=== PATIENT | male | born 1950 | race Caucasian/White ===

== ENCOUNTER 2020-08-03 06:30 | Outpatient (REF) | payer MEDICARE, SELFPAY ==
[2020-08-03 11:12] LABS: MANUAL DIFF FLAG NO
[2020-08-03 11:23] LABS: Basophils Absolute Auto 0.1 X10*3/uL (0.0-0.2); Basophils Percent Auto 0.9 % (0-2); Eosinophils Absolute Auto 0.4 X10*3/uL (0.0-0.4); Hematocrit 44.4 % (42-52); Hemoglobin 15.4 g/dl (14.0-18.0); Imm Gran Abs Auto 0.02 X10*3/uL (0.00-0.03); Imm Gran Pct Auto 0.4 % (0.0-0.4); Lymphocytes Absolute Auto 1.3 X10*3/uL (1.2-4.9); Lymphocytes Percent Auto 24.2 % (20-40); Mean Corpuscular HGB Conc 34.7 g/dl (31.0-36.0); Mean Corpuscular Hemoglobin 33.7 pg (27.0-33.0); Mean Corpuscular Volume 97.2 fL (80-98); Mean Platelet Volume 9.7 fL (9.4-12.4); Monocytes Absolute Auto 0.5 X10*3/uL (0.1-1.2); Monocytes Percent Auto 8.7 % (2-11); Neutrophils Absolute Auto 3.1 X10*3/uL (2.0-8.3); Neutrophils Percent Auto 57.8 % (45-73); Platelet Count 196 X10*3/uL (160-400); Red Blood Count 4.57 X10*6/uL (4.60-5.80); Red Cell Distribution Width 11.8 % (11.0-16.0); White Blood Count 5.3 X10*3/uL (4.8-10.8)
[2020-08-03 11:48] LABS: Alanine Aminotransferase 27 U/L (0-40); Albumin Level 4.2 g/dL (3.5-5.0); Alkaline Phosphatase 55 U/L (39-117); Anion Gap 15 (12-20); Aspartate Amino Transferase 19 U/L (5-37); Bilirubin Total 0.8 mg/dL (0.0-1.0); Blood Urea Nitrogen 23 mg/dL (9-16); Calcium 8.9 mg/dL (8.4-10.2); Carbon Dioxide 25 mmol/L (22-29); Chloride 101 mmol/L (96-108); Cholesterol 171 mg/dL; Estimated Glomerular Filt Rate 47; Glucose Fasting 89 mg/dL (60-99); HDL Cholesterol 58 mg/dL; LDL Cholesterol Calculated 101 mg/dl; Sodium 137 mmol/L (135-145); Total Protein 7.2 g/dL (6.5-8.0); Triglycerides 64 mg/dL
[2020-08-03 11:49] LABS: Creatinine Urine 84.74 mg/dL; Total Protein Urine Random < 7 mg/dL (<12)
[2020-08-03 11:57] LABS: T4 Thyroxine 8.7 ug/dL (4.5-12.0); Thyroid Stimulating Hormone 1.26 uIU/mL (0.32-4.0); Vitamin D 25-OH Total 42.7 ng/mL (>30)
[2020-08-03 12:42] LABS: Vitamin B12 671 pg/mL (200-900)
== END 2020-08-03 06:31 | disposition home or self-care (01) ==
LOC: HO.HMGCLDS 06:30
PROVIDERS: PCP Internal Medicine; Visit Provider Internal Medicine Hypertension Specialist
DX: I12.9 Hypertensive chronic kidney disease with stage 1 through stage 4 chronic kidney disease, or unspecified chronic kidney disease (principal); N18.30 Chronic kidney disease, stage 3 unspecified; E78.00 Pure hypercholesterolemia, unspecified; N40.0 Benign prostatic hyperplasia without lower urinary tract symptoms; J45.909 Unspecified asthma, uncomplicated
CPT/HCPCS: 36415; 80053; 80061; 82306; 82607; 82746; 84156; 84436; 84443; 85025

== ENCOUNTER 2020-11-17 06:20 | Outpatient (REF) | payer MEDICARE, SELFPAY ==
[2020-11-17 12:05] LABS: Alanine Aminotransferase 23 U/L (0-40); Albumin Level 4.2 g/dL (3.5-5.0); Alkaline Phosphatase 63 U/L (39-117); Anion Gap 12 (12-20); Aspartate Amino Transferase 17 U/L (5-37); Bilirubin Total 0.6 mg/dL (0.0-1.0); Blood Urea Nitrogen 24 mg/dL (9-16); Carbon Dioxide 27 mmol/L (22-29); Chloride 107 mmol/L (96-108); Cholesterol 166 mg/dL; Estimated Glomerular Filt Rate 51; Glucose Random 88 mg/dL (60-115); HDL Cholesterol 57 mg/dL; LDL Cholesterol Calculated 94 mg/dl; Potassium 4.1 mmol/L (3.3-5.1); Sodium 142 mmol/L (135-145); Triglycerides 75 mg/dL
== END 2020-11-17 06:21 | disposition home or self-care (01) ==
LOC: HO.HMGCLDS 06:20
PROVIDERS: PCP Internal Medicine; Visit Provider Internal Medicine
DX: E78.00 Pure hypercholesterolemia, unspecified (principal)
CPT/HCPCS: 36415; 80053; 80061

== ENCOUNTER 2021-04-05 06:03 | Outpatient (REF) | payer MEDICARE, SELFPAY ==
[2021-04-05 11:04] LABS: MANUAL DIFF FLAG NO
[2021-04-05 11:21] LABS: Basophils Absolute Auto 0.1 X10*3/uL (0.0-0.2); Basophils Percent Auto 0.8 % (0-2); Eosinophils Absolute Auto 0.3 X10*3/uL (0.0-0.4); Eosinophils Percent Auto 4.4 % (0-4); Hematocrit 42.9 % (42-52); Hemoglobin 14.9 g/dl (14.0-18.0); Imm Gran Abs Auto 0.02 X10*3/uL (0.00-0.03); Imm Gran Pct Auto 0.3 % (0.0-0.4); Lymphocytes Absolute Auto 1.7 X10*3/uL (1.2-4.9); Mean Corpuscular HGB Conc 34.7 g/dl (31.0-36.0); Mean Corpuscular Hemoglobin 34.5 pg (27.0-33.0); Mean Corpuscular Volume 99.3 fL (80-98); Mean Platelet Volume 9.7 fL (9.4-12.4); Monocytes Absolute Auto 0.7 X10*3/uL (0.1-1.2); Monocytes Percent Auto 10.2 % (2-11); Neutrophils Absolute Auto 3.9 X10*3/uL (2.0-8.3); Neutrophils Percent Auto 59.3 % (45-73); Platelet Count 194 X10*3/uL (160-400); Red Blood Count 4.32 X10*6/uL (4.60-5.80); Red Cell Distribution Width 12.4 % (11.0-16.0); White Blood Count 6.6 X10*3/uL (4.8-10.8)
[2021-04-05 11:38] LABS: Creatinine Urine 69.28 mg/dL; Total Protein Urine Random < 7 mg/dL (<12)
[2021-04-05 11:43] LABS: Albumin Level 4.1 g/dL (3.5-5.0); Anion Gap 12 (12-20); Blood Urea Nitrogen 15 mg/dL (9-16); Calcium 9.4 mg/dL (8.4-10.2); Carbon Dioxide 29 mmol/L (22-29); Chloride 108 mmol/L (96-108); Estimated Glomerular Filt Rate 49; Magnesium 1.9 mg/dL (1.6-2.6); Phosphorus 3.4 mg/dL (2.7-4.5); Potassium 4.9 mmol/L (3.3-5.1); Sodium 144 mmol/L (135-145)
[2021-04-06 13:31] LABS: Calcium (PTHI) 9.4 mg/dL (8.6-10.3); PTHI 44 pg/mL (14-64)
== END 2021-04-05 06:04 | disposition home or self-care (01) ==
LOC: HO.HMGCLDS 06:03
PROVIDERS: PCP Internal Medicine; Visit Provider Internal Medicine Hypertension Specialist
DX: N18.30 Chronic kidney disease, stage 3 unspecified (principal)
CPT/HCPCS: 36415; 80051; 82040; 82310; 82565; 83735; 83970; 84100; 84156; 84520; 85025

== ENCOUNTER 2021-08-02 06:28 | Outpatient (REF) | payer MEDICARE, SELFPAY ==
[2021-08-02 11:27] LABS: MANUAL DIFF FLAG NO
[2021-08-02 11:37] LABS: Basophils Absolute Auto 0.1 X10*3/uL (0.0-0.2); Basophils Percent Auto 0.8 % (0-2); Eosinophils Absolute Auto 0.5 X10*3/uL (0.0-0.4); Eosinophils Percent Auto 8.1 % (0-4); Hematocrit 43.2 % (42.0-52.0); Imm Gran Abs Auto 0.01 X10*3/uL (0.00-0.03); Imm Gran Pct Auto 0.2 % (0.0-0.4); Lymphocytes Absolute Auto 1.9 X10*3/uL (1.2-4.9); Lymphocytes Percent Auto 29.9 % (20-40); Mean Corpuscular HGB Conc 34.7 g/dl (31.0-36.0); Mean Corpuscular Hemoglobin 33.9 pg (27.0-33.0); Mean Corpuscular Volume 97.7 fL (80.0-98.0); Mean Platelet Volume 9.8 fL (9.4-12.4); Monocytes Absolute Auto 0.6 X10*3/uL (0.1-1.2); Monocytes Percent Auto 9.5 % (2-11); Neutrophils Absolute Auto 3.3 x10*3/uL (2.0-8.3); Neutrophils Percent Auto 51.5 % (45-73); Platelet Count 182 X10*3/uL (160-400); Red Blood Count 4.42 X10*6/uL (4.60-5.80); White Blood Count 6.5 X10*3/uL (4.8-10.8)
[2021-08-02 12:04] LABS: Alanine Aminotransferase 23 U/L (0-40); Albumin Level 4.1 g/dL (3.5-5.0); Alkaline Phosphatase 61 U/L (39-117); Anion Gap 15 (12-20); Aspartate Amino Transferase 19 U/L (5-37); Bilirubin Total 0.9 mg/dL (0.0-1.0); Blood Urea Nitrogen 17 mg/dL (9-16); Calcium 9.5 mg/dL (8.4-10.2); Carbon Dioxide 26 mmol/L (22-29); Chloride 103 mmol/L (96-108); Cholesterol 174 mg/dL; Estimated Glomerular Filt Rate 54; Glucose Random 89 mg/dL (60-115); HDL Cholesterol 60 mg/dL; LDL Cholesterol Calculated 99 mg/dl; Potassium 4.3 mmol/L (3.3-5.1); Sodium 140 mmol/L (135-145); Total Protein 6.9 g/dL (6.5-8.0); Triglycerides 75 mg/dL
[2021-08-02 12:06] LABS: Free T4 (Free Thyroxine) 1.22 ng/dL (0.71-1.85); Thyroid Stimulating Hormone 1.56 uIU/mL (0.32-4.0)
[2021-08-02 12:19] LABS: Folate 16.6 ng/mL (> or = 4.0); Vitamin B12 630 pg/mL (200-900)
== END 2021-08-02 06:29 | disposition home or self-care (01) ==
LOC: HO.HMGCLDS 06:28
PROVIDERS: PCP Internal Medicine; Visit Provider Internal Medicine
DX: E78.00 Pure hypercholesterolemia, unspecified (principal)
CPT/HCPCS: 36415; 80053; 80061; 82607; 82746; 84439; 84443; 85025

== ENCOUNTER 2021-10-12 09:01 | Outpatient (REF) | payer MEDICARE, SELFPAY ==
[2021-10-12 12:06] LABS: Anion Gap 11 (12-20); Blood Urea Nitrogen 16 mg/dL (9-16); Calcium 9.5 mg/dL (8.4-10.2); Carbon Dioxide 28 mmol/L (22-29); Chloride 103 mmol/L (96-108); Estimated Glomerular Filt Rate 51; Potassium 4.2 mmol/L (3.3-5.1); Sodium 138 mmol/L (135-145)
== END 2021-10-12 09:02 | disposition home or self-care (01) ==
LOC: HO.HMGCLDS 09:01
PROVIDERS: PCP Internal Medicine; Visit Provider Internal Medicine Hypertension Specialist
DX: I12.9 Hypertensive chronic kidney disease with stage 1 through stage 4 chronic kidney disease, or unspecified chronic kidney disease (principal); N18.9 Chronic kidney disease, unspecified
CPT/HCPCS: 36415; 80051; 82310; 82565; 84520

== ENCOUNTER 2021-11-29 07:21 | Day surgery (SDC) | payer MEDICARE, SELFPAY ==
[2021-11-24 15:10] VITALS: BMI 32.1
--- NOTE | 2021-11-25 13:19 | HO.ANESPROP2 ---
Documented by User: Asha Dias NP 11/25/21 13:22 HPI - Anesthesia Eval Consult details Narrative: 71yo M for Colonoscopy PMFSH Active Problems Active Problems: All Active Problems (Updated 11/24/21 @ 15:10 by Riya Moser RN) Facial skin lesion (Acute) Impacted cerumen of right ear (Acute) Initial Medicare annual wellness visit (Acute) Atherosclerosis (Acute) Chronic kidney disease (Acute) BPH (benign prostatic hyperplasia) (Acute) Obesity (BMI 30-39.9) (Acute) Asthma (Acute) Hypercholesterolemia (Acute) Hypertension (Acute) Past Medical History Medical History (Updated 11/24/21 @ 15:10 by Riya Moser RN) Asthma Atherosclerosis Avascular necrosis of bone of left hip BPH (benign prostatic hyperplasia) Chronic kidney disease COVID-19 vaccine series completed History of asbestos exposure History of renal calculi Hypercholesterolemia Hypertension Insomnia Obesity (BMI 30-39.9) Peripheral vascular disease Family History Family History Father Hypertension Chronic mental illness Mother Hypertension Gastric cancer Asthma Surgical History Surgical History (Updated 11/24/21 @ 15:10 by Riya Moser RN) H/O colonoscopy History of left hip replacement Social History Social History Housing: House Alcohol intake: current Alcohol intake frequency: holidays/special occasions only Patient Tobacco Use Status: Former Tobacco user Tobacco use type: Cigarette Second Hand Smoke Exposure: No Advance Directives: Yes (HCP) Advance Directives Information Provided: Yes Advance Directives on File: Yes Advance Directives Date on File: 08/03/20 service: No Current occupational status: retired Meds Allergies Allergy/AdvReac Type Severity Reaction Status Date / Time lisinopril Allergy Unknown Unknown Verified 11/24/21 15:13 atorvastatin [Lipitor] AdvReac Unknown Unknown Verified 11/24/21 15:13 DUST Allergy Intermediate ASTHMA- Uncoded 11/24/21 15:12 COUGH Home Medications Medication Instructions Recorded Confirmed Last Taken Type albuterol sulfate 90 mcg/actuation 2 puff INHALATION Q4-6H PRN 08/14/20 11/24/21 Unknown History aerosol inhaler (ProAir HFA) cholecalciferol (vitamin D3) 25 25 mcg PO DAILY 08/14/20 11/24/21 Unknown History mcg (1,000 unit) capsule docusate sodium 100 mg capsule 100 mg PO BID 08/14/20 11/24/21 Unknown History (Colace) mometasone 50 mcg/actuation nasal 2 spray INTRANASAL DAILY 08/14/20 11/24/21 Unknown History spray (Nasonex) vnydubhn-kom-fkakn acid 300 1 tab PO DAILY 08/14/20 11/24/21 Unknown History mcg-lycopene 600 mcg-lutein 300 mcg tablet (Centrum Silver Ultra Men's) Exam Exam Date and Time: November 25, 2021 1319 Height,Weight and Vital Signs: Height 5 ft 8 in Weight 95.708 kg Pertinent Lab Results Pertinent Lab Results: Laboratory Tests 08/02/21 10/12/21 06:35 09:32 WBC 6.5 Hgb 15.0 Hct 43.2 Plt Count 182 Sodium 138 Potassium 4.2 Chloride 103 Carbon Dioxide 28 BUN 16 Creatinine 1.38 Assessment and Plan Assessment Anesthesia Assessment: Chart Reviewed Documented by User: Dunia Aldrich MD 11/29/21 07:54 [facility] Past Medical History Medical History (Updated 11/24/21 @ 15:10 by Riya Moser RN) Asthma Atherosclerosis Avascular necrosis of bone of left hip BPH (benign prostatic hyperplasia) Chronic kidney disease COVID-19 vaccine series completed History of asbestos exposure History of renal calculi Hypercholesterolemia Hypertension Insomnia Obesity (BMI 30-39.9) Peripheral vascular disease Family History Family History Father Hypertension Chronic mental illness Mother Hypertension Gastric cancer Asthma Family history of problems with anesthesia: No Surgical History Surgical History (Updated 11/24/21 @ 15:10 by Riya Moser RN) H/O colonoscopy History of left hip replacement History of Problems with Anesthesia: No Social History Social History Housing: House Alcohol intake: current Alcohol intake frequency: holidays/special occasions only Patient Tobacco Use Status: Former Tobacco user Tobacco use type: Cigarette Second Hand Smoke Exposure: No Advance Directives: Yes (HCP) Advance Directives Information Provided: Yes Advance Directives on File: Yes Advance Directives Date on File: 08/03/20 service: No Current occupational status: retired Meds Allergies Allergy/AdvReac Type Severity Reaction Status Date / Time lisinopril Allergy Unknown Unknown Verified 11/24/21 15:13 atorvastatin [Lipitor] AdvReac Unknown Unknown Verified 11/24/21 15:13 DUST Allergy Intermediate ASTHMA- Uncoded 11/24/21 15:12 COUGH Home Medications Medication Instructions Recorded Confirmed Last Taken Type albuterol sulfate 90 mcg/actuation 2 puff INHALATION Q4-6H PRN 08/14/20 11/24/21 Unknown History aerosol inhaler (ProAir HFA) cholecalciferol (vitamin D3) 25 25 mcg PO DAILY 08/14/20 11/24/21 Unknown History mcg (1,000 unit) capsule docusate sodium 100 mg capsule 100 mg PO BID 08/14/20 11/24/21 Unknown History (Colace) mometasone 50 mcg/actuation nasal 2 spray INTRANASAL DAILY 08/14/20 11/24/21 Unknown History spray (Nasonex) bwerrzvj-sqn-ugxbi acid 300 1 tab PO DAILY 08/14/20 11/24/21 Unknown History mcg-lycopene 600 mcg-lutein 300 mcg tablet (Centrum Silver Ultra Men's) Exam Airway Mallampati Class: II TM Dist: >3cm Neck ROM: Full Heart: rrr Lungs: cta Assessment and Plan Assessment Anesthesia Assessment: Anesthesia Plan Discussed and Chart Reviewed Final Anesthetic Review Family History of Problems with Anesthesia: No History of Problems with Anesthesia: No NPO: Yes ASA Class: III Final Preanesthetic Review: No Changes in Pt Med Stat, Meds/Allgs Chart Reviewed and Consent Obtained/Reviewed Patient Risk: Intermediate Procedure Risk: Intermediate Anesthetic Plan Anesthetic Plan: MAC: Disposition: Standard PACU
--- NOTE | 2021-11-29 07:26 | MHC.SHP ---
Pre-Procedural Eval Section A Date of Service: 11/29/21 The patient is an INPATIENT: No The History & Physical has been completed within 30 days and I have reviewed it.: No Section B Chief Complaint: Screening Relevant Family History (Specify if Yes): Yes Relevant Social History: Tobacco Use (Former smoker) Present Medications: see Short Stay Collaborative assessment Medical History: Significant History (Asthma Atherosclerosis Avascular necrosis of bone of left hip BPH (benign prostatic hyperplasia) Chronic kidney disease History of asbestos exposure History of renal calculi Hypercholesterolemia Hypertension Insomnia Obesity (BMI 30-39.9) Peripheral vascular disease) History of Previous Operations: Relevant previous surgery/procedure and date(s) (History of left hip replacement) Allergies: Allergies Allergy/AdvReac Type Severity Reaction Status Date / Time lisinopril Allergy Unknown Unknown Verified 11/24/21 15:13 atorvastatin [Lipitor] AdvReac Unknown Unknown Verified 11/24/21 15:13 DUST Allergy Intermediate ASTHMA- Uncoded 11/24/21 15:12 COUGH Review of Systems Sugical H&P ROS: Negative: Constitution, Cardiovascular, Respiratory and Gastrointestinal Exam Surgical H&P Exam: Normal: Heart, Normal: Lungs, Normal: Extremities and Normal: Abdomen Plan Diagnosis/Plan: Unchanged I have reviewed the history and physical and performed a pertinent physical examination on my patient. No changes have occurred unless specified.
[2021-11-29 07:42] VITALS: BP 167/82; PULSE 98; RESP 20; TEMP 37.1; O2SAT 95
[2021-11-29] MEDS: Lactated Ringers 1,000 ML 100 ML IVCONT (08:12)
--- NOTE | 2021-11-29 08:15 | P.BOP_ITS ---
Brief Operative Note Date of Service: 11/29/21 Pre-op diagnosis: Colon cancer screening Post-op diagnosis: other (Colon polyps, diverticulosis, hemorrhoids) Procedure: COLONOSCOPY TILL CECUM WITH SNARE POLYPECTOMY AND CONTROL OF BLEEDING Consent: Indications for the procedure and potential complications of bleeding, perforation, reaction to medications and missed diagnosis were discussed with the patient and informed consent was obtained. Instrument: Olympus PCF H 190 L variable stiffness pediatric colonoscope Monitoring: Vital signs and clinical assessment, intermittent blood pressure monitoring, continuous EKG monitoring, Pulse oximetry and Carbon Dioxide monitoring were done throughout the procedure. Colon withdrawl time was 21 minutes. Procedure: The patient was placed in the left lateral decubitis position and pre-procedure medications were administered. After a digital rectal examination of the ano-rectum, the video colonoscope was inserted into the rectum and advanced through the colon to the cecum. The colonoscope was slowly withdrawn in a retrograde panoramic fashion and the colon mucosa was carefully examined including a retroflexed view of the rectum. Findings and interventions are described below. Procedure Difficulty: Colon was long and tortuous and there was some loop formation. Patient was placed in the supine position and LLQ pressure was applied to intubate the ascending colon/cecum Findings: Terminal Ileum: Not evaluated Cecum: A 12-15 mm sessile polyp, removed with a hot snare. A 7-8 mm sessile polyp removed with the cold snare Ascending Colon: Normal Transverse Colon: Normal Descending Colon: Moderate diverticulosis Sigmoid Colon: Moderate diverticulosis Rectum: A 10-12 mm sessile polyp removed with the cold snare. Some bleeding noted from polypectomy site controlled with cautery using the snare tip. 7-8 mm sessile polyp removed with the cold snare Ano-rectum: Moderate internal hemorrhoids and hypertrophied anal papilla Colon preparation: Excellent Impression and Post Procedure Diagnosis: Colonoscopy Findings: Four small to medium sized polyps removed Moderate diverticulosis seen in the left colon Moderate hemorrhoids on retroflexed exam. Plan: Await pathology results Patient has an appointment on 12/08/21 in the GI Clinic with Dr Polanco. Repeat Colonoscopy interval based on path results - in 3-5 years if polyps are adenomatous and 10 years if polyps are hyperplastic. Above findings were reviewed with the patient and colon polyps and diverticulosis handouts were given in the discharge area Surgeon: Latanya Rahman MD Anesthesia: MAC (China Londono CRNA) Was an Promotions Firm Accounts Manager used for this Procedure?: Yes Promotions Firm Accounts Manager: Esteban Lawrence Estimated blood loss (mL): 0 Pathology: other (A- POLYPS CECUM B- RECTAL POLYPS) Condition: stable Disposition: PACU
--- NOTE | 2021-11-29 09:19 | W.PM.OPN ---
Operative Note Operative Note Date of Service: 11/29/21 Narrative: Pre-op diagnosis: Colon cancer screening Post-op diagnosis:?other (Colon polyps, diverticulosis, hemorrhoids) Procedure: COLONOSCOPY TILL CECUM WITH SNARE POLYPECTOMY AND CONTROL OF BLEEDING Consent: Indications for the procedure and potential complications of bleeding, perforation, reaction to medications and missed diagnosis were discussed with the patient and informed consent was obtained. Instrument: Olympus PCF H 190 L variable stiffness pediatric colonoscope Monitoring: Vital signs and clinical assessment, intermittent blood pressure monitoring, continuous EKG monitoring, Pulse oximetry and Carbon Dioxide monitoring were done throughout the procedure. Colon withdrawl time was 21 minutes. Procedure: The patient was placed in the left lateral decubitis position and pre-procedure medications were administered. After a digital rectal examination of the ano-rectum, the video colonoscope was inserted into the rectum and advanced through the colon to the cecum. The colonoscope was slowly withdrawn in a retrograde panoramic fashion and the colon mucosa was carefully examined including a retroflexed view of the rectum. Findings and interventions are described below. Procedure Difficulty:? Colon was long and tortuous and there was some loop formation. Patient was placed in the supine position and LLQ pressure was applied to intubate the ascending colon/cecum Findings: Terminal Ileum: Not evaluated Cecum:? A 12-15 mm sessile polyp, removed with a hot snare. A 7-8 mm sessile polyp removed with the cold snare Ascending Colon:? Normal Transverse Colon:? Normal Descending Colon:? Moderate diverticulosis Sigmoid Colon:? Moderate diverticulosis Rectum:? A 10-12 mm sessile polyp removed with the cold snare.? Some bleeding noted from polypectomy site controlled with cautery using the snare tip.? 7-8 mm sessile polyp removed with the cold snare Ano-rectum:? Moderate internal hemorrhoids and hypertrophied anal papilla Colon preparation: Excellent ? Impression and Post Procedure Diagnosis: Colonoscopy Findings: Four small to medium sized polyps removed Moderate diverticulosis seen in the left colon Moderate hemorrhoids on retroflexed exam. Plan: Letter will be sent to the patient with pathology results Patient has an appointment on 12/08/21 in the GI Clinic with Dr Polanco. Repeat Colonoscopy interval based on path results - in 3-5 years if polyps are adenomatous and 10 years if polyps are hyperplastic. Above findings were reviewed with the patient and colon polyps and diverticulosis handouts were given in the discharge area Surgeon: Latanya Rahman MD Anesthesia:?MAC (China Londono CRNA) Was an Bench Worker Hollow Handle used for this Procedure?:?Yes Bench Worker Hollow Handle:?Esteban Lawrence Estimated blood loss (mL):?0 Pathology:?other (A- POLYPS CECUM? B- RECTAL POLYPS) Condition:?stable Disposition:?PACU
[2021-11-29 09:25] VITALS: BP 98/64; PULSE 78; RESP 20; TEMP 36.6; O2SAT 97
[2021-11-29 09:40] VITALS: BP 99/45; PULSE 80; RESP 18; O2SAT 98
[2021-11-29 09:55] VITALS: BP 113/61; PULSE 76; RESP 18; TEMP 36.6; O2SAT 96
== END 2021-11-29 10:39 | disposition home or self-care (01) ==
PROVIDERS: PCP Internal Medicine; Visit Provider Internal Medicine Gastroenterology
PROC: 0DJD8ZZ Inspection of Lower Intestinal Tract, Via Natural or Artificial Opening Endoscopic (ICD-10-PCS; CPT 45378; principal; 2021-11-29 08:30)
DX: Z12.11 Encounter for screening for malignant neoplasm of colon (principal); D12.0 Benign neoplasm of cecum; K62.1 Rectal polyp; K57.30 Diverticulosis of large intestine without perforation or abscess without bleeding; K64.8 Other hemorrhoids; E78.5 Hyperlipidemia, unspecified; J45.909 Unspecified asthma, uncomplicated; I12.9 Hypertensive chronic kidney disease with stage 1 through stage 4 chronic kidney disease, or unspecified chronic kidney disease; N18.30 Chronic kidney disease, stage 3 unspecified; Z87.891 Personal history of nicotine dependence; E66.9 Obesity, unspecified; Z68.32 Body mass index [BMI] 32.0-32.9, adult; Z79.899 Other long term (current) drug therapy; Z88.8 Allergy status to other drugs, medicaments and biological substances
CPT/HCPCS: 45385; 88305; J2370

== ENCOUNTER 2021-12-01 06:12 | Outpatient (REF) | payer MEDICARE, SELFPAY ==
[2021-12-01 11:42] LABS: Baso%MD 0.7 %; Eos%MD 7.6 %; Hematocrit 40.1 % (42.0-52.0); Hemoglobin 14.1 g/dl (14.0-18.0); IG%MD 0.3 %; Lymph%MD 30.6 %; Mean Corpuscular HGB Conc 35.2 g/dl (31.0-36.0); Mean Corpuscular Hemoglobin 33.8 pg (27.0-33.0); Mean Corpuscular Volume 96.2 fL (80.0-98.0); Mean Platelet Volume 10.6 fL (9.4-12.4); Mono%MD 11.9 %; Neut%MD 48.9 %; Platelet Count 180 X10*3/uL (160-400); Red Blood Count 4.17 X10*6/uL (4.60-5.80); Red Cell Distribution Width 12.2 % (11.0-16.0); White Blood Count 5.8 X10*3/uL (4.8-10.8)
[2021-12-01 12:05] LABS: Alanine Aminotransferase 24 U/L (0-40); Alkaline Phosphatase 59 U/L (39-117); Anion Gap 14 (12-20); Aspartate Amino Transferase 21 U/L (5-37); Blood Urea Nitrogen 13 mg/dL (9-16); Calcium 9.3 mg/dL (8.4-10.2); Carbon Dioxide 25 mmol/L (22-29); Chloride 102 mmol/L (96-108); Estimated Glomerular Filt Rate 55; Glucose Fasting 97 mg/dL (60-99); Potassium 3.9 mmol/L (3.3-5.1); Sodium 137 mmol/L (135-145); Total Protein 6.6 g/dL (6.5-8.0)
[2021-12-01 12:18] LABS: Band Neutrophils Percent 2 % (3-5); Eosinophils Absolute Manual 0.5 X10*3/uL (0.0-0.4); Eosinophils Percent Manual 9 % (0-4); Lymphocytes Absolute Manual 1.7 X10*3/uL (1.2-4.9); Lymphocytes Percent Manual 29 % (20-40); Monocytes Absolute Manual 0.2 X10*3/uL (0.1-1.2); Monocytes Percent Manual 4 % (2-11); Neutrophils Absolute Manual 3.4 X10*3/uL (2.0-8.3); Neutrophils Percent Manual 56 % (45-73); Platelet Estimate NORMAL (NORMAL); Platelet Morphology Comment NORMAL; RBC Morphology NORMAL
== END 2021-12-01 06:13 | disposition home or self-care (01) ==
LOC: HO.HMGCLDS 06:12
PROVIDERS: Visit Provider Nurse Practitioner Acute Care
DX: I10 Essential (primary) hypertension (principal); E78.00 Pure hypercholesterolemia, unspecified
CPT/HCPCS: 36415; 80053; 85007; 85027

== ENCOUNTER 2022-02-14 14:42 | Outpatient (REF) | payer MEDICARE, SELFPAY ==
[2022-02-14 16:21] LABS: MANUAL DIFF FLAG NO
[2022-02-14 16:27] LABS: Basophils Absolute Auto 0.1 X10*3/uL (0.0-0.2); Basophils Percent Auto 0.9 % (0-2); Eosinophils Absolute Auto 0.1 X10*3/uL (0.0-0.4); Eosinophils Percent Auto 1.9 % (0-4); Hematocrit 41.8 % (42.0-52.0); Hemoglobin 14.8 g/dl (14.0-18.0); Imm Gran Abs Auto 0.02 X10*3/uL (0.00-0.03); Imm Gran Pct Auto 0.3 % (0.0-0.4); Lymphocytes Absolute Auto 1.3 X10*3/uL (1.2-4.9); Lymphocytes Percent Auto 22.7 % (20-40); Mean Corpuscular HGB Conc 35.4 g/dl (31.0-36.0); Mean Corpuscular Hemoglobin 34.4 pg (27.0-33.0); Mean Corpuscular Volume 97.2 fL (80.0-98.0); Mean Platelet Volume 9.7 fL (9.4-12.4); Monocytes Absolute Auto 0.5 X10*3/uL (0.1-1.2); Monocytes Percent Auto 8.5 % (2-11); Neutrophils Absolute Auto 3.9 x10*3/uL (2.0-8.3); Neutrophils Percent Auto 65.7 % (45-73); Platelet Count 196 X10*3/uL (160-400); Red Cell Distribution Width 12.4 % (11.0-16.0); White Blood Count 5.9 X10*3/uL (4.8-10.8)
[2022-02-14 16:44] LABS: Alanine Aminotransferase 22 U/L (0-40); Albumin Level 4.3 g/dL (3.5-5.0); Alkaline Phosphatase 56 U/L (39-117); Anion Gap 15 (12-20); Aspartate Amino Transferase 19 U/L (5-37); Bilirubin Total 0.7 mg/dL (0.0-1.0); Blood Urea Nitrogen 18 mg/dL (9-16); Calcium 9.4 mg/dL (8.4-10.2); Carbon Dioxide 23 mmol/L (22-29); Chloride 104 mmol/L (96-108); Cholesterol 152 mg/dL; Estimated Glomerular Filt Rate 51; Glucose Random 96 mg/dL (60-115); HDL Cholesterol 57 mg/dL; LDL Cholesterol Calculated 84 mg/dl; Potassium 4.5 mmol/L (3.3-5.1); Sodium 137 mmol/L (135-145); Total Protein 7.3 g/dL (6.5-8.0); Triglycerides 59 mg/dL
[2022-02-14 17:04] LABS: Thyroid Stimulating Hormone 1.07 uIU/mL (0.32-4.0)
== END 2022-02-14 14:43 | disposition home or self-care (01) ==
LOC: HO.HMGCLDS 14:42
PROVIDERS: PCP Internal Medicine; Visit Provider Internal Medicine
DX: E78.00 Pure hypercholesterolemia, unspecified (principal)
CPT/HCPCS: 36415; 80053; 80061; 84443; 85025

== ENCOUNTER 2022-04-08 13:00 | Outpatient (RCR) | payer MEDICARE, SELFPAY ==
--- NOTE | 2022-04-04 16:40 | MHC.PT.EP ---
[facility] [place] Office [place] Office [place] Office [address] Blayne Chavez [address] [phone] F: [phone] F: [phone] F: [phone] F: [phone] Physical Therapy Plan of Care Date of Evaluation: Date of Surgery: NA Diagnosis: DIZZINESS, GIDDINESS Assessment: Pt IS 71 YO M REFERRED TO PT FROM DR LANDAVERDE WITH DIZZINESS. PRESENTS WITH +BPPV FOR POST CANAL AND HORIZONTAL CANAL. UNDERWENT TREATMENT (JOHNATHAN PT) WITH CELI MANEUVER AND CERV ROTATION R WITH +RESULTS. UNABLE TO ASSESS/ADDRESS L SIDE DUE TO TIME CONSTRAINTS (Pt TO RETURN DAY AFTER TOMORROW FOR FURTHER EVALUATION/RX NEEDED. Frequency and Duration: The patient will be seen 3-5 SESSIONS Short Term Goals: 1. DECREASED DIZZINESS REPORTED 2. INCREASED POSTURE AWARNESS AND AWARENESS OF PREVENTATIVE TCHNIQUES 3. 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 Manual therapy to restore motion and function. Therapeutic exercise to improve strength and flexibility. Neuromuscular re-education for posture and balance. Therapeutic activities to return to functional activities of daily living. Electronically signed by: VISHNU LUNA PT Please sign and return to therapist. Thank you for your referral.
--- NOTE | 2022-05-17 16:04 | MHC.PT.DC ---
[facility] [place] Office [place] Office [place] Office [address] Ale[address] Chavez [address] [phone] F: [phone] F: [phone] F: [phone] F: [phone] Physical Therapy Discharge Report Diagnosis: DIZZINESS, GIDDINESS Date of Surgery: NA Date of Evaluation: 04/04/22 Date of Discharge: 05/17/22 Treatments to Date: 3 Cancellations to Date: No Shows to Date: Discharge Status: Improved Function Patient Elected to Stop Discharge Summary: PER ASSESSMENT LAST SESSION BY JOHNATHAN JORGENSEN PT, DPT Britton arrived stating he feels good. He has had no dizziness since the last visit. He was re-assessed in B benz pikes and B roll test. He was negative for nystagmus and vertigo. Balance was assessed. He presented with impaired static balance. 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 Impaired static balance could be secondary to ankle and foot pain. Pt recommended to trial PT for B LE strength and balance however pt requested to trial some strengthening exercises by self at home. He stated that he a full gym set up and treadmill set up in his house. He also requested some additional HEP for LE strengthening at home. He was given the same as HEP. Britton will only return to PT in case of return of symptoms. ' HAS BEEN >30 DAYS SINCE LAST SESSION. WILL DC AT THIS TIME Electronically signed by: VISHNU LUNA PT Please sign and return to therapist. Thank you for your referral.
== END 2022-05-17 16:05 | disposition home or self-care (01) ==
LOC: HO.PT 13:00
PROVIDERS: PCP Internal Medicine; Visit Provider Internal Medicine
DX: R42 Dizziness and giddiness (principal)
CPT/HCPCS: 95992; 97112; 97162; 97535

== ENCOUNTER 2022-05-18 06:52 | Outpatient (REF) | payer MEDICARE, SELFPAY ==
[2022-05-18 12:04] LABS: Anion Gap 14 (12-20); Blood Urea Nitrogen 16 mg/dL (9-16); Calcium 9.2 mg/dL (8.4-10.2); Carbon Dioxide 27 mmol/L (22-29); Chloride 106 mmol/L (96-108); Estimated Glomerular Filt Rate 55; Glucose Random 94 mg/dL (60-115); Potassium 3.9 mmol/L (3.3-5.1); Sodium 143 mmol/L (135-145)
[2022-05-18 12:12] LABS: Creatinine Urine 60.48 mg/dL; Total Protein Urine Random < 7 mg/dL (<12)
== END 2022-05-18 06:53 | disposition home or self-care (01) ==
LOC: HO.HMGCLDS 06:52
PROVIDERS: PCP Internal Medicine; Visit Provider Internal Medicine Hypertension Specialist
DX: I12.9 Hypertensive chronic kidney disease with stage 1 through stage 4 chronic kidney disease, or unspecified chronic kidney disease (principal)
CPT/HCPCS: 36415; 80048; 84156

== ENCOUNTER 2022-08-01 13:07 | Outpatient (REF) | payer MEDICARE, SELFPAY ==
--- NOTE | ~2022-08-01 | XR_ITS ---
EXAMINATION: XR CHEST CLINICAL INFORMATION: Mild intermittent asthma with acute exacerbation COMPARISON: Chest 10/14/2015 TECHNIQUE: 2 views of the chest were obtained. FINDINGS: The lungs are hypoexpanded with elevated bilateral hemidiaphragms. There is bibasilar atelectasis or scarring. Heart size and progress clarities normal. No gross bony abnormality seen. XR/XR chest 2V IMPRESSION: Hypoexpanded lungs with bibasilar atelectasis or scarring and elevated bilateral hemidiaphragms.
== END 2022-08-01 13:08 | disposition home or self-care (01) ==
LOC: HO.XRAY 13:07
PROVIDERS: PCP Internal Medicine; Visit Provider Internal Medicine
DX: J45.21 Mild intermittent asthma with (acute) exacerbation (principal)
CPT/HCPCS: 71046

== ENCOUNTER 2022-08-05 05:16 | Inpatient (IN) | payer MEDICARE, SELFPAY ==
[2022-08-05] VITALS (9 sets, daily range): BP systolic 97–143; BP diastolic 45–87; PULSE 81–150; RESP 18–24; TEMP 36.1–37.4; O2SAT 93–98; BMI 31.9
--- NOTE | 2022-08-05 | ECG_ITS ---
Test Reason : SOB Blood Pressure : / mmHG Vent. Rate : 149 BPM Atrial Rate : 298 BPM P-R Int : 000 ms QRS Dur : 100 ms QT Int : 262 ms P-R-T Axes : -84 -51 112 degrees QTc Int : 412 ms Atrial flutter with 2:1 A-V conduction Left anterior fascicular block Intra-ventricular conduction delay Abnormal ECG When compared with ECG of 08-MAY-2015 10:11, Atrial flutter has replaced Sinus rhythm Vent. rate has increased BY 66 BPM QRS axis Shifted left Referred By: Generic ED Physician Electronically Signed By:LUCIA JUNIOR MD
--- NOTE | ~2022-08-05 | CT_ITS ---
EXAMINATION: CT ANGIOGRAM OF THE CHEST WITH AND WITHOUT CONTRAST (CT PULMONARY ANGIOGRAM FOR PE) CLINICAL INFORMATION: Reason for Exam SOB, new atrial flutter, elevated D-dimer COMPARISON: Previous chest x-ray most recent from earlier the same day TECHNIQUE: Prior to contrast administration, noncontrast localization images were obtained. Subsequently, multidetector volumetric imaging was performed from the thoracic inlet to below the diaphragms following the administration of 85 mL Omnipaque 350 intravenous contrast. No contrast reaction reported Sagittal, coronal, and MIP oblique sagittal reformatted images were obtained on the CT workstation, uploaded to PACS, and reviewed. This CT examination was performed using dose optimization techniques as appropriate, variously including the following: *Automated exposure control *Adjustment of mA and/or kV according to patient size (this includes techniques or standardized protocols for targeted exams where dose is matched to indication/reason for exam; i.e. extremities or head) *Use of iterative reconstruction technique Total exam dose-length product 444 mGy-cm FINDINGS: QUALITY OF STUDY/CONTRAST BOLUS: Satisfactory. PULMONARY ARTERIES: No central or segmental pulmonary emboli. THORACIC AORTA: No aneurysm or dissection. LUNG: Evaluation of the lungs is limited due to artifact from respiratory motion. The lung volumes are low. There is elevation of the right hemidiaphragm. There is right lower lobe atelectasis/consolidation. There is subsegmental atelectasis at the left lung base. There are increased central lung markings questionable for mild CHF versus changes due to low lung volumes. There are calcified pulmonary nodules suggestive of old granulomatous disease, largest in the left upper lobe.. PLEURA: No pleural effusion or pneumothorax. MEDIASTINUM: Enlarged heart. Coronary artery lesion. No pericardial effusion. Small cm calcifications just to old granulomatous disease. No enlarged hilar or mediastinal lymph nodes.. No evidence of septal bowing or right heart strain. CHEST WALL/AXILLA: No axillary or internal mammary lymphadenopathy. OSSEOUS STRUCTURES: Degenerative changes of the spine and shoulders. UPPER ABDOMEN: Small amount of ascites. No reflux of contrast into the hepatic veins to suggest elevated right heart pressures. CT/CT angio chest PE protocol IMPRESSION: No evidence of pulmonary embolism. Low lung volumes. Elevated right hemidiaphragm. Atelectasis/consolidation of the right lung base subsegmental atelectasis at the left lung base. Evidence of old granulomatous disease. Small bilateral pleural effusions and question mild CHF versus changes related to low lung volumes. Small amount of ascites. VTE: negative
--- NOTE | ~2022-08-05 | XR_ITS ---
EXAMINATION: XR CHEST CLINICAL INFORMATION: Short of breath. Atrial fibrillation. Rule out CHF. COMPARISON: 08/01/2022 TECHNIQUE: Frontal view of the chest was obtained. FINDINGS: The lungs are well expanded. There is no focal consolidation, edema, or effusion. Minimal left basilar atelectasis. No pneumothorax. The cardiomediastinal silhouette is within normal limits. No acute osseous abnormality. Advanced degenerative changes of both glenohumeral joints. XR/XR chest 1V IMPRESSION: Minimal left basilar atelectasis. Otherwise clear lungs.
--- NOTE | ~2022-08-05 | US_ITS ---
EXAMINATION: US VENOUS ULTRASOUND WITH DOPPLER LOWER EXTREMITY, BILATERAL CLINICAL INFORMATION: Bilateral swelling COMPARISON: None TECHNIQUE: Ultrasound of the deep veins is performed from the hip to the calf with compression sonography and color and pulse Doppler assessment. Spectral analysis with color-flow imaging is performed. FINDINGS: RIGHT: There is normal venous compression and respiratory variation and augmented flow. The visualized common femoral vein, superficial femoral vein, profunda femoral vein, popliteal vein, and the trifurcation region shows no evidence of deep venous thrombosis. There is no popliteal fossa cyst. Calf edema. LEFT: There is normal venous compression and respiratory variation and augmented flow. The visualized common femoral vein, superficial femoral vein, profunda femoral vein, popliteal vein, and the posterior tibial veins no evidence of deep venous thrombosis. Left peroneal veins are not well visualized. There is no popliteal fossa cyst. Calf edema. US/US venous duplex LE BI IMPRESSION: No DVT demonstrated in the bilateral lower extremity.
--- NOTE | 2022-08-05 06:38 | ED_ITS ---
HPI - SOB/Dyspnea General Chief Complaint: Dyspnea Stated Complaint: asthmatic, SoB, phlegm, swollen feet Time Seen by Provider: 08/05/22 06:20 Source: patient and family (, Gail) Mode of arrival: ambulatory Limitations: no limitations History of Present Illness HPI Narrative: 72-year-old male who presents emergency department for evaluation of cold-like symptoms x3 weeks with 3 days shortness of breath, dyspnea on exertion, lower extremity swelling, orthopnea. The patient states that he has been sick for approximately 3 weeks asthma exacerbation cold. He states that he has feeling short of breath and having dyspnea on exertion. He states that he has had a cough which is occasionally productive. He states that occasionally he has noted white sputum and spots of blood. Patient was seen at an urgent care clinic and started on a 5 day course of prednisone for an asthma exacerbation which he completed 2 weeks prior with no relief his symptoms. He also states that he was on antibiotics for 5 days and he completed this 1 week prior with no improvement his symptoms. He states that over the last 2-3 days shortness of breath is gotten worse she can hear that he is wheezing. He states he has also had swelling in his lower extremities which she has never had before. Patient has not been able to sleep since he is very short of breath at night, he states he is unable to lie down flat secondary to shortness of breath. Denied fever, chills, rhinorrhea, nausea or vomiting. He continues to have a nonproductive cough, he feels short of breath and has dyspnea on exertion. He states he has had 1 or 2 loose diarrheal stools per day for 3 weeks. Denied abdominal pain. States that his body does her but he denies myalgias and arthralgias. MD elicited complaint: shortness of breath Pertinent past history: asthma Onset (ago): week(s) (3 weeks, worse over the past 3) Timing: constant Severity: moderate Exacerbating factors: lying flat, exertion, movement, coughing and other (Lying down flat, worse at night) Relieving factors: nothing Known history of: asthma Associated symptoms: cough, wheezing, orthopnea and other (Lower extremity edema x3 days) Treatment prior to arrival: bronchodilator and other (Prednisone, antibiotic) Related Data Home oxygen amount: none Home Medications Medication Instructions Recorded Confirmed cholecalciferol (vitamin D3) 25 25 mcg PO DAILY 08/14/20 07/28/22 mcg (1,000 unit) capsule docusate sodium 100 mg capsule 100 mg PO BID 08/14/20 07/28/22 (Colace) kafeexkc-end-bsiab acid 300 1 tab PO DAILY 08/14/20 07/28/22 mcg-lycopene 600 mcg-lutein 300 mcg tablet (Centrum Silver Ultra Men's) Previous Rx's Medication Instructions Recorded amlodipine 5 mg tablet 5 mg PO DAILY #90 tabs 09/13/21 dutasteride 0.5 mg capsule 0.5 mg PO DAILY #90 caps 09/13/21 montelukast 10 mg tablet 10 mg PO BEDTIME #90 tabs 09/13/21 hydrochlorothiazide 12.5 mg tablet 12.5 mg PO QAM #90 tabs 11/02/21 pravastatin 40 mg tablet 40 mg PO BEDTIME 90 days #90 tabs 11/29/21 olmesartan 20 mg tablet 20 mg PO DAILY #90 tabs 01/31/22 meclizine 25 mg tablet 25 mg PO TID #20 tabs 02/14/22 metoprolol succinate 25 mg 25 mg PO DAILY #90 tabs 02/14/22 tablet,extended release 24 hr COVID 19 tests #8 ea 06/27/22 diclofenac sodium 1 % topical gel 4 g topical QID 30 days #100 grams 07/23/22 (Arthritis Pain (diclofenac)) prednisone 10 mg tablet 10 mg PO DAILY 6 days #12 tabs 07/23/22 tamsulosin 0.4 mg capsule 0.4 mg PO DAILY #90 caps 07/23/22 azithromycin 250 mg tablet See Rx Instructions PO .COMPLEX #6 07/28/22 (Zithromax) tabs mometasone 50 mcg/actuation nasal 2 spray intranasal DAILY #17 grams 07/29/22 spray albuterol sulfate 90 mcg/actuation 2 puff inhalation Q4-6H PRN 08/02/22 aerosol inhaler (ProAir HFA) Wheezing #8.5 grams benzonatate 200 mg capsule 200 mg PO BID-TID PRN cough #20 08/02/22 caps Allergies Allergy/AdvReac Type Severity Reaction Status Date / Time lisinopril Allergy Unknown Unknown Verified 08/05/22 05:33 atorvastatin [Lipitor] AdvReac Unknown Unknown Verified 08/05/22 05:33 DUST Allergy Intermediate ASTHMA- Uncoded 07/28/22 15:35 COUGH Review of Systems Review of Systems: Yes all other systems are reviewed and are negative [facility] Past Medical History [facility] Narrative: Social history: Patient is his is here in the emergency department with him. States he does not smoke cigarettes but stopped smoking cigarettes 20 years prior. Has a greater than 30 pack-year history of smoking. He denies drug use. Medical History Asthma Atherosclerosis Avascular necrosis of bone of left hip BPH (benign prostatic hyperplasia) Chronic kidney disease COVID-19 vaccine series completed History of asbestos exposure History of renal calculi Hypercholesterolemia Hypertension Insomnia Obesity (BMI 30-39.9) Peripheral vascular disease Surgical History H/O colonoscopy History of left hip replacement Family History Family History Father Hypertension Chronic mental illness Mother Hypertension Gastric cancer Asthma Social History Social History Housing: House Alcohol intake: former Patient Tobacco Use Status: Former Tobacco user Tobacco use type: Cigarette Smoked in Last 30 Days: No e-Cigarette/Vaping Use: Never Used Second Hand Smoke Exposure: No Use of substances other than those prescribed or required for medical reasons: No Advance Directives: Yes Advance Directives on File: Yes Advance Directives Date on File: 08/03/20 service: No Current occupational status: retired Cognitive needs: No Hearing needs: No Vision needs: Yes Physical Exam Vital Signs: Vital Signs: Last Vital Signs Temp 99.3 F 08/05/22 07:19 Pulse 145 H 08/05/22 08:09 Resp 22 H 08/05/22 08:09 BP 122/77 08/05/22 08:09 Pulse Ox 98 08/05/22 08:09 O2 Del Method 08/05/22 08:09 O2 Flow Rate 2 08/05/22 08:09 BMI result Body Mass Index 31.9 Const: General: cooperative, no acute distress, alert and awake Orientation/consciousness: oriented to person and oriented to place Limitations: no limitations HEENT: Head: Yes normal to inspection, Yes normocephalic and Yes atraumatic Ears: external ears normal Eyes: General: appearance normal, both eyes and all related structures Periorbital: periorbital findings normal Eyelids: Yes eyelids normal Conjunctivae: conjunctivae normal Sclerae: sclerae normal Corneas: corneas normal Pupils: Equal, round and reactive pupils present Direct Oph thalmoscopy: normal light reflex Neck: Neck: Yes normal visual inspection and Yes supple Lymphatic: no lymp hadenopathy noted Chest: Chest palpation & inspection: normal inspection of the chest and normal palpation of entire chest wall Resp: Effort & Inspection: normal respiratory effort, abnormal respiratory pattern, no audible wheezes and no respiratory distress Auscultation: clear to auscultation bilaterally, no crackles, no rales, no rhonchi and no wheezes Cardio: Rhythm: regular rhythm Heart sounds: S1 normal heart sound present, S2 normal heart sound present and Murmur heart sound present GI: Inspection: No distended Palpation (GI): Soft to palpation, nontender, no guarding and No hepatosplenomegaly present Auscultation: normal bowel sounds : General: Yes no CVA tenderness Back/Spine/Pelvis: Back: no CVA tenderness Skin: General skin exam: no rashes or lesions noted Lesions: no lesions Rashes: no rashes Wounds: no wounds Neuro: General: oriented to person and oriented to place Cranial nerves: Yes CN's II-XII intact bilaterally and Yes Equal, round and reactive pupils present Cognition (Neuro): normal cognition Motor exam (neuro): 5/5 motor strength present throughout Extrem: Other: 2+ pitting edema, symmetric General: Yes normal to inspection and Yes no calf tenderness Psych: Appearance: grossly normal Mental Status: mental status grossly normal Speech and movement: Clear speech present Affect: normal affect Thought process: Normal thought process present Course Course Course Narrative: 72-year-old male who presents emergency department with 3 weeks of upper respiratory illness with 2-3 days of worsening shortness of breath at rest and with exertion, orthopnea, and peripheral edema. Patient's vital signs did re veal elevated heart rate of 150, elevated respiratory rate of 22 with normal O2 saturation 97% on room air. Lung exam was clear. The patient does have significant pedal edema. Twelve EKG is consistent with atrial flutter which is a new diagnosis for the patient. I did order CBC, CMP, PT/INR, PTT, D-dimer, lipase, troponin, urinalysis. I will obtain a chest x-ray and a venous duplex of both lower extremities to rule out DVT. Patient was treated with diltiazem 20 mg IV. 1000: Laboratory evaluation: Sodium, chloride and bicarb were low 127, 93 and 21-this is most likely secondary to fluid overload. BUN creatinine were normal 141.08. Bilirubin elevated 1.4. First high sensitivity troponin I was 10.8 which is detectable but not elevated. PT/INR and PTT were normal. D-dimer elevated 651. BNP elevated 322. Radiology evaluation: Chest x-ray consistent with mild congestive heart failure my review of the images. Bilateral duplex ultrasound lower extremity negative for DVT. Given the patient's elevated D-dimer, I did order a CT pulmonary angiogram to rule out pulmonary embolism as the cause of his atrial flutter/fibrillation. I will repeat a troponin at 10 15 hours. The patient's rate he initially was controlled but the patient did require 2nd dose of diltiazem 10 mg IV and he was started on a diltiazem drip as per protocol. 1058: I did discuss over tiger text, the patient's presentation with the covering hospitalist, Dr. Alvarado and the patient will be admitted for further diagnostic workup and treatment. Medications Administered Generic Name Dose Route Start Last Admin Trade Name Freq PRN Reason Stop Dose Admin Diltiazem HCl 125 mg/ Sodium 125 mls @ 0 mls/hr 08/05/22 08:15 08/05/22 09:16 Chloride IVCONT 10 mg/hr .Q0M SUE 10 mls/hr Titration Protocol Per Protocol Discontinued Medications Generic Name Dose Route Start Last Admin Trade Name Freq PRN Reason Stop Dose Admin Diltiazem HCl 20 mg 08/05/22 06:36 08/05/22 07:13 Diltiazem Hcl 50 Mg/10 Ml Vial IVPUSH 08/05/22 06:37 20 mg STAT STA Administration Diltiazem HCl 15 mg 08/05/22 08:06 08/05/22 08:22 Diltiazem Hcl 50 Mg/10 Ml Vial IVPUSH 08/05/22 08:07 10 mg STAT STA Administration Furosemide 40 mg 08/05/22 08:06 11/25/22 08:23 Furosemide 40 Mg/4 Ml Vial IVPUSH 08/05/22 08:07 40 mg ONCE ONE Administration Protocol Iohexol 100 ml 08/05/22 09:36 08/05/22 09:38 Iohexol 350 Mg/Ml 100 Ml Infus..Btl IV 08/05/22 09:37 85 ml ONCE ONE Administration MDM - SOB/Dyspnea Differential Diagnosis Differential diagnosis: Likely acute exacerbation of chronic obstructive airways disease, congestive heart failure, pneumonia and pulmonary embolism Medical Records Attestation: I reviewed the patient's medical records. Lab Data Attestation: I reviewed the patient's lab results. Result diagrams: 08/05/22 07:16 08/05/22 07:16 Labs: Lab Results 08/05/22 08/05/22 08/05/22 Range/Units 07:16 07:16 07:16 WBC 7.7 (4.8-10.8) X10*3/uL RBC 4.01 L (4.60-5.80) X10*6/uL Hgb 13.8 L (14.0-18.0) g/dl Hct 38.5 L (42.0-52.0) % MCV 96.0 (80.0-98.0) fL MCH 34.4 H (27.0-33.0) pg MCHC 35.8 (31.0-36.0) g/dl RDW 12.2 (11.0-16.0) % Plt Count 176 (160-400) X10*3/uL MPV 8.3 L (9.4-12.4) fL Immature Gran % (Auto) 0.5 H (0.0-0.4) % Neut % (Auto) 86.1 H (45-73) % Lymph % (Auto) 6.6 L (20-40) % [place] % (Auto) 6.0 (2-11) % Eos % (Auto) 0.4 (0-4) % Baso % (Auto) 0.4 (0-2) % Lymph # (Auto) 0.5 L (1.2-4.9) X10*3/uL [place] # (Auto) 0.5 (0.1-1.2) X10*3/uL Eos # (Auto) 0.0 (0.0-0.4) X10*3/uL Baso # (Auto) 0.0 (0.0-0.2) X10*3/uL Abs Immat Gran (auto) 0.04 H (0.00-0.03) X10*3/uL Absolute Neuts (auto) 6.7 (2.0-8.3) x10*3/uL Absolute Nucleated RBC 0.000 (0.0-0.012) X10*3/uL Nucleated RBC % (auto) 0.0 (0.0-0.2) /100WBC PT 14.4 H (10.0-13.1) SEC INR 1.2 H (0.9-1.1) APTT 27.7 (26.0-36.4) SEC D-Dimer High Sensitivty 651 NG/ML Sodium 127 L (135-145) mmol/L Potassium 4.2 (3.3-5.1) mmol/L Chloride 93 L (96-108) mmol/L Carbon Dioxide 21 L (22-29) mmol/L Anion Gap 17 (12-20) BUN 14 (9-16) mg/dL Creatinine 1.08 (0.5-1.4) mg/dL Estim Creat Clear Calc 67.1 Estimated GFR > 60 Random Glucose 100 (60-115) mg/dL Calcium 9.0 (8.4-10.2) mg/dL Total Bilirubin 1.4 H (0.0-1.0) mg/dL AST 29 D (5-37) U/L ALT 51 H (0-40) U/L Alkaline Phosphatase 66 (39-117) U/L Troponin I High Sens (<3.5-35.0) ng/L B-Natriuretic Peptide (<100) pg/mL Total Protein 6.5 (6.5-8.0) g/dL Albumin 4.0 (3.5-5.0) g/dL Lipase 24 (8-78) U/L COVID-19 (ROSEMARY) (Negative) COVID-19 Clin Com Influenza Type A (BLAINE) (Negative) Influenza Type B (BLAINE) (Negative) Influenza A & B Note 08/05/22 08/05/22 08/05/22 Range/Units 07:16 07:16 07:16 WBC (4.8-10.8) X10*3/uL RBC (4.60-5.80) X10*6/uL Hgb (14.0-18.0) g/dl Hct (42.0-52.0) % MCV (80.0-98.0) fL MCH (27.0-33.0) pg MCHC (31.0-36.0) g/dl RDW (11.0-16.0) % Plt Count (160-400) X10*3/uL MPV (9.4-12.4) fL Immature Gran % (Auto) (0.0-0.4) % Neut % (Auto) (45-73) % Lymph % (Auto) (20-40) % [place] % (Auto) (2-11) % Eos % (Auto) (0-4) % Baso % (Auto) (0-2) % Lymph # (Auto) (1.2-4.9) X10*3/uL [place] # (Auto) (0.1-1.2) X10*3/uL Eos # (Auto) (0.0-0.4) X10*3/uL Baso # (Auto) (0.0-0.2) X10*3/uL Abs Immat Gran (auto) (0.00-0.03) X10*3/uL Absolute Neuts (auto) (2.0-8.3) x10*3/uL Absolute Nucleated RBC (0.0-0.012) X10*3/uL Nucleated RBC % (auto) (0.0-0.2) /100WBC PT (10.0-13.1) SEC INR (0.9-1.1) APTT (26.0-36.4) SEC D-Dimer High Sensitivty NG/ML Sodium (135-145) mmol/L Potassium (3.3-5.1) mmol/L Chloride (96-108) mmol/L Carbon Dioxide (22-29) mmol/L Anion Gap (12-20) BUN (9-16) mg/dL Creatinine (0.5-1.4) mg/dL Estim Creat Clear Calc Estimated GFR Random Glucose (60-115) mg/dL Calcium (8.4-10.2) mg/dL Total Bilirubin (0.0-1.0) mg/dL AST (5-37) U/L ALT (0-40) U/L Alkaline Phosphatase (39-117) U/L Troponin I High Sens 10.8 (<3.5-35.0) ng/L B-Natriuretic Peptide (<100) pg/mL Total Protein (6.5-8.0) g/dL Albumin (3.5-5.0) g/dL Lipase (8-78) U/L COVID-19 (ROSEMARY) Negative (Negative) COVID-19 Clin Com See Note Influenza Type A (BLAINE) Negative (Negative) Influenza Type B (BLAINE) Negative (Negative) Influenza A & B Note See Note 08/05/22 Range/Units 07:16 WBC (4.8-10.8) X10*3/uL RBC (4.60-5.80) X10*6/uL Hgb (14.0-18.0) g/dl Hct (42.0-52.0) % MCV (80.0-98.0) fL MCH (27.0-33.0) pg MCHC (31.0-36.0) g/dl RDW (11.0-16.0) % Plt Count (160-400) X10*3/uL MPV (9.4-12.4) fL Immature Gran % (Auto) (0.0-0.4) % Neut % (Auto) (45-73) % Lymph % (Auto) (20-40) % [place] % (Auto) (2-11) % Eos % (Auto) (0-4) % Baso % (Auto) (0-2) % Lymph # (Auto) (1.2-4.9) X10*3/uL [place] # (Auto) (0.1-1.2) X10*3/uL Eos # (Auto) (0.0-0.4) X10*3/uL Baso # (Auto) (0.0-0.2) X10*3/uL Abs Immat Gran (auto) (0.00-0.03) X10*3/uL Absolute Neuts (auto) (2.0-8.3) x10*3/uL Absolute Nucleated RBC (0.0-0.012) X10*3/uL Nucleated RBC % (auto) (0.0-0.2) /100WBC PT (10.0-13.1) SEC INR (0.9-1.1) APTT (26.0-36.4) SEC D-Dimer High Sensitivty NG/ML Sodium (135-145) mmol/L Potassium (3.3-5.1) mmol/L Chloride (96-108) mmol/L Carbon Dioxide (22-29) mmol/L Anion Gap (12-20) BUN (9-16) mg/dL Creatinine (0.5-1.4) mg/dL Estim Creat Clear Calc Estimated GFR Random Glucose (60-115) mg/dL Calcium (8.4-10.2) mg/dL Total Bilirubin (0.0-1.0) mg/dL AST (5-37) U/L ALT (0-40) U/L Alkaline Phosphatase (39-117) U/L Troponin I High Sens (<3.5-35.0) ng/L B-Natriuretic Peptide 322 H (<100) pg/mL Total Protein (6.5-8.0) g/dL Albumin (3.5-5.0) g/dL Lipase (8-78) U/L COVID-19 (ROSEMARY) (Negative) COVID-19 Clin Com Influenza Type A (BLAINE) (Negative) Influenza Type B (BLAINE) (Negative) Influenza A & B Note ECG Data Attestation: I personally reviewed and interpreted this ECG as follows: Interpretation: 0605: Atrial flutter with a 2-1 AV block, rapid ventricular response of 149, prolonged QRS 100 milliseconds, normal QTC 412 milliseconds, no ST segment elevation, no ST segment depression, Q-wave V1 no T-wave abnormalities. No old EKG for comparison. Critical Care Time Critical Care Time Critical Care Time: Yes Total Critical Care Time: 30 Attestation: Critical Care: The patient was critically ill with a high probability of imminent or life threatening deterioration. I spent greater than 30 minutes of discontinuous time evaluating the patient,delivering critical care at the [facility], discussing and evaluating pertinent data with consultants. Critical care time does not include time spent performing separately billable procedures or teaching. Total time spent performing critical care was 30 minutes. Discharge Plan Discharge Clinical Impression: Atrial fibrillation, new onset, Peripheral edema CHF (congestive heart failure) Qualifiers: Heart failure chronicity: acute Prescriptions: No Action montelukast 10 mg tablet 10 mg PO BEDTIME Qty: 90 3RF amlodipine 5 mg tablet 5 mg PO DAILY Qty: 90 3RF dutasteride 0.5 mg capsule 0.5 mg PO DAILY Qty: 90 2RF hydrochlorothiazide 12.5 mg tablet 12.5 mg PO QAM Qty: 90 3RF pravastatin 40 mg tablet 40 mg PO BEDTIME 90 Days Qty: 90 2RF olmesartan 20 mg tablet 20 mg PO DAILY Qty: 90 2RF metoprolol succinate 25 mg tablet extended release 24 hr 25 mg PO DAILY Qty: 90 1RF diclofenac sodium [Arthritis Pain (diclofenac)] 1 % gel 4 g topical QID 30 Days Qty: 100 11RF Rx Instructions: apply to single knee, ankle, foot; for foot includes sole/toes/top of foot tamsulosin 0.4 mg capsule 0.4 mg PO DAILY Qty: 90 2RF mometasone 50 mcg/actuation spray,non-aerosol 2 spray intranasal DAILY Qty: 17 3RF Rx Instructions: administer into each nostril benzonatate 200 mg capsule 200 mg PO BID-TID PRN (Reason: cough) Qty: 20 0RF albuterol sulfate [ProAir HFA] 90 mcg/actuation HFA aerosol inhaler 2 puff inhalation Q4-6H PRN (Reason: Wheezing) Qty: 8.5 0RF Centrum Silver Ultra Men's 300-600-300 mcg tablet 1 tab PO DAILY cholecalciferol (vitamin D3) 25 mcg (1,000 unit) capsule 25 mcg PO DAILY docusate sodium [Colace] 100 mg capsule 100 mg PO BID azithromycin [Zithromax] 250 mg tablet See Rx Instructions PO .COMPLEX Qty: 6 0RF Rx Instructions: For 250 mg dose pack: take 500 mg today (day 1), then 250 mg for 4 days (days 2-5) PO meclizine 25 mg tablet 25 mg PO TID Qty: 20 0RF (DME) COVID 19 tests See Rx Instructions .Route .MEDSUPPLY Qty: 8 0RF Rx Instructions: As directed prednisone 10 mg tablet 10 mg PO DAILY 6 Days Qty: 12 0RF
[2022-08-05] MEDS: dilTIAZem HCL 50 MG/10 ML VIAL 20 MG IVPUSH (07:13)
[2022-08-05 07:23] LABS: MANUAL DIFF FLAG NO
--- NOTE | 2022-08-05 07:23 | PC.NURSE ---
Pt alert/oriented. Reports three weeks of cough/SOB with worsening sx of 2-3 days with associated BLE, +2 noted. HR 150s rapid afib, Cardizem given with HR down to 107-115. Pt speaking full sentences, skin midly flushed. Occasional dry cough. Mild SOB with rest
[2022-08-05 07:30] LABS: Basophils Percent Auto 0.4 % (0-2); Eosinophils Percent Auto 0.4 % (0-4); Hematocrit 38.5 % (42.0-52.0); Hemoglobin 13.8 g/dl (14.0-18.0); Imm Gran Abs Auto 0.04 X10*3/uL (0.00-0.03); Imm Gran Pct Auto 0.5 % (0.0-0.4); Lymphocytes Absolute Auto 0.5 X10*3/uL (1.2-4.9); Lymphocytes Percent Auto 6.6 % (20-40); Mean Corpuscular HGB Conc 35.8 g/dl (31.0-36.0); Mean Corpuscular Hemoglobin 34.4 pg (27.0-33.0); Mean Platelet Volume 8.3 fL (9.4-12.4); Monocytes Absolute Auto 0.5 X10*3/uL (0.1-1.2); Neutrophils Absolute Auto 6.7 x10*3/uL (2.0-8.3); Neutrophils Percent Auto 86.1 % (45-73); Platelet Count 176 X10*3/uL (160-400); Red Blood Count 4.01 X10*6/uL (4.60-5.80); Red Cell Distribution Width 12.2 % (11.0-16.0); White Blood Count 7.7 X10*3/uL (4.8-10.8)
[2022-08-05 07:33] LABS: INTERNATIONAL NORM RATIO 1.2 (0.9-1.1); Prothrombin Time 14.4 SEC (10.0-13.1)
[2022-08-05 07:35] LABS: D Dimer High Sensitivity 651 NG/ML
[2022-08-05 07:36] LABS: Partial Thromboplastin Time 27.7 SEC (26.0-36.4)
[2022-08-05 07:47] LABS: Troponin-I High Sensitivity 10.8 ng/L (<3.5-35.0)
[2022-08-05 07:49] LABS: COVID-19 Test Negative (Negative); IDNOW Serial# 16C4AD1C; IDNOW Serial# BCCEAD1C; Influenza A Negative (Negative); Influenza B2 Negative (Negative)
[2022-08-05 07:51] LABS: Alanine Aminotransferase 51 U/L (0-40); Alkaline Phosphatase 66 U/L (39-117); Anion Gap 17 (12-20); Aspartate Amino Transferase 29 U/L (5-37); Bilirubin Total 1.4 mg/dL (0.0-1.0); Blood Urea Nitrogen 14 mg/dL (9-16); Carbon Dioxide 21 mmol/L (22-29); Chloride 93 mmol/L (96-108); Creatinine Clr Calc Pharmacy 67.1; Estimated Glomerular Filt Rate > 60; Glucose Random 100 mg/dL (60-115); Lipase 24 U/L (8-78); Potassium 4.2 mmol/L (3.3-5.1); Sodium 127 mmol/L (135-145); Total Protein 6.5 g/dL (6.5-8.0)
[2022-08-05 08:01] LABS: B Type Natriuretic Peptide 322 pg/mL (<100)
--- NOTE | 2022-08-05 08:08 | PC.NURSE ---
HR up to 150s intermittently, Pt reporting increased SOB, placed on 2lpm via nc with sat up 98%. Additional Cardizem to be ordered. Bedside U/S being done at this time.
[2022-08-05] MEDS: dilTIAZem HCL 50 MG/10 ML VIAL 15 MG IVPUSH (08:22)
[2022-08-05] MEDS: dilTIAZem HCL 125 MG in 0.9 % Sodium Chloride 100 ML IVCONT ×2 (08:23→21:40)
[2022-08-05] MEDS: Furosemide 40 MG/4 ML VIAL IVPUSH ×2 (08:23→17:58)
--- NOTE | 2022-08-05 08:32 | PC.NURSE ---
Cardizem 10mg IVP given per Dr Stein and gtt started at 5mg/hr, okay per Dr Stein. Plan for CTA given elevated dimer.
[2022-08-05] MEDS: iohexoL 350 MG/ML 100 ML INFUS..BTL IV (09:38)
--- NOTE | 2022-08-05 10:47 | PC.NURSE ---
Repeat troponin obtained, pt aware of possible admission. Remains on monitor afib 90-100's.
[2022-08-05 11:08] LABS: Troponin-I High Sensitivity 12.1 ng/L (<3.5-35.0)
--- NOTE | 2022-08-05 11:21 | PM.IMHP ---
History of Present Illness Date of Service: 08/05/22 Chief Complaint: sob 72M with PMH COPD/ moderate persistent asthma, HTN, CKD II, obesity, presented with sob. Patient has been having shortness of breath and cough for about 3 weeks prior to presentation. He reports worsening lower extremity edema, orthopnea, abdominal bloating and weight gain unspecified. Denies chest pain or palpitations. Denies fever chills. Shortness of breath has being getting progressively worse so he has come to the ED today. In ED patient found to be in atrial fibrillation with rapid ventricular response. Patient has no known history of atrial fibrillation, CT chest showed evidence of CHF. Review of Systems Review of Systems: Constitutional: Denies fever, denies Chills Eyes: denies blurry vision ENT: denies sore throat CVS: denies chest pain Respiratory: dyspnea GI: no abdominal pain : denies dysuria MSK: denies neck pain Skin: denies rash Neuro: denies specific motor weakness Psych: denies suicidal ideation Endocrine: denies heat/cold intolerance Hematologic: denies easy bleeding Allergy: denies hives [facility] Medical History Asthma Atherosclerosis Avascular necrosis of bone of left hip BPH (benign prostatic hyperplasia) Chronic kidney disease COVID-19 vaccine series completed History of asbestos exposure History of renal calculi Hypercholesterolemia Hypertension Insomnia Obesity (BMI 30-39.9) Peripheral vascular disease Family History Father Hypertension Chronic mental illness Mother Hypertension Gastric cancer Asthma Surgical History H/O colonoscopy History of left hip replacement Social History Housing: House Alcohol intake: former Patient Tobacco Use Status: Former Tobacco user Tobacco use type: Cigarette Smoked in Last 30 Days: No e-Cigarette/Vaping Use: Never Used Second Hand Smoke Exposure: No Use of substances other than those prescribed or required for medical reasons: No Advance Directives: Yes Advance Directives on File: Yes Advance Directives Date on File: 08/03/20 service: No Current occupational status: retired Cognitive needs: No Hearing needs: No Vision needs: Yes Meds Allergies Allergy/AdvReac Type Severity Reaction Status Date / Time lisinopril Allergy Unknown Unknown Verified 08/05/22 05:33 atorvastatin [Lipitor] AdvReac Unknown Unknown Verified 08/05/22 05:33 Active Medications: Current Medications Apixaban (Apixaban 5 Mg Tablet) 5 mg PO BID SUE Furosemide (Furosemide 40 Mg/4 Ml Vial) 40 mg IVPUSH BID@0900,1800 SUE; Protocol Diltiazem HCl 125 mg/ Sodium (Chloride) 125 mls @ 0 mls/hr IVCONT .Q0M SUE; Protocol Last Titration: 08/05/22 09:16 Dose: 10 mg/hr, 10 mls/hr Pharmacy Consult (Consult Rx Perform Med Rec) 1 each MISCELLANE ONCE PRN PRN Reason: Consult order Home Medications Medication Instructions Recorded Confirmed Last Taken Type cholecalciferol (vitamin D3) 25 25 mcg PO DAILY 08/14/20 07/28/22 Unknown History mcg (1,000 unit) capsule docusate sodium 100 mg capsule 100 mg PO BID 08/14/20 07/28/22 Unknown History (Colace) Physical Exam Vital Signs and Narrative: Vital Signs: Last Vital Signs Temp 99.3 F 08/05/22 07:19 Pulse 145 H 08/05/22 08:09 Resp 22 H 08/05/22 08:09 BP 122/77 08/05/22 08:09 Pulse Ox 98 08/05/22 08:09 O2 Del Method 08/05/22 08:09 O2 Flow Rate 2 08/05/22 08:09 BMI result Body Mass Index 31.9 General: tachypneic HEENT: atraumatic Neck: normal to visual inspection CVS: S1, S2, irregular Resp: Crackles bilateral Chest: non tender GI: soft, non tender, non distended : no CVA tenderness Skin: no rashes Extremities:2-3 + bilateral lower extremity edema Neuro: Oriented X3, grossly intact Psych: cooperative Results Labs CBC and Chem 7: 08/05/22 07:16 08/05/22 07:16 Labs: Laboratory Results - last 24 hr 08/05/22 08/05/22 08/05/22 07:16 07:16 07:16 MCV 96.0 MCH 34.4 H MCHC 35.8 RDW 12.2 Plt Count 176 MPV 8.3 L Immature Gran % (Auto) 0.5 H Neut % (Auto) 86.1 H Lymph % (Auto) 6.6 L [place] % (Auto) 6.0 Eos % (Auto) 0.4 Baso % (Auto) 0.4 Lymph # (Auto) 0.5 L [place] # (Auto) 0.5 Eos # (Auto) 0.0 Baso # (Auto) 0.0 Abs Immat Gran (auto) 0.04 H Absolute Neuts (auto) 6.7 Absolute Nucleated RBC 0.000 Nucleated RBC % (auto) 0.0 PT 14.4 H INR 1.2 H APTT 27.7 D-Dimer High Sensitivty 651 Anion Gap 17 Estim Creat Clear Calc 67.1 Estimated GFR > 60 Random Glucose 100 Calcium 9.0 Total Bilirubin 1.4 H AST 29 D ALT 51 H Alkaline Phosphatase 66 Troponin I High Sens B-Natriuretic Peptide Total Protein 6.5 Albumin 4.0 Lipase 24 COVID-19 (ROSEMARY) COVID-19 Clin Com Influenza Type A (BLAINE) Influenza Type B (BLAINE) Influenza A & B Note 08/05/22 08/05/22 08/05/22 07:16 07:16 07:16 MCV MCH MCHC RDW Plt Count MPV Immature Gran % (Auto) Neut % (Auto) Lymph % (Auto) [place] % (Auto) Eos % (Auto) Baso % (Auto) Lymph # (Auto) [place] # (Auto) Eos # (Auto) Baso # (Auto) Abs Immat Gran (auto) Absolute Neuts (auto) Absolute Nucleated RBC Nucleated RBC % (auto) PT INR APTT D-Dimer High Sensitivty Anion Gap Estim Creat Clear Calc Estimated GFR Random Glucose Calcium Total Bilirubin AST ALT Alkaline Phosphatase Troponin I High Sens 10.8 B-Natriuretic Peptide Total Protein Albumin Lipase COVID-19 ([facility]SEMARY) Negative COVID-19 Clin Com See Note Influenza Type A (BLAINE) Negative Influenza Type B (BLAINE) Negative Influenza A & B Note See Note 08/05/22 08/05/22 07:16 10:44 MCV MCH MCHC RDW Plt Count MPV Immature Gran % (Auto) Neut % (Auto) Lymph % (Auto) [place] % (Auto) Eos % (Auto) Baso % (Auto) Lymph # (Auto) [place] # (Auto) Eos # (Auto) Baso # (Auto) Abs Immat Gran (auto) Absolute Neuts (auto) Absolute Nucleated RBC Nucleated RBC % (auto) PT INR APTT D-Dimer High Sensitivty Anion Gap Estim Creat Clear Calc Estimated GFR Random Glucose Calcium Total Bilirubin AST ALT Alkaline Phosphatase Troponin I High Sens 12.1 B-Natriuretic Peptide 322 H Total Protein Albumin Lipase COVID-19 ([facility]SEMARY) COVID-19 Clin Com Influenza Type A (BLAINE) Influenza Type B (BLAINE) Influenza A & B Note Imaging Radiologist's Impressions: Impressions Chest X-Ray 08/05/22 06:48 IMPRESSION: Minimal left basilar atelectasis. Otherwise clear lungs. Venous Duplex 08/05/22 08:05 IMPRESSION: No DVT demonstrated in the bilateral lower extremity. Chest CTA 08/05/22 09:35 IMPRESSION: No evidence of pulmonary embolism. Low lung volumes. Elevated right hemidiaphragm. Atelectasis/consolidation of the right lung base subsegmental atelectasis at the left lung base. Evidence of old granulomatous disease. Small bilateral pleural effusions and question mild CHF versus changes related to low lung volumes. Small amount of ascites. VTE: negative Assessment and Plan (1) Atrial fibrillation, new onset: Status: Acute Plan 72M with PMH COPD/ moderate persistent asthma, HTN, CKD II, obesity, presented with sob acute unspecified CHF IV Lasix echo cardio eval monitor electrolytes, I's and O's new onset atrial fibrillation with rapid ventricular response Cardizem infusion, follow-up echo in cardio starting Eliquis COPD/monitor persistent asthma stable, bronchodilators as needed hypertension continue amlodipine, Toprol CKD 2 stable obesity weight loss recommended DVT prophylaxis -starting Eliquis full code patient with significant CHF causing edema and shortness of breath, expect to require IV diuresis for her at least 2 midnights in patient, patient has risk factors for adverse outcome including COPD/moderate persistent asthma, hypertension, CKD 2, obesity Quality Stroke Does the patient have a stroke diagnosis?: No VTE Prior VTE?: No VTE Risk Level:: Medical - moderate - high VTE Device Contraindication: Treatment Not Indicated VTE Drug Contraindication: N/A - Med Ordered
--- NOTE | 2022-08-05 11:30 | PHA.MEDREC ---
Pharmacy Consult ? Medication Reconciliation Pharmacy has completed the medication reconciliation.
--- NOTE | 2022-08-05 11:57 | PC.NURSE ---
Cardizem gtt paused d/t pt's hr in 70's at this time
--- NOTE | 2022-08-05 16:20 | PC.NURSE ---
per report pt on diltizem drip for a.fib RVR - paused by nurse because pt was sustaining in 90s. came up to floor at 12:38. pt HR sustaining in 150s, went down to 120s and 130s and then back up to 50s. this nurse change dose rate to 10mg/hr per protocol pt is sustaing in mid - one teens to 120s.
[2022-08-05] MEDS: Montelukast Sodium 10 MG TABLET PO (19:37)
[2022-08-05] MEDS: Apixaban 5 MG TABLET PO (19:37)
[2022-08-06 03:17] VITALS: BP 135/92; PULSE 60; RESP 20; TEMP 36.6; O2SAT 94
[2022-08-06 06:47] LABS: Hematocrit 36.4 % (42.0-52.0); Hemoglobin 13.1 g/dl (14.0-18.0); Mean Corpuscular Hemoglobin 35.2 pg (27.0-33.0); Mean Corpuscular Volume 97.8 fL (80.0-98.0); Mean Platelet Volume 8.5 fL (9.4-12.4); Platelet Count 173 X10*3/uL (160-400); Red Blood Count 3.72 X10*6/uL (4.60-5.80); Red Cell Distribution Width 12.5 % (11.0-16.0); White Blood Count 6.9 X10*3/uL (4.8-10.8)
[2022-08-06 07:13] LABS: Anion Gap 16 (12-20); Blood Urea Nitrogen 16 mg/dL (9-16); Calcium 8.9 mg/dL (8.4-10.2); Carbon Dioxide 22 mmol/L (22-29); Chloride 96 mmol/L (96-108); Creatinine Clr Calc Pharmacy 69.7; Estimated Glomerular Filt Rate > 60; Glucose Fasting 86 mg/dL (60-99); Magnesium 1.7 mg/dL (1.6-2.6); Sodium 130 mmol/L (135-145)
[2022-08-06 07:20] VITALS: BP 125/75; PULSE 50; RESP 18; TEMP 36.7; O2SAT 95
[2022-08-06] MEDS: Furosemide 40 MG/4 ML VIAL IVPUSH ×2 (09:33→17:44)
--- NOTE | 2022-08-06 11:11 | P.CONCA_ITS ---
History of Present Illness History of Present Illness Date of Service: 08/06/22 Chief complaint: CHF, afib Narrative: This is a cardiology consultation regarding atrial fibrillation with rapid rate. Patient with history of COPD/asthma, hypertension, obesity, chronic kidney disease admitted with shortness of breath and cough for the last few days. Also increasing leg swelling. Then found to be in atrial fibrillation rapid rate. CT chest apparently had shown evidence of congestive heart failure. Subsequently admitted for further care. Currently on Cardizem drip. Patient states he has never had cardiac issues in the past including coronary disease myocardial infarction or cardiomyopathy or in fact any cardiac issues at all. Review of Systems Review of Systems: Yes all other systems are reviewed and are negative Constitutional: Constitutional: Reports as per HPI Eyes: Eyes: Reports as per HPI ENT: Reports as per HPI Cardiovascular: Cardiovascular: Reports as per HPI, Denies acrocyanosis, Denies cool extremities, Denies chest pain, Denies leg edema, Denies lightheadedness, Denies palpitations, Reports dyspnea and Reports dyspnea on exertion Respiratory: Respiratory: Reports as per HPI, Reports no additional respiratory complaints, Reports dyspnea and Reports dyspnea on exertion Gastrointestinal: Gastrointestinal: Reports as per HPI and Reports no additional gastrointestinal complaints Genitourinary: Genitourinary: Reports no additional male genitourinary complaints and Reports as per HPI Musculoskeletal: Musculoskeletal: Reports no additional musculoskeletal complaints and Reports as per HPI Integumentary/Breasts: Skin/Breast: Reports system reviewed and no additional complaints, except as docu Neurologic: Reports system reviewed and no additional complaints, except as documented and Reports as per HPI Psychiatric: Psychiatric: Reports no additional psychiatric complaints and Reports as per HPI Endocrine: Endocrine: Reports no additional endocrine complaints, Reports as per HPI and Denies palpitations Hematologic/Lymphatic: Hematologic/Lymphatic: Reports no additional hematologic/lymphatic complaints and Reports as per HPI Allergic/Immunologic: Allergic/Immunologic: Reports no additional allergic/immunologic complaints and Reports as per HPI PMF Past Medical History Medical History Asthma Atherosclerosis Avascular necrosis of bone of left hip BPH (benign prostatic hyperplasia) Chronic kidney disease COVID-19 vaccine series completed History of asbestos exposure History of renal calculi Hypercholesterolemia Hypertension Insomnia Obesity (BMI 30-39.9) Peripheral vascular disease Family History Family History Father Hypertension Chronic mental illness Mother Hypertension Gastric cancer Asthma Surgical History Surgical History H/O colonoscopy History of left hip replacement Social History Social History Household Members: Spouse Housing: House Do you presently have visiting nurse or other home services: No Alcohol intake: former Patient Tobacco Use Status: Former Tobacco user Tobacco use type: Cigarette Smoked in Last 30 Days: No e-Cigarette/Vaping Use: Never Used Second Hand Smoke Exposure: No Use of substances other than those prescribed or required for medical reasons: No Currently Displaying Signs/Symptoms of Drug Intoxication Withdrawal: No Have you been hit, kicked, punched, or otherwise hurt by someone within the past year? If so, by whom?: No Do you feel safe in your current relationship?: Yes Is there a partner from a previous relationship who is making you feel unsafe now?: No Advance Directives: Yes Advance Directives on File: Yes Advance Directives Date on File: 08/03/20 Do you have thoughts of harming others: None Do you have a plan to hurt others: No Plan Recently lost weight without trying: No Nutrition Risks: No Nutritional Risk Poor oral hygiene: No service: No Current occupational status: retired Cognitive needs: No Hearing needs: No Vision needs: Yes Meds Allergies Allergy/AdvReac Type Severity Reaction Status Date / Time lisinopril Allergy Unknown Unknown Verified 08/05/22 05:33 atorvastatin [Lipitor] AdvReac Unknown Unknown Verified 08/05/22 05:33 Active Medications: Current Medications Albuterol Sulfate (Albuterol Sulfate 90 Mcg 8 Gm Inhaler) 2 puff INHALE Q4H PRN PRN Reason: Wheezing Amlodipine Besylate (Amlodipine Besylate 5 Mg Tablet) 5 mg PO DAILY SUE; Protocol Last Admin: 08/06/22 10:04 Dose: Not Given Apixaban (Apixaban 5 Mg Tablet) 5 mg PO BID SUE Last Admin: 08/06/22 10:04 Dose: Not Given Digoxin (Digoxin 0.5 Mg/2 Ml Ampul) 0.25 mg IVPUSH Q6H SUE Stop: 08/07/22 05:01 Furosemide (Furosemide 40 Mg/4 Ml Vial) 40 mg IVPUSH BID@0900,1800 [facility]; Protocol Last Admin: 08/06/22 09:33 Dose: 40 mg Diltiazem HCl 125 mg/ Sodium (Chloride) 125 mls @ 0 mls/hr IVCONT .Q0M [facility]; Protocol Last Titration: 08/05/22 22:00 Dose: 10 mg/hr, 10 mls/hr Metoprolol Succinate (Metoprolol Succinate Er 25 Mg Tab.Er.24h) 25 mg PO DAILY [facility]; Protocol Last Admin: 08/06/22 10:04 Dose: Not Given Montelukast Sodium (Montelukast Sodium 10 Mg Tablet) 10 mg PO BEDTIME [facility] Last Admin: 08/05/22 19:37 Dose: 10 mg Non-Formulary Medication (Dutasteride) 0.5 mg PO DAILY [facility] Pharmacy Consult (Consult Rx Perform Med Rec) 1 each MISCELLANE ONCE PRN PRN Reason: Consult order Sodium Chloride (0.9 % Sodium Chloride Flush 3 Ml Syringe) 3 ml IVFLUSH QSHIFT [facility] Last Admin: 08/06/22 09:20 Dose: Not Given Tamsulosin HCl (Tamsulosin Hcl 0.4 Mg Capsule) 0.4 mg PO DAILY [facility] Last Admin: 08/06/22 10:04 Dose: Not Given Valsartan (Valsartan 80 Mg Tablet) 80 mg PO DAILY [facility] Last Admin: 08/06/22 10:05 Dose: Not Given Vitamin D (Cholecalciferol (Vitamin D3) 25 Mcg Tablet) 25 mcg PO DAILY [facility] Last Admin: 08/06/22 10:04 Dose: Not Given Home Medications Medication Instructions Recorded Confirmed Last Taken Type cholecalciferol (vitamin D3) 25 25 mcg PO DAILY 08/14/20 08/05/22 08/04/22 History mcg (1,000 unit) capsule docusate sodium 100 mg capsule 100 mg PO BID 08/14/20 08/05/22 08/04/22 History (Colace) Physical Exam Vital Signs: Vital Signs: Last Vital Signs Temp 98.1 F 08/06/22 07:20 Pulse 50 08/06/22 07:20 Resp 18 08/06/22 07:20 BP 125/75 08/06/22 07:20 Pulse Ox 95 08/06/22 07:20 O2 Del Method 08/06/22 07:20 O2 Flow Rate 2 08/05/22 08:09 BMI result Body Mass Index 31.9 Const: General: comfortable and no acute distress Orientation/consciousness: patient oriented x3 HEENT: Other: Unremarkable Head: Yes normal to inspection Neck: Neck: Yes normal visual inspection Chest: Chest palpation & inspection: normal inspection of the chest Resp: Auscultation: crackles Cardio: Palpation: normal PMI Heart sounds: S1 normal heart sound present, S2 normal heart sound present, no gallops, no murmurs and no rubs GI: Palpation (GI): Soft to palpation Back/Spine/Pelvis: Other: unremarkable Skin: General skin exam: no rashes or lesions noted Neuro: General: patient oriented x3 Extrem: Other: 1 to 2+ edema. General: Yes normal to inspection Psych: Mental Status: mental status grossly normal Objective Labs and Meds Result diagrams: 08/06/22 06:28 08/06/22 06:28 Lab results: Laboratory Results - last 24 hr 08/06/22 08/06/22 06:28 06:28 WBC 6.9 RBC 3.72 L Hgb 13.1 L Hct 36.4 L MCV 97.8 MCH 35.2 H MCHC 36.0 RDW 12.5 Plt Count 173 MPV 8.5 L Absolute Nucleated RBC 0.000 Nucleated RBC % (auto) 0.0 Sodium 130 L Potassium 4.0 Chloride 96 Carbon Dioxide 22 Anion Gap 16 BUN 16 Creatinine 1.04 Estim Creat Clear Calc 69.7 Estimated GFR > 60 Fasting Glucose 86 Calcium 8.9 Magnesium 1.7 ECG Interpretation: EKG with atrial flutter at 149/Min. Assessment and Plan (1) Atrial flutter with rapid ventricular response: Status: Acute Currently on IV diltiazem drip. Also on small dose of beta-farzaneh. Add digoxin for additional rate control. Anticoagulation. If rate cannot be adequately controlled, then may need LUDWIN/cardioversion. (2) Acute congestive heart failure: Status: Acute IV diuretics. Eventually, he will need echocardiogram once the rate is better controlled. Clinically, mild volume overload. Cardiac BNP is 322. High sensitivity troponins 12.1. Plan Discussed with . Procedures Date of Service Date of Service: 08/06/22
--- NOTE | 2022-08-06 11:12 | P.PNIM_ITS ---
Subjective Subjective Date of Service: 08/06/22 Interval History: cc: sob interval history:improving Cardiovascular Cardiovascular: Reports no additional cardiovascular complaints Respiratory Respiratory: Reports no additional respiratory complaints Physical Exam Vital Signs: Vital Signs: Last Vital Signs Temp 98.1 F 08/06/22 07:20 Pulse 50 08/06/22 07:20 Resp 18 08/06/22 07:20 BP 125/75 08/06/22 07:20 Pulse Ox 95 08/06/22 07:20 O2 Del Method 08/06/22 07:20 O2 Flow Rate 2 08/05/22 08:09 BMI result Body Mass Index 31.9 General: AO X 3, no acute distress Resp: CTA bilateral, no accessory muscles used CVS: S1,S2,Rapid irregular, 2+ edema GI: soft, non tender, non distended Neuro: motor grossly intact, alert Psych: appropriate affect, appropriate insight Objective Data Active Medications Albuterol Sulfate (Albuterol Sulfate 90 Mcg 8 Gm Inhaler) 2 puff INHALE Q4H PRN PRN Reason: Wheezing Amlodipine Besylate (Amlodipine Besylate 5 Mg Tablet) 5 mg PO DAILY [facility]; Protocol Last Admin: 08/06/22 10:04 Dose: Not Given Documented By: JUDY Non-Admin Reason: Physician Held Med Apixaban (Apixaban 5 Mg Tablet) 5 mg PO BID [facility] Last Admin: 08/06/22 10:04 Dose: Not Given Documented By: JUDY Non-Admin Reason: Physician Held Med Digoxin (Digoxin 0.5 Mg/2 Ml Ampul) 0.25 mg IVPUSH Q6H [facility] Stop: 08/07/22 05:01 Furosemide (Furosemide 40 Mg/4 Ml Vial) 40 mg IVPUSH BID@0900,1800 [facility]; Pr otocol Last Admin: 08/06/22 09:33 Dose: 40 mg Documented By: JUDY Diltiazem HCl 125 mg/ Sodium (Chloride) 125 mls @ 0 mls/hr IVCONT .Q0M [facility]; Protocol Last Titration: 08/05/22 22:00 Dose: 10 mg/hr, 10 mls/hr Documented By: ALESSANDRA Metoprolol Succinate (Metoprolol Succinate Er 25 Mg Tab.Er.24h) 25 mg PO DAILY [facility]; Protocol Last Admin: 08/06/22 10:04 Dose: Not Given Documented By: JUDY Non-Admin Reason: Physician Held Med Montelukast Sodium (Montelukast Sodium 10 Mg Tablet) 10 mg PO BEDTIME [facility] Last Admin: 08/05/22 19:37 Dose: 10 mg Documented By: ALESSANDRA Non-Formulary Medication (Dutasteride) 0.5 mg PO DAILY [facility] Pharmacy Consult (Consult Rx Perform Med Rec) 1 each MISCELLANE ONCE PRN PRN Reason: Consult order Sodium Chloride (0.9 % Sodium Chloride Flush 3 Ml Syringe) 3 ml IVFLUSH QSHIFT [facility] Last Admin: 08/06/22 09:20 Dose: Not Given Documented By: JUDY Non-Admin Reason: IV Running Tamsulosin HCl (Tamsulosin Hcl 0.4 Mg Capsule) 0.4 mg PO DAILY [facility] Last Admin: 08/06/22 10:04 Dose: Not Given Documented By: JUDY Non-Admin Reason: Physician Held Med Valsartan (Valsartan 80 Mg Tablet) 80 mg PO DAILY [facility] Last Admin: 08/06/22 10:05 Dose: Not Given Documented By: JUDY Non-Admin Reason: Physician Held Med Vitamin D (Cholecalciferol (Vitamin D3) 25 Mcg Tablet) 25 mcg PO DAILY [facility] Last Admin: 08/06/22 10:04 Dose: Not Given Documented By: JUDY Non-Jayy Reason: Physician Held Med Labs CBC & Chem 7: 08/06/22 06:28 08/06/22 06:28 Labs: Laboratory Results - last 24 hr 08/06/22 08/06/22 06:28 06:28 MCV 97.8 MCH 35.2 H MCHC 36.0 RDW 12.5 Plt Count 173 MPV 8.5 L Absolute Nucleated RBC 0.000 Nucleated RBC % (auto) 0.0 Anion Gap 16 Estim Creat Clear Calc 69.7 Estimated GFR > 60 Fasting Glucose 86 Calcium 8.9 Magnesium 1.7 Assessment and Plan (1) Atrial fibrillation, new onset: Status: Acute Plan 72M with PMH COPD/ moderate persistent asthma, HTN, CKD II, obesity, presented w ith sob ?acute unspecified CHF continue?IV Lasix ?follow up echo ?cardio follwoing ?monitor electrolytes, I's and O's ?new onset atrial fibrillation with rapid ventricular response ?Cardizem infusion, follow-up echo in cardio ?starting Eliquis dig load, continue toprol ?COPD/monitor persistent asthma ?stable, bronchodilators as needed ?hypertension ?continue amlodipine, Toprol ?CKD 2 ?stable ?obesity ?weight loss recommended ?DVT prophylaxis -starting Eliquis ?full code reason for continued hospitalization:iv diuresis, stil in rvr Quality Stroke Does the patient have a stroke diagnosis?: No VTE Prior VTE?: No VTE Risk Level:: Medical - moderate - high VTE Device Contraindication: Treatment Not Indicated VTE Drug Contraindication: N/A - Med Ordered
--- NOTE | 2022-08-06 11:21 | MHC.CM.PN ---
pt lives with no servceis will be needed when dcd
[2022-08-06] MEDS: Digoxin 0.5 MG/2 ML AMPUL 0.25 MG IVPUSH ×3 (11:30→23:05)
[2022-08-06] MEDS: dilTIAZem HCL 125 MG in 0.9 % Sodium Chloride 100 ML 10 MG IVCONT (11:32)
[2022-08-06 12:00] VITALS: BP 131/65; PULSE 75; RESP 18; TEMP 36.8; O2SAT 94
--- NOTE | 2022-08-06 13:52 | PC.NURSE ---
pt on 10mg/hr cardizem drip, sustaining in 70s. pt titrated down to 5mg/hr and sustaining in 70s. cardizem drip paused per protocol. notified.
--- NOTE | 2022-08-06 13:54 | PC.NURSE ---
pt AM medications were held - okayed by MD due to pt taking own home meds brought in to prevent double dosing. this nurse educated pt and that pt shouldn't be taking home medications while staying with us - medications should be reviewed by MD and pharmacist before taking. pt and receptive of education.
[2022-08-06 16:00] VITALS: BP 132/67; PULSE 75; RESP 17; TEMP 36.7; O2SAT 95
[2022-08-06] MEDS: guaiFENesin 100 MG/5 ML LIQUID PO (17:44)
[2022-08-06 19:03] VITALS: BP 135/65; PULSE 76; RESP 17; TEMP 36.7; O2SAT 96
[2022-08-06] MEDS: Apixaban 5 MG TABLET PO (20:17)
[2022-08-06] MEDS: 0.9 % Sodium Chloride Flush 3 ML SYRINGE IVFLUSH (20:17)
[2022-08-06] MEDS: Montelukast Sodium 10 MG TABLET PO (20:17)
[2022-08-06] MEDS: Tamsulosin HCL 0.4 MG CAPSULE PO (20:17)
[2022-08-06 23:02] VITALS: BP 127/72; PULSE 83; RESP 18; TEMP 36.6; O2SAT 96
[2022-08-07] VITALS (10 sets, daily range): BP systolic 94–141; BP diastolic 61–76; PULSE 75–150; RESP 17–19; TEMP 36.4–37.1; O2SAT 93–95
[2022-08-07] MEDS: Digoxin 0.5 MG/2 ML AMPUL 0.25 MG IVPUSH (04:55)
[2022-08-07] MEDS: dilTIAZem HCL 125 MG in 0.9 % Sodium Chloride 100 ML 10 MG IVCONT (06:33)
[2022-08-07 06:48] LABS: Hematocrit 41.2 % (42.0-52.0); Hemoglobin 14.8 g/dl (14.0-18.0); Mean Corpuscular HGB Conc 35.9 g/dl (31.0-36.0); Mean Corpuscular Hemoglobin 34.9 pg (27.0-33.0); Mean Corpuscular Volume 97.2 fL (80.0-98.0); Mean Platelet Volume 8.4 fL (9.4-12.4); Platelet Count 229 X10*3/uL (160-400); Red Blood Count 4.24 X10*6/uL (4.60-5.80); Red Cell Distribution Width 12.3 % (11.0-16.0); White Blood Count 7.1 X10*3/uL (4.8-10.8)
[2022-08-07 07:26] LABS: Blood Urea Nitrogen 18 mg/dL (9-16); Calcium 9.6 mg/dL (8.4-10.2); Creatinine Clr Calc Pharmacy 64.7; Estimated Glomerular Filt Rate > 60; Glucose Fasting 92 mg/dL (60-99)
[2022-08-07 07:35] LABS: Anion Gap 18 (12-20); Carbon Dioxide 27 mmol/L (22-29); Chloride 95 mmol/L (96-108); Potassium 4.1 mmol/L (3.3-5.1); Sodium 136 mmol/L (135-145)
[2022-08-07] MEDS: Furosemide 40 MG/4 ML VIAL IVPUSH (09:37)
[2022-08-07] MEDS: Cholecalciferol (Vitamin D3) 25 MCG TABLET PO (09:38)
[2022-08-07] MEDS: Apixaban 5 MG TABLET PO ×2 (09:38→23:10)
[2022-08-07] MEDS: amLODIPine Besylate 5 MG TABLET PO (09:38)
[2022-08-07] MEDS: Metoprolol Succinate ER 25 MG TAB.ER.24H PO (09:38)
[2022-08-07] MEDS: Valsartan 80 MG TABLET PO (09:38)
--- NOTE | 2022-08-07 10:31 | P.PNCA_ITS ---
Subjective Subjective Date of Service: 08/07/22 Interval history: He states he is feeling okay. He was off the Cardizem drip but apparently the heart rate went fast again and he is back on the drip. Review of Systems Review of Systems Yes all other systems are reviewed and are negative Constitutional: Reports as per HPI Eyes: Reports as per HPI Reports as per HPI Cardiovascular: Reports as per HPI, Denies acrocyanosis, Denies cool extremities, Denies chest pain, Denies leg edema, Denies lightheadedness, Denies palpitations, Reports dyspnea and Reports dyspnea on exertion Respiratory: Reports as per HPI, Reports no additional respiratory complaints, Reports dyspnea and Reports dyspnea on exertion Gastrointestinal: Reports as per HPI and Reports no additional gastrointestinal complaints Genitourinary: Reports no additional male genitourinary complaints and Reports as per HPI Musculoskeletal: Reports no additional musculoskeletal complaints and Reports as per HPI Skin/Breast: Reports system reviewed and no additional complaints, except as docu Reports system reviewed and no additional complaints, except as documented and Reports as per HPI Psychiatric: Reports no additional psychiatric complaints and Reports as per HPI Endocrine: Reports no additional endocrine complaints, Reports as per HPI and Denies palpitations Hematologic/Lymphatic: Reports no additional hematologic/lymphatic complaints and Reports as per HPI Allergic/Immunologic: Reports no additional allergic/immunologic complaints and Reports as per HPI Physical Exam Vital Signs: Last Vital Signs Temp 97.6 F 08/07/22 07:59 Pulse 75 08/07/22 07:59 Resp 18 08/07/22 07:59 BP 141/67 H 08/07/22 07:59 Pulse Ox 95 08/07/22 07:59 O2 Del Method 08/07/22 07:59 O2 Flow Rate 2 08/05/22 08:09 BMI result Body Mass Index 31.9 Const General: comfortable and no acute distress Orientation/consciousness: patient oriented x3 HEENT Other: Unremarkable Head: Yes normal to inspection Neck Neck: Yes normal visual inspection Chest Chest palpation & inspection: normal inspection of the chest Resp Auscultation: crackles Cardio Palpation: normal PMI Heart sounds: S1 normal heart sound present, S2 normal heart sound present, no gallops, no murmurs and no rubs GI Palpation (GI): Soft to palpation Back/Spine/Pelvis Other: unremarkable Skin General skin exam: no rashes or lesions noted Neuro General: patient oriented x3 Extrem Other: 1 to 2+ edema. General: Yes normal to inspection Psych Mental Status: mental status grossly normal Objective Labs and Meds Result diagrams: 08/07/22 06:20 08/07/22 06:20 Lab results: Laboratory Results - last 24 hr 08/07/22 08/07/22 06:20 06:20 WBC 7.1 RBC 4.24 L Hgb 14.8 Hct 41.2 L MCV 97.2 MCH 34.9 H MCHC 35.9 RDW 12.3 Plt Count 229 D MPV 8.4 L Absolute Nucleated RBC 0.000 Nucleated RBC % (auto) 0.0 Sodium 136 Potassium 4.1 Chloride 95 L Carbon Dioxide 27 Anion Gap 18 BUN 18 H Creatinine 1.12 Estim Creat Clear Calc 64.7 Estimated GFR > 60 Fasting Glucose 92 Calcium 9.6 D Progress Note: A&P Assessment and plan (1) Atrial flutter with rapid ventricular response: Status: Acute Assessment and Plan: He is on IV Cardizem drip at 5 milligram/hour. We can stop this and start him on oral diltiazem 90 mg q.6. Digoxin. He is already on small dose of beta- blockers. Anticoagulation. If rate cannot be adequately controlled by oral medications, then possibly LUDWIN/cardioversion. Discussed about this with the patient. (2) Acute congestive heart failure: Status: Acute Assessment and Plan: On IV diuretics but not much volume overload on exam. We can switch him to oral. Echocardiogram for cardiac function. Plan Discussed with . Time Spent With Patient Time: Total time spent is greater than 50% in coordination of care (as documented) at patient's floor/unit and/or counseling patient: 35min. Progress Note: Quality Stroke Does the patient have a stroke diagnosis?: No Procedures Date of Service Date of Service: 08/07/22
--- NOTE | 2022-08-07 10:39 | HO.PM.IMPN ---
Subjective Subjective Date of Service: 08/07/22 Interval History: cc: sob interval history:improving Cardiovascular Cardiovascular: Reports no additional cardiovascular complaints Respiratory Respiratory: Reports no additional respiratory complaints Physical Exam Vital Signs: Vital Signs: Last Vital Signs Temp 97.6 F 08/07/22 07:59 Pulse 75 08/07/22 07:59 Resp 18 08/07/22 07:59 BP 141/67 H 08/07/22 07:59 Pulse Ox 95 08/07/22 07:59 O2 Del Method 08/07/22 07:59 O2 Flow Rate 2 08/05/22 08:09 BMI result Body Mass Index 31.9 Const: General: comfortable and no acute distress Orientation/consciousness: patient oriented x3 HEENT: Other: Unremarkable Head: Yes normal to inspection Neck: Neck: Yes normal visual inspection Chest: Chest palpation & inspection: normal inspection of the chest Resp: Auscultation: crackles Cardio: Palpation: normal PMI Heart sounds: S1 normal heart sound present, S2 normal heart sound present, no gallops, no murmurs and no rubs GI: Palpation (GI): Soft to palpation Back/Spine/Pelvis: Other: unremarkable Skin: General skin exam: no rashes or lesions noted Neuro: General: patient oriented x3 Extrem: Other: 1 to 2+ edema. General: Yes normal to inspection Psych: Mental Status: mental status grossly normal Objective Data Active Medications Albuterol Sulfate (Albuterol Sulfate 90 Mcg 8 Gm Inhaler) 2 puff INHALE Q4H PRN PRN Reason: Wheezing Amlodipine Besylate (Amlodipine Besylate 5 Mg Tablet) 5 mg PO DAILY [facility]; Protocol Last Admin: 08/07/22 09:38 Dose: 5 mg Documented By: JUDY Apixaban (Apixaban 5 Mg Tablet) 5 mg PO BID [facility] Last Admin: 08/07/22 09:38 Dose: 5 mg Documented By: JUDY Diltiazem HCl (Diltiazem Hcl 60 Mg Tablet) 60 mg PO Q8H [facility]; Protocol Furosemide (Furosemide 40 Mg Tablet) 40 mg PO DAILY [facility]; Protocol Guaifenesin (Guaifenesin 100 Mg/5 Ml Liquid) 5 ml PO Q4H PRN PRN Reason: Cough Last Admin: 08/06/22 17:44 Dose: 5 ml Documented By: JUDY Metoprolol Succinate (Metoprolol Succinate Er 25 Mg Tab.Er.24h) 25 mg PO DAILY [facility]; Protocol Last Admin: 08/07/22 09:38 Dose: 25 mg Documented By: JUDY Montelukast Sodium (Montelukast Sodium 10 Mg Tablet) 10 mg PO BEDTIME [facility] Last Admin: 08/06/22 20:17 Dose: 10 mg Documented By: BRANDI Non-Formulary Medication (Dutasteride) 0.5 mg PO DAILY [facility] Pharmacy Consult (Consult Rx Perform Med Rec) 1 each MISCELLANE ONCE PRN PRN Reason: Consult order Sodium Chloride (0.9 % Sodium Chloride Flush 3 Ml Syringe) 3 ml IVFLUSH QSHIFT [facility] Last Admin: 08/07/22 09:39 Dose: Not Given Documented By: JUDY Non-Admin Reason: IV Running Tamsulosin HCl (Tamsulosin Hcl 0.4 Mg Capsule) 0.4 mg PO BEDTIME [facility] Last Admin: 08/06/22 20:17 Dose: 0.4 mg Documented By: BRANDI Valsartan (Valsartan 80 Mg Tablet) 80 mg PO DAILY [facility] Last Admin: 08/07/22 09:38 Dose: 80 mg Documented By: JUDY Vitamin D (Cholecalciferol (Vitamin D3) 25 Mcg Tablet) 25 mcg PO DAILY [facility] Last Admin: 08/07/22 09:38 Dose: 25 mcg Documented By: JUDY Labs CBC & Chem 7: 08/07/22 06:20 08/07/22 06:20 Labs: Laboratory Results - last 24 hr 08/07/22 08/07/22 06:20 06:20 MCV 97.2 MCH 34.9 H MCHC 35.9 RDW 12.3 Plt Count 229 D MPV 8.4 L Absolute Nucleated RBC 0.000 Nucleated RBC % (auto) 0.0 Anion Gap 18 Estim Creat Clear Calc 64.7 Estimated GFR > 60 Fasting Glucose 92 Calcium 9.6 D Assessment and Plan (1) Atrial fibrillation, new onset: Status: Acute Plan 72M with PMH COPD/ moderate persistent asthma, HTN, CKD II, obesity, presented with sob ?acute unspecified CHF diuresed well will change to po lasix ?follow up echo ?cardio follwoing ?monitor electrolytes, I's and O's ?new onset atrial fibrillation/flutter with rapid ventricular response follow-up echo ?starting Eliquis dig loaded, continue toprol, change cardizem to po 90 tid ?COPD/monitor persistent asthma ?stable, bronchodilators as needed ?hypertension ?continue amlodipine, Toprol ?CKD 2 ?stable ?obesity ?weight loss recommended ?DVT prophylaxis -starting Eliquis ?full code reason for continued hospitalization:rate still not controlled Quality Stroke Does the patient have a stroke diagnosis?: No VTE Prior VTE?: No VTE Risk Level:: Medical - moderate - high VTE Device Contraindication: Treatment Not Indicated VTE Drug Contraindication: N/A - Med Ordered
[2022-08-07] MEDS: dilTIAZem HCL 60 MG TABLET PO ×2 (10:50→23:09)
[2022-08-07] MEDS: polyethylene glycoL 3350 17 GM POWD.PACK PO (10:50)
[2022-08-07] MEDS: Montelukast Sodium 10 MG TABLET PO (23:10)
[2022-08-07] MEDS: Docusate Sodium 100 MG CAPSULE PO (23:10)
[2022-08-07] MEDS: Tamsulosin HCL 0.4 MG CAPSULE PO (23:10)
[2022-08-07] MEDS: Pravastatin Sodium 40 MG TABLET PO (23:10)
[2022-08-08 03:30] VITALS: BP 96/59; PULSE 84; RESP 18; O2SAT 96
[2022-08-08] MEDS: 0.9 % Sodium Chloride Flush 3 ML SYRINGE IVFLUSH ×3 (06:12→14:08)
[2022-08-08 06:26] LABS: Hematocrit 38.8 % (42.0-52.0); Hemoglobin 13.8 g/dl (14.0-18.0); Mean Corpuscular HGB Conc 35.6 g/dl (31.0-36.0); Mean Corpuscular Hemoglobin 34.8 pg (27.0-33.0); Mean Corpuscular Volume 97.7 fL (80.0-98.0); Mean Platelet Volume 8.2 fL (9.4-12.4); Platelet Count 187 X10*3/uL (160-400); Red Blood Count 3.97 X10*6/uL (4.60-5.80); Red Cell Distribution Width 12.5 % (11.0-16.0)
--- NOTE | 2022-08-08 07:00 | CA_ITS ---
Transthoracic Echocardiogram Patient (Last, First, Middle): Britton Long J Gender: Male Date of : 1950 Age: 72 Procedure Date: 08/08/2022 Procedure Type: Transthoracic Echocardiogram Location: [facility] Height: 170.18 cm Weight: 95.26 kg BSA: 2.06 m2 Heart Rate: bpm BP: 96 / 59 mmHg Scalp Treatment Operator: SB Referring MD: Lloyd Ahuja MD Symptoms: chf Study Quality: Adequate w contrast Conclusions: - Normal left ventricular size and systolic function. There is mildly increased left ventricular wall thickness. The visually estimated ejection fraction is between 65-70%. - Normal right ventricular cavity size and systolic function. - The left atrium is severely dilated. There is no evidence of interatrial shunt by color Doppler. The right atrium is normal in size. - There is severe mitral annular calcification. There is no mitral valve regurgitation. Mean gradient across the MV 5 mm Hg at HR 77 in atrial flutter. Gradient can be secondary to severe mitral annular calcification. - There is mild dilatation of the ascending aorta measuring 3.60 cm. Findings Procedure Information Contrast agent, definity, is being given per protocol without apparent complications. Left Ventricle Normal left ventricular size and systolic function. There is mildly increased left ventricular wall thickness. The visually estimated ejection fraction is between 65-70%. There is no evidence of regional wall motion abnormalities. Diastolic function is indeterminate on the basis of available data. Right Ventricle Normal right ventricular cavity size and systolic function. Atria The left atrium is severely dilated. There is no evidence of interatrial shunt by color Doppler. The right atrium is normal in size. Aortic Valve There is a normal trileaflet aortic valve. There is mild calcification of the aortic valve. There is mild thickening of the aortic valve. There is no aortic valve stenosis. There is no aortic valve regurgitation. Mitral Valve There is severe mitral annular calcification. There is no mitral valve regurgitation. Mean gradient across the MV 5 mm Hg at HR 77 in atrial flutter. Gradient can be secondary to severe mitral annular calcification. Pulmonic Valve The pulmonic valve is likely normal. There is trace pulmonic valve regurgitation. Tricuspid Valve Normal tricuspid valve structure. There is trace tricuspid valve regurgitation. Tricuspid regurgitation envelope is inadequate for calculation of right ventricular systolic pressure. Normal right atrial pressure. Great Vessels There is mild dilatation of the ascending aorta measuring 3.60 cm. The visualized portions of the pulmonary artery and branches are normal. Venous The inferior vena cava is normal in size and collapses greater than 50% with inspiration. Pericardium/Pleural There is no evidence of pericardial effusion. Measurements 2D Linear Measurements IVSd: 1.06 0.6-0.9/0.6-1.0 cm LVIDd: 4.72 3.9-5.3/4.2-5.9 cm LVIDd Index: 2.29 2.4-3.2/2.2-3.1 cm/m2 LVIDs: 2.92 2.0-3.6 cm LVPWd: 1.10 0.7-1.1 cm LA Diam: 4.80 2.7-3.8/3.0-4.0 cm LAIDs Index: 2.33 1.5-2.3 cm/m2 LV Mass: 229.33 67-162/88-224 g LV Mass Index: 111.32 43-95/49-115 g/m2 LVOT Diam: 2.00 3.0+(-)1.3 cm 2D Systolic Function EF 4C: 54.30 >55% EF 2C: 62.90 >55% EF BiP: 57.20 >55% Mitral Valve MV VTI: 0.39 MV Pk Buzz: 1.73 MV Mn Buzz: 1.02 MV Pk Grad: 12.00 MV Mn Grad: 5.00 MV Pk E: 1.60 E'Medial: 6.64 E/E' Med: 24.10 MVA Continuity: 1.38 Aortic Valve AoV Pk Buzz: 1.57 AoV Mn Buzz: 1.02 AoV VTI: 0.28 AoV Pk Grad: 10.00 Aov Mn Grad: 5.00 ALLAN Cont.VTI: 1.92 LVOT LVOT Pk Buzz: 1.01 LVOT Mn Buzz: 0.63 LVOT VTI: 0.17 LVOT Pk Grad: 4.00 LVOT Mn Grad: 2.00 LVOT Diam: 2.00 LVOT Area: 3.14 Diastolic Function MV Pk E: 1.60 E'Medial: 6.64 E/E' Med: 24.10 Right Ventricle TAPSE (mm): 19.70 TVS' Buzz: 15.50 Tricuspid Valve RA Press: 8.00 Great Vessels Aorta Sinus of Valsalva: 3.30 2.0-3.5 cm Ao Asc: 3.60 2.1-3.4 cm Pulmonary Valve PV Pk Buzz: 1.25 Peak PV Grad: 6.00 Updated in Other Vendor System with Status of Final Placido Ojeda MD electronically signed on 08/08/2022 2:06:30 PM with status of Final
[2022-08-08 07:06] LABS: Anion Gap 12 (12-20); Blood Urea Nitrogen 17 mg/dL (9-16); Calcium 9.2 mg/dL (8.4-10.2); Carbon Dioxide 30 mmol/L (22-29); Chloride 97 mmol/L (96-108); Creatinine Clr Calc Pharmacy 78.8; Estimated Glomerular Filt Rate > 60; Glucose Fasting 95 mg/dL (60-99); Potassium 3.8 mmol/L (3.3-5.1); Sodium 135 mmol/L (135-145)
[2022-08-08 08:00] VITALS: BP 104/70; PULSE 78; RESP 16; TEMP 37.1
--- NOTE | 2022-08-08 10:00 | HO.PM.IMPN ---
Subjective Subjective Date of Service: 08/08/22 Interval History: cc: sob interval history:improving Cardiovascular Cardiovascular: Reports no additional cardiovascular complaints Respiratory Respiratory: Reports no additional respiratory complaints Physical Exam Vital Signs: Vital Signs: Last Vital Signs Temp 98.7 F 08/08/22 08:00 Pulse 78 08/08/22 08:00 Resp 16 08/08/22 08:00 BP 104/70 08/08/22 08:00 Pulse Ox 96 08/08/22 03:30 O2 Del Method 08/08/22 08:00 O2 Flow Rate 2 08/05/22 08:09 BMI result Body Mass Index 31.9 Const: General: comfortable and no acute distress Orientation/consciousness: patient oriented x3 HEENT: Other: Unremarkable Head: Yes normal to inspection Neck: Neck: Yes normal visual inspection Chest: Chest palpation & inspection: normal inspection of the chest Resp: Auscultation: crackles Cardio: Palpation: normal PMI Heart sounds: S1 normal heart sound present, S2 normal heart sound present, no gallops, no murmurs and no rubs GI: Palpation (GI): Soft to palpation Back/Spine/Pelvis: Other: unremarkable Skin: General skin exam: no rashes or lesions noted Neuro: General: patient oriented x3 Extrem: Other: 1 to 2+ edema. General: Yes normal to inspection Psych: Mental Status: mental status grossly normal Objective Data Active Medications Albuterol Sulfate (Albuterol Sulfate 90 Mcg 8 Gm Inhaler) 2 puff INHALE Q4H PRN PRN Reason: Wheezing Amlodipine Besylate (Amlodipine Besylate 5 Mg Tablet) 5 mg PO DAILY [facility]; Protocol Last Admin: 08/07/22 09:38 Dose: 5 mg Documented By: JUDY Apixaban (Apixaban 5 Mg Tablet) 5 mg PO BID [facility] Last Admin: 08/07/22 23:10 Dose: 5 mg Documented By: DAMIÁN Diltiazem HCl (Diltiazem Hcl 60 Mg Tablet) 60 mg PO Q8H [facility]; Protocol Last Admin: 08/08/22 03:59 Dose: Not Given Documented By: DAMIÁN Non-Admin Reason: Physician Approved Docusate Sodium (Docusate Sodium 100 Mg Capsule) 100 mg PO BID [facility] Last Admin: 08/07/22 23:10 Dose: 100 mg Documented By: DAMIÁN Furosemide (Furosemide 40 Mg Tablet) 40 mg PO DAILY [facility]; Protocol Guaifenesin (Guaifenesin 100 Mg/5 Ml Liquid) 5 ml PO Q4H PRN PRN Reason: Cough Last Admin: 08/06/22 17:44 Dose: 5 ml Documented By: JUDY Metoprolol Succinate (Metoprolol Succinate Er 25 Mg Tab.Er.24h) 25 mg PO DAILY [facility]; Protocol Last Admin: 08/07/22 09:38 Dose: 25 mg Documented By: JUDY Montelukast Sodium (Montelukast Sodium 10 Mg Tablet) 10 mg PO BEDTIME [facility] Last Admin: 08/07/22 23:10 Dose: 10 mg Documented By: DAMIÁN Pharmacy Consult (Consult Rx Perform Med Rec) 1 each MISCELLANE ONCE PRN PRN Reason: Consult order Pravastatin Sodium (Pravastatin Sodium 40 Mg Tablet) 40 mg PO BEDTIME [facility] Last Admin: 08/07/22 23:10 Dose: 40 mg Documented By: DAMIÁN Sodium Chloride (0.9 % Sodium Chloride Flush 3 Ml Syringe) 3 ml IVFLUSH QSHIFT [facility] Last Admin: 08/08/22 06:12 Dose: 3 ml Documented By: DAMIÁN Tamsulosin HCl (Tamsulosin Hcl 0.4 Mg Capsule) 0.4 mg PO BEDTIME [facility] Last Admin: 08/07/22 23:10 Dose: 0.4 mg Documented By: DAMIÁN Valsartan (Valsartan 80 Mg Tablet) 80 mg PO DAILY [facility] Last Admin: 08/07/22 09:38 Dose: 80 mg Documented By: JUDY Vitamin D (Cholecalciferol (Vitamin D3) 25 Mcg Tablet) 25 mcg PO DAILY [facility] Last Admin: 08/07/22 09:38 Dose: 25 mcg Documented By: JUDY Labs CBC & Chem 7: 08/08/22 06:08 08/08/22 06:08 Labs: Laboratory Results - last 24 hr 08/08/22 08/08/22 06:08 06:08 MCV 97.7 MCH 34.8 H MCHC 35.6 RDW 12.5 Plt Count 187 MPV 8.2 L Absolute Nucleated RBC 0.000 Nucleated RBC % (auto) 0.0 Anion Gap 12 Estim Creat Clear Calc 78.8 Estimated GFR > 60 Fasting Glucose 95 Calcium 9.2 Assessment and Plan (1) Atrial fibrillation, new onset: Status: Acute Plan 72M with PMH COPD/ moderate persistent asthma, HTN, CKD II, obesity, presented with sob ?acute unspecified CHF diuresed well now on po lasix ?follow up echo ?cardio follwoing ?monitor electrolytes, I's and O's ?new onset atrial fibrillation/flutter with rapid ventricular response follow-up echo ?starting Eliquis dig loaded, continue toprol, change cardizem to po 90 tid rate controlled ?COPD/monitor persistent asthma ?stable, bronchodilators as needed ?hypertension ?continue amlodipine, Toprol ?CKD 2 ?stable ?obesity ?weight loss recommended ?DVT prophylaxis -starting Eliquis ?full code reason for continued hospitalization: awaiting echo Quality Stroke Does the patient have a stroke diagnosis?: No VTE Prior VTE?: No VTE Risk Level:: Medical - moderate - high VTE Device Contraindication: Treatment Not Indicated VTE Drug Contraindication: N/A - Med Ordered
[2022-08-08] MEDS: Metoprolol Succinate ER 25 MG TAB.ER.24H PO ×2 (10:02→15:06)
[2022-08-08] MEDS: Valsartan 80 MG TABLET PO (10:02)
[2022-08-08] MEDS: Furosemide 40 MG TABLET PO (10:03)
[2022-08-08] MEDS: Docusate Sodium 100 MG CAPSULE PO ×2 (10:03→22:33)
[2022-08-08] MEDS: amLODIPine Besylate 5 MG TABLET PO (10:03)
[2022-08-08] MEDS: Apixaban 5 MG TABLET PO ×2 (10:03→22:33)
[2022-08-08] MEDS: Cholecalciferol (Vitamin D3) 25 MCG TABLET PO (10:03)
[2022-08-08] MEDS: dilTIAZem HCL 60 MG TABLET PO (10:05)
[2022-08-08 11:41] VITALS: BP 90/58; PULSE 79; RESP 16; TEMP 36.3; O2SAT 93
--- NOTE | 2022-08-08 12:52 | PM.PNCARD ---
Subjective Subjective Date of Service: 08/08/22 Interval history: Seen examined at bedside. He is saying his breathing is improving. In atrial flutter on telemetry with controlled heart rates but in between heart rate has been quite fast. Physical Exam Vital Signs: Last Vital Signs Temp 97.4 F 08/08/22 11:41 Pulse 79 08/08/22 11:41 Resp 16 08/08/22 11:41 BP 90/58 L 08/08/22 11:41 Pulse Ox 93 08/08/22 11:41 O2 Del Method 08/08/22 11:41 O2 Flow Rate 2 08/05/22 08:09 BMI result Body Mass Index 31.9 GENERAL APPEARANCE: in no acute distress, pleasant. NECK: no carotid bruit, positive jugular venous distention. SKIN: no suspicious lesions, warm and dry. HEART: no murmurs, regular rate and rhythm. LUNGS: clear to auscultation bilaterally. ABDOMEN: soft, nontender. EXTREMITIES: Mild edema. PERIPHERAL PULSES: equal. NEUROLOGIC: No gross deficits, AAO X 3 Objective Labs and Meds Result diagrams: 08/08/22 06:08 08/08/22 06:08 Lab results: Laboratory Results - last 24 hr 08/08/22 08/08/22 06:08 06:08 WBC 7.0 RBC 3.97 L Hgb 13.8 L Hct 38.8 L MCV 97.7 MCH 34.8 H MCHC 35.6 RDW 12.5 Plt Count 187 MPV 8.2 L Absolute Nucleated RBC 0.000 Nucleated RBC % (auto) 0.0 Sodium 135 Potassium 3.8 Chloride 97 Carbon Dioxide 30 H Anion Gap 12 BUN 17 H Creatinine 0.92 Estim Creat Clear Calc 78.8 Estimated GFR > 60 Fasting Glucose 95 Calcium 9.2 Progress Note: A&P Assessment and plan (1) Acute congestive heart failure: Status: Acute (2) Atrial flutter with rapid ventricular response: Status: Acute Plan [age] gentleman presenting for atrial flutter and congestive heart failure. Clinically still has mild volume overload. Peripheral edema can be due to amlodipine use also. In any case I think he can get 1 dose of IV diuretics today and can be on or diuretics from tomorrow. Stop the hydrochlorothiazide at discharge because thiazide and loop diuretic together may cause more electrolyte issues in him. Would change Cardizem to Cardizem CD 1 20 mg from tomorrow. Increase her Toprol XL to 50 mg once a day. Will try rate control strategy. Echocardiography has shown normal biventricular function. He has severe mitral annular calcification and mild gradient across the mitral valve. I think this is just due to severe mitral annular calcification and he does not have significant mitral valve stenosis. Thank you for allowing me to participate in the care of your patient. Please feel free to contact me if you have any questions. Time Spent With Patient Time: Total time spent is greater than 50% in coordination of care (as documented) at patient's floor/unit and/or counseling patient: Progress Note: Quality Stroke Does the patient have a stroke diagnosis?: No Procedures Date of Service Date of Service: 08/08/22
--- NOTE | 2022-08-08 13:11 | MHC.CM.PN ---
Per ROUNDS discussion, Patient needs an ECHO; home is the goal and CM will continue to follow.
[2022-08-08] MEDS: Furosemide 40 MG/4 ML VIAL IVPUSH (14:07)
[2022-08-08 15:07] VITALS: BP 125/59; PULSE 81; RESP 18; TEMP 36.2; O2SAT 96
[2022-08-08 19:06] VITALS: BP 104/66; PULSE 72; RESP 18; TEMP 36.6; O2SAT 96
[2022-08-08] MEDS: Pravastatin Sodium 40 MG TABLET PO (22:33)
[2022-08-08] MEDS: Montelukast Sodium 10 MG TABLET PO (22:33)
[2022-08-08] MEDS: Tamsulosin HCL 0.4 MG CAPSULE PO (22:33)
[2022-08-09] VITALS (12 sets, daily range): BP systolic 98–125; BP diastolic 56–72; PULSE 65–160; RESP 16–20; TEMP 36.3–37.1; O2SAT 94–98
[2022-08-09 06:31] LABS: Hematocrit 39.5 % (42.0-52.0); Hemoglobin 14.1 g/dl (14.0-18.0); Mean Corpuscular HGB Conc 35.7 g/dl (31.0-36.0); Mean Corpuscular Hemoglobin 34.5 pg (27.0-33.0); Mean Corpuscular Volume 96.6 fL (80.0-98.0); Mean Platelet Volume 8.4 fL (9.4-12.4); Platelet Count 202 X10*3/uL (160-400); Red Blood Count 4.09 X10*6/uL (4.60-5.80); Red Cell Distribution Width 12.5 % (11.0-16.0); White Blood Count 10.6 X10*3/uL (4.8-10.8)
[2022-08-09 06:46] LABS: Anion Gap 11 (12-20); Blood Urea Nitrogen 18 mg/dL (9-16); Calcium 9.2 mg/dL (8.4-10.2); Carbon Dioxide 31 mmol/L (22-29); Chloride 98 mmol/L (96-108); Creatinine Clr Calc Pharmacy 70.4; Estimated Glomerular Filt Rate > 60; Glucose Fasting 98 mg/dL (60-99); Magnesium 1.8 mg/dL (1.6-2.6); Potassium 3.9 mmol/L (3.3-5.1); Sodium 136 mmol/L (135-145)
[2022-08-09] MEDS: Valsartan 80 MG TABLET PO (09:07)
[2022-08-09] MEDS: Furosemide 40 MG TABLET PO (09:07)
[2022-08-09] MEDS: Cholecalciferol (Vitamin D3) 25 MCG TABLET PO (09:07)
[2022-08-09] MEDS: Metoprolol Succinate ER 50 MG TAB.ER.24H PO (09:07)
[2022-08-09] MEDS: Apixaban 5 MG TABLET PO ×2 (09:07→20:10)
[2022-08-09] MEDS: dilTIAZem HCL CD 120 MG CAP.ER.DEG PO (09:07)
[2022-08-09] MEDS: amLODIPine Besylate 5 MG TABLET PO (09:08)
[2022-08-09] MEDS: 0.9 % Sodium Chloride Flush 3 ML SYRINGE IVFLUSH (09:09)
[2022-08-09] MEDS: Docusate Sodium 100 MG CAPSULE PO ×2 (09:10→20:10)
--- NOTE | 2022-08-09 09:22 | PC.NURSE ---
pt went from A-futter to A-fib in the 160's pt given scheduled dose of P.O cardizem, metoprolol and valsartan. made aware
[2022-08-09] MEDS: dilTIAZem HCL 125 MG in 0.9 % Sodium Chloride 100 ML IVCONT (12:32)
--- NOTE | 2022-08-09 12:34 | PC.NURSE ---
pt HR went back in the 150's, cardizem gtt started at 2.5mg/hr per
--- NOTE | 2022-08-09 13:55 | P.PNIM_ITS ---
Subjective Subjective Date of Service: 08/09/22 Interval History: the patient was seen and evaluated this morning Laying in bed, feels comfortable overall but heart rate went to 160s Report dyspnea on minimal exertion on occasions No reported other overnight events. Systemic review: No fever, chills or weakness No chest pain, palpitation Dyspnea on exertion on occasions No abdominal pain, nausea or vomiting No urinary symptoms No reported rash Physical Exam Vital Signs: Vital Signs: Last Vital Signs Temp 97.6 F 08/09/22 11:34 Pulse 80 08/09/22 12:14 Resp 20 08/09/22 11:34 BP 122/57 L 08/09/22 11:34 Pulse Ox 98 08/09/22 11:34 O2 Del Method 08/09/22 11:34 O2 Flow Rate 2 08/05/22 08:09 BMI result Body Mass Index 31.9 Const: Other: Constitutional : Awake, interactive, not in distress Neck : Normal inspection, Supple Cardiovascular : Irregular irregular, tachycardia, no JVP, no lower extremity edema Respiratory : good bilateral air entry, no crackles, wheezes or rhonchi Gastrointestinal: soft, lax, Normal bowel sounds, Non tender Skin : Warm, Dry Neurological : Alert & oriented x3, No focal deficit Objective Data Active Medications Albuterol Sulfate (Albuterol Sulfate 90 Mcg 8 Gm Inhaler) 2 puff INHALE Q4H PRN PRN Reason: Wheezing Amlodipine Besylate (Amlodipine Besylate 5 Mg Tablet) 5 mg PO DAILY [facility]; Protocol Last Admin: 08/09/22 09:08 Dose: 5 mg Documented By: KOLE Apixaban (Apixaban 5 Mg Tablet) 5 mg PO BID [facility] Last Admin: 08/09/22 09:07 Dose: 5 mg Documented By: KOLE Diltiazem HCl (Diltiazem Hcl Cd 120 Mg Cap.Er.Deg) 120 mg PO DAILY [facility]; Protocol Last Admin: 08/09/22 09:07 Dose: 120 mg Documented By: KOLE Docusate Sodium (Docusate Sodium 100 Mg Capsule) 100 mg PO BID [facility] Last Admin: 08/09/22 09:10 Dose: 100 mg Documented By: KOLE Furosemide (Furosemide 40 Mg Tablet) 40 mg PO DAILY [facility]; Protocol Last Admin: 08/09/22 09:07 Dose: 40 mg Documented By: KOLE Guaifenesin (Guaifenesin 100 Mg/5 Ml Liquid) 5 ml PO Q4H PRN PRN Reason: Cough Last Admin: 08/06/22 17:44 Dose: 5 ml Documented By: JUDY Diltiazem HCl 125 mg/ Sodium (Chloride) 125 mls @ 0 mls/hr IVCONT .Q0M [facility]; Protocol Last Admin: 08/09/22 12:32 Dose: 2.5 mg/hr, 2.5 mls/hr Documented By: KOLE Metoprolol Succinate (Metoprolol Succinate Er 50 Mg Tab.Er.24h) 50 mg PO DAILY [facility]; Protocol Last Admin: 08/09/22 09:07 Dose: 50 mg Documented By: KOLE Montelukast Sodium (Montelukast Sodium 10 Mg Tablet) 10 mg PO BEDTIME [facility] Last Admin: 08/08/22 22:33 Dose: 10 mg Documented By: CRISTINO Pharmacy Consult (Consult Rx Perform Med Rec) 1 each MISCELLANE ONCE PRN PRN Reason: Consult order Pravastatin Sodium (Pravastatin Sodium 40 Mg Tablet) 40 mg PO BEDTIME [facility] Last Admin: 08/08/22 22:33 Dose: 40 mg Documented By: CRISTINO Sodium Chloride (0.9 % Sodium Chloride Flush 3 Ml Syringe) 3 ml IVFLUSH QSHIFT [facility] Last Admin: 08/09/22 09:09 Dose: 3 ml Documented By: KOLE Tamsulosin HCl (Tamsulosin Hcl 0.4 Mg Capsule) 0.4 mg PO BEDTIME [facility] Last Admin: 08/08/22 22:33 Dose: 0.4 mg Documented By: CRISTINO Valsartan (Valsartan 80 Mg Tablet) 80 mg PO DAILY [facility] Last Admin: 08/09/22 09:07 Dose: 80 mg Documented By: KOLE Vitamin D (Cholecalciferol (Vitamin D3) 25 Mcg Tablet) 25 mcg PO DAILY [facility] Last Admin: 08/09/22 09:07 Dose: 25 mcg Documented By: KOLE Labs CBC & Chem 7: 08/09/22 05:59 08/09/22 05:59 Labs: Laboratory Results - last 24 hr 08/09/22 08/09/22 05:59 05:59 MCV 96.6 MCH 34.5 H MCHC 35.7 RDW 12.5 Plt Count 202 MPV 8.4 L Absolute Nucleated RBC 0.000 Nucleated RBC % (auto) 0.0 Anion Gap 11 L Estim Creat Clear Calc 70.4 Estimated GFR > 60 Fasting Glucose 98 Calcium 9.2 Magnesium 1.8 Assessment and Plan (1) Acute congestive heart failure: Status: Acute (2) Atrial flutter with rapid ventricular response: Status: Acute Plan 72M with PMH COPD/ moderate persistent asthma, HTN, CKD II, obesity, presented with sob ?acute unspecified CHF diuresed well now on po lasix Echo, EF 60 70% with mild LVH and dilated left atrium ?cardio following ?monitor electrolytes, I's and O's ?new onset atrial fibrillation/flutter with rapid ventricular response Continue Eliquis Digoxin discontinued increase metoprolol to 50 Restarted on IV Cardizem for rapid response again Cardiology to follow ?COPD/monitor persistent asthma ?stable, bronchodilators as needed ?hypertension ?continue amlodipine, Toprol ?CKD 2 ?stable ?obesity ?weight loss recommended ?DVT prophylaxis -starting Eliquis ?full code reason for continued hospitalization: Pending heart rate controlled and safe discharge plan Quality Stroke Does the patient have a stroke diagnosis?: No VTE Prior VTE?: No VTE Risk Level:: Medical - moderate - high VTE Device Contraindication: Treatment Not Indicated VTE Drug Contraindication: N/A - Med Ordered
--- NOTE | 2022-08-09 16:42 | P.PNCA_ITS ---
Subjective Subjective Date of Service: 08/09/22 Interval history: Seen examined at bedside. Continues to get rapid atrial flutter episodes. Breathing is improved. Physical Exam Vital Signs: Last Vital Signs Temp 97.4 F 08/09/22 15:17 Pulse 77 08/09/22 15:17 Resp 18 08/09/22 15:17 BP 122/57 L 08/09/22 11:34 Pulse Ox 95 08/09/22 15:17 O2 Del Method 08/09/22 15:17 O2 Flow Rate 2 08/05/22 08:09 BMI result Body Mass Index 31.9 GENERAL APPEARANCE: in no acute distress, pleasant. NECK: no carotid bruit, no significant jugular venous distention. SKIN: no suspicious lesions, warm and dry. HEART: no murmurs, regular rate and rhythm. LUNGS: clear to auscultation bilaterally. ABDOMEN: soft, nontender. EXTREMITIES: Mild edema. PERIPHERAL PULSES: equal. NEUROLOGIC: No gross deficits, AAO X 3 Objective Labs and Meds Result diagrams: 08/09/22 05:59 08/09/22 05:59 Lab results: Laboratory Results - last 24 hr 08/09/22 08/09/22 05:59 05:59 WBC 10.6 RBC 4.09 L Hgb 14.1 Hct 39.5 L MCV 96.6 MCH 34.5 H MCHC 35.7 RDW 12.5 Plt Count 202 MPV 8.4 L Absolute Nucleated RBC 0.000 Nucleated RBC % (auto) 0.0 Sodium 136 Potassium 3.9 Chloride 98 Carbon Dioxide 31 H Anion Gap 11 L BUN 18 H Creatinine 1.03 Estim Creat Clear Calc 70.4 Estimated GFR > 60 Fasting Glucose 98 Calcium 9.2 Magnesium 1.8 Progress Note: A&P Assessment and plan (1) Atrial flutter with rapid ventricular response: Status: Acute (2) Acute congestive heart failure: Status: Acute Plan 72-year-old gentleman who is presenting with atrial flutter and shortness of breath. Appears euvolemic. Atrial flutter is difficult to control in him which is not unusual. He is on 50 of Toprol-XL. Give him 120 of Cardizem as stop the Cardizem drip. He was already on 120 mg of Cardizem and we are going to increase the dose to 240 mg tomorrow. If he can tolerate this does any as blood pressure room then Toprol- XL can be doubled to 50 mg twice a day tomorrow but I will make that change depending on how his heart rate response to all these changes. I have discussed with him about LUDWIN cardioversion as a next step in case we do not make progress with rate control strategy. Thank you for allowing me to participate in the care of your patient. Please feel free to contact me if you have any questions. Time Spent With Patient Time: Total time spent is greater than 50% in coordination of care (as documented) at patient's floor/unit and/or counseling patient: Progress Note: Quality Stroke Does the patient have a stroke diagnosis?: No Procedures Date of Service Date of Service: 08/09/22
--- NOTE | 2022-08-09 17:34 | PC.NURSE ---
Per animal pathology teacher, give 120mg of P.O Cardizem and stop continuous IV Cardizem.
[2022-08-09] MEDS: Montelukast Sodium 10 MG TABLET PO (20:10)
[2022-08-09] MEDS: Pravastatin Sodium 40 MG TABLET PO (20:10)
[2022-08-09] MEDS: dilTIAZem HCL 60 MG TABLET 120 MG PO (20:10)
[2022-08-09] MEDS: Tamsulosin HCL 0.4 MG CAPSULE PO (20:10)
--- NOTE | 2022-08-09 22:24 | ECG_ITS ---
Test Reason : pause on tele Blood Pressure : / mmHG Vent. Rate : 064 BPM Atrial Rate : 312 BPM P-R Int : 000 ms QRS Dur : 088 ms QT Int : 420 ms P-R-T Axes : 000 -26 -63 degrees QTc Int : 433 ms Atrial flutter with variable A-V block Low voltage QRS RSR' or QR pattern in V1 suggests right ventricular conduction delay Nonspecific ST and T wave abnormality Abnormal ECG When compared with ECG of 05-AUG-2022 06:05, Vent. rate has decreased BY 85 BPM Nonspecific T wave abnormality now evident in Inferior leads Nonspecific T wave abnormality now evident in Anterolateral leads Referred By: Sujatha Chaudhary Electronically Signed By:LUCIA JUNIOR MD
[2022-08-10] MEDS: guaiFENesin 100 MG/5 ML LIQUID PO
--- NOTE | 2022-08-10 00:03 | PM.EVENT ---
Event Note Date of Service: 08/10/22 Event Note: pt had two recorded pauses of 4.31 and 4.6 on tele. Pt on cardizem. will hold am dose. EKG ordered
[2022-08-10 04:00] VITALS: BP 112/58; PULSE 78; RESP 20; TEMP 36.9; O2SAT 97
[2022-08-10 08:00] VITALS: BP 133/55; PULSE 80; RESP 16; TEMP 36.8; O2SAT 97
[2022-08-10] MEDS: Cholecalciferol (Vitamin D3) 25 MCG TABLET PO (11:17)
[2022-08-10] MEDS: amLODIPine Besylate 5 MG TABLET PO (11:17)
[2022-08-10] MEDS: Valsartan 80 MG TABLET PO (11:18)
[2022-08-10] MEDS: 0.9 % Sodium Chloride Flush 3 ML SYRINGE IVFLUSH ×2 (11:18→20:49)
[2022-08-10] MEDS: Docusate Sodium 100 MG CAPSULE PO ×2 (11:18→20:48)
[2022-08-10] MEDS: Apixaban 5 MG TABLET PO ×2 (11:18→20:47)
[2022-08-10] MEDS: Metoprolol Succinate ER 50 MG TAB.ER.24H PO ×2 (11:18→20:48)
[2022-08-10] MEDS: Furosemide 40 MG TABLET PO (11:18)
[2022-08-10 12:00] VITALS: BP 121/63; PULSE 80; RESP 14; TEMP 36.8; O2SAT 97
[2022-08-10] MEDS: dilTIAZem HCL CD 240 MG CAP.ER.DEG PO (13:06)
--- NOTE | 2022-08-10 13:55 | PM.PNCARD ---
Subjective Subjective Date of Service: 08/10/22 Interval history: Seen examined at bedside. Telemetry reviewed. Heart rate is well controlled. Had of 4.5 and 4.2nd pause last night was sleeping. Physical Exam Vital Signs: Last Vital Signs Temp 98.2 F 08/10/22 12:00 Pulse 80 08/10/22 12:00 Resp 14 08/10/22 12:00 BP 121/63 08/10/22 12:00 Pulse Ox 97 08/10/22 12:00 O2 Del Method 08/10/22 12:00 O2 Flow Rate 2 08/05/22 08:09 BMI result Body Mass Index 31.9 GENERAL APPEARANCE: in no acute distress, pleasant. NECK: no carotid bruit, no significant jugular venous distention. SKIN: no suspicious lesions, warm and dry. HEART: no murmurs, regular rate and rhythm. LUNGS: clear to auscultation bilaterally. ABDOMEN: soft, nontender. EXTREMITIES: Mild edema. PERIPHERAL PULSES: equal. NEUROLOGIC: No gross deficits, AAO X 3 Objective Labs and Meds Result diagrams: 08/09/22 05:59 08/09/22 05:59 Progress Note: A&P Assessment and plan (1) Acute congestive heart failure: Status: Acute (2) Atrial flutter with rapid ventricular response: Status: Acute Plan [age] gentleman presenting with atrial flutter and mild congestive heart failure. Volume status is improved. Continue the oral diuretics. Hydrochlorothiazide should not be resumed. Sounds peripheral edema is related to amlodipine use. On Cardizem and metoprolol. Heart rate is well controlled. Please ambulate the patient in the hallway to see heart rate response to activity. If he stays below 120s with ambulation then I think potentially can go home on the current regimen. Thank you for allowing me to participate in the care of your patient. Please feel free to contact me if you have any questions. Time Spent With Patient Time: Total time spent is greater than 50% in coordination of care (as documented) at patient's floor/unit and/or counseling patient: Progress Note: Quality Stroke Does the patient have a stroke diagnosis?: No Procedures Date of Service Date of Service: 08/10/22
--- NOTE | 2022-08-10 15:41 | HO.PM.IMPN ---
Subjective Subjective Date of Service: 08/10/22 Interval History: Pauses to 4.7s overnight while sleeping flutter with rate to 150s while ambulating today No palpitations No lightheadedness Review of Systems Review of Systems: Yes all other systems are reviewed and are negative Physical Exam Vital Signs: Vital Signs: Last Vital Signs Temp 98.2 F 08/10/22 12:00 Pulse 80 08/10/22 12:00 Resp 14 08/10/22 12:00 BP 121/63 08/10/22 12:00 Pulse Ox 97 08/10/22 12:00 O2 Del Method 08/10/22 12:00 O2 Flow Rate 2 08/05/22 08:09 BMI result Body Mass Index 31.9 Gen: in no acute distress HEENT: sclera anicteric, moist mucus membranes Neck: supple Lungs: clear to auscultation bilaterally Heart: irregular, no murmurs Abd: soft, non-tender, non-distended Ext: no edema Skin: warm/well-perfused Neuro: alert and oriented x3, no focal findings Psych: appropriate affect Objective Data Active Medications Albuterol Sulfate (Albuterol Sulfate 90 Mcg 8 Gm Inhaler) 2 puff INHALE Q4H PRN PRN Reason: Wheezing Amlodipine Besylate (Amlodipine Besylate 5 Mg Tablet) 5 mg PO DAILY [facility]; Protocol Last Admin: 08/10/22 11:17 Dose: 5 mg Documented By: NANCY Apixaban (Apixaban 5 Mg Tablet) 5 mg PO BID [facility] Last Admin: 08/10/22 11:18 Dose: 5 mg Documented By: NANCY Diltiazem HCl (Diltiazem Hcl Cd 240 Mg Cap.Er.Deg) 240 mg PO DAILY [facility]; Protocol Last Admin: 08/10/22 13:06 Dose: 240 mg Documented By: NANCY Comments: 9 am dose held. to be given now instead per Dr. Diego Docusate Sodium (Docusate Sodium 100 Mg Capsule) 100 mg PO BID [facility] Last Admin: 08/10/22 11:18 Dose: 100 mg Documented By: NANCY Furosemide (Furosemide 40 Mg Tablet) 40 mg PO DAILY [facility]; Protocol Last Admin: 08/10/22 11:18 Dose: 40 mg Documented By: NANCY Guaifenesin (Guaifenesin 100 Mg/5 Ml Liquid) 5 ml PO Q4H PRN PRN Reason: Cough Last Admin: 08/10/22 00:00 Dose: 5 ml Documented By: BRANDI Metoprolol Succinate (Metoprolol Succinate Er 50 Mg Tab.Er.24h) 50 mg PO DAILY [facility]; Protocol Last Admin: 08/10/22 11:18 Dose: 50 mg Documented By: NANCY Montelukast Sodium (Montelukast Sodium 10 Mg Tablet) 10 mg PO BEDTIME [facility] Last Admin: 08/09/22 20:10 Dose: 10 mg Documented By: BRANDI Pharmacy Consult (Consult Rx Perform Med Rec) 1 each MISCELLANE ONCE PRN PRN Reason: Consult order Pravastatin Sodium (Pravastatin Sodium 40 Mg Tablet) 40 mg PO BEDTIME [facility] Last Admin: 08/09/22 20:10 Dose: 40 mg Documented By: BRANDI Sodium Chloride (0.9 % Sodium Chloride Flush 3 Ml Syringe) [address] [facility] Last Admin: 08/10/22 11:18 Dose: 3 ml Documented By: NANCY Tamsulosin HCl (Tamsulosin Hcl 0.4 Mg Capsule) 0.4 mg PO BEDTIME [facility] Last Admin: 08/09/22 20:10 Dose: 0.4 mg Documented By: BRANDI Valsartan (Valsartan 80 Mg Tablet) 80 mg PO DAILY [facility] Last Admin: 08/10/22 11:18 Dose: 80 mg Documented By: NANCY Vitamin D (Cholecalciferol (Vitamin D3) 25 Mcg Tablet) 25 mcg PO DAILY [facility] Last Admin: 08/10/22 11:17 Dose: 25 mcg Documented By: NANCY Labs CBC & Chem 7: 08/09/22 05:59 08/09/22 05:59 Assessment and Plan (1) Acute congestive heart failure: Status: Acute (2) Atrial flutter with rapid ventricular response: Status: Acute Plan hospital d#6 72yo M with COPD/moderate persistent asthma, HTN, CKD2, obesity presented with dyspnea, admitted for HFpEF exacerbation and new-onset AF/flutter with RVR # acute HFpEF (LVEF 60-70%) - diuresed well and now on PO furosemide # new-onset AF/flutter with RVR - digoxin discontinued - metoprolol succinate increased to 50 mg bid; diltiazem increased to 240 mg daily. per Cardiology, pause not a problem as it it occurred while pt was sleeping - continue apixaban # COPD/moderate persistent asthma - no acute exacerbation, continue bronchodilators prn # HTN - continue diltiazem [replaces amlodipine] and metoprolol succinate # CKD2 - SCr stable # VTE ppx: apixaban # dispo: anticipate home with VNA In my clinical judgment, the patient requires continued inpatient hospitalization for the following reasons: rate control, monitoring for pauses Quality Stroke Does the patient have a stroke diagnosis?: No VTE Prior VTE?: No VTE Risk Level:: Medical - moderate - high VTE Device Contraindication: Treatment Not Indicated VTE Drug Contraindication: N/A - Med Ordered
[2022-08-10 15:54] VITALS: BP 120/63; PULSE 80; RESP 18; TEMP 36.8; O2SAT 96
[2022-08-10 20:00] VITALS: BP 119/67; PULSE 80; RESP 17; TEMP 36.2; O2SAT 95
[2022-08-10] MEDS: Montelukast Sodium 10 MG TABLET PO (20:48)
[2022-08-10] MEDS: Tamsulosin HCL 0.4 MG CAPSULE PO (20:48)
[2022-08-10] MEDS: Pravastatin Sodium 40 MG TABLET PO (20:48)
[2022-08-10 23:12] VITALS: BP 117/65; PULSE 77; RESP 18; TEMP 36.6; O2SAT 95
[2022-08-11 03:29] VITALS: BP 126/69; PULSE 79; RESP 16; TEMP 36.3; O2SAT 92
[2022-08-11 07:31] VITALS: BP 130/72; PULSE 80; RESP 17; TEMP 36.4; O2SAT 95
[2022-08-11] MEDS: Valsartan 80 MG TABLET PO (09:06)
[2022-08-11] MEDS: dilTIAZem HCL CD 240 MG CAP.ER.DEG PO (09:07)
[2022-08-11] MEDS: Metoprolol Succinate ER 50 MG TAB.ER.24H PO (09:07)
[2022-08-11] MEDS: Cholecalciferol (Vitamin D3) 25 MCG TABLET PO (09:08)
[2022-08-11] MEDS: Docusate Sodium 100 MG CAPSULE PO (09:08)
[2022-08-11] MEDS: Apixaban 5 MG TABLET PO (09:08)
[2022-08-11] MEDS: Furosemide 40 MG TABLET PO (09:08)
[2022-08-11] MEDS: 0.9 % Sodium Chloride Flush 3 ML SYRINGE IVFLUSH (09:11)
--- NOTE | 2022-08-11 10:29 | PM.DS ---
DS: Providers Provider Date of Service: 08/11/22 Date of admission: 08/05/22 11:30 Primary care physician: Espinoza Polanco MD Consults: 08/05/22 11:20 Consult to Cardiology Routine Consulting Provider: Pranav Bradford Reason for consultation: chf, afib DS: Diagnosis Discharge Diagnosis (1) Acute congestive heart failure: Status: Acute (2) Atrial flutter with rapid ventricular response: Status: Acute (3) Chronic kidney disease: Status: Acute (4) Hypertension: Status: Acute (5) Obesity (BMI 30-39.9): Status: Acute DS: Summary Hospital Course Hospital Course: HPI: 72M with PMH COPD/ moderate persistent asthma, HTN, CKD II, obesity, presented with sob. Patient has been having shortness of breath and cough for about 3 weeks prior to presentation.? He reports worsening lower extremity edema, orthopnea, abdominal bloating and weight gain unspecified.? Denies chest pain or palpitations.? Denies fever chills.? Shortness of breath has being getting? progressively worse so he has come to the ED today.? In ED patient found to be in atrial fibrillation with rapid ventricular response.? Patient has no known history of atrial fibrillation,? CT chest showed evidence of CHF. Hospital course: Patient was admitted and initiated on IV diuretics. Strict Is and Os monitored. It was switched to p.o. furosemide once euvolemia was achieved. Patient's heart rate was monitored on tele monitoring and SA cm blocking agents were titrated up. Cardiology was on board. Patient ambulating in hallway without increase in heart rate in response to activity prior to discharge. Patient stable to be discharged with prescription for furosemide, Cardizem and metoprolol. Patient to follow PCP and infant room teacher as an outpatient. Status at Discharge Functional status at discharge: independent ambulation Time Spent with Patient Time attestation: Total time spent providing and/or coordinating discharge services: Discharge coordination time: Greater than 30 minutes Quality: Safe Use of Opioids Does Pt have an Active Cancer Diagnosis on the Problem List?: No Quality: Stroke Does the patient have a stroke diagnosis?: No Physical Exam Vital Signs: Vital Signs: Last Vital Signs Temp 97.5 F 08/11/22 07:31 Pulse 80 08/11/22 07:31 Resp 17 08/11/22 07:31 BP 130/72 08/11/22 07:31 Pulse Ox 95 08/11/22 07:31 O2 Del Method 08/11/22 07:31 O2 Flow Rate 2 08/05/22 08:09 BMI result Body Mass Index 31.9 Gen: in no acute distress HEENT: sclera anicteric, moist mucus membranes Neck: supple Lungs: clear to auscultation bilaterally Heart: irregular, no murmurs Abd: soft, non-tender, non-distended Ext: no edema Skin: warm/well-perfused Neuro: alert and oriented x3, no focal findings Psych: appropriate affect DS: Data Imaging Chest x-ray: Radiologist's impression: ITS Impressions Chest X-Ray 08/05/22 06:48 IMPRESSION: Minimal left basilar atelectasis. Otherwise clear lungs. Venous Duplex 08/05/22 08:05 IMPRESSION: No DVT demonstrated in the bilateral lower extremity. Chest CTA 08/05/22 09:35 IMPRESSION: No evidence of pulmonary embolism. Low lung volumes. Elevated right hemidiaphragm. Atelectasis/consolidation of the right lung base subsegmental atelectasis at the left lung base. Evidence of old granulomatous disease. Small bilateral pleural effusions and question mild CHF versus changes related to low lung volumes. Small amount of ascites. VTE: negative Discharge Plan Discharge Anticipated Discharge Date/Time: 08/11/22 12:33 Patient Disposition: Home, Self-Care Discharge Diagnosis: Acute CHF Afib with RVR Referrals: Espinoza Polanco MD [Primary Care Provider] - 1 Week Discharge Medications: New Eliquis 5 mg Tablet 5 mg PO BID Qty: 30 0RF furosemide 40 mg Tablet 40 mg PO DAILY Qty: 28 0RF Protocol: Hold for SBP< HOLD for SBP < : 90 metoprolol succinate 50 mg Tablet Extended Release 24 Hr 50 mg PO BID Qty: 28 0RF Protocol: Hold for SBP/HR < HOLD for SBP < : 90 HOLD for HR < : 60 diltiazem HCl 240 mg Capsule,Extended Release 24hr 240 mg PO DAILY Qty: 28 0RF Protocol: Hold for SBP/HR < HOLD for SBP < : 90 HOLD for HR < : 60 valsartan 80 mg Tablet 80 mg PO DAILY Qty: 28 0RF Continued montelukast 10 mg tablet 10 mg PO BEDTIME Qty: 90 3RF dutasteride 0.5 mg capsule 0.5 mg PO DAILY Qty: 90 2RF pravastatin 40 mg tablet 40 mg PO BEDTIME 90 Days Qty: 90 2RF diclofenac sodium [Arthritis Pain (diclofenac)] 1 % gel 4 g topical QID 30 Days Qty: 100 11RF Rx Instructions: apply to single knee, ankle, foot; for foot includes sole/toes/top of foot tamsulosin 0.4 mg capsule 0.4 mg PO DAILY Qty: 90 2RF albuterol sulfate [ProAir HFA] 90 mcg/actuation HFA aerosol inhaler 2 puff inhalation Q4-6H PRN (Reason: Wheezing) Qty: 8.5 0RF cholecalciferol (vitamin D3) 25 mcg (1,000 unit) capsule 25 mcg PO DAILY docusate sodium [Colace] 100 mg capsule 100 mg PO BID Discontinued amlodipine 5 mg tablet 5 mg PO DAILY Qty: 90 3RF hydrochlorothiazide 12.5 mg tablet 12.5 mg PO QAM Qty: 90 3RF olmesartan 20 mg tablet 20 mg PO DAILY Qty: 90 2RF metoprolol succinate 25 mg tablet extended release 24 hr 25 mg PO DAILY Qty: 90 1RF Discharge Orders: Discharge Order (Routine); Ordered 08/11/22 Ordered By: Edie Dee Diet: Low salt diet Activity on Discharge: As tolerated Stand Alone Forms: Patient Portal Discharge page Care Plan Goals: Follow up with PCP in one week Follow up with cardiology Health Concerns: CHF Afib with RVR Plan of Treatment: Eliquis 5mg BID Diltiazem 240mg daily Metoprolol Succinate 50mg BID Valsartan 80mg daily Assessment: As per summary
[2022-08-11 11:30] VITALS: BP 135/85; PULSE 78; RESP 17; TEMP 36.8; O2SAT 98
--- NOTE | 2022-08-11 11:38 | MHC.CM.PN ---
Patient has been medically cleared for dc to home today, self care. CM met with Patient at bedside and addressed IMM with him, providing him with the original and placing a copy on the chart. Patient's will provide transportation. Patient is aware of and in agreement with the dc plan.
--- NOTE | 2022-08-11 12:07 | PM.PNCARD ---
Subjective Subjective Date of Service: 08/11/22 Interval history: Patient was seen and examined at bedside. Denying any symptoms currently. Heart rates are well controlled on telemetry. Physical Exam Vital Signs: Last Vital Signs Temp 98.2 F 08/11/22 11:30 Pulse 78 08/11/22 11:30 Resp 17 08/11/22 11:30 BP 135/85 08/11/22 11:30 Pulse Ox 98 08/11/22 11:30 O2 Del Method 08/11/22 11:30 O2 Flow Rate 2 08/05/22 08:09 BMI result Body Mass Index 31.9 GENERAL APPEARANCE: in no acute distress, pleasant. NECK: no carotid bruit, no significant jugular venous distention. SKIN: no suspicious lesions, warm and dry. HEART: no murmurs, regular rate and rhythm. LUNGS: clear to auscultation bilaterally. ABDOMEN: soft, nontender. EXTREMITIES: Mild edema. PERIPHERAL PULSES: equal. NEUROLOGIC: No gross deficits, AAO X 3 Objective Labs and Meds Result diagrams: 08/09/22 05:59 08/09/22 05:59 Progress Note: A&P Assessment and plan (1) Acute congestive heart failure: Status: Acute (2) Atrial flutter with rapid ventricular response: Status: Acute Plan [age] gentleman presenting with atrial flutter and mild congestive heart failure. Volume status is improved. Continue the oral diuretics. Hydrochlorothiazide should not be resumed. Some of his peripheral edema is related to amlodipine use. On Cardizem and metoprolol. Heart rate is well controlled. Can be discharged home and follow up with Dr. Bradford. We will arrange follow-up. Thank you for allowing me to participate in the care of your patient. Please feel free to contact me if you have any questions. Time Spent With Patient Time: Total time spent is greater than 50% in coordination of care (as documented) at patient's floor/unit and/or counseling patient: Progress Note: Quality Stroke Does the patient have a stroke diagnosis?: No Procedures Date of Service Date of Service: 08/11/22
== END 2022-08-11 12:50 | disposition home or self-care (01) | DRG 291 ==
LOC: HO.ED 11:02 → HO.EDOVER 11:36 → HO.IMC 11:42
PROVIDERS: Admitting Provider Internal Medicine; Emergency Provider Emergency Medicine Emergency Medical Services; PCP Internal Medicine; Visit Provider Student in an Organized Health Care Education/Training Program
DX: I13.0 Hypertensive heart and chronic kidney disease with heart failure and stage 1 through stage 4 chronic kidney disease, or unspecified chronic kidney disease (principal); I50.31 Acute diastolic (congestive) heart failure; I48.92 Unspecified atrial flutter; I48.91 Unspecified atrial fibrillation; N18.2 Chronic kidney disease, stage 2 (mild); E66.9 Obesity, unspecified; Z68.31 Body mass index [BMI] 31.0-31.9, adult; J45.40 Moderate persistent asthma, uncomplicated; J44.9 Chronic obstructive pulmonary disease, unspecified; Z87.891 Personal history of nicotine dependence; Z96.642 Presence of left artificial hip joint; Z79.899 Other long term (current) drug therapy
CPT/HCPCS: 36415; 71045; 71275; 80048; 80053; 83690; 83735; 83880; 84484; 85025; 85027; 85379; 85610; 85730; 87502; 87635; 93005; 93306; 93970; 96365; 96366; 96375; 96376; 99285; J1160; J1940; Q9957; Q9967

== ENCOUNTER → 2022-08-12 06:47 | Outpatient (REF) | payer MEDICARE, SELFPAY ==
--- NOTE | 2022-08-12 07:09 | HM_ITS ---
Conclusion: 1. Patient was monitored for total period of 3 days 2. Baseline was atrial fibrillation with average heart of 74 beats per minute with overall good rate control 3. Frequent pauses noted of greater than 2.5 seconds with longest pause of 4.53 seconds noted on 2nd day at 22:00 4. Rare PVCs noted 5. No patient reported events MTDD
== END ==
LOC: HO.CARD 06:47
PROVIDERS: PCP Internal Medicine; Visit Provider Internal Medicine
DX: I48.92 Unspecified atrial flutter (principal)
CPT/HCPCS: 93242

== ENCOUNTER 2022-08-17 07:13 | Outpatient (REF) | payer MEDICARE, SELFPAY ==
[2022-08-17 11:23] LABS: MANUAL DIFF FLAG NO
[2022-08-17 11:34] LABS: Basophils Absolute Auto 0.1 X10*3/uL (0.0-0.2); Basophils Percent Auto 1.1 % (0-2); Eosinophils Absolute Auto 0.3 X10*3/uL (0.0-0.4); Eosinophils Percent Auto 5.3 % (0-4); Hematocrit 42.4 % (42.0-52.0); Hemoglobin 14.2 g/dl (14.0-18.0); Imm Gran Abs Auto 0.02 X10*3/uL (0.00-0.03); Imm Gran Pct Auto 0.4 % (0.0-0.4); Lymphocytes Absolute Auto 1.4 X10*3/uL (1.2-4.9); Lymphocytes Percent Auto 25.2 % (20-40); Mean Corpuscular HGB Conc 33.5 g/dl (31.0-36.0); Mean Corpuscular Hemoglobin 33.8 pg (27.0-33.0); Mean Platelet Volume 8.8 fL (9.4-12.4); Monocytes Absolute Auto 0.5 X10*3/uL (0.1-1.2); Monocytes Percent Auto 8.6 % (2-11); Neutrophils Absolute Auto 3.4 x10*3/uL (2.0-8.3); Neutrophils Percent Auto 59.4 % (45-73); Platelet Count 244 X10*3/uL (160-400); Red Cell Distribution Width 12.9 % (11.0-16.0); White Blood Count 5.7 X10*3/uL (4.8-10.8)
[2022-08-17 12:10] LABS: Alanine Aminotransferase 54 U/L (0-40); Alkaline Phosphatase 76 U/L (39-117); Anion Gap 13 (12-20); Aspartate Amino Transferase 33 U/L (5-37); Bilirubin Total 0.8 mg/dL (0.0-1.0); Blood Urea Nitrogen 30 mg/dL (9-16); Calcium 9.3 mg/dL (8.4-10.2); Carbon Dioxide 30 mmol/L (22-29); Chloride 106 mmol/L (96-108); Cholesterol 154 mg/dL; Estimated Glomerular Filt Rate 49; Glucose Random 93 mg/dL (60-115); HDL Cholesterol 45 mg/dL; LDL Cholesterol Calculated 95 mg/dl; Potassium 4.2 mmol/L (3.3-5.1); Sodium 145 mmol/L (135-145); Thyroid Stimulating Hormone 1.59 uIU/mL (0.32-4.0); Total Protein 6.8 g/dL (6.5-8.0); Triglycerides 70 mg/dL
[2022-08-17 13:08] LABS: Folate 14.6 ng/mL (> or = 4.0); Vitamin B12 888 pg/mL (200-900)
== END 2022-08-17 07:14 | disposition home or self-care (01) ==
LOC: HO.HMGCLDS 07:13
PROVIDERS: PCP Internal Medicine; Visit Provider Internal Medicine
DX: E78.00 Pure hypercholesterolemia, unspecified (principal)
CPT/HCPCS: 36415; 80053; 80061; 82607; 82746; 84439; 84443; 85025

== ENCOUNTER → 2022-10-05 13:28 | Outpatient (BNVA) | payer MEDICARE, SELFPAY | PROVIDERS: PCP Internal Medicine; Referring Provider Internal Medicine; Visit Provider Internal Medicine | DX: I48.19 Other persistent atrial fibrillation (principal); I50.32 Chronic diastolic (congestive) heart failure | CPT/HCPCS: 99212 ==

== ENCOUNTER 2022-10-07 11:28 | Day surgery (SDC) | payer MEDICARE, SELFPAY ==
--- NOTE | 2022-10-06 08:46 | P.CONAN_ITS ---
Documented by User: Asha Dias NP 10/06/22 08:54 HPI - Anesthesia Eval Consult details Narrative: 72yo M for Cardioversion PMFSH Active Problems Active Problems: All Active Problems (Updated 10/05/22 @ 14:53 by Pranav Bradford MD) Chronic heart failure with preserved ejection fraction (Acute) Persistent atrial fibrillation (Acute) Atrial fibrillation, new onset (Acute) CHF (congestive heart failure) (Acute) Peripheral edema (Acute) Asthma exacerbation (Acute) Dizziness (Acute) Tubular adenoma of colon (Acute) Facial skin lesion (Acute) Impacted cerumen of right ear (Acute) Initial Medicare annual wellness visit (Acute) Atherosclerosis (Acute) Chronic kidney disease (Acute) BPH (benign prostatic hyperplasia) (Acute) Obesity (BMI 30-39.9) (Acute) Asthma (Acute) Hypercholesterolemia (Acute) Hypertension (Acute) Past Medical History Medical History Acute congestive heart failure Asthma Atherosclerosis Atrial flutter with rapid ventricular response Avascular necrosis of bone of left hip BPH (benign prostatic hyperplasia) Chronic heart failure with preserved ejection fraction Chronic kidney disease COVID-19 vaccine series completed History of asbestos exposure History of renal calculi Hypercholesterolemia Hypertension Insomnia Obesity (BMI 30-39.9) Peripheral vascular disease Family History Family History Father Hypertension Chronic mental illness Mother Hypertension Gastric cancer Asthma Family history of problems with anesthesia: No Surgical History Surgical History H/O colonoscopy History of left hip replacement History of Problems with Anesthesia: No Social History Social History Household Members: Spouse Housing: House Do you presently have visiting nurse or other home services: No Alcohol intake: former Patient Tobacco Use Status: Former Tobacco user Tobacco use type: Cigarette e-Cigarette/Vaping Use: Never Used Second Hand Smoke Exposure: No Use of substances other than those prescribed or required for medical reasons: No Are you DNR?: No Advance Directives: No Advance Directives Information Provided: Yes Advance Directives Date on File: 08/03/20 service: No Current occupational status: retired Cognitive needs: No Hearing needs: No Vision needs: Yes Meds Allergies Allergy/AdvReac Type Severity Reaction Status Date / Time lisinopril Allergy Unknown Unknown Verified 08/23/22 16:26 atorvastatin [Lipitor] AdvReac Unknown Unknown Verified 08/23/22 16:26 Home Medications Medication Instructions Recorded Confirmed Last Taken Type cholecalciferol (vitamin D3) 25 25 mcg PO DAILY 08/14/20 10/05/22 08/04/22 History mcg (1,000 unit) capsule docusate sodium 100 mg capsule 100 mg PO BID 08/14/20 10/05/22 08/04/22 History (Colace) dutasteride 0.5 mg capsule 0.5 mg PO DAILY 10/05/22 10/05/22 Unknown History Exam Exam Date and Time: October 06, 2022 0846 Pertinent Lab Results Pertinent Lab Results: Laboratory Tests 08/17/22 08/17/22 07:18 07:18 WBC 5.7 Hgb 14.2 Hct 42.4 Plt Count 244 Sodium 145 Potassium 4.2 Chloride 106 Carbon Dioxide 30 H BUN 30 H Creatinine 1.42 H Narrative Narrative: Holter 08/2022 Conclusion: 1. Patient was monitored for total period of 3 days 2. Baseline was atrial fibrillation with average heart of 74 beats per minute with overall good rate control 3. Frequent pauses noted of greater than 2.5 seconds with longest pause of 4.53 seconds noted on day at 22:00 4. Rare PVCs noted 5.? No patient reported events EKG 07/2022 Vent. Rate : 064 BPM ? ? Atrial Rate : 312 BPM ?? P-R Int : 000 ms? QRS Dur : 088 ms ? ? QT Int : 420 ms ? ? ? P-R-T Axes : 000 -26 -63 degrees ?? QTc Int : 433 ms ? Atrial flutter with variable A-V block Low voltage QRS RSR' or QR pattern in V1 suggests right ventricular conduction delay Nonspecific ST and T wave abnormality Abnormal ECG When compared with ECG of 05-AUG-2022 06:05, Vent. rate has decreased BY? 85 BPM Nonspecific T wave abnormality now evident in Inferior leads Nonspecific T wave abnormality now evident in Anterolateral leads ECHO 07/2022 Conclusions: - Normal left ventricular size and systolic function. There is ? mildly increased left ventricular wall thickness.? The visually? estimated ejection fraction is between 65-70%. ? - Normal right ventricular cavity size and systolic function.? ? - The left atrium is severely dilated.? There is no evidence of? interatrial shunt by color Doppler.? The right atrium is normal? in size. ? - There is severe mitral annular calcification.? There is no ? ? mitral valve regurgitation.? Mean gradient across the MV 5 mm Hg at HR 77 in atrial flutter. Gradient can be secondary to severe? mitral annular calcification.? - There is mild dilatation of the ascending aorta measuring 3.60 cm.? Assessment and Plan Assessment Anesthesia Assessment: Chart Reviewed Final Anesthetic Review Family History of Problems with Anesthesia: No History of Problems with Anesthesia: No Documented by User: Topher Rivera MD 10/07/22 12:44 [facility] Past Medical History Medical History Acute congestive heart failure Asthma Atherosclerosis Atrial flutter with rapid ventricular response Avascular necrosis of bone of left hip BPH (benign prostatic hyperplasia) Chronic heart failure with preserved ejection fraction Chronic kidney disease COVID-19 vaccine series completed History of asbestos exposure History of renal calculi Hypercholesterolemia Hypertension Insomnia Obesity (BMI 30-39.9) Peripheral vascular disease Family History Family History Father Hypertension Chronic mental illness Mother Hypertension Gastric cancer Asthma Surgical History Surgical History H/O colonoscopy History of left hip replacement Social History Social History Household Members: Spouse Housing: House Do you presently have visiting nurse or other home services: No Alcohol intake: former Patient Tobacco Use Status: Former Tobacco user Tobacco use type: Cigarette e-Cigarette/Vaping Use: Never Used Second Hand Smoke Exposure: No Use of substances other than those prescribed or required for medical reasons: No Are you DNR?: No Advance Directives: No Advance Directives Information Provided: Yes Advance Directives Date on File: 08/03/20 service: No Current occupational status: retired Cognitive needs: No Hearing needs: No Vision needs: Yes Meds Allergies Allergy/AdvReac Type Severity Reaction Status Date / Time lisinopril Allergy Unknown Unknown Verified 08/23/22 16:26 atorvastatin [Lipitor] AdvReac Unknown Unknown Verified 08/23/22 16:26 Home Medications Medication Instructions Recorded Confirmed Last Taken Type cholecalciferol (vitamin D3) 25 25 mcg PO DAILY 08/14/20 10/05/22 08/04/22 History mcg (1,000 unit) capsule docusate sodium 100 mg capsule 100 mg PO BID 08/14/20 10/05/22 08/04/22 History (Colace) dutasteride 0.5 mg capsule 0.5 mg PO DAILY 10/05/22 10/05/22 Unknown History Exam Airway Mallampati Class: II TM Dist: >3cm Neck ROM: Full Loose/Missing/Broken Teeth: No (as per the patient) Heart: irreg irreg s1s2 Lungs: cta b/l Assessment and Plan Assessment Anesthesia Assessment: Anesthesia Plan Discussed Final Anesthetic Review NPO: Yes ASA Class: III Final Preanesthetic Review: No Changes in Pt Med Stat, Meds/Allgs Chart Reviewed, Consent Obtained/Reviewed and Anes Risks/Benef Reviewed Patient Risk: Intermediate Procedure Risk: Intermediate Assessment/Block/Sedation in SS: Assess/Block/Sedation-SS Anesthetic Plan Anesthetic Plan: MAC: and Agree w/ Assess. and Plan Disposition: Standard PACU
[2022-10-07] VITALS (8 sets, daily range): BP systolic 80–118; BP diastolic 38–75; PULSE 74–132; RESP 16–20; TEMP 36.3–36.6; O2SAT 94–98; BMI 30.4
--- NOTE | 2022-10-07 12:24 | ECG_ITS ---
Test Reason : postop Blood Pressure : / mmHG Vent. Rate : 132 BPM Atrial Rate : 264 BPM P-R Int : 000 ms QRS Dur : 108 ms QT Int : 328 ms P-R-T Axes : 000 -68 125 degrees QTc Int : 485 ms Atrial flutter with 2:1 A-V conduction Left axis deviation Nonspecific ST and T wave abnormality Abnormal ECG When compared with ECG of 09-AUG-2022 22:20, Vent. rate has increased BY 68 BPM Referred By: Kylee Smith Electronically Signed By:KYLEE SMITH
[2022-10-07] MEDS: Lactated Ringers 1,000 ML 50 ML IVCONT (12:39)
--- NOTE | 2022-10-07 12:49 | ECG_ITS ---
Test Reason : post cardioversion Blood Pressure : / mmHG Vent. Rate : 075 BPM Atrial Rate : 075 BPM P-R Int : 196 ms QRS Dur : 090 ms QT Int : 392 ms P-R-T Axes : 079 -45 001 degrees QTc Int : 437 ms Normal sinus rhythm Left axis deviation Otherwise normal ECG When compared with ECG of 07-OCT-2022 12:30, Sinus rhythm has replaced Atrial flutter Vent. rate has decreased BY 57 BPM Referred By: Kylee Smith Electronically Signed By:KYLEE SMITH
--- NOTE | 2022-10-07 12:50 | MHC.SHP ---
Pre-Procedural Eval Section A Date of Service: 10/07/22 The patient is an INPATIENT: No Section B Chief Complaint: afib Allergies: Allergies Allergy/AdvReac Type Severity Reaction Status Date / Time lisinopril Allergy Unknown Unknown Verified 08/23/22 16:26 atorvastatin [Lipitor] AdvReac Unknown Unknown Verified 08/23/22 16:26 Plan I have reviewed the history and physical and performed a pertinent physical examination on my patient. No changes have occurred unless specified. Time Spent With Patient Time: Total time managing care of this patient today ____ minutes.
--- NOTE | 2022-10-07 13:29 | HO.CARDIVERS ---
Cardioversion Procedure Note Cardioversion Date of Procedure: 10/07/2022 Ordering Provider: Dr. Bradford Performing Provider: Dr. Bradford Indication for Procedure: Atrial flutter with rapid rate Pre-Op Diagnosis: Atrial flutter with rapid rate Post-Op Diagnosis: Sinus rhythm History: See full office note Consent: Informed consent obtained Procedure: After informed consent was obtained, patient was taken to the PACU. The patient was then positioned appropriately. The cardioversion pads were placed in anteroposterior position. Once under anesthesia, 120 joules of synchronized shock was administered. The rhythm converted from atrial fibrillation to sinus rhythm. Patient remained in sinus rhythm after the end of procedure. Complications: None Impression: Successful cardioversion from atrial flutter with rapid rate to sinus rhythm. Recommendations: Start amiodarone. Stop diltiazem. Continue metoprolol. Continue anticoagulation. Follow-up in clinic.
[2022-10-07] MEDS: Amiodarone HCL 200 MG TABLET 400 MG PO (13:50)
--- NOTE | 2022-10-07 14:35 | PC.NURSE ---
patient was present for all discharge instructions and new medication regimen.
== END 2022-10-07 14:36 | disposition home or self-care (01) ==
PROVIDERS: PCP Internal Medicine; Visit Provider Internal Medicine
PROC: 5A2204Z Restoration of Cardiac Rhythm, Single (ICD-10-PCS; principal; 2022-10-07 13:00)
DX: I48.92 Unspecified atrial flutter (principal); Z79.01 Long term (current) use of anticoagulants; Z79.899 Other long term (current) drug therapy; I13.0 Hypertensive heart and chronic kidney disease with heart failure and stage 1 through stage 4 chronic kidney disease, or unspecified chronic kidney disease; I50.32 Chronic diastolic (congestive) heart failure; N18.9 Chronic kidney disease, unspecified; Z87.891 Personal history of nicotine dependence
CPT/HCPCS: 92960; 93005; J0330

== ENCOUNTER → 2022-10-11 08:50 | Outpatient (BNVA) | payer MEDICARE, SELFPAY | PROVIDERS: PCP Internal Medicine; Visit Provider Internal Medicine | DX: R94.31 Abnormal electrocardiogram [ECG] [EKG] (principal); R00.1 Bradycardia, unspecified | CPT/HCPCS: 93005 ==

== ENCOUNTER → 2022-10-14 09:13 | Outpatient (REF) | payer MEDICARE, SELFPAY ==
--- NOTE | 2022-10-14 09:18 | HM_ITS ---
* Total monitoring time about 3 days. * Underlying rhythm is sinus. Average ventricular rate 49/Min. Range 37 to 72/Min. * About 93% of the time, rate less than 60/Min. * Rare PACs and PVCs. * No significant pauses or AV blocks. * No patient markers or diary events. MTDD
== END ==
LOC: HO.SL 09:13
PROVIDERS: Visit Provider Internal Medicine
DX: I48.19 Other persistent atrial fibrillation (principal); G47.10 Hypersomnia, unspecified
CPT/HCPCS: 93242

== ENCOUNTER → 2022-10-27 08:54 | Outpatient (REF) | payer MEDICARE, SELFPAY | LOC: HO.SL 08:54 | PROVIDERS: PCP Internal Medicine; Visit Provider Internal Medicine | DX: G47.10 Hypersomnia, unspecified (principal) | CPT/HCPCS: 95806 ==

== ENCOUNTER 2022-11-09 09:41 | Outpatient (RCR) | payer MEDICARE, SELFPAY ==
[2022-11-09 09:42] VITALS: BP 158/72; PULSE 52; O2SAT 98
--- NOTE | 2022-11-09 10:59 | MHC.PT.EP ---
[facility] [place] Office [place] Office [place] Office [address] Blayne Chavez [address] [phone] F: [phone] F: [phone] F: [phone] F: [phone] Physical Therapy Plan of Care Date of Evaluation: Date of Surgery: Diagnosis: This is a 72 yo male presenting to skilled PT with a script for vertigo. Assessment: This is a 72 yo male presenting to skilled PT with a script for vertigo. He states that he felt dizziness 3 weeks ago when he bent over, looked up and rolling in bed. States that he had BPPV in the past and was treated about 9 months ago which was helpful ([facility]). He has not had symptoms since waiting for this appointment. Of note, no history of any cardiomyopathy or coronary artery disease, myocardial infarction but underwent a cardioversion at the end of September this year and has AFIB and flutter. Additionally, a few months back, he was seen in the hospital for atrial flutter with rapid rate and congestive heart failure. Examination shows normal oculomotor tests, (-) VBI B but mildly decreased cervical AROM. He was (-) for BPPV with samira-hallpike B and roll test B. Balance was off but this is so at baseline and not related to dizziness. S/S not consistent with BPPV at this time, we discussed how this can spontaneously resolve on its own with time but to call our office if symptoms return. He would benefit from PT 2x/wk for 4wks to address impairments, implement HEP and optimize functional mobility as needed if symptoms return. Frequency and Duration: The patient will be seen 2x/wk for 4wks Short Term Goals: Hold PT at this time Chcf Goals: I in HEP demo normal eye movements in all 6 positions demo normal gait without reports of dizziness return to normal ADLs Treatment Plan: Modalities to reduce pain, spasms and effusion. Manual therapy to restore motion and function. Therapeutic exercise to improve strength and flexibility. Neuromuscular re-education for posture and balance. Therapeutic activities to return to functional activities of daily living. Electronically signed by: Mary Palmer PT Please sign and return to therapist. Thank you for your referral.
--- NOTE | 2022-12-12 15:21 | MHC.PT.DC ---
[facility] [place] Office [place] Office [place] Office [address] Blayne Chavez [address] [phone] F: [phone] F: [phone] F: [phone] F: [phone] Physical Therapy Discharge Report Diagnosis: This is a 72 yo male presenting to skilled PT with a script for vertigo. Date of Surgery: Date of Evaluation: 11/09/22 Date of Discharge: 12/12/22 Treatments to Date: 1 Cancellations to Date: 0 No Shows to Date: 0 Discharge Status: Discharge Summary: This is a 72 yo male presenting to skilled PT with a script for vertigo. He states that he felt dizziness 3 weeks ago when he bent over, looked up and rolling in bed. States that he had BPPV in the past and was treated about 9 months ago which was helpful ([facility]). He has not had symptoms since waiting for this appointment. Of note, no history of any cardiomyopathy or coronary artery disease, myocardial infarction but underwent a cardioversion at the end of September this year and has AFIB and flutter. Additionally, a few months back, he was seen in the hospital for atrial flutter with rapid rate and congestive heart failure. Examination shows normal oculomotor tests, (-) VBI B but mildly decreased cervical AROM. He was (-) for BPPV with samira-hallpike B and roll test B. Balance was off but this is so at baseline and not related to dizziness. S/S not consistent with BPPV at this time, we discussed how this can spontaneously resolve on its own with time but to call our office if symptoms return. He would benefit from PT 2x/wk for 4wks to address impairments, implement HEP and optimize functional mobility as needed if symptoms return. Chart was DC'd after 30 days Electronically signed by: Mary Palmer PT Please sign and return to therapist. Thank you for your referral.
== END 2022-12-12 15:21 | disposition home or self-care (01) ==
LOC: HO.PTCHIC 09:41
PROVIDERS: PCP Internal Medicine; Visit Provider Internal Medicine
DX: R42 Dizziness and giddiness (principal)
CPT/HCPCS: 97110; 97162

== ENCOUNTER → 2022-11-09 13:39 | Outpatient (BNVA) | payer MEDICARE, SELFPAY | PROVIDERS: PCP Internal Medicine; Referring Provider Internal Medicine; Visit Provider Internal Medicine | DX: I48.19 Other persistent atrial fibrillation (principal); I11.0 Hypertensive heart disease with heart failure; I50.32 Chronic diastolic (congestive) heart failure | CPT/HCPCS: 93005; 99212 ==

== ENCOUNTER → 2022-11-15 09:13 | Outpatient (REF) | payer MEDICARE, SELFPAY ==
--- NOTE | ~2022-11-15 | NM_ITS ---
Myocardial perfusion study Indication: Heart failure to evaluate for myocardial ischemia Technique: The patient was brought in for a Lexiscan perfusion study on 11/15/2022. Patient performed low-level exercise and was injected 0.4 mg of Lexiscan intravenously. Within a minute of injection, 30 mCi of sestamibi was given intravenously. Images were obtained using the SPECT gamma camera interlaced with the gating device. Images were obtained in supine position. Resting perfusion study was performed on 11/16/2022. Patient was administered 30 mCi of sestamibi intravenously at rest. Images were then obtained in supine position. Images obtained with and without CT attenuation. Total DLP 171 mGy-cm. Images were processed with the software and compared side to side in short axis, horizontal long axis and vertical long axis views. Findings: The stress perfusion study showed non attenuated images show overall normal uptake of radiotracer in all segments of LV myocardium with minimal thinning of the basal septum. Attenuation corrected images show mildly reduced uptake in the distal septum and apex of the LV myocardium.. The gated study shows normal LV systolic function with calculated LVEF of 63%. LV cavity is normal in size. The gated study shows normal systolic wall thickening and contraction of segments. Resting study shows no change in perfusion pattern compared to stress study. Gating at rest reveals normal systolic wall motion with ejection fraction at 59%. The findings are consistent with no clear reversible defect suggestive of ischemia. Suggestive normal myocardial perfusion. NM/NM luz perf SPECT rest & str Impression: 1. Myocardial perfusion imaging study shows likely normal myocardial perfusion 2. Gated LVEF is 63% 3. Transient ischemic dilatation not present EKG is Nondiagnostic for ischemia
--- NOTE | 2022-11-15 09:17 | CA_ITS ---
Acquisition Time: 2022-11-15 09:21:18 Total Exercise Time: 00:02:00 Test Indications: CHF Medications: SEE H Protocol: LEXISCAN Max HR: 083 BPM 56% of Pred: 146 BPM Max BP: 124/066 mmHG Max Work Load: 1.6 METS Pharmacological stress test with Lexiscan injection, while walking slow on treadmill, without anginal symptoms, without arrythmia, with normotensive response to injection, with nondiagnostic EKG for ischemia. Nuclear images pending. Test reviewed with Dr Bradford. Referred By: Pranav Bradford Overread By: DANIEL CLEANING
== END ==
LOC: HO.CARD 09:13
PROVIDERS: Visit Provider Internal Medicine
DX: I50.32 Chronic diastolic (congestive) heart failure (principal)
CPT/HCPCS: 78452; 93017; A9500; J0280; J2785

== ENCOUNTER 2022-11-21 06:04 | Outpatient (REF) | payer MEDICARE, SELFPAY ==
[2022-11-21 11:44] LABS: MANUAL DIFF FLAG NO
[2022-11-21 11:49] LABS: Basophils Absolute Auto 0.1 X10*3/uL (0.0-0.2); Basophils Percent Auto 0.9 % (0-2); Eosinophils Absolute Auto 0.3 X10*3/uL (0.0-0.4); Eosinophils Percent Auto 5.3 % (0-4); Hematocrit 43.6 % (42.0-52.0); Hemoglobin 14.7 g/dl (14.0-18.0); Imm Gran Abs Auto 0.01 X10*3/uL (0.00-0.03); Imm Gran Pct Auto 0.2 % (0.0-0.4); Lymphocytes Absolute Auto 1.6 X10*3/uL (1.2-4.9); Mean Corpuscular HGB Conc 33.7 g/dl (31.0-36.0); Mean Corpuscular Hemoglobin 33.8 pg (27.0-33.0); Mean Corpuscular Volume 100.2 fL (80.0-98.0); Mean Platelet Volume 10.2 fL (9.4-12.4); Monocytes Absolute Auto 0.5 X10*3/uL (0.1-1.2); Monocytes Percent Auto 9.3 % (2-11); Neutrophils Percent Auto 55.3 % (45-73); Platelet Count 164 X10*3/uL (160-400); Red Blood Count 4.35 X10*6/uL (4.60-5.80); Red Cell Distribution Width 12.8 % (11.0-16.0); White Blood Count 5.5 X10*3/uL (4.8-10.8)
[2022-11-21 12:39] LABS: Anion Gap 16 (12-20); Blood Urea Nitrogen 28 mg/dL (9-16); Calcium 9.2 mg/dL (8.4-10.2); Carbon Dioxide 27 mmol/L (22-29); Chloride 107 mmol/L (96-108); Estimated Glomerular Filt Rate 44; Glucose Random 89 mg/dL (60-115); Potassium 4.6 mmol/L (3.3-5.1); Sodium 145 mmol/L (135-145)
[2022-11-21 13:43] LABS: Creatinine Urine 115.48 mg/dL; Total Protein Urine Random < 7 mg/dL (<12)
== END 2022-11-21 06:05 | disposition home or self-care (01) ==
LOC: HO.HMGCLDS 06:04
PROVIDERS: PCP Internal Medicine; Visit Provider Internal Medicine Hypertension Specialist
DX: I12.9 Hypertensive chronic kidney disease with stage 1 through stage 4 chronic kidney disease, or unspecified chronic kidney disease (principal); N18.9 Chronic kidney disease, unspecified
CPT/HCPCS: 36415; 80048; 84156; 85025

== ENCOUNTER 2023-01-02 06:01 | Outpatient (REF) | payer MEDICARE, SELFPAY ==
[2023-01-02 08:32] LABS: B Type Natriuretic Peptide 255 pg/mL (<100)
[2023-01-02 11:21] LABS: MANUAL DIFF FLAG NO
[2023-01-02 11:43] LABS: Basophils Absolute Auto 0.1 X10*3/uL (0.0-0.2); Basophils Percent Auto 0.9 % (0-2); Eosinophils Absolute Auto 0.5 X10*3/uL (0.0-0.4); Eosinophils Percent Auto 8.1 % (0-4); Hematocrit 41.2 % (42.0-52.0); Imm Gran Abs Auto 0.01 X10*3/uL (0.00-0.03); Imm Gran Pct Auto 0.2 % (0.0-0.4); Lymphocytes Absolute Auto 1.7 X10*3/uL (1.2-4.9); Lymphocytes Percent Auto 29.8 % (20-40); Mean Corpuscular Hemoglobin 35.1 pg (27.0-33.0); Mean Corpuscular Volume 103.3 fL (80.0-98.0); Mean Platelet Volume 10.5 fL (9.4-12.4); Monocytes Absolute Auto 0.5 X10*3/uL (0.1-1.2); Monocytes Percent Auto 9.2 % (2-11); Neutrophils Absolute Auto 2.9 x10*3/uL (2.0-8.3); Neutrophils Percent Auto 51.8 % (45-73); Platelet Count 159 X10*3/uL (160-400); Red Blood Count 3.99 X10*6/uL (4.60-5.80); Red Cell Distribution Width 12.7 % (11.0-16.0); White Blood Count 5.7 X10*3/uL (4.8-10.8)
[2023-01-02 12:16] LABS: Alanine Aminotransferase 37 U/L (0-40); Albumin Level 3.9 g/dL (3.5-5.0); Alkaline Phosphatase 68 U/L (39-117); Anion Gap 12 (12-20); Aspartate Amino Transferase 21 U/L (5-37); Blood Urea Nitrogen 24 mg/dL (9-16); Carbon Dioxide 27 mmol/L (22-29); Chloride 111 mmol/L (96-108); Estimated Glomerular Filt Rate 53; Glucose Random 96 mg/dL (60-115); Potassium 4.7 mmol/L (3.3-5.1); Sodium 145 mmol/L (135-145); Total Protein 6.4 g/dL (6.5-8.0)
[2023-01-02 12:25] LABS: Thyroid Stimulating Hormone 3.43 uIU/mL (0.32-4.0)
== END 2023-01-02 06:02 | disposition home or self-care (01) ==
LOC: HO.HMGCLDS 06:01
PROVIDERS: PCP Internal Medicine; Visit Provider Internal Medicine
DX: I48.91 Unspecified atrial fibrillation (principal)
CPT/HCPCS: 36415; 80053; 83880; 84443; 85025

== ENCOUNTER 2023-04-19 09:46 | Outpatient (AMB) | payer MEDICARE, SELFPAY ==
[2023-04-19 09:57] VITALS: BP 132/82; PULSE 52; O2SAT 97; BMI 31.8
--- NOTE | 2023-04-19 09:57 | A.OFFPC_ITS ---
Vital Signs 04/19/23 09:57 Height 5 ft 8 in Weight 209 lb BMI 31.8 BP 132/82 Blood Pressure Location Lt brachial Position Sitting Pulse 52 Pulse Source Pulse Oximeter Pulse Oximetry (%) 97 Oxygen Delivery Method Room Air Intake Visit Reasons: CHF, A fib Allergies lisinopril Allergy (Unknown, Verified 04/19/23 09:58) Unknown atorvastatin [Lipitor] Adverse Reaction (Unknown, Verified 04/19/23 09:58) Unknown Medication List - Last Reconciled 04/19/23 by Espinoza Polanco MD albuterol sulfate 90 mcg/actuation (ProAir HFA) 2 puffs inhalation Q4-6H PRN amiodarone 200 mg PO DAILY amlodipine 2.5 mg PO DAILY apixaban (Eliquis) 5 mg PO BID 90 days [AUTOPAP 6-16 cm H2O humidified air As directed] cholecalciferol (vitamin D3) 25 mcg PO DAILY diclofenac sodium 1% (Arthritis Pain (diclofenac)) 4 grams topical QID 30 days docusate sodium (Colace) 100 mg PO BID dutasteride 0.5 mg PO DAILY fluticasone propionate 50 mcg/actuation (Flonase Allergy Relief) 2 sprays intranasal DAILY furosemide 40 mg See Protocol PO DAILY 90 days metoprolol succinate ER 50 mg See Protocol PO BID 90 days montelukast 10 mg PO BEDTIME pravastatin 40 mg PO BEDTIME 90 days tamsulosin 0.4 mg PO DAILY valsartan 80 mg PO DAILY 90 days zolpidem ER (Ambien CR) 6.25 mg PO BEDTIME PRN Tobacco use date assessed: 10/10/22 Fall risk assessment: No Falls in past year Last assessed Fall Risk: 04/19/23 Dental Screening Dental Screen Date: 04/19/23 Did you have a dental visit in the last 12 months?: Yes Did you have a dental problem in the last 6 months where you did not have access to dental care?: No Was dental information given to patient?: Patient has dentist HPI CHF, A fib HPI Details 3-year-old obese male with a history of obstructive sleep apnea (mild) no CPAP, atrial fibrillationmild congestive heart failure asthma hypercholesterolemia hypertension and insomnia last seen in January 2023. insomnia - given trazodone did not help. for the sob, on exertion advised to use the inhaler FORMERLY [facility], [facility] Medical History (Updated 01/10/23 @ 11:00 by Espinoza Polanco MD) Acute congestive heart failure Asthma Asthma exacerbation Atherosclerosis Atrial flutter with rapid ventricular response Avascular necrosis of bone of left hip BPH (benign prostatic hyperplasia) CHF (congestive heart failure) Chronic heart failure with preserved ejection fraction Chronic kidney disease COVID-19 vaccine series completed Dizziness History of asbestos exposure History of renal calculi Hypercholesterolemia Hypertension Insomnia Obesity (BMI 30-39.9) Peripheral vascular disease Surgical History H/O colonoscopy History of left hip replacement Family History Father Hypertension Chronic mental illness Mother Hypertension Gastric cancer Asthma Social History (Updated 11/09/22 @ 13:49 by Guerita Caraballo) Household Members: Spouse Housing: House Do you presently have visiting nurse or other home services: No Alcohol intake: former Patient Tobacco Use Status: Former Tobacco user Tobacco use type: Cigarette e-Cigarette/Vaping Use: Never Used Second Hand Smoke Exposure: No Advance Directives Date on File: 08/03/20 service: No Current occupational status: retired Cognitive needs: No Hearing needs: No Vision needs: Yes Questionnaire PHQ-9 Over the last 2 weeks, how often have you been bothered by any of the following problems? 1. Little interest or pleasure in doing things: nearly every day 2. Feeling down, depressed, or hopeless: nearly every day 3. Trouble falling or staying asleep, or sleeping too much: nearly every day 4. Feeling tired or having little energy: nearly every day 5. Poor appetite or overeating: not at all 6. Feeling bad about yourself - or that you are a failure or have let yourself or your family down: not at all 7. Trouble concentrating on things, such as reading the newspaper or watching television: not at all 8. Moving or speaking so slowly that other people could have noticed. Or the opposite - being so fidgety or restless that you have been moving around a lot more than usual: not at all 9. Thoughts that you would be better off or of hurting yourself in some way: not at all Total score: 12 Depression Screening Interpretation: Negative Source: Developed by Drs. Mahesh Angeles, Ever Langley and colleagues, with an educational danielle from [employer]. Thrive Questionnaire Date Thrive assessed: 10/10/22 AUDIT C Alcohol Use Questionnaire (AUDIT-C) 1. How often do you have a drink containing alcohol?: Never 2. How many drinks containing alcohol do you have on a typical day when you are drinking?: 1 or 2 3. How often do you have six or more drinks on one occasion?: Never Total Score: 0 BETSY-7 AMB Questionnaire BETSY-7 Date BETSY - 7 assessed: 10/10/22 Source: Developed by Drs. Mahesh Angeles, Ever Langley and colleagues, with an educational danielle from [employer]. Physical exam (Primary Care) Vital Signs: Last Vital Signs Pulse 52 04/19/23 09:57 BP 132/82 04/19/23 09:57 Pulse Ox 97 04/19/23 09:57 Oxygen Delivery Method Room Air 04/19/23 09:57 BMI result Body Mass Index 31.8 Tobacco/Smoking Status: Tobacco use Status Tobacco use date assessed 10/10/22 04/19/23 09:59 Patient Tobacco Use Status Former Tobacco user 04/19/23 09:59 Tobacco use type Cigarette 04/19/23 09:59 e-Cigarette/Vaping Use Never Used 04/19/23 09:59 PHQ-9: PHQ-9 Score PHQ-9: Total score 12 04/19/23 09:59 Depression Screening Interpretation: Negative Thrive Assessment: Date of Thrive Assessment Date Thrive assessed 10/10/22 04/19/23 09:59 Const General: alert; No acute distress Eyes Conjunctivae: conjunctivae normal Resp Auscultation: clear to auscultation bilaterally Cardio Rate: regular rate Rhythm: regular rhythm GI Inspection: Yes normal to inspection Extrem General: Yes normal to inspection and No edema Assessment and Plan Assessment & Plan (1) Persistent atrial fibrillation: Code(s): I48.19 - Other persistent atrial fibrillation Plan: Continue with anticoagulation and Amiodarone (2) Chronic heart failure with preserved ejection fraction: Code(s): I50.32 - Chronic diastolic (congestive) heart failure Plan: Weigh daily and continue with diuretic (3) Chronic kidney disease: Code(s): N18.9 - Chronic kidney disease, unspecified Qualifiers: Chronic kidney disease stage: stage 3 (moderate) Chronic kidney disease stage 3 subtype: stage 3a (GFR 45-59) Qualified Code(s): N18.31 - Chronic kidney disease, stage 3a Plan: Keep well hydrated blood work requested (4) BPH (benign prostatic hyperplasia): Code(s): N40.0 - Benign prostatic hyperplasia without lower urinary tract symptoms Qualifiers: Lower urinary tract symptom presence: symptoms present Lower urinary tract symptom detail: urinary frequency Qualified Code(s): N40.1 - Benign prostatic hyperplasia with lower urinary tract symptoms; R35.0 - Frequency of micturition Plan: Continue with tamsulosin and dutasteride (5) Obesity (BMI 30-39.9): Code(s): E66.9 - Obesity, unspecified Plan: Diet and exercise (6) Asthma: Code(s): J45.909 - Unspecified asthma, uncomplicated Qualifiers: Asthma severity: mild Asthma persistence: intermittent Asthma complication type: uncomplicated Qualified Code(s): J45.20 - Mild intermittent asthma, uncomplicated Plan: Continue with inhaler as needed (7) Hypercholesterolemia: Code(s): E78.00 - Pure hypercholesterolemia, unspecified Plan: Avoid fried foods, chicken skin, eggs, butter margarine, pastries and meat. Be it pork or beef they have a lot of cholesterol LDL goal of less than 70 and triglyceride of less than 150 August 2022 last blood work patient is on pravastatin 40 mg once a day (8) Hypertension: Code(s): I10 - Essential (primary) hypertension Qualifiers: Hypertension type: essential hypertension Qualified Code(s): I10 - Essential (primary) hypertension Plan: Continue with blood pressure medication. Decrease salt intake and exercise continue with valsartan 80 mg once a day amlodipine 2.5 mg once a day Orders: Orders B Type Natriuretic Peptide Today I50.32 - Chronic diastolic (congestive) heart failure Comprehensive Met. Panel Today I50.32 - Chronic diastolic (congestive) heart failure Lipid Panel Today E78.00 - Pure hypercholesterolemia, unspecified, I48.19 - Other persistent atrial fibrillation Free T4 (Free Thyroxine) Today I48.19 - Other persistent atrial fibrillation Thyroid Stimulating Hormone Today I48.19 - Other persistent atrial fibrillation Complete Blood Count Auto Diff Today I50.32 - Chronic diastolic (congestive) heart failure Medications: New zolpidem ER (Ambien CR) 6.25 mg PO BEDTIME PRN 30 tabs 0RF sleep G47.00 - Insomnia, unspecified Discontinued trazodone Discontinued Reason: Doctor's Order 100 mg PO BEDTIME PRN 90 tabs 2RF sleep G47.00 - Insomnia, unspecified Coding Level of Care Code Est Pt Level 4 (68202) Diagnoses Persistent atrial fibrillation I48.19 Chronic heart failure with preserved ejection fraction I50.32 Chronic kidney disease N18.31 Chronic kidney disease stage: stage 3 (moderate) Chronic kidney disease stage 3 subtype: stage 3a (GFR 45-59) BPH (benign prostatic hyperplasia) N40.1; R35.0 Lower urinary tract symptom presence: symptoms present Lower urinary tract symptom detail: urinary frequency Obesity (BMI 30-39.9) E66.9 Asthma J45.20 Asthma severity: mild Asthma persistence: intermittent Asthma complication type: uncomplicated Hypercholesterolemia E78.00 Hypertension I10 Hypertension type: essential hypertension
== END 2023-04-19 10:40 | disposition home or self-care (01) ==
LOC: HO.HMGH 09:46
PROVIDERS: PCP Internal Medicine; Visit Provider Internal Medicine
DX: J45.20 Mild intermittent asthma, uncomplicated (principal); I13.0 Hypertensive heart and chronic kidney disease with heart failure and stage 1 through stage 4 chronic kidney disease, or unspecified chronic kidney disease; I50.32 Chronic diastolic (congestive) heart failure; N18.31 Chronic kidney disease, stage 3a; I48.19 Other persistent atrial fibrillation; N40.1 Benign prostatic hyperplasia with lower urinary tract symptoms; R35.0 Frequency of micturition; E66.9 Obesity, unspecified; E78.00 Pure hypercholesterolemia, unspecified
CPT/HCPCS: 99214

== ENCOUNTER 2023-05-09 07:10 | Outpatient (REF) | payer MEDICARE, SELFPAY ==
[2023-05-09 08:24] LABS: B Type Natriuretic Peptide 167 pg/mL (<100)
[2023-05-09 11:37] LABS: MANUAL DIFF FLAG NO
[2023-05-09 12:02] LABS: Basophils Absolute Auto 0.1 X10*3/uL (0.0-0.2); Basophils Percent Auto 0.9 % (0-2); Eosinophils Absolute Auto 0.4 X10*3/uL (0.0-0.4); Hematocrit 42.7 % (42.0-52.0); Hemoglobin 14.6 g/dl (14.0-18.0); Imm Gran Abs Auto 0.02 X10*3/uL (0.00-0.03); Imm Gran Pct Auto 0.4 % (0.0-0.4); Lymphocytes Absolute Auto 1.3 X10*3/uL (1.2-4.9); Lymphocytes Percent Auto 22.9 % (20-40); Mean Corpuscular HGB Conc 34.2 g/dl (31.0-36.0); Mean Corpuscular Hemoglobin 34.9 pg (27.0-33.0); Mean Corpuscular Volume 102.2 fL (80.0-98.0); Mean Platelet Volume 9.9 fL (9.4-12.4); Monocytes Absolute Auto 0.5 X10*3/uL (0.1-1.2); Monocytes Percent Auto 8.9 % (2-11); Neutrophils Absolute Auto 3.3 x10*3/uL (2.0-8.3); Neutrophils Percent Auto 58.9 % (45-73); Platelet Count 181 X10*3/uL (160-400); Red Blood Count 4.18 X10*6/uL (4.60-5.80); Red Cell Distribution Width 12.2 % (11.0-16.0); White Blood Count 5.5 X10*3/uL (4.8-10.8)
[2023-05-09 12:12] LABS: Alanine Aminotransferase 33 U/L (0-40); Alkaline Phosphatase 73 U/L (39-117); Anion Gap 12 (12-20); Aspartate Amino Transferase 24 U/L (5-37); Bilirubin Total 0.7 mg/dL (0.0-1.0); Blood Urea Nitrogen 29 mg/dL (9-16); Calcium 9.5 mg/dL (8.4-10.2); Carbon Dioxide 27 mmol/L (22-29); Chloride 108 mmol/L (96-108); Cholesterol 149 mg/dL (<200); Estimated Glomerular Filt Rate 50; Glucose Random 92 mg/dL (60-115); HDL Cholesterol 52 mg/dL (>40); LDL Cholesterol Calculated 85 mg/dL (<100); Potassium 4.9 mmol/L (3.3-5.1); Sodium 142 mmol/L (135-145); Triglycerides 62 mg/dL (<150)
[2023-05-09 12:29] LABS: Free T4 (Free Thyroxine) 1.15 ng/dL (0.71-1.85); Thyroid Stimulating Hormone 1.58 uIU/mL (0.32-4.0)
== END 2023-05-09 07:11 | disposition home or self-care (01) ==
LOC: HO.HMGCLDS 07:10
PROVIDERS: Absent Provider Internal Medicine Hypertension Specialist; PCP Internal Medicine; Visit Provider Internal Medicine
DX: I50.32 Chronic diastolic (congestive) heart failure (principal); I48.19 Other persistent atrial fibrillation; E78.00 Pure hypercholesterolemia, unspecified; N18.30 Chronic kidney disease, stage 3 unspecified
CPT/HCPCS: 36415; 80053; 80061; 83880; 84439; 84443; 85025

== ENCOUNTER 2023-05-17 09:49 | Outpatient (AMB) | payer MEDICARE, SELFPAY ==
[2023-05-17 09:56] VITALS: BP 132/70; PULSE 41; BMI 31.6
--- NOTE | 2023-05-17 09:56 | MHC.OFFVIS ---
Intake Vital Signs 05/17/23 09:56 Height 5 ft 8 in Weight 208 lb 1.862 oz BMI 31.6 BP 132/70 Blood Pressure Location Lt brachial Position Sitting Pulse 41 L Intake Visit Reasons: 6 mth f/up Intake Note: 6 month follow up [employer] Required: No Accompanied by: Self / Same As Patient Allergies lisinopril Allergy (Unknown, Verified 05/17/23 09:58) Unknown atorvastatin [Lipitor] Adverse Reaction (Unknown, Verified 05/17/23 09:58) Unknown Medication List - Last Reconciled 05/17/23 by Pranav Bradford MD albuterol sulfate 90 mcg/actuation (ProAir HFA) 2 puffs inhalation Q4-6H PRN amiodarone 200 mg PO DAILY amlodipine 2.5 mg PO DAILY apixaban (Eliquis) 5 mg PO BID 90 days [AUTOPAP 6-16 cm H2O humidified air As directed] cholecalciferol (vitamin D3) 25 mcg PO DAILY diclofenac sodium 1% (Arthritis Pain (diclofenac)) 4 grams topical QID 30 days docusate sodium (Colace) 100 mg PO BID dutasteride 0.5 mg PO DAILY fluticasone propionate 50 mcg/actuation (Flonase Allergy Relief) 2 sprays intranasal DAILY furosemide 40 mg See Protocol PO DAILY 90 days metoprolol succinate ER 50 mg See Protocol PO BID 90 days montelukast 10 mg PO BEDTIME pravastatin 40 mg PO BEDTIME 90 days tamsulosin 0.4 mg PO DAILY valsartan 80 mg PO DAILY 90 days zolpidem 5 mg PO BEDTIME PRN HPI HPI Comments History of Present Illness Details Edward returns for follow-up. Few months back, he was seen in the hospital for atrial flutter with rapid rate and congestive heart failure. Initial treated by rate control but he was still reporting some shortness of breath and hence underwent cardioversion. He is maintained on amiodarone. He states that he is doing fine. No specific complaints from cardiac standpoint. No known coronary artery disease or myocardial infarction or cardiomyopathy. [facility] Medical History (Updated 05/17/23 @ 10:16 by Pranav Bradford MD) Acute congestive heart failure Asthma Asthma exacerbation Atherosclerosis Atrial flutter with rapid ventricular response Avascular necrosis of bone of left hip BPH (benign prostatic hyperplasia) CHF (congestive heart failure) Chronic heart failure with preserved ejection fraction Chronic kidney disease COVID-19 vaccine series completed Dizziness History of asbestos exposure History of renal calculi Hypercholesterolemia Hypertension Insomnia Obesity (BMI 30-39.9) Peripheral vascular disease Surgical History H/O colonoscopy History of left hip replacement Family History Father Hypertension Chronic mental illness Mother Hypertension Gastric cancer Asthma Social History Household Members: Spouse Housing: House Do you presently have visiting nurse or other home services: No Alcohol intake: former Patient Tobacco Use Status: Former Tobacco user Tobacco use type: Cigarette e-Cigarette/Vaping Use: Never Used Second Hand Smoke Exposure: No Advance Directives Date on File: 08/03/20 service: No Current occupational status: retired Cognitive needs: No Hearing needs: No Vision needs: Yes Review of Systems Const Denies weakness ENT Denies dizziness Card Denies chest pain, Denies chest pain with activity, Denies syncope, Denies rapid heart rate, Denies pedal edema, Denies edema, Denies leg edema, Denies lightheadedness, Denies palpitations, Denies dyspnea, Denies dyspnea on exertion and Denies orthopnea Resp Denies cough, Denies dyspnea and Denies dyspnea on exertion GI Denies hematochezia and Denies change in stool character Musc Denies abnormal gait, Denies muscle cramps, Denies muscle weakness, Denies numbness, Denies radiating pain into limb and Denies tingling Neuro Denies abnormal gait, Denies dizziness, Denies syncope, Denies numbness, Denies tingling and Denies weakness Endo Denies palpitations Physical Exam Vital Signs: Last Vital Signs Pulse 41 L 05/17/23 09:56 BP 132/70 05/17/23 09:56 BMI result Body Mass Index 31.6 Const General: comfortable and no acute distress Orientation/consciousness: patient oriented x3 HEENT Other: Unremarkable Head: Yes normal to inspection Neck Neck: Yes normal visual inspection Chest Chest palpation & inspection: normal inspection of the chest Resp Auscultation: clear to auscultation bilaterally Cardio Palpation: normal PMI Heart sounds: S1 normal heart sound present, S2 normal heart sound present, no gallops, no murmurs and no rubs GI Palpation (GI): Soft to palpation Back/Spine/Pelvis Other: unremarkable Skin General skin exam: no rashes or lesions noted Neuro General: patient oriented x3 Extrem General: Yes normal to inspection Psych Mental Status: mental status grossly normal Office Procedures EKG Details: EKG with sinus bradycardia at 41/Min; CO prolongation to 218 milliseconds; [place]. [id number], Complete Assessment & Plan Assessment & Plan (1) PAF (paroxysmal atrial fibrillation): Code(s): I48.0 - Paroxysmal atrial fibrillation Plan: Considering long-term side effects, stop the amiodarone. As he is fairly bradycardic we will bring him back for an EKG in a couple weeks. Presuming the heart rate improves, then probably candidate for Multaq. Flecainide is also possibility. Or we can just monitor him without antiarrhythmics. Left atrium is enlarged on echocardiogram hence there is increased possibility of recurrence of atrial fibrillation. Continue anticoagulation without changes. (2) Chronic heart failure with preserved ejection fraction: Code(s): I50.32 - Chronic diastolic (congestive) heart failure Plan: Stable. No changes. (3) Hypertension: Code(s): I10 - Essential (primary) hypertension Qualifiers: Hypertension type: essential hypertension Qualified Code(s): I10 - Essential (primary) hypertension Plan: Blood pressure is acceptable today. Remains on amlodipine, valsartan. Medications: Discontinued amiodarone Discontinued Reason: Doctor's Order 200 mg PO DAILY 90 tabs 3RF Coding Level of Care Code Est Pt Level 4 (54389) Diagnoses PAF (paroxysmal atrial fibrillation) I48.0 Chronic heart failure with preserved ejection fraction I50.32 Hypertension I10 Hypertension type: essential hypertension CPT Codes EKG - CPT: 15642-[id number], Complete ([id number])
== END 2023-05-17 10:10 | disposition home or self-care (01) ==
PROVIDERS: PCP Internal Medicine; Referring Provider Internal Medicine; Visit Provider Internal Medicine
DX: I48.0 Paroxysmal atrial fibrillation (principal); I50.32 Chronic diastolic (congestive) heart failure; I10 Essential (primary) hypertension
CPT/HCPCS: 93010; 99214

== ENCOUNTER → 2023-05-17 09:49 | Outpatient (BNVA) | payer MEDICARE, SELFPAY | PROVIDERS: PCP Internal Medicine; Referring Provider Internal Medicine; Visit Provider Internal Medicine | DX: I48.0 Paroxysmal atrial fibrillation (principal); I11.0 Hypertensive heart disease with heart failure; I50.32 Chronic diastolic (congestive) heart failure; Z79.01 Long term (current) use of anticoagulants; Z79.899 Other long term (current) drug therapy | CPT/HCPCS: 93005; 99212 ==

== ENCOUNTER → 2023-06-08 09:20 | Outpatient (BNVA) | payer MEDICARE, SELFPAY | PROVIDERS: PCP Internal Medicine; Visit Provider Internal Medicine ==

== ENCOUNTER 2023-07-24 09:49 | Outpatient (AMB) | payer MEDICARE, SELFPAY ==
--- NOTE | 2023-07-24 10:03 | A.OFFPC_ITS ---
Vital Signs 07/24/23 10:04 Height 5 ft 8 in Weight 207 lb 6 oz BMI 31.5 BP 140/70 H Blood Pressure Location Lt brachial Position Sitting Pulse 50 Pulse Source Pulse Oximeter Pulse Oximetry (%) 100 Oxygen Delivery Method Room Air Intake Visit Reasons: asthma Intake Note: Pt is here for routine F/U. Doxepin is not working for Pt for the past 3-5 days. Pt will like to go back on Zolpidem RX. Influenza given at Pt pharmacy. Lead Fabricator Required: No Accompanied by: Self / Same As Patient Allergies lisinopril Allergy (Unknown, Verified 07/24/23 10:06) Unknown doxepin Adverse Reaction (Intermediate, Unverified 07/24/23 10:45) Hallucinations atorvastatin [Lipitor] Adverse Reaction (Unknown, Verified 07/24/23 10:06) Unknown Medication List - Last Reconciled 07/24/23 by Espinoza Mendiola Po, albuterol sulfate 90 mcg/actuation (Ventolin HFA) 2 puffs inhalation Q4-6H PRN amlodipine 2.5 mg PO DAILY apixaban (Eliquis) 5 mg PO BID 90 days [AUTOPAP 6-16 cm H2O humidified air As directed] cholecalciferol (vitamin D3) 25 mcg PO DAILY diclofenac sodium 1% (Arthritis Pain (diclofenac)) 4 grams topical QID 30 days docusate sodium (Colace) 100 mg PO BID doxepin 3 mg PO BEDTIME PRN dutasteride 0.5 mg PO DAILY fluticasone propionate 50 mcg/actuation (Flonase Allergy Relief) 2 sprays intranasal DAILY furosemide 40 mg See Protocol PO DAILY 90 days metoprolol succinate ER 50 mg See Protocol PO BID 90 days montelukast 10 mg PO BEDTIME pravastatin 40 mg PO BEDTIME 90 days tamsulosin 0.4 mg PO DAILY valsartan 80 mg PO DAILY 90 days Tobacco use date assessed: 10/10/22 Fall risk assessment: No Falls in past year Last assessed Fall Risk: 07/24/23 Dental Screening Dental Screen Date: 07/24/23 Did you have a dental visit in the last 12 months?: Yes Did you have a dental problem in the last 6 months where you did not have access to dental care?: No Was dental information given to patient?: Patient has dentist HPI asthma HPI Details 73-year-old obese male with multiple med ical problems atrial fibrillation congestive heart failure chronic kidney disease BPH asthma hypertension hypercholesterolemia last seen in April 2023. Patient is up-to-date with colonoscopy November 2021. 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 May last seen nephrology chronic kidney disease in the setting hypertension stable avoid NSAIDs hypertension is acceptable. Patient also follows up with Cardiology atrial flutter with rapid ventricular response and congestive heart failure did cardioversion maintained on amiodarone because of the side effects of amiodarone this was stopped. Last complete blood work was done in April 2023 [facility] Medical History (Updated 05/17/23 @ 10:16 by Pranav Bradford MD) Chronic heart failure with preserved ejection fraction Acute congestive heart failure Atrial flutter with rapid ventricular response CHF (congestive heart failure) Asthma exacerbation Dizziness COVID-19 vaccine series completed Avascular necrosis of bone of left hip Atherosclerosis History of renal calculi Peripheral vascular disease Chronic kidney disease History of asbestos exposure BPH (benign prostatic hyperplasia) Obesity (BMI 30-39.9) Asthma Hypercholesterolemia Hypertension Insomnia Surgical History H/O colonoscopy History of left hip replacement Family History Father Hypertension Chronic mental illness Mother Hypertension Gastric cancer Asthma Social History Household Members: Spouse Housing: House Do you presently have visiting nurse or other home services: No Alcohol intake: former Patient Tobacco Use Status: Former Tobacco user Tobacco use type: Cigarette e-Cigarette/Vaping Use: Never Used Second Hand Smoke Exposure: No Advance Directives Date on File: 08/03/20 service: No Current occupational status: retired Cognitive needs: No Hearing needs: No Vision needs: Yes Questionnaire Thrive Questionnaire Date Thrive assessed: 10/10/22 BETSY-7 AMB Questionnaire BETSY-7 Date BETSY - 7 assessed: 10/10/22 Source: Developed by Drs. Mahesh Angeles, [place], Ever Valle and colleagues, with an educational danielle from [employer]. Physical exam (Primary Care) Vital Signs: Last Vital Signs Pulse 50 07/24/23 10:04 BP 140/70 H 07/24/23 10:04 Pulse Ox 100 07/24/23 10:04 Oxygen Delivery Method Room Air 07/24/23 10:04 BMI result Body Mass Index 31.5 Tobacco/Smoking Status: Tobacco use Status Tobacco use date assessed 10/10/22 07/24/23 10:03 Patient Tobacco Use Status Former Tobacco user 07/24/23 10:03 Tobacco use type Cigarette 07/24/23 10:03 e-Cigarette/Vaping Use Never Used 07/24/23 10:03 Thrive Assessment: Date of Thrive Assessment Date Thrive assessed 10/10/22 07/24/23 10:03 Const General: alert; No acute distress Eyes Conjunctivae: conjunctivae normal Resp Auscultation: clear to auscultation bilaterally Cardio Rate: regular rate Rhythm: regular rhythm GI Inspection: Yes normal to inspection Extrem General: Yes normal to inspection and No edema Assessment and Plan Assessment & Plan (1) PAF (paroxysmal atrial fibrillation): Code(s): I48.0 - Paroxysmal atrial fibrillation Plan: Patient follows up with Cardiology and possible cardioversion continue with anticoagulation (2) Chronic heart failure with preserved ejection fraction: Code(s): I50.32 - Chronic diastolic (congestive) heart failure Plan: Continue with diuretics (3) Hypertension: Code(s): I10 - Essential (primary) hypertension Qualifiers: Hypertension type: essential hypertension Qualified Code(s): I10 - Essential (primary) hypertension Plan: Continue with blood pressure medication. Decrease salt intake and exercise patient on amlodipine 2.5 mg once a day metoprolol 50 mg twice a day and valsartan 80 mg once a day (4) Hypercholesterolemia: Code(s): E78.00 - Pure hypercholesterolemia, unspecified Plan: Avoid fried foods, chicken skin, eggs, butter margarine, pastries and meat. Be it pork or beef they have a lot of cholesterol patient on pravastatin 40 mg once a day April 2023 last blood work (5) Asthma: Code(s): J45.909 - Unspecified asthma, uncomplicated Qualifiers: Asthma complication type: uncomplicated Asthma persistence: intermittent Asthma severity: mild Qualified Code(s): J45.20 - Mild intermittent asthma, uncomplicated Plan: Continue with inhaler (6) Obesity (BMI 30-39.9): Code(s): E66.9 - Obesity, unspecified Plan: Diet and exercise (7) Chronic kidney disease: Code(s): N18.9 - Chronic kidney disease, unspecified Qualifiers: Chronic kidney disease stage: stage 3 (moderate) Chronic kidney disease stage 3 subtype: stage 3a (GFR 45-59) Qualified Code(s): N18.31 - Chronic kidney disease, stage 3a Plan: Control the blood pressure control the cholesterol. (8) Mild obstructive sleep apnea: Comment: October 2022 Code(s): G47.33 - Obstructive sleep apnea (adult) (pediatric) (9) Insomnia: Code(s): G47.00 - Insomnia, unspecified Plan: Patient was advised to try doxepin having hallucination and unsteady- was on ambien but insurance declined. Orders: Orders B Type Natriuretic Peptide Today I50.32 - Chronic diastolic (congestive) heart failure Thyroid Stimulating Hormone Today I50.32 - Chronic diastolic (congestive) heart failure Lipid Panel Today E78.00 - Pure hypercholesterolemia, unspecified, I48.0 - Paroxysmal atrial fibrillation Magnesium Today I48.0 - Paroxysmal atrial fibrillation Complete Blood Count Auto Diff Today I50.32 - Chronic diastolic (congestive) heart failure Comprehensive Met. Panel Today I50.32 - Chronic diastolic (congestive) heart tere lure Free T4 (Free Thyroxine) Today I50.32 - Chronic diastolic (congestive) heart failure Medications: Refilled zolpidem ER (Ambien CR) 6.25 mg PO BEDTIME PRN 30 tabs 0RF sleep G47.00 - Insomnia, unspecified Discontinued doxepin Discontinued Reason: Ancillary Entered New Order 3 mg PO BEDTIME PRN 30 tabs 0RF sleep Coding Level of Care Code Est Pt Level 4 (67219) Diagnoses PAF (paroxysmal atrial fibrillation) I48.0 Chronic heart failure with preserved ejection fraction I50.32 Essential hypertension I10 Hypertension type: essential hypertension Hypercholesterolemia E78.00 Mild intermittent asthma without complication J45.20 Asthma complication type: uncomplicated Asthma persistence: intermittent Asthma severity: mild Obesity (BMI 30-39.9) E66.9 Stage 3a chronic kidney disease N18.31 Chronic kidney disease stage: stage 3 (moderate) Chronic kidney disease stage 3 subtype: stage 3a (GFR 45-59) Mild obstructive sleep apnea G47.33 Insomnia G47.00
[2023-07-24 10:04] VITALS: BP 140/70; PULSE 50; O2SAT 100; BMI 31.5
== END 2023-07-24 10:50 | disposition home or self-care (01) ==
PROVIDERS: PCP Internal Medicine; Visit Provider Internal Medicine
DX: I48.0 Paroxysmal atrial fibrillation (principal); I13.0 Hypertensive heart and chronic kidney disease with heart failure and stage 1 through stage 4 chronic kidney disease, or unspecified chronic kidney disease; I50.32 Chronic diastolic (congestive) heart failure; N18.31 Chronic kidney disease, stage 3a; E66.9 Obesity, unspecified; Z68.31 Body mass index [BMI] 31.0-31.9, adult; E78.00 Pure hypercholesterolemia, unspecified; J45.20 Mild intermittent asthma, uncomplicated; G47.33 Obstructive sleep apnea (adult) (pediatric); G47.00 Insomnia, unspecified
CPT/HCPCS: 99214

== ENCOUNTER 2023-07-24 11:09 | Outpatient (REF) | payer MEDICARE, SELFPAY ==
[2023-07-24 13:31] LABS: MANUAL DIFF FLAG NO
[2023-07-24 13:46] LABS: Basophils Percent Auto 0.5 % (0-2); Eosinophils Absolute Auto 0.1 X10*3/uL (0.0-0.4); Eosinophils Percent Auto 2.4 % (0-4); Hematocrit 44.1 % (42.0-52.0); Hemoglobin 15.4 g/dl (14.0-18.0); Imm Gran Abs Auto 0.01 X10*3/uL (0.00-0.03); Imm Gran Pct Auto 0.2 % (0.0-0.4); Lymphocytes Absolute Auto 0.9 X10*3/uL (1.2-4.9); Lymphocytes Percent Auto 14.8 % (20-40); Mean Corpuscular HGB Conc 34.9 g/dl (31.0-36.0); Mean Corpuscular Hemoglobin 34.9 pg (27.0-33.0); Mean Platelet Volume 9.7 fL (9.4-12.4); Monocytes Absolute Auto 0.5 X10*3/uL (0.1-1.2); Monocytes Percent Auto 8.8 % (2-11); Neutrophils Absolute Auto 4.3 x10*3/uL (2.0-8.3); Neutrophils Percent Auto 73.3 % (45-73); Platelet Count 195 X10*3/uL (160-400); Red Blood Count 4.41 X10*6/uL (4.60-5.80); Red Cell Distribution Width 12.1 % (11.0-16.0); White Blood Count 5.9 X10*3/uL (4.8-10.8)
[2023-07-24 14:02] LABS: Alanine Aminotransferase 25 U/L (0-40); Albumin Level 4.2 g/dL (3.5-5.0); Alkaline Phosphatase 70 U/L (39-117); Anion Gap 13 (12-20); Aspartate Amino Transferase 22 U/L (5-37); Bilirubin Total 0.9 mg/dL (0.0-1.0); Blood Urea Nitrogen 23 mg/dL (9-16); Calcium 9.5 mg/dL (8.4-10.2); Carbon Dioxide 28 mmol/L (22-29); Chloride 105 mmol/L (96-108); Cholesterol 161 mg/dL (<200); Estimated Glomerular Filt Rate 55; Glucose Random 100 mg/dL (60-115); HDL Cholesterol 55 mg/dL (>40); LDL Cholesterol Calculated 95 mg/dL (<100); Magnesium 2.2 mg/dL (1.6-2.6); Potassium 4.7 mmol/L (3.3-5.1); Sodium 141 mmol/L (135-145); Total Protein 7.5 g/dL (6.5-8.0); Triglycerides 57 mg/dL (<150)
[2023-07-24 14:10] LABS: B Type Natriuretic Peptide 176 pg/mL (<100)
[2023-07-24 14:25] LABS: Free T4 (Free Thyroxine) 1.15 ng/dL (0.71-1.85); Thyroid Stimulating Hormone 1.19 uIU/mL (0.32-4.0)
== END 2023-07-24 11:10 | disposition home or self-care (01) ==
LOC: HO.HMGCLDS 11:09
PROVIDERS: PCP Internal Medicine; Visit Provider Internal Medicine
DX: I50.32 Chronic diastolic (congestive) heart failure (principal); E78.00 Pure hypercholesterolemia, unspecified; I48.0 Paroxysmal atrial fibrillation
CPT/HCPCS: 36415; 80053; 80061; 83735; 83880; 84439; 84443; 85025

== ENCOUNTER 2023-08-10 10:26 | Outpatient (AMB) | payer MEDICARE, SELFPAY ==
--- NOTE | 2023-08-10 10:48 | MHC.OFFVIS ---
Intake Vital Signs 08/10/23 10:49 Height 5 ft 8 in Weight 211 lb 10.3 oz BMI 32.2 BP 138/66 Blood Pressure Location Lt brachial Position Sitting Pulse 54 Intake Visit Reasons: 3M follow up w/EKG Intake Note: 3 month follow up [employer] Attorney Required: No Accompanied by: Self / Same As Patient Allergies lisinopril Allergy (Unknown, Verified 08/10/23 10:51) Unknown doxepin Adverse Reaction (Intermediate, Verified 08/10/23 10:51) Hallucinations atorvastatin [Lipitor] Adverse Reaction (Unknown, Verified 08/10/23 10:51) Unknown Medication List - Last Reconciled 08/10/23 by Pranav Bradford MD albuterol sulfate 90 mcg/actuation (Ventolin HFA) 2 puffs inhalation Q4-6H PRN amlodipine 2.5 mg PO DAILY apixaban (Eliquis) 5 mg PO BID 90 days cholecalciferol (vitamin D3) 25 mcg PO DAILY diclofenac sodium 1% (Arthritis Pain (diclofenac)) 4 grams topical QID 30 days docusate sodium (Colace) 100 mg PO BID dutasteride 0.5 mg PO DAILY fluticasone propionate 50 mcg/actuation (Flonase Allergy Relief) 2 sprays intranasal DAILY furosemide 40 mg See Protocol PO DAILY 90 days metoprolol succinate ER 50 mg See Protocol PO BID 90 days montelukast 10 mg PO BEDTIME pravastatin 40 mg PO BEDTIME 90 days tamsulosin 0.4 mg PO DAILY valsartan 80 mg PO DAILY 90 days zolpidem ER (Ambien CR) 6.25 mg PO BEDTIME PRN HPI HPI Comments History of Present Illness Details Edward returns for follow-up. Few months back, he was seen in the hospital for atrial flutter with rapid rate and congestive heart failure. Initial treated by rate control but he was still reporting some shortness of breath and hence underwent cardioversion. He was on amiodarone as well. However, when he came for a last office visit heart rate is only in the low 40s. Then we stopped the amiodarone. Now he is only on beta-blockers. Overall, he feels good. No complaints like angina or shortness of breath or in fact anything else cardiac sounding. Seems to be getting along fine. [facility] Medical History (Updated 05/17/23 @ 10:16 by Pranav Bradford MD) Chronic heart failure with preserved ejection fraction Acute congestive heart failure Atrial flutter with rapid ventricular response CHF (congestive heart failure) Asthma exacerbation Dizziness COVID-19 vaccine series completed Avascular necrosis of bone of left hip Atherosclerosis History of renal calculi Peripheral vascular disease Chronic kidney disease History of asbestos exposure BPH (benign prostatic hyperplasia) Obesity (BMI 30-39.9) Asthma Hypercholesterolemia Hypertension Insomnia Surgical History H/O colonoscopy History of left hip replacement Family History Father Hypertension Chronic mental illness Mother Hypertension Gastric cancer Asthma Social History Household Members: Spouse Housing: House Do you presently have visiting nurse or other home services: No Alcohol intake: former Patient Tobacco Use Status: Former Tobacco user Tobacco use type: Cigarette e-Cigarette/Vaping Use: Never Used Second Hand Smoke Exposure: No Advance Directives Date on File: 08/03/20 service: No Current occupational status: retired Cognitive needs: No Hearing needs: No Vision needs: Yes Review of Systems Const Denies weakness ENT Denies dizziness Card Denies chest pain, Denies chest pain with activity, Denies syncope, Denies rapid heart rate, Denies pedal edema, Denies edema, Denies leg edema, Denies lightheadedness, Denies palpitations, Denies dyspnea, Denies dyspnea on exertion and Denies orthopnea Resp Denies cough, Denies dyspnea and Denies dyspnea on exertion GI Denies hematochezia and Denies change in stool character Musc Denies abnormal gait, Denies muscle cramps, Denies muscle weakness, Denies numbness, Denies radiating pain into limb and Denies tingling Neuro Denies abnormal gait, Denies dizziness, Denies syncope, Denies numbness, Denies tingling and Denies weakness Endo Denies palpitations Physical Exam Vital Signs: Last Vital Signs Pulse 54 08/10/23 10:49 BP 138/66 08/10/23 10:49 BMI result Body Mass Index 32.2 Const General: comfortable and no acute distress Orientation/consciousness: patient oriented x3 HEENT Other: Unremarkable Head: Yes normal to inspection Neck Neck: Yes normal visual inspection Chest Chest palpation & inspection: normal inspection of the chest Resp Auscultation: clear to auscultation bilaterally Cardio Palpation: normal PMI Heart sounds: S1 normal heart sound present, S2 normal heart sound present, no gallops, no murmurs and no rubs GI Palpation (GI): Soft to palpation Back/Spine/Pelvis Other: unremarkable Skin General skin exam: no rashes or lesions noted Neuro General: patient oriented x3 Extrem General: Yes normal to inspection Psych Mental Status: mental status grossly normal Assessment & Plan Assessment & Plan (1) PAF (paroxysmal atrial fibrillation): Code(s): I48.0 - Paroxysmal atrial fibrillation Plan: Recent EKG while taking both amiodarone as well as metoprolol showed heart rate of 41/Min. Now he is off amiodarone. Only on metoprolol. Heart rate seems better. Probably hold off on other antiarrhythmics like Multaq or flecainide. If still gets recurrent atrial fibrillation, possibly consider ablation. Continue anticoagulation. (2) Chronic heart failure with preserved ejection fraction: Code(s): I50.32 - Chronic diastolic (congestive) heart failure Plan: Stable. No changes. (3) Hypertension: Code(s): I10 - Essential (primary) hypertension Qualifiers: Hypertension type: essential hypertension Qualified Code(s): I10 - Essential (primary) hypertension Plan: He is on amlodipine as well as valsartan. Blood pressure seems okay. Home blood pressures are somewhere in the 120s, 130s and up to 140 systolic or so. No changes made today. Coding Level of Care Code Est Pt Level 4 (24217) Diagnoses PAF (paroxysmal atrial fibrillation) I48.0 Chronic heart failure with preserved ejection fraction I50.32 Essential hypertension I10 Hypertension type: essential hypertension
[2023-08-10 10:49] VITALS: BP 138/66; PULSE 54; BMI 32.2
== END 2023-08-10 11:09 | disposition home or self-care (01) ==
PROVIDERS: PCP Internal Medicine; Visit Provider Internal Medicine
DX: I48.0 Paroxysmal atrial fibrillation (principal); I50.32 Chronic diastolic (congestive) heart failure; I10 Essential (primary) hypertension
CPT/HCPCS: 99214

== ENCOUNTER → 2023-08-10 10:26 | Outpatient (BNVA) | payer MEDICARE, SELFPAY | PROVIDERS: PCP Internal Medicine; Visit Provider Internal Medicine | DX: I48.0 Paroxysmal atrial fibrillation (principal); I13.0 Hypertensive heart and chronic kidney disease with heart failure and stage 1 through stage 4 chronic kidney disease, or unspecified chronic kidney disease; I50.32 Chronic diastolic (congestive) heart failure; N18.9 Chronic kidney disease, unspecified; Z87.891 Personal history of nicotine dependence; Z98.890 Other specified postprocedural states | CPT/HCPCS: 99212 ==

== ENCOUNTER 2023-10-26 09:00 | Outpatient (AMB) | payer MEDICARE, SELFPAY ==
[2023-10-26 09:16] VITALS: BP 134/70; PULSE 58; O2SAT 98; BMI 31.5
--- NOTE | 2023-10-26 09:16 | MHC.PC.OV ---
Vital Signs 10/26/23 09:16 Height 5 ft 8 in Weight 207 lb BMI 31.5 BP 134/70 Blood Pressure Location Lt brachial Position Sitting Pulse 58 Pulse Source Pulse Oximeter Pulse Oximetry (%) 98 Oxygen Delivery Method Room Air Intake Visit Reasons: A fib, CHF, Right hip pain Allergies lisinopril Allergy (Unknown, Verified 10/26/23 09:17) Unknown doxepin Adverse Reaction (Intermediate, Verified 10/26/23 09:17) Hallucinations atorvastatin [Lipitor] Adverse Reaction (Unknown, Verified 10/26/23 09:17) Unknown Tobacco use date assessed: 10/26/23 Fall risk assessment: No Falls in past year Last assessed Fall Risk: 10/26/23 Dental Screening Dental Screen Date: 10/26/23 Did you have a dental visit in the last 12 months?: Yes Did you have a dental problem in the last 6 months where you did not have access to dental care?: No Was dental information given to patient?: Patient has dentist HPI A fib, CHF HPI Details 73-year-old obese male with atrial fibrillation congestive heart failure with preserved ejection fraction hypertension hypercholesterolemia asthma chronic kidney disease and insomnia last seen in July 2023. Patient saw Cardiology August 10 after hospitalization of atrial flutter with rapid ventricular rate patient underwent cardioversion on amiodarone but because of bradycardia was stopped on amiodarone now on beta-blockers. 4 months R hip pain, deny fall has voltaren gel 5 days ago has cough and congestion. better with claritin. [facility] Medical History (Updated 10/26/23 @ 09:59 by Espinoza Polanco MD) Persistent atrial fibrillation Atrial fibrillation, new onset Chronic heart failure with preserved ejection fraction Acute congestive heart failure Atrial flutter with rapid ventricular response CHF (congestive heart failure) Asthma exacerbation Dizziness COVID-19 vaccine series completed Avascular necrosis of bone of left hip Atherosclerosis History of renal calculi Peripheral vascular disease Chronic kidney disease History of asbestos exposure BPH (benign prostatic hyperplasia) Obesity (BMI 30-39.9) Asthma Hypercholesterolemia Hypertension Insomnia Surgical History H/O colonoscopy History of left hip replacement Family History Father Hypertension Chronic mental illness Mother Hypertension Gastric cancer Asthma Social History Household Members: Spouse Housing: House Do you presently have visiting nurse or other home services: No Alcohol intake: former Patient Tobacco Use Status: Former Tobacco user Tobacco use type: Cigarette e-Cigarette/Vaping Use: Never Used Second Hand Smoke Exposure: No Advance Directives Date on File: 08/03/20 service: No Current occupational status: retired Cognitive needs: No Hearing needs: No Vision needs: Yes Questionnaire PHQ-9 Over the last 2 weeks, how often have you been bothered by any of the following problems? 1. Little interest or pleasure in doing things: nearly every day 2. Feeling down, depressed, or hopeless: nearly every day 3. Trouble falling or staying asleep, or sleeping too much: nearly every day 4. Feeling tired or having little energy: nearly every day 5. Poor appetite or overeating: not at all 6. Feeling bad about yourself - or that you are a failure or have let yourself or your family down: not at all 7. Trouble concentrating on things, such as reading the newspaper or watching television: not at all 8. Moving or speaking so slowly that other people could have noticed. Or the opposite - being so fidgety or restless that you have been moving around a lot more than usual: not at all 9. Thoughts that you would be better off or of hurting yourself in some way: not at all Total score: 12 Depression Screening Interpretation: Negative Depression Screening Done: Yes Source: Developed by Drs. Mahesh Angeles, [place], Ever Valle and colleagues, with an educational danielle from [employer]. Thrive Questionnaire Date Thrive assessed: 10/26/23 I am a: Patient What is your living situation today?: I have a steady place to live Within the past 12 months, did the food you bought not last and you didn't have the money to get more?: Never true Within the past 12 months, did you worry whether your food would run out before you got money to buy more?: Never true Do you have trouble paying for medicines?: No Do you have trouble getting transportation to medical appointments?: No Do you have trouble paying your heating and electricity bill?: No Do you have trouble taking care of your child, family member or friend?: No Do you have trouble with day-to-day activities such as bathing, preparing meals, shopping, managing finances, etc.?: No Are you currently unemployed and looking for a job?: No Are you interested in more education?: No Currently or been in a relationship where the following occur: no concerns reported THRIVE Score: 0 AUDIT C Alcohol Use Questionnaire (AUDIT-C) 1. How often do you have a drink containing alcohol?: Never 2. How many drinks containing alcohol do you have on a typical day when you are drinking?: 1 or 2 3. How often do you have six or more drinks on one occasion?: Never Total Score: 0 BETSY-7 AMB Questionnaire BETSY-7 Date BETSY - 7 assessed: 10/26/23 Feeling nervous, anxious, or on edge: 1 = Several days Not being able to stop or control worryin = Several days Worrying too much about different things: 1 = Several days Trouble relaxin = Several days Being so restless that it is hard to sit still: 0 = Not at all Becoming easily annoyed or irritable: 0 = Not at all Feeling afraid as if something awful might happen: 0 = Not at all Total BETSY-7 score (0-4 normal; 5-9 mild; 10-14 moderate; 15-21 severe): 4 Source: Developed by Drs. Mahesh Angeles, [place], Ever Valle and colleagues, with an educational danielle from [employer]. Physical exam (Primary Care) Vital Signs: Last Vital Signs Pulse 58 10/26/23 09:16 BP 134/70 10/26/23 09:16 Pulse Ox 98 10/26/23 09:16 Oxygen Delivery Method Room Air 10/26/23 09:16 BMI result Body Mass Index 31.5 Tobacco/Smoking Status: Tobacco use Status Tobacco use date assessed 10/26/23 10/26/23 09:28 Patient Tobacco Use Status Former Tobacco user 10/26/23 09:18 Tobacco use type Cigarette 10/26/23 09:18 e-Cigarette/Vaping Use Never Used 10/26/23 09:18 PHQ-9: PHQ-9 Score PHQ-9: Total score 12 10/26/23 09:28 Depression Screening Interpretation: Negative Thrive Assessment: Date of Thrive Assessment Date Thrive assessed 10/26/23 10/26/23 09:18 Currently or been in a relationship where the following occur: no concerns reported Const General: alert; No acute distress Eyes Conjunctivae: conjunctivae normal Resp Auscultation: clear to auscultation bilaterally Cardio Rate: regular rate Rhythm: regular rhythm GI Inspection: Yes normal to inspection Extrem General: Yes normal to inspection and No edema Assessment and Plan Assessment & Plan (1) Pain of right hip: Code(s): M25.551 - Pain in right hip Plan: xr requested (2) Chronic heart failure with preserved ejection fraction: Code(s): I50.32 - Chronic diastolic (congestive) heart failure Plan: Weigh daily limit salt continue with the diuretic furosemide 40 mg once a day (3) PAF (paroxysmal atrial fibrillation): Code(s): I48.0 - Paroxysmal atrial fibrillation Plan: Patient follows up with Cardiology on beta farzaneh metoprolol 50 mg twice a day continuing with anticoagulation with Eliquis (4) Obesity (BMI 30-39.9): Code(s): E66.9 - Obesity, unspecified Plan: Diet and exercise (5) Hypertension: Code(s): I10 - Essential (primary) hypertension Qualifiers: Hypertension type: essential hypertension Qualified Code(s): I10 - Essential (primary) hypertension Plan: Continue with blood pressure medication. Decrease salt intake and exercise presently on amlodipine 2.5 mg once a day metoprolol 50 mg twice a day and valsartan 80 mg once a day (6) Hypercholesterolemia: Code(s): E78.00 - Pure hypercholesterolemia, unspecified Plan: Avoid fried foods, chicken skin, eggs, butter margarine, pastries and meat. Be it pork or beef they have a lot of cholesterol LDL below 100 on pravastatin 40 mg once a day (7) BPH (benign prostatic hyperplasia): Code(s): N40.0 - Benign prostatic hyperplasia without lower urinary tract symptoms Qualifiers: Lower urinary tract symptom presence: symptoms present Lower urinary tract symptom detail: urinary frequency Qualified Code(s): N40.1 - Benign prostatic hyperplasia with lower urinary tract symptoms; R35.0 - Frequency of micturition Plan: Continue with dutasteride and tamsulosin (8) Chronic kidney disease: Code(s): N18.9 - Chronic kidney disease, unspecified Qualifiers: Chronic kidney disease stage: stage 3 (moderate) Chronic kidney disease stage 3 subtype: stage 3a (GFR 45-59) Qualified Code(s): N18.31 - Chronic kidney disease, stage 3a Plan: Keep well hydrated avoid NSAIDs Orders: Orders XR hip RT min 2V Today M25.551 - Pain in right hip Coding Level of Care Code Est Pt Level 4 (27173) Diagnoses Pain of right hip M25.551 Chronic heart failure with preserved ejection fraction I50.32 PAF (paroxysmal atrial fibrillation) I48.0 Obesity (BMI 30-39.9) E66.9 Essential hypertension I10 Hypertension type: essential hypertension Hypercholesterolemia E78.00 Benign prostatic hyperplasia with urinary frequency N40.1; R35.0 Lower urinary tract symptom presence: symptoms present Lower urinary tract symptom detail: urinary frequency Stage 3a chronic kidney disease N18.31 Chronic kidney disease stage: stage 3 (moderate) Chronic kidney disease stage 3 subtype: stage 3a (GFR 45-59)
== END 2023-10-26 10:08 | disposition home or self-care (01) ==
PROVIDERS: PCP Internal Medicine; Visit Provider Internal Medicine
DX: I50.32 Chronic diastolic (congestive) heart failure (principal); I48.0 Paroxysmal atrial fibrillation; N18.31 Chronic kidney disease, stage 3a; M25.551 Pain in right hip; E66.9 Obesity, unspecified; I10 Essential (primary) hypertension; E78.00 Pure hypercholesterolemia, unspecified; N40.1 Benign prostatic hyperplasia with lower urinary tract symptoms; R35.0 Frequency of micturition
CPT/HCPCS: 99214

== ENCOUNTER 2023-10-26 11:37 | Outpatient (REF) | payer MEDICARE, SELFPAY ==
--- NOTE | ~2023-10-26 | XR_ITS ---
EXAMINATION: XR HIP, RIGHT, WITH AP PELVIS CLINICAL INFORMATION: Pain. COMPARISON: Prior radiographs, most recently 12/30/2016. TECHNIQUE: AP and frog-leg lateral views of the right hip are submitted, together with a frontal view of the pelvis. FINDINGS: The right acetabular joint space is well-maintained. There is mild subchondral sclerosis of the right acetabular roof. The right femoral head is smooth. There is an intact left hip total arthroplasty, without hardware failure loosening. There is no periprosthetic fracture. There are incompletely characterized degenerative changes of the lumbar spine. There are iliofemoral atherosclerotic calcifications. XR/XR hip RT min 2V IMPRESSION: 1. There is mild osteoarthritic change of the right hip. 2. There is an intact left hip total arthroplasty. 3. There is no acute fracture or dislocation.
== END 2023-10-26 11:38 | disposition home or self-care (01) ==
LOC: HO.XRAY 11:37
PROVIDERS: PCP Internal Medicine; Visit Provider Internal Medicine
DX: M25.551 Pain in right hip (principal)
CPT/HCPCS: 73502

== ENCOUNTER 2023-11-10 12:55 | Outpatient (REF) | payer MEDICARE, SELFPAY ==
[2023-11-10 16:45] LABS: Anion Gap 13 (12-20); Blood Urea Nitrogen 22 mg/dL (9-16); Calcium 9.5 mg/dL (8.4-10.2); Carbon Dioxide 28 mmol/L (22-29); Chloride 106 mmol/L (96-108); Estimated Glomerular Filt Rate 55; Glucose Random 84 mg/dL (60-115); Potassium 4.5 mmol/L (3.3-5.1); Sodium 142 mmol/L (135-145)
== END 2023-11-10 12:56 | disposition home or self-care (01) ==
LOC: HO.HMGCLDS 12:55
PROVIDERS: PCP Internal Medicine; Visit Provider Internal Medicine Hypertension Specialist
DX: N18.31 Chronic kidney disease, stage 3a (principal)
CPT/HCPCS: 36415; 80048

== ENCOUNTER 2023-11-13 11:29 | Outpatient (AMB) | payer MEDICARE, SELFPAY ==
[2023-11-13 11:35] VITALS: BP 144/62; PULSE 58; O2SAT 97; BMI 31.8
--- NOTE | 2023-11-13 11:35 | HO.NEPHOV_ITS ---
HPI HPI Comments History of Present Illness Details 73 yr old man with HTN and CKD Here for follow up Morning BP is slightly elevated [facility] Medical History (Updated 11/10/23 @ 18:07 by Espinoza Polanco MD) Persistent atrial fibrillation Atrial fibrillation, new onset Chronic heart failure with preserved ejection fraction Acute congestive heart failure Atrial flutter with rapid ventricular response CHF (congestive heart failure) Asthma exacerbation Dizziness COVID-19 vaccine series completed Avascular necrosis of bone of left hip Atherosclerosis History of renal calculi Peripheral vascular disease Chronic kidney disease History of asbestos exposure BPH (benign prostatic hyperplasia) Obesity (BMI 30-39.9) Asthma Hypercholesterolemia Hypertension Insomnia Surgical History H/O colonoscopy History of left hip replacement Family History Father Hypertension Chronic mental illness Mother Hypertension Gastric cancer Asthma Social History Household Members: Spouse Housing: House Do you presently have visiting nurse or other home services: No Alcohol intake: former Patient Tobacco Use Status: Former Tobacco user Tobacco use type: Cigarette e-Cigarette/Vaping Use: Never Used Second Hand Smoke Exposure: No Advance Directives Date on File: 08/03/20 service: No Current occupational status: retired Cognitive needs: No Hearing needs: No Vision needs: Yes Vital Signs 11/13/23 11:35 11/13/23 11:49 Height 5 ft 8 in Weight 209 lb BMI 31.8 BP 144/62 H 134/60 Blood Pressure Location Lt brachial Lt brachial Position Sitting Sitting Pulse 58 Pulse Source Pulse Oximeter Pulse Oximetry (%) 97 Oxygen Delivery Method Room Air Physical Exam Vital Signs: Last Vital Signs Pulse 58 11/13/23 11:35 BP 144/62 H 11/13/23 11:35 Pulse Ox 97 11/13/23 11:35 Oxygen Delivery Method Room Air 11/13/23 11:35 BMI result Body Mass Index 31.8 Const General: comfortable; No acute distress Orientation/consciousness: patient oriented x3 Eyes General: appearance normal, both eyes and all related structures Visual Rodriguez: normal visual rodriguez by confrontation Neck Neck: Yes supple and Yes no JVD Resp Effort & Inspection: normal respiratory effort and respiratory effort not decreased Auscultation: rhonchi Cardio Palpation: no palpable S3 and no palpable S4 Heart sounds: no rubs GI Inspection: Yes normal to inspection Palpation (GI): Soft to palpation Percussion: Yes normal to percussion Auscultation: normal bowel sounds General: Yes no CVA tenderness Back/Spine/Pelvis Back: no CVA tenderness Skin General skin exam: no petechiae and no purpura Neuro General: patient oriented x3 and no focal motor deficits Extrem General: No clubbing and No edema Assessment & Plan Assessment & Plan (1) Chronic kidney disease: Code(s): N18.9 - Chronic kidney disease, unspecified Qualifiers: Chronic kidney disease stage: stage 3 (moderate) Chronic kidney disease stage 3 subtype: stage 3a (GFR 45-59) Qualified Code(s): N18.31 - Chronic kidney disease, stage 3a (2) Asthma: Code(s): J45.909 - Unspecified asthma, uncomplicated Qualifiers: Asthma severity: mild Asthma persistence: intermittent Asthma complication type: uncomplicated Qualified Code(s): J45.20 - Mild intermittent asthma, uncomplicated Plan CKD in a setting of HTN h/o NSAID use in the past Cr is stable BP acceptable Stay on low salt diet Avoid nephrotoxins including NSAIDS Orders: Orders Basic Metabolic Panel 6 Months N18.9 - Chronic kidney disease, unspecified Coding Level of Care Code Est Pt Level 4 (61859) Diagnoses Stage 3a chronic kidney disease N18.31 Chronic kidney disease stage: stage 3 (moderate) Chronic kidney disease stage 3 subtype: stage 3a (GFR 45-59) Mild intermittent asthma without complication J45.20 Asthma severity: mild Asthma persistence: intermittent Asthma complication type: uncomplicated Results Reviewed Nephrology Results: Hgb 15.4 g/dl (14.0-18.0) 07/24/23 WBC 5.9 X10*3/uL (4.8-10.8) 07/24/23 Plt Count 195 X10*3/uL (160-400) 07/24/23 Sodium 142 mmol/L (135-145) 11/10/23 Potassium 4.5 mmol/L (3.3-5.1) 11/10/23 Chloride 106 mmol/L (96-108) 11/10/23 Carbon Dioxide 28 mmol/L (22-29) 11/10/23 BUN 22 mg/dL (9-16) H 11/10/23 Creatinine 1.27 mg/dL (0.5-1.4) 11/10/23 Calcium 9.5 mg/dL (8.4-10.2) 11/10/23
[2023-11-13 11:49] VITALS: BP 134/60
== END 2023-11-13 11:54 | disposition home or self-care (01) ==
LOC: HO.HKA 11:30
PROVIDERS: PCP Internal Medicine; Visit Provider Internal Medicine Hypertension Specialist
DX: N18.31 Chronic kidney disease, stage 3a (principal); J45.20 Mild intermittent asthma, uncomplicated
CPT/HCPCS: 99214

== ENCOUNTER → 2023-11-13 11:29 | Outpatient (BNVA) | payer MEDICARE, SELFPAY | PROVIDERS: PCP Internal Medicine; Visit Provider Internal Medicine Hypertension Specialist | DX: N18.31 Chronic kidney disease, stage 3a (principal); J45.20 Mild intermittent asthma, uncomplicated | CPT/HCPCS: 99212 ==

== ENCOUNTER 2024-01-10 12:42 | Outpatient (AMB) | payer MEDICARE, SELFPAY ==
[2024-01-10 13:04] VITALS: BP 138/64; PULSE 126; BMI 31.8
--- NOTE | 2024-01-10 13:04 | MHC.OFFVIS ---
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 Required: No Accompanied by: Self / Same As Patient Allergies lisinopril Allergy (Unknown, Verified 11/13/23 11:37) Unknown doxepin Adverse Reaction (Intermediate, Verified 11/13/23 11:37) Hallucinations atorvastatin [Lipitor] Adverse Reaction (Unknown, Verified 11/13/23 11:37) Unknown Medication List - Last Reconciled 01/10/24 by Pranav Bradford MD albuterol sulfate 90 mcg/actuation (Ventolin HFA) 2 puffs inhalation Q4-6H PRN amlodipine 2.5 mg PO DAILY apixaban (Eliquis) 5 mg PO BID 90 days cholecalciferol (vitamin D3) 25 mcg PO DAILY diclofenac sodium 1% (Arthritis Pain (diclofenac)) 4 grams topical QID 30 days docusate sodium (Colace) 100 mg PO BID dutasteride 0.5 mg PO DAILY fluticasone propionate 50 mcg/actuation (Flonase Allergy Relief) 2 sprays intranasal DAILY furosemide 40 mg See Protocol PO DAILY 90 days loratadine 10 mg PO DAILY metoprolol succinate ER 50 mg See Protocol PO BID 90 days montelukast 10 mg PO BEDTIME pravastatin 40 mg PO BEDTIME 90 days tamsulosin 0.4 mg PO DAILY valsartan 80 mg PO DAILY 90 days zolpidem ER (Ambien CR) 6.25 mg PO BEDTIME PRN HPI Comments Details: Britton returns for follow-up. Last year, he was seen in the hospital for atrial flutter with rapid rate and congestive heart failure. Initial treated by rate control but he was still reporting some shortness of breath and hence underwent cardioversion. He was on amiodarone as well. However, when he came for office visit heart rate is only in the low 40s. Then we stopped the amiodarone. Now he is only on beta-blockers. Recently, again not feeling good. Feeling dizzy, some palpitations and overall unwell. Today, he is back in atrial flutter with rapid rate. [facility] Medical History (Updated 01/10/24 @ 13:26 by Pranav Brdaford MD) Atrial flutter with rapid ventricular response BPPV (benign paroxysmal positional vertigo) Vertigo of central origin Persistent atrial fibrillation Atrial fibrillation, new onset Chronic heart failure with preserved ejection fraction Acute congestive heart failure CHF (congestive heart failure) Asthma exacerbation Dizziness COVID-19 vaccine series completed Avascular necrosis of bone of left hip Atherosclerosis History of renal calculi Peripheral vascular disease Chronic kidney disease History of asbestos exposure BPH (benign prostatic hyperplasia) Obesity (BMI 30-39.9) Asthma Hypercholesterolemia Hypertension Insomnia Surgical History H/O colonoscopy History of left hip replacement Family History Father Hypertension Chronic mental illness Mother Hypertension Gastric cancer Asthma Social History Household Members: Spouse Housing: House Do you presently have visiting nurse or other home services: No Alcohol intake: former Patient Tobacco Use Status: Former Tobacco user Tobacco use type: Cigarette e-Cigarette/Vaping Use: Never Used Second Hand Smoke Exposure: No Advance Directives Date on File: 08/03/20 service: No Current occupational status: retired Cognitive needs: No Hearing needs: No Vision needs: Yes Review of Systems Const Denies chills, Denies fatigue, Denies fever(s), Denies frequent falls, Denies weakness, Denies weight gain and Denies weight loss ENT Denies dizziness Card Denies chest pain, Denies leg edema, Denies lightheadedness, Denies palpitations, Denies dyspnea and Denies dyspnea on exertion Resp Denies cough, Denies dyspnea and Denies dyspnea on exertion GI Denies hematochezia Musc Denies abnormal gait, Denies muscle weakness, Denies numbness, Denies radiating pain into limb and Denies tingling Neuro Denies abnormal gait, Denies dizziness, Denies frequent falls, Denies numbness, Denies tingling and Denies weakness Endo Denies fatigue and Denies palpitations Physical Exam Vital Signs: Last Vital Signs Pulse 126 H 01/10/24 13:04 BP 138/64 01/10/24 13:04 BMI result Body Mass Index 31.8 Const General: comfortable and no acute distress Orientation/consciousness: patient oriented x3 HEENT Other: Unremarkable Head: Yes normal to inspection Neck Neck: Yes normal visual inspection Chest Chest palpation & inspection: normal inspection of the chest Resp Auscultation: clear to auscultation bilaterally Cardio Palpation: normal PMI Heart sounds: S1 normal heart sound present, S2 normal heart sound present, no gallops, no murmurs and no rubs GI Palpation (GI): Soft to palpation Back/Spine/Pelvis Other: unremarkable Skin General skin exam: no rashes or lesions noted Neuro General: patient oriented x3 Extrem General: Yes normal to inspection Psych Mental Status: mental status grossly normal Office Procedures EKG Details: EKG suggestive of atrial flutter with rapid rate at 126/Min. [id number], Complete Assessment & Plan Assessment & Plan (1) Atrial flutter with rapid ventricular response: Code(s): I48.92 - Unspecified atrial flutter Category: Medical Plan: EKG last year with atrial flutter, 2-1 conduction at 132/Min. Then cardioverted and went into sinus bradycardia around 40/Min while on amiodarone/beta-blockers. Amiodarone stopped and now he is in atrial flutter with rapid rate again. For now, we will go up on the beta-farzaneh dosing. He is on metoprolol 50 mg b.i.d. and we can go up to 100 mg b.i.d.. Discussed about ablation and he is interested. We will refer him to EP. Continue anticoagulation without changes. (2) Chronic heart failure with preserved ejection fraction: Code(s): I50.32 - Chronic diastolic (congestive) heart failure Category: Medical Plan: Stable. No changes. (3) Hypertension: Code(s): I10 - Essential (primary) hypertension Category: Medical Qualifiers: Hypertension type: essential hypertension Qualified Code(s): I10 - Essential (primary) hypertension Plan: As we are going up on the beta-farzaneh dosing, hold off on amlodipine. Otherwise, on valsartan. Orders: Orders ECG 3 day holter monitor Today I48.92 - Unspecified atrial flutter Referrals Cardiac Electrophysiology Referral I48.92 - Unspecified atrial flutter Medications: New metoprolol tartrate 100 mg PO BID 90 days 180 tabs 3RF Discontinued metoprolol succinate ER Discontinued Reason: Doctor's Order 50 mg See Protocol PO BID 90 days 180 tabs 2RF I10 - Essential (primary) hypertension amlodipine Discontinued Reason: Doctor's Order 2.5 mg PO DAILY 90 tabs 3RF Coding Level of Care Code Est Pt Level 4 (03453) Diagnoses Atrial flutter with rapid ventricular response I48.92 Chronic heart failure with preserved ejection fraction I50.32 Essential hypertension I10 Hypertension type: essential hypertension CPT Codes EKG - CPT: 86957-[id number], Complete ([id number])
== END 2024-01-10 13:25 | disposition home or self-care (01) ==
PROVIDERS: PCP Internal Medicine; Visit Provider Internal Medicine
DX: I48.92 Unspecified atrial flutter (principal); I50.32 Chronic diastolic (congestive) heart failure; I10 Essential (primary) hypertension
CPT/HCPCS: 93010; 99214

== ENCOUNTER → 2024-01-10 12:42 | Outpatient (BNVA) | payer MEDICARE, SELFPAY | PROVIDERS: PCP Internal Medicine; Visit Provider Internal Medicine | DX: I48.92 Unspecified atrial flutter (principal); I11.0 Hypertensive heart disease with heart failure; I50.32 Chronic diastolic (congestive) heart failure | CPT/HCPCS: 93005; 99212 ==

== ENCOUNTER → 2024-01-16 09:43 | Outpatient (REF) | payer MEDICARE, SELFPAY ==
--- NOTE | 2024-01-16 09:46 | HM_ITS ---
* Underlying rhythm is atrial fibrillation. * Average ventricular rate 95/Min. About 23% of the time, rate > 100/Min. * Rare PVCs with low burden. * No significant pauses or AV blocks. * No patient markers or diary events. MTDD
== END ==
LOC: HO.CARD 09:43
PROVIDERS: PCP Internal Medicine; Visit Provider Internal Medicine
DX: I48.92 Unspecified atrial flutter (principal)
CPT/HCPCS: 93242

== ENCOUNTER → 2024-01-16 09:46 | Outpatient (BNV) | payer MEDICARE, SELFPAY | PROVIDERS: PCP Internal Medicine; Visit Provider Internal Medicine | DX: I48.91 Unspecified atrial fibrillation (principal) | CPT/HCPCS: 93244 ==

== ENCOUNTER 2024-01-24 14:56 | Inpatient (IN) | payer MEDICARE, SELFPAY ==
--- NOTE | ~2024-01-24 | XR_ITS ---
EXAMINATION: CHEST 2 VIEWS CLINICAL INFORMATION: dyspnea. COMPARISON: 08/05/2022. TECHNIQUE: PA and lateral views of the chest obtained. FINDINGS: The lungs are well expanded. No focal infiltrate, effusion, edema, or pneumothorax. Cardiac and mediastinal silhouettes are within normal limits for size with prominent mitral annular calcification. Degenerative changes in the spine and right greater than left shoulders. No acute bony abnormality seen XR/XR chest 2V IMPRESSION: Chronic appearing changes similar to the 08/05/2022 study.
--- NOTE | 2024-01-24 14:58 | ECG_ITS ---
Test Reason : SOB Blood Pressure : / mmHG Vent. Rate : 125 BPM Atrial Rate : 300 BPM P-R Int : 000 ms QRS Dur : 106 ms QT Int : 352 ms P-R-T Axes : 000 -54 120 degrees QTc Int : 508 ms Atrial flutter with variable A-V block Left axis deviation Minimal voltage criteria for LVH, may be normal variant ( Poneto product ) Nonspecific ST and T wave abnormality Abnormal ECG When compared with ECG of 07-OCT-2022 13:21, Atrial flutter has replaced Sinus rhythm Vent. rate has increased BY 50 BPM Nonspecific T wave abnormality, improved in Inferior leads T wave inversion now evident in Lateral leads Referred By: Generic ED Physician Electronically Signed By:ANKITA COOPER MD
[2024-01-24 15:15] VITALS: BP 143/77; PULSE 107; RESP 18; TEMP 36.8; O2SAT 96; BMI 31.1
--- NOTE | 2024-01-24 15:17 | ED_ITS ---
HPI - General Adult General Chief complaint: Dyspnea Stated complaint: SOB, lightheaded Time Seen by Provider: 01/25/24 01:43 Source: patient Mode of arrival: ambulatory Limitations: no limitations History of Present Illness HPI narrative: Patient comes to the emergency room complaining of shortness of breath with exertion and feeling lightheaded. Patient states that he has history of AFib/a flutter and has been stable for about a year. However, over the last week, patient has had episodes of palpitation and lightheadedness with exertion. Patient denies syncopal episodes. Patient denies any recent URI or UTI symptoms. Patient states that he is compliant with his medications including his blood thinner. Patient denies any chest pain at all. Patient states that in the last few days, patient had a Holter monitor evaluation done, results are still pending. Related Data Home Medications ?Medication ?Instructions ?Recorded ?Confirmed cholecalciferol (vitamin D3) 25 25 mcg PO DAILY 08/14/20 01/10/24 mcg (1,000 unit) capsule docusate sodium 100 mg capsule 100 mg PO BID 08/14/20 01/10/24 (Colace) loratadine 10 mg tablet 10 mg PO DAILY 10/26/23 01/10/24 Previous Rx's ?Medication ?Instructions ?Recorded fluticasone propionate 50 2 spray intranasal DAILY #16 grams 05/09/23 mcg/actuation nasal spray,suspension (Flonase Allergy Relief) apixaban 5 mg tablet (Eliquis) 5 mg PO BID 90 days #180 tabs 05/29/23 diclofenac sodium 1 % topical gel 4 g topical QID 30 days #100 grams 08/09/23 (Arthritis Pain (diclofenac)) albuterol sulfate 90 mcg/actuation 2 puff inhalation Q4-6H PRN 08/23/23 aerosol inhaler (Ventolin HFA) shortness of breath or wheezing #6.7 grams furosemide 40 mg tablet 40 mg PO DAILY 90 days #90 tabs 08/23/23 pravastatin 40 mg tablet 40 mg PO BEDTIME 90 days #90 tabs 08/23/23 valsartan 80 mg tablet 80 mg PO DAILY 90 days #90 tabs 08/23/23 dutasteride 0.5 mg capsule 0.5 mg PO DAILY #90 caps 11/15/23 montelukast 10 mg tablet 10 mg PO BEDTIME #90 tabs 11/15/23 zolpidem 6.25 mg tablet,extended 6.25 mg PO BEDTIME PRN sleep #30 11/22/23 release,multiphase (Ambien CR) tabs metoprolol tartrate 100 mg tablet 100 mg PO BID 90 days #180 tabs 01/10/24 tamsulosin 0.4 mg capsule 0.4 mg PO DAILY #90 caps 01/22/24 Allergies Allergy/AdvReac Type Severity Reaction Status Date / Time lisinopril Allergy Unknown Unknown Verified 01/24/24 15:18 doxepin AdvReac Intermediate Hallucinati Verified 01/24/24 15:18 ons atorvastatin [Lipitor] AdvReac Unknown Unknown Verified 01/24/24 15:18 Review of Systems 2 Review of Systems: Constitutional : No Weight loss, No Fever, No Chills, No Night Sweats, No Fatigue, No Malaise ENT/Mouth : No Hearing loss, No Ear Pain, No Nasal Congestion, No Sinus Pain, No Hoarseness, No sore throat, No Rhinorrhea, No Swallowing Difficulty Eyes: No Eye Pain, No Swelling, No Redness, No Foreign Body, No Discharge, No Vision Changes Cardiovascular : No Chest Pain, complaining of shortness of breath with exertion, chronic mild pedal edema, lightheadedness with exertion Respiratory : No Cough, No Sputum, No Wheezing, No Smoke Exposure, No Dyspnea Gastrointestinal : No Nausea, No Vomiting, No Diarrhea, No Constipation, No abdominal Pain, No Hematochezia, No Melena Genitourinary : no irregular bleeding, No Dysuria, No Urinary Frequency, No Hematuria, No Urinary Incontinence, No Urgency, No Flank Pain, No Urinary Flow Changes, No Hesitancy Musculoskeletal : No joint pain, No Myalgias, No Joint Swelling Skin : No Skin Lesions, No rash Neuro : No Weakness, No Numbness, No Paresthesias, No Loss of Consciousness, No Dizziness, No Headache Psych : No Anxiety/Panic, No Depression, No SI/HI/AH/VH, No Social Issues, Heme/Lymph: No Bruising, No Bleeding,No Lymphadenopathy Endocrine : No Polyuria, No Polydipsia, No Temperature Intolerance PMFSH Past Medical History Medical History Atrial flutter with rapid ventricular response BPPV (benign paroxysmal positional vertigo) Vertigo of central origin Persistent atrial fibrillation Atrial fibrillation, new onset Chronic heart failure with preserved ejection fraction Acute congestive heart failure CHF (congestive heart failure) Asthma exacerbation Dizziness COVID-19 vaccine series completed Avascular necrosis of bone of left hip Atherosclerosis History of renal calculi Peripheral vascular disease Chronic kidney disease History of asbestos exposure BPH (benign prostatic hyperplasia) Obesity (BMI 30-39.9) Asthma Hypercholesterolemia Hypertension Insomnia Surgical History H/O colonoscopy History of left hip replacement Family History Family History Father Hypertension Chronic mental illness Mother Hypertension Gastric cancer Asthma Social History Social History Household Members: Spouse Housing: House Do you presently have visiting nurse or other home services: No Alcohol intake: former Patient Tobacco Use Status: Former Tobacco user Tobacco use type: Cigarette Smoked in Last 30 Days: No e-Cigarette/Vaping Use: Never Used Second Hand Smoke Exposure: No Use of substances other than those prescribed or required for medical reasons: No Advance Directives: Yes Advance Directives on File: Yes Advance Directives Date on File: 08/03/20 Do you have a plan to hurt others: No Plan service: No Current occupational status: retired Cognitive needs: No Hearing needs: No Vision needs: Yes Physical Exam ED Vital Signs: Vital Signs - 24 hr 01/24/24 15:15 01/24/24 21:16 01/25/24 00:52 Temperature 98.2 F 98.3 F 97.9 F Pulse Rate 107 H 79 100 Respiratory Rate 18 16 20 Blood Pressure 143/77 H 117/63 142/70 H Pulse Oximetry 96 98 96 Oxygen Delivery Method Room Air Room Air Room Air 01/25/24 02:09 01/25/24 02:22 Temperature 97.6 F Pulse Rate 101 H Respiratory Rate 19 Blood Pressure 139/69 Pulse Oximetry 98 97 Oxygen Delivery Method Room Air BMI result Body Mass Index 31.1 Const Other: Appearance: Alert. Oriented X3. No acute distress. Eyes: Pupils equal, round and reactive to light. ENT: Pharynx normal. Neck: Normal inspection. Neck supple. No lymph nodes noted. No crepitus CVS: Normal heart rate and rhythm. Pulses normal. Normal S1 and S2 Respiratory: No respiratory distress. Breath sounds normal. No Wheezing. No rales Abdomen: Soft and nontender. No rigidity. No distention. Skin: Skin warm and dry. Normal skin color. Normal skin turgor. Extremities: +2 pitting edema bilaterally No Lacerations. No Rash Neuro: Oriented X 3. No motor deficit. No sensory deficit. Moving all extremities. No slurred speech. CN 2 through 12 grossly intact Psych: calm, cooperative, normal affect Course Course Course Narrative: This is a rapid medical exam performed by Josef Salas NP: Additional HPI, ROS, PE not included below will be deferred to primary provider. Patient is a 73-year-old male with history of paroxysmal afib on eliquis, BPPV, CHFpEF, CKD, asthma, HTN, BPH presenting to the ED reporting shortness of breath and feeling lightheaded. States PCP recently increased his metoprolol from 50 BID to 100 BID around 2 weeks ago. Noted HR was up to 140's today. Rapid afib in triage, BP WNL. Plan: EKG, labs, cxr Medical Decision Making Medical Decision Making [facility] Narrative: -my interpretation of labs: White blood cell count within normal limits. Chemistry shows a creatinine of 1.9, baseline 1.2. Patient's BNP is a bit elevated over the baseline, now 300 troponin x2 elevated, a 7.7 and 69.8. Baseline is negative. Patient has no chest pain at all. -my interpretation of EKG: Atrial flutter with RVR, heart rate 125, no ST segment depression or elevation, no T-wave inversion, QTC 508 -at this time, patient Has a heart rate of 95. -my interpretation of chest x-ray: No obvious pulmonary edema or pleural effusions -patient was ambulated around the emergency room, patient's heart rate went up to 112, patient did not have any shortness of breath. However, patient felt lightheaded, no syncopal episode, no chest pain. -I discussed the patient with Dr. Irizarry, patient being admitted Differential Diagnosis Differential Diagnoses: The differential diagnosis associated with the presentation includes (CHF, atrial fibrillation, atrial flutter) Admission/Observation Consideration of admission/observation: Escalation of care including admission/observation considered Consult Healthcare Provider Management of the patient was discussed with: Hospitalist Lab Data MDM Lab Attestation statement: I reviewed the patient's lab results. 01/24/24 15:25 01/24/24 15:25 Labs: Lab Results 01/24/24 01/24/24 Range/Units 15:25 18:55 WBC 6.6 (4.8-10.8) X10*3/uL RBC 4.42 L (4.60-5.80) X10*6/uL Hgb 15.7 (14.0-18.0) g/dl Hct 44.1 (42.0-52.0) % MCV 99.8 H (80.0-98.0) fL MCH 35.5 H (27.0-33.0) pg MCHC 35.6 (31.0-36.0) g/dl RDW 12.8 (11.0-16.0) % Plt Count 175 (160-400) X10*3/uL MPV 8.9 L (9.4-12.4) fL Immature Gran % (Auto) 0.3 (0.0-0.4) % Neut % (Auto) 68.6 (45-73) % Lymph % (Auto) 20.4 (20-40) % Coffee % (Auto) 9.2 (2-11) % Eos % (Auto) 0.9 (0-4) % Baso % (Auto) 0.6 (0-2) % Lymph # (Auto) 1.4 (1.2-4.9) X10*3/uL [place] # (Auto) 0.6 (0.1-1.2) X10*3/uL Eos # (Auto) 0.1 (0.0-0.4) X10*3/uL Baso # (Auto) 0.0 (0.0-0.2) X10*3/uL Abs Immat Gran (auto) 0.02 (0.00-0.03) X10*3/uL Absolute Neuts (auto) 4.5 (2.0-8.3) x10*3/uL Absolute Nucleated RBC 0.000 (0.0-0.012) X10*3/uL Nucleated RBC % (auto) 0.0 (0.0-0.2) /100WBC PT 16.0 H (11.1-13.3) SEC INR 1.3 H (0.9-1.1) Sodium 143 (135-145) mmol/L Potassium 4.8 (3.3-5.1) mmol/L Chloride 106 (96-108) mmol/L Carbon Dioxide 23 (22-29) mmol/L Anion Gap 19 (12-20) BUN 29 H (9-16) mg/dL Creatinine 1.90 H (0.5-1.4) mg/dL Estim Creat Clear Calc 37.1 Estimated GFR 35 Random Glucose 98 (60-115) mg/dL Calcium 10.0 (8.4-10.2) mg/dL Total Bilirubin 0.9 (0.0-1.0) mg/dL AST 22 (5-37) U/L ALT 33 (0-40) U/L Alkaline Phosphatase 63 (39-117) U/L Troponin I High Sens 87.7 H 69.8 H (<3.5-35.0) ng/L B-Natriuretic Peptide 358 H (<100) pg/mL Total Protein 7.4 (6.5-8.0) g/dL Albumin 4.3 (3.5-5.0) g/dL Independent Interpretation I performed an independent interpretation of an: EKG and Plain X-Ray Radiology Impression Discussion of test interpretation with radiology: I have reviewed the radiologist's reading. Radiologist Impression: The lungs are well expanded. No focal infiltrate, effusion, edema, or pneumothorax. Cardiac and mediastinal silhouettes are within normal limits for size with prominent mitral annular calcification. Degenerative changes in the spine and right greater than left shoulders. No acute bony abnormality seen XR/XR chest 2V IMPRESSION: Chronic appearing changes similar to the 08/05/2022 study Critical Care Time Critical Care Time Critical Care Time: Yes Total Critical Care Time: 60 Attestation: I have personally provided critical care time. Time includes review of lab data, radiology results, discussion with consultants, and monitoring for potential decompensation. Intervention performed as documented. Discharge Plan Discharge Clinical Impression: Atrial flutter with rapid ventricular response, CHF (congestive heart failure), GLORIA (acute kidney injury) Patient Disposition: Admitted As Inpatient Prescriptions: No Action fluticasone propionate [Flonase Allergy Relief] 50 mcg/actuation spray,suspension 2 spray intranasal DAILY Qty: 16 12RF Rx Instructions: administer into each nostril Eliquis 5 mg tablet 5 mg PO BID 90 Days Qty: 180 3RF diclofenac sodium [Arthritis Pain (diclofenac)] 1 % gel 4 g topical QID 30 Days Qty: 100 11RF Rx Instructions: apply to single knee, ankle, foot; for foot includes sole/toes/top of foot valsartan 80 mg tablet 80 mg PO DAILY 90 Days Qty: 90 2RF pravastatin 40 mg tablet 40 mg PO BEDTIME 90 Days Qty: 90 2RF furosemide 40 mg tablet 40 mg PO DAILY 90 Days Qty: 90 2RF Protocol: Hold for SBP< HOLD for SBP < : 90 albuterol sulfate [Ventolin HFA] 90 mcg/actuation HFA aerosol inhaler 2 puff inhalation Q4-6H PRN (Reason: shortness of breath or wheezing) Qty: 6.7 0RF dutasteride 0.5 mg capsule 0.5 mg PO DAILY Qty: 90 1RF montelukast 10 mg tablet 10 mg PO BEDTIME Qty: 90 3RF zolpidem [Ambien CR] 6.25 mg tablet,ext release multiphase 6.25 mg PO BEDTIME PRN (Reason: sleep) Qty: 30 2RF tamsulosin 0.4 mg capsule 0.4 mg PO DAILY Qty: 90 2RF cholecalciferol (vitamin D3) 25 mcg (1,000 unit) capsule 25 mcg PO DAILY docusate sodium [Colace] 100 mg capsule 100 mg PO BID loratadine 10 mg tablet 10 mg PO DAILY metoprolol tartrate 100 mg tablet 100 mg PO BID 90 Days Qty: 180 3RF Print Language: Tongan
[2024-01-24 15:32] LABS: MANUAL DIFF FLAG NO
[2024-01-24 15:39] LABS: Basophils Percent Auto 0.6 % (0-2); Eosinophils Absolute Auto 0.1 X10*3/uL (0.0-0.4); Eosinophils Percent Auto 0.9 % (0-4); Hematocrit 44.1 % (42.0-52.0); Hemoglobin 15.7 g/dl (14.0-18.0); Imm Gran Abs Auto 0.02 X10*3/uL (0.00-0.03); Imm Gran Pct Auto 0.3 % (0.0-0.4); Lymphocytes Absolute Auto 1.4 X10*3/uL (1.2-4.9); Lymphocytes Percent Auto 20.4 % (20-40); Mean Corpuscular HGB Conc 35.6 g/dl (31.0-36.0); Mean Corpuscular Hemoglobin 35.5 pg (27.0-33.0); Mean Corpuscular Volume 99.8 fL (80.0-98.0); Mean Platelet Volume 8.9 fL (9.4-12.4); Monocytes Absolute Auto 0.6 X10*3/uL (0.1-1.2); Monocytes Percent Auto 9.2 % (2-11); Neutrophils Absolute Auto 4.5 x10*3/uL (2.0-8.3); Neutrophils Percent Auto 68.6 % (45-73); Platelet Count 175 X10*3/uL (160-400); Red Blood Count 4.42 X10*6/uL (4.60-5.80); Red Cell Distribution Width 12.8 % (11.0-16.0); White Blood Count 6.6 X10*3/uL (4.8-10.8)
[2024-01-24 15:42] LABS: INTERNATIONAL NORM RATIO 1.3 (0.9-1.1)
[2024-01-24 15:49] LABS: Alanine Aminotransferase 33 U/L (0-40); Albumin Level 4.3 g/dL (3.5-5.0); Alkaline Phosphatase 63 U/L (39-117); Anion Gap 19 (12-20); Aspartate Amino Transferase 22 U/L (5-37); Bilirubin Total 0.9 mg/dL (0.0-1.0); Blood Urea Nitrogen 29 mg/dL (9-16); Carbon Dioxide 23 mmol/L (22-29); Chloride 106 mmol/L (96-108); Creatinine Clr Calc Pharmacy 37.1; Estimated Glomerular Filt Rate 35; Glucose Random 98 mg/dL (60-115); Potassium 4.8 mmol/L (3.3-5.1); Sodium 143 mmol/L (135-145); Total Protein 7.4 g/dL (6.5-8.0)
[2024-01-24 15:54] LABS: B Type Natriuretic Peptide 358 pg/mL (<100)
[2024-01-24 15:56] LABS: Troponin-I High Sensitivity 87.7 ng/L (<3.5-35.0)
[2024-01-24 19:31] LABS: Troponin-I High Sensitivity 69.8 ng/L (<3.5-35.0)
[2024-01-24 21:16] VITALS: BP 117/63; PULSE 79; RESP 16; TEMP 36.8; O2SAT 98
[2024-01-25] VITALS (13 sets, daily range): BP systolic 115–154; BP diastolic 55–83; PULSE 75–125; RESP 15–21; TEMP 36.1–36.6; O2SAT 95–98; BMI 30.6
--- NOTE | 2024-01-25 00:56 | PC.NURSE ---
pt ambulatory, from home, a&ox4, respirations even and unlabored. pt reporting onset of shortness of breath and dizziness increasing x 1 week, reports hx of a fib and reports self monitoring at home. reports having a halter monitor placed but has not received. pt denies chest pain and palpations. pt denies n.v.d. pt intermittently in afib on tele 78-101 bpm.
--- NOTE | 2024-01-25 02:04 | MHC.EDTECH ---
Did ambulation trial with Pt, remained 98-99% but did state he was a little short of breath on his 2nd trip back to ED room 5. Dr. Yusuf made aware.
--- NOTE | 2024-01-25 03:04 | PC.NURSE ---
Iv access obtained at this time, 20G placed in right AC.
--- NOTE | 2024-01-25 06:21 | P.HPHOSP_ITS ---
History of Present Illness Date of Service: 01/25/24 Attending physician on admission: Manish Durant Chief Complaint: Shortness of breath Britton Long is a 73 years old man with past medical history significant for a flutter, asthma, hyperlipidemia, CHF, CKD stage 3A and hypertension presents to the emergency department complaining of shortness on breath on exertion and lightheadedness. He also reports some palpitations. Denies chest pain, nausea, diaphoresis, cough, headache, fever or chills. Denied any acute gastrointestinal or genitourinary symptoms. He said that recently his metoprolol was increased from 50 mg bid to 100 mg bid and was referred to supervisor title. In the ED he was initially found to have atrial fibrillation with rapid response that self resolved. Blood workup was remarkable for creatinine of 1.9 (prior 1.2) and elevated BNP of 358. Troponin was initially 87 and subsequent is 69. CXR is negative. ECG showed atrial flutter with rapid ventricular response (HR 125 bpm). ED tx: None. Review of Systems 2 Review of Systems: All 12 systems were reviewed and normal except as noted in HPI. [facility] Medical History Atrial flutter with rapid ventricular response BPPV (benign paroxysmal positional vertigo) Vertigo of central origin Persistent atrial fibrillation Atrial fibrillation, new onset Chronic heart failure with preserved ejection fraction Acute congestive heart failure CHF (congestive heart failure) Asthma exacerbation Dizziness COVID-19 vaccine series completed Avascular necrosis of bone of left hip Atherosclerosis History of renal calculi Peripheral vascular disease Chronic kidney disease History of asbestos exposure BPH (benign prostatic hyperplasia) Obesity (BMI 30-39.9) Asthma Hypercholesterolemia Hypertension Insomnia Family History Father Hypertension Chronic mental illness Mother Hypertension Gastric cancer Asthma Surgical History H/O colonoscopy History of left hip replacement Social History Household Members: Spouse Housing: House Do you presently have visiting nurse or other home services: No Alcohol intake: former Patient Tobacco Use Status: Former Tobacco user Tobacco use type: Cigarette Smoked in Last 30 Days: No e-Cigarette/Vaping Use: Never Used Second Hand Smoke Exposure: No Use of substances other than those prescribed or required for medical reasons: No Advance Directives: Yes Advance Directives on File: Yes Advance Directives Date on File: 08/03/20 Do you have a plan to hurt others: No Plan Nutrition Risks: No Nutritional Risk service: No Current occupational status: retired Cognitive needs: No Hearing needs: No Vision needs: Yes Meds Allergies Allergy/AdvReac Type Severity Reaction Status Date / Time lisinopril Allergy Unknown Unknown Verified 01/24/24 15:18 doxepin AdvReac Intermediate Hallucinati Verified 01/24/24 15:18 ons atorvastatin [Lipitor] AdvReac Unknown Unknown Verified 01/24/24 15:18 Active Medications: Current Medications Acetaminophen (Acetaminophen 325 Mg Tablet) 650 mg PO Q6H PRN PRN Reason: Fever, Headache, Pain 1-3 Sodium Chloride (0.9 % Sodium Chloride Flush 3 Ml Syringe) [facility] Medications ?Medication ?Instructions ?Recorded ?Confirmed ?Last Taken ?Type cholecalciferol (vitamin D3) 25 25 mcg PO DAILY 08/14/20 01/10/24 08/04/22 History mcg (1,000 unit) capsule docusate sodium 100 mg capsule 100 mg PO BID 08/14/20 01/10/24 08/04/22 History (Colace) loratadine 10 mg tablet 10 mg PO DAILY 10/26/23 01/10/24 Unknown History metoprolol tartrate 100 mg tablet 100 mg PO BID 01/25/24 01/25/24 Unknown History pravastatin 40 mg tablet 40 mg PO BEDTIME 01/25/24 01/25/24 Unknown History valsartan 80 mg tablet 80 mg PO DAILY 01/25/24 01/25/24 Unknown History Physical Exam 2 Vital Signs and Narrative: Vital Signs: Last Vital Signs Temp 97.8 F 01/25/24 06:14 Pulse 79 01/25/24 06:14 Resp 15 01/25/24 06:14 BP 154/83 H 01/25/24 06:14 Pulse Ox 95 01/25/24 06:14 O2 Del Method Room Air 01/25/24 06:14 BMI result Body Mass Index 31.1 Constitutional - Awake and Alert, No apparent distress HEENT - Pupils equally round. Normal sclerae Heart - Irregular rhythm, normal rate. Lungs - Normal lung expansion, Normal respiratory effort, No respiratory distress, CTA bilaterally Abdomen - nontender Extremities - no calf tenderness bilaterally, no swelling Musculoskeletal - Normal inspection, normal ROM Skin - Warm/Dry Neurological - Alert & oriented x3. No focal weakness. Normal speech. Psychological - Appropriate affect Results Labs 01/24/24 15:25 01/24/24 15:25 Labs: Laboratory Results - last 24 hr 01/24/24 01/24/24 15:25 18:55 MCV 99.8 H MCH 35.5 H MCHC 35.6 RDW 12.8 Plt Count 175 MPV 8.9 L Immature Gran % (Auto) 0.3 Neut % (Auto) 68.6 Lymph % (Auto) 20.4 [place] % (Auto) 9.2 Eos % (Auto) 0.9 Baso % (Auto) 0.6 Lymph # (Auto) 1.4 [place] # (Auto) 0.6 Eos # (Auto) 0.1 Baso # (Auto) 0.0 Abs Immat Gran (auto) 0.02 Absolute Neuts (auto) 4.5 Absolute Nucleated RBC 0.000 Nucleated RBC % (auto) 0.0 PT 16.0 H INR 1.3 H Anion Gap 19 Estim Creat Clear Calc 37.1 Estimated GFR 35 Random Glucose 98 Calcium 10.0 Total Bilirubin 0.9 AST 22 ALT 33 Alkaline Phosphatase 63 Troponin I High Sens 87.7 H 69.8 H B-Natriuretic Peptide 358 H Total Protein 7.4 Albumin 4.3 Imaging Radiologist's Impressions: Impressions Chest X-Ray 01/24/24 15:55 IMPRESSION: Chronic appearing changes similar to the 08/05/2022 study. Assessment and Plan (1) GLORIA (acute kidney injury): Status: Acute (2) Atrial flutter with rapid ventricular response: Status: Acute Plan Britton Long is a 73 y/o man admitted with * Shortness on breath and palpitations secondary to rapid AFlutter. Currently rhythm controlled. Symptoms occur with exertion. Observation. Telemetry. Continue Eliquis and metoprolol. Referred to supervisor title. Holter monitor outpatient done -results pending. Cardiology consult for further recommendations. * Elevated troponin, decreasing. No chest pain. Likely secondary to above. * Acute on chronic CKD. Hold furosemide. Continue to monitor renal function. Avoid nephrotoxic agents. * HFpEF. Furosemide on hold due to above. Continue BB. * Hyperlipidemia. Continue statin. * Essential hypertension. Continue metoprolol and ARB (will hold creatinine get worse). * Asthma. Continue montelukast and Flonase * BPH. Continue tamsulosin. Code status: Full DVT prophylaxis: Smartaxi Quality Stroke Does the patient have a stroke diagnosis?: No VTE Prior VTE?: No VTE Risk Level:: Medical - moderate - high VTE Device Contraindication: Treatment Not Indicated VTE Drug Contraindication: N/A - Med Ordered
[2024-01-25 06:28] LABS: MANUAL DIFF FLAG NO
[2024-01-25 06:32] LABS: Basophils Percent Auto 0.7 % (0-2); Eosinophils Absolute Auto 0.1 X10*3/uL (0.0-0.4); Eosinophils Percent Auto 1.8 % (0-4); Hematocrit 42.2 % (42.0-52.0); Hemoglobin 15.1 g/dl (14.0-18.0); Imm Gran Abs Auto 0.01 X10*3/uL (0.00-0.03); Imm Gran Pct Auto 0.2 % (0.0-0.4); Lymphocytes Absolute Auto 1.2 X10*3/uL (1.2-4.9); Lymphocytes Percent Auto 19.9 % (20-40); Mean Corpuscular HGB Conc 35.8 g/dl (31.0-36.0); Mean Corpuscular Hemoglobin 35.6 pg (27.0-33.0); Mean Corpuscular Volume 99.5 fL (80.0-98.0); Mean Platelet Volume 9.2 fL (9.4-12.4); Monocytes Absolute Auto 0.7 X10*3/uL (0.1-1.2); Monocytes Percent Auto 11.5 % (2-11); Neutrophils Percent Auto 65.9 % (45-73); Platelet Count 147 X10*3/uL (160-400); Red Blood Count 4.24 X10*6/uL (4.60-5.80); Red Cell Distribution Width 12.7 % (11.0-16.0); White Blood Count 6.1 X10*3/uL (4.8-10.8)
[2024-01-25 06:52] LABS: Anion Gap 16 (12-20); Blood Urea Nitrogen 26 mg/dL (9-16); Calcium 9.3 mg/dL (8.4-10.2); Carbon Dioxide 21 mmol/L (22-29); Chloride 108 mmol/L (96-108); Creatinine Clr Calc Pharmacy 51.4; Estimated Glomerular Filt Rate 51; Glucose Random 77 mg/dL (60-115); Potassium 3.7 mmol/L (3.3-5.1); Sodium 141 mmol/L (135-145)
--- NOTE | 2024-01-25 09:07 | PHA.MEDREC ---
Pharmacy Consult ? Medication Reconciliation Pharmacy has completed the medication reconciliation.Patient not on amlodipine 2.5mg anymore.
[2024-01-25] MEDS: Metoprolol Tartrate 100 MG TABLET PO (09:25)
[2024-01-25] MEDS: Valsartan 80 MG TABLET PO (09:25)
[2024-01-25] MEDS: 0.9 % Sodium Chloride Flush 3 ML SYRINGE IVFLUSH (09:25)
[2024-01-25] MEDS: Apixaban 5 MG TABLET PO ×2 (09:25→21:06)
--- NOTE | 2024-01-25 09:28 | PC.NURSE ---
Cardiology consult at bedside
--- NOTE | 2024-01-25 10:50 | P.CONCA_ITS ---
History of Present Illness History of Present Illness Date of Service: 01/25/24 Requesting physician: Nicole Denton Consult reason: other (Atrial flutter) Chief complaint: Dyspnea, Rapid A-Fib Narrative: I was consulted to see Britton in cardiology consultation today for recurrent atrial flutter with rapid ventricular response. He has a pleasant 73-year-old male with prior history of atrial flutter with rapid ventricular response leading to heart failure syndrome requiring rhythm management with cardioversion September of 2022. Then he was maintained on amiodarone and on metoprolol which at time was 50 mg b.i.d.. In subsequent follow-up visit he was noted to have sinus bradycardia with heart rate in the 40s and his amiodarone was discontinued. He then came back with recurrent symptoms of shortness of breath and was noted last week to be in atrial flutter with rapid ventricular response. At that point time he was increased on metoprolol to 100 mg b.i.d.. He has been religiously taking his Eliquis. He came to the hospital with persistent symptoms of shortness of breath. He is prior history of chronic kidney disease although came in and was noted to have creatinine up to 1.9 with elevated BNP in 358 range. Troponins were mildly elevated but flat. Chest x-ray does not show any evidence of heart failure. EKG shows atrial flutter with rapid ventricular response with variable block. Remains in atrial flutter. At rest he has not significantly symptomatic. Denies any orthopnea. Denies any palpitations, lightheadedness, syncope. Hemodynamically stable. He did not receive Eliquis last night. Review of Systems 2 Constitutional: Constitutional: Reports weakness Eyes: Eyes: Reports no additional eye complaints Cardiovascular: Cardiovascular: Denies chest pain, Denies rapid heart rate, Denies lightheadedness, Denies Loss of Consciousness, Denies palpitations and Reports dyspnea on exertion Respiratory: Respiratory: Reports no additional respiratory complaints and Reports dyspnea on exertion Gastrointestinal: Gastrointestinal: Reports no additional gastrointestinal complaints Musculoskeletal: Musculoskeletal: Reports no additional musculoskeletal complaints Integumentary/Breasts: Skin/Breast: Reports system reviewed and no additional complaints, except as docu Neurologic: Reports system reviewed and no additional complaints, except as documented and Reports weakness Psychiatric: Psychiatric: Reports no additional psychiatric complaints Endocrine: Endocrine: Reports no additional endocrine complaints and Denies palpitations PMFSH Past Medical History Medical History Atrial flutter with rapid ventricular response BPPV (benign paroxysmal positional vertigo) Vertigo of central origin Persistent atrial fibrillation Atrial fibrillation, new onset Chronic heart failure with preserved ejection fraction Acute congestive heart failure CHF (congestive heart failure) Asthma exacerbation Dizziness COVID-19 vaccine series completed Avascular necrosis of bone of left hip Atherosclerosis History of renal calculi Peripheral vascular disease Chronic kidney disease History of asbestos exposure BPH (benign prostatic hyperplasia) Obesity (BMI 30-39.9) Asthma Hypercholesterolemia Hypertension Insomnia Family History Family History Father Hypertension Chronic mental illness Mother Hypertension Gastric cancer Asthma Surgical History Surgical History H/O colonoscopy History of left hip replacement Social History Social History Household Members: Spouse Housing: House Do you presently have visiting nurse or other home services: No Alcohol intake: former Patient Tobacco Use Status: Former Tobacco user Tobacco use type: Cigarette e-Cigarette/Vaping Use: Never Used Second Hand Smoke Exposure: No Advance Directives Date on File: 08/03/20 service: No Current occupational status: retired Cognitive needs: No Hearing needs: No Vision needs: Yes Meds Allergies Allergy/AdvReac Type Severity Reaction Status Date / Time lisinopril Allergy Unknown Unknown Verified 01/24/24 15:18 doxepin AdvReac Intermediate Hallucinati Verified 01/24/24 15:18 ons atorvastatin [Lipitor] AdvReac Unknown Unknown Verified 01/24/24 15:18 Active Medications: Current Medications Acetaminophen (Acetaminophen 325 Mg Tablet) 650 mg PO Q6H PRN PRN Reason: Fever, Headache, Pain 1-3 Apixaban (Apixaban 5 Mg Tablet) 5 mg PO BID [facility] Last Admin: 01/25/24 09:25 Dose: 5 mg Dronedarone (Dronedarone Hcl 400 Mg Tablet) 400 mg PO BID [facility] Metoprolol Tartrate (Metoprolol Tartrate 25 Mg Tablet) 25 mg PO BID [facility]; Protocol Pravastatin Sodium (Pravastatin Sodium 40 Mg Tablet) 40 mg PO BEDTIME [facility] Sodium Chloride (0.9 % Sodium Chloride Flush 3 Ml Syringe) 3 ml IVFLUSH QSHIFT [facility] Last Admin: 01/25/24 09:25 Dose: 3 ml Valsartan (Valsartan 80 Mg Tablet) 80 mg PO DAILY [facility]; Protocol Last Admin: 01/25/24 09:25 Dose: 80 mg Home Medications ?Medication ?Instructions ?Recorded ?Confirmed ?Last Taken ?Type cholecalciferol (vitamin D3) 25 25 mcg PO DAILY 08/14/20 01/25/24 01/24/24 History mcg (1,000 unit) capsule docusate sodium 100 mg capsule 100 mg PO BID 08/14/20 01/25/24 01/24/24 09:00 History (Colace) loratadine 10 mg tablet 10 mg PO DAILY 10/26/23 01/25/24 01/24/24 History albuterol sulfate 90 mcg/actuation 2 puff inhalation Q6H PRN 01/25/24 01/25/24 Unknown History aerosol inhaler (Ventolin HFA) shortness of breath or wheezing diclofenac sodium 1 % topical gel 4 g topical QID PRN Pain 01/25/24 01/25/24 Unknown History (Arthritis Pain (diclofenac)) metoprolol tartrate 100 mg tablet 100 mg PO BID 01/25/24 01/25/24 01/24/24 09:00 History multivitamin 1 tab PO DAILY 01/25/24 01/25/24 01/24/24 History pravastatin 40 mg tablet 40 mg PO BEDTIME 01/25/24 01/25/24 Unknown History valsartan 80 mg tablet 80 mg PO DAILY 01/25/24 01/25/24 01/24/24 History Physical Exam 2 Vital Signs: Vital Signs: Last Vital Signs Temp 97.8 F 01/25/24 06:14 Pulse 115 H 01/25/24 07:28 Resp 21 H 01/25/24 07:28 BP 132/60 01/25/24 09:25 Pulse Ox 97 01/25/24 07:28 O2 Del Method Room Air 01/25/24 07:28 BMI result Body Mass Index 30.6 Const: General: cooperative, comfortable, no acute distress, alert, awake and Physically active Nutritional Appearance: overweight O rientation/consciousness: patient oriented x3 Limitations: no limitations HEENT: Head: Yes normocephalic and Yes atraumatic Neck: Neck: Yes trachea midline, Yes supple and Yes no JVD Resp: Effort & Inspection: normal respiratory effort Auscultation: clear to auscultation bilaterally Cardio: Jugular venous distension: no JVD Rate: tachycardic Rhythm: a bnormal rhythm irregularly irregular Heart sounds: S1 normal heart sound present, S2 normal heart sound present, no click, no gallops, no murmurs and no rubs GI: Auscultation: normal bowel sounds Skin: General skin exam: no rashes or lesions noted Neuro: General: patient oriented x3 and no focal motor deficits Extrem: General: Yes no clubbing, cyanosis or edema Psych: Appearance: grossly normal Objective Labs and Meds 01/25/24 06:00 01/25/24 06:00 Lab results: Laboratory Results - last 24 hr 01/24/24 01/24/24 01/25/24 15:25 18:55 06:00 WBC 6.6 6.1 RBC 4.42 L 4.24 L Hgb 15.7 15.1 Hct 44.1 42.2 MCV 99.8 H 99.5 H MCH 35.5 H 35.6 H MCHC 35.6 35.8 RDW 12.8 12.7 Plt Count 175 147 L MPV 8.9 L 9.2 L Immature Gran % (Auto) 0.3 0.2 Neut % (Auto) 68.6 65.9 Lymph % (Auto) 20.4 19.9 L Benson % (Auto) 9.2 11.5 H Eos % (Auto) 0.9 1.8 Baso % (Auto) 0.6 0.7 Lymph # (Auto) 1.4 1.2 Benson # (Auto) 0.6 0.7 Eos # (Auto) 0.1 0.1 Baso # (Auto) 0.0 0.0 Abs Immat Gran (auto) 0.02 0.01 Absolute Neuts (auto) 4.5 4.0 Absolute Nucleated RBC 0.000 0.000 Nucleated RBC % (auto) 0.0 0.0 PT 16.0 H INR 1.3 H Sodium 143 141 Potassium 4.8 3.7 D Chloride 106 108 Carbon Dioxide 23 21 L Anion Gap 19 16 BUN 29 H 26 H Creatinine 1.90 H 1.37 Estim Creat Clear Calc 37.1 51.4 Estimated GFR 35 51 Random Glucose 98 77 Calcium 10.0 9.3 D Total Bilirubin 0.9 AST 22 ALT 33 Alkaline Phosphatase 63 Troponin I High Sens 87.7 H 69.8 H 52.0 H B-Natriuretic Peptide 358 H Total Protein 7.4 Albumin 4.3 EKG shows atrial flutter with rapid ventricular response with variable block Imaging Radiologist's impression: Impressions Chest X-Ray 01/24/24 15:55 IMPRESSION: Chronic appearing changes similar to the 08/05/2022 study. Assessment and Plan (1) Atrial flutter with rapid ventricular response: Status: Acute Recurrent symptomatic atrial flutter with rapid ventricular response, appears to be left-sided atrial flutter in this elderly gentleman with prior history of heart failure in atrial flutter. Clinically does appear to be in overt heart failure at this point time but has symptoms of shortness of breath and elevated BNP. I think he will benefit again from rhythm control approach. Has significant left atrial enlargement. I think he will benefit from antiarrhythmic drug support as well to maintain rhythm in the oysterman. Would avoid amiodarone therapy for now and switch to less toxic medication, Multaq 400 mg b.i.d., load him with today. Reinitiate Eliquis 5 mg b.i.d.. Given that his Eliquis was withheld for 1 day I would think it will be safer to pursue LUDWIN guided synchronized cardioversion tomorrow. Keep him NPO after midnight. Reduce metoprolol to 25 mg b.i.d.. We discussed the need for transesophageal echo including risks, benefits, alternatives. He understands agrees. Also discussed the risk of synchronized cardioversion including benefits and alternatives. He understands and agrees. Will follow with you Procedures Date of Service Date of Service: 01/25/24
[2024-01-25] MEDS: Dronedarone HCl 400 MG TABLET PO ×2 (11:34→21:06)
--- NOTE | 2024-01-25 13:05 | P.PNIM_ITS ---
Subjective Subjective Date of Service: 01/25/24 Interval History: Seen and examined this morning Follow-up for rapid atrial fibrillation Denies chest pain, palpitations Heart rate uncontrolled Review of Systems Review of Systems: Yes all other systems are reviewed and are negative Constitutional Constitutional: Denies chills and Denies fever(s) Physical Exam 2 Vital Signs: Vital Signs: Last Vital Signs Temp 97.4 F 01/25/24 10:52 Pulse 125 H 01/25/24 10:52 Resp 20 01/25/24 10:52 BP 115/81 01/25/24 10:52 Pulse Ox 97 01/25/24 10:52 O2 Del Method Room Air 01/25/24 10:52 BMI result Body Mass Index 30.6 Const: General: cooperative, comfortable, alert and awake Nutritional Appearance: overweight Orientation/consciousness: patient oriented x3 Resp: Effort & Inspection: normal respiratory effort, able to speak in complete sentences, no respiratory distress and no use of accessory muscles Cardio: Rate: tachycardic GI: Inspection: No distended Palpation (GI): Soft to palpation and nontender Neuro: General: patient oriented x3, moves all extremities and CN's II-XI intact bilaterally Extrem: General: Yes no pedal edema Objective Data Active Medications Acetaminophen (Acetaminophen 325 Mg Tablet) 650 mg PO Q6H PRN PRN Reason: Fever, Headache, Pain 1-3 Apixaban (Apixaban 5 Mg Tablet) 5 mg PO BID [facility] Last Admin: 01/25/24 09:25 Dose: 5 mg Documented By: ZORAN Dronedarone (Dronedarone Hcl 400 Mg Tablet) 400 mg PO BID [facility] Last Admin: 01/25/24 11:34 Dose: 400 mg Documented By: MELANIE Metoprolol Tartrate (Metoprolol Tartrate 25 Mg Tablet) 25 mg PO BID [facility]; Protocol Pravastatin Sodium (Pravastatin Sodium 40 Mg Tablet) 40 mg PO BEDTIME [facility] Sodium Chloride (0.9 % Sodium Chloride Flush 3 Ml Syringe) 3 ml IVFLUSH QSHIFT [facility] Last Admin: 01/25/24 09:25 Dose: 3 ml Documented By: ZORAN Valsartan (Valsartan 80 Mg Tablet) 80 mg PO DAILY [facility]; Protocol Last Admin: 01/25/24 09:25 Dose: 80 mg Documented By: ZORAN Labs 01/25/24 06:00 01/25/24 06:00 Labs: Laboratory Results - last 24 hr 01/24/24 01/24/24 01/25/24 15:25 18:55 06:00 MCV 99.8 H 99.5 H MCH 35.5 H 35.6 H MCHC 35.6 35.8 RDW 12.8 12.7 Plt Count 175 147 L MPV 8.9 L 9.2 L Immature Gran % (Auto) 0.3 0.2 Neut % (Auto) 68.6 65.9 Lymph % (Auto) 20.4 19.9 L Burt % (Auto) 9.2 11.5 H Eos % (Auto) 0.9 1.8 Baso % (Auto) 0.6 0.7 Lymph # (Auto) 1.4 1.2 Burt # (Auto) 0.6 0.7 Eos # (Auto) 0.1 0.1 Baso # (Auto) 0.0 0.0 Abs Immat Gran (auto) 0.02 0.01 Absolute Neuts (auto) 4.5 4.0 Absolute Nucleated RBC 0.000 0.000 Nucleated RBC % (auto) 0.0 0.0 PT 16.0 H INR 1.3 H Anion Gap 19 16 Estim Creat Clear Calc 37.1 51.4 Estimated GFR 35 51 Random Glucose 98 77 Calcium 10.0 9.3 D Total Bilirubin 0.9 AST 22 ALT 33 Alkaline Phosphatase 63 Troponin I High Sens 87.7 H 69.8 H 52.0 H B-Natriuretic Peptide 358 H Total Protein 7.4 Albumin 4.3 Assessment and Plan (1) Atrial flutter with rapid ventricular response: Status: Acute Plan This is a 73 y/o man admitted with dizziness and shortness of breath found to be in rapid atrial flutter rapid AFlutter Heart rate remains uncontrolled Start Multaq 400 mg twice daily per cardiology recommendation, decrease dose of metoprolol to 25 mg b.i.d. Continue Eliquis for anticoagulation Plan for LUDWIN cardioversion in a.m., NPO at midnight Cardiology following Elevated troponin, flat. Likely due to demand from rapid a flutter Acute on chronic CKD. Improved, appears to be near baseline HFpEF No overt CHF Resume home dose of Lasix Hyperlipidemia. Continue statin. Essential hypertension. Continue metoprolol and ARB Asthma. Continue montelukast and Flonase BPH. Continue tamsulosin. Code status: Full DVT prophylaxis: Grace Attending Dr. Mena Patient regards ongoing inpatient hospitalization due to need for uncontrolled heart rate and planned for cardioversion Quality Stroke Does the patient have a stroke diagnosis?: No VTE Prior VTE?: No VTE Risk Level:: Medical - moderate - high VTE Device Contraindication: Treatment Not Indicated VTE Drug Contraindication: N/A - Med Ordered
--- NOTE | 2024-01-25 15:08 | MHC.CM.PN ---
SUMIT 01/25/24, EMR REVIEWED PT W/DYSPNEA AND RAPID AFIB, CM MET W/PT WHO REPORTS HE LIVES W/, IS FULLY INDEP W/ALL CARE, USES A CANE FOR LONG HIKES/WALKS AND HAS NO DERVICES, PT'S GOAL FOR DC IS HOME NO SERVICES. PT VERIFIES PCP/HCP ON FILE IS CORRECT.
[2024-01-25] MEDS: Furosemide 40 MG TABLET PO (15:34)
[2024-01-25] MEDS: Metoprolol Tartrate 25 MG TABLET PO (21:07)
[2024-01-25] MEDS: Pravastatin Sodium 40 MG TABLET PO (21:07)
[2024-01-26] VITALS (15 sets, daily range): BP systolic 91–125; BP diastolic 52–80; PULSE 57–106; RESP 16–22; TEMP 36.2–36.9; O2SAT 93–99; BMI 30.4
[2024-01-26] MEDS: 0.9 % Sodium Chloride Flush 3 ML SYRINGE IVFLUSH ×3 (09:27→20:33)
[2024-01-26] MEDS: Metoprolol Tartrate 25 MG TABLET PO ×2 (09:28→20:41)
[2024-01-26] MEDS: Furosemide 40 MG TABLET PO (09:28)
[2024-01-26] MEDS: Valsartan 80 MG TABLET PO (09:28)
[2024-01-26] MEDS: Dronedarone HCl 400 MG TABLET PO ×2 (09:29→20:42)
[2024-01-26] MEDS: Apixaban 5 MG TABLET PO ×2 (09:29→20:42)
--- NOTE | 2024-01-26 12:54 | PM.PNCARD ---
Subjective Subjective Date of Service: 01/26/24 Interval history: Patient continues to remain in atrial flutter with slightly rapid ventricular response. Continues to have symptoms. Has been given Multaq but he is concerned about insurance coverage. No other cardiac symptoms. Review of Systems Constitutional: Reports no additional constitutional complaints Cardiovascular: Denies lightheadedness, Denies Loss of Consciousness, Reports palpitations and Reports dyspnea on exertion Respiratory: Reports dyspnea on exertion Genitourinary: Reports no additional male genitourinary complaints Musculoskeletal: Reports no additional musculoskeletal complaints Reports system reviewed and no additional complaints, except as documented Endocrine: Reports no additional endocrine complaints and Reports palpitations Physical Exam Vital Signs: Last Vital Signs Temp 97.7 F 01/26/24 12:17 Pulse 106 H 01/26/24 12:17 Resp 16 01/26/24 12:17 BP 125/62 01/26/24 12:17 Pulse Ox 95 01/26/24 12:17 O2 Del Method Room Air 01/26/24 12:17 BMI result Body Mass Index 30.4 Const General: cooperative, comfortable, no acute distress, alert, awake and Physically active Nutritional Appearance: overweight Orientation/consciousness: patient oriented x3 Limitations: no limitations HEENT Head: Yes normocephalic and Yes atraumatic Neck Neck: Yes trachea midline, Yes supple and Yes no JVD Resp Effort & Inspection: normal respiratory effort Auscultation: clear to auscultation bilaterally Cardio Jugular venous distension: no JVD Rate: tachycardic Rhythm: abnormal rhythm irregularly irregular Heart sounds: S1 normal heart sound present, S2 normal heart sound present, no click, no gallops, no murmurs and no rubs GI Auscultation: normal bowel sounds Skin General skin exam: no rashes or lesions noted Neuro General: patient oriented x3 and no focal motor deficits Extrem General: Yes no clubbing, cyanosis or edema Psych Appearance: grossly normal Objective Labs and Meds 01/25/24 06:00 01/25/24 06:00 Progress Note: A&P Assessment and plan (1) Atrial flutter with rapid ventricular response: Status: Acute Assessment and Plan: Recurrent atrial flutter of antiarrhythmic drug therapy. Patient currently remains symptomatic and remains in atrial flutter with slightly rapid ventricular response. Plan for LUDWIN guided cardioversion later today. Will confirm what medicine would be covered for him [employer]. Amiodarone has worked for him in the past and would consider using it. Rhythm control has worked very well for him with symptoms of heart failure improvement. Continue full oral anticoagulation, currently on Eliquis 5 mg b.i.d.. Will follow him. Time Spent With Patient Time: Total time managing care of this patient today ____ minutes. Progress Note: Quality Stroke Does the patient have a stroke diagnosis?: No Procedures Date of Service Date of Service: 01/26/24
--- NOTE | 2024-01-26 13:17 | P.CONAN_ITS ---
[facility] Active Problems Active Problems: All Active Problems GLORIA (acute kidney injury) (Acute) CHF (congestive heart failure) (Acute) Atrial flutter with rapid ventricular response (Acute) Atrial flutter with rapid ventricular response (Acute) Benign paroxysmal vertigo, bilateral (Acute) Pain of right hip (Acute) PAF (paroxysmal atrial fibrillation) (Acute) Insomnia (Acute) Mild obstructive sleep apnea (Acute) Chronic heart failure with preserved ejection fraction (Acute) Peripheral edema (Acute) Tubular adenoma of colon (Acute) Facial skin lesion (Acute) Impacted cerumen of right ear (Acute) Initial Medicare annual wellness visit (Acute) Atherosclerosis (Acute) Chronic kidney disease (Acute) BPH (benign prostatic hyperplasia) (Acute) Obesity (BMI 30-39.9) (Acute) Asthma (Acute) Hypercholesterolemia (Acute) Hypertension (Acute) Past Medical History Medical History Atrial flutter with rapid ventricular response BPPV (benign paroxysmal positional vertigo) Vertigo of central origin Persistent atrial fibrillation Atrial fibrillation, new onset Chronic heart failure with preserved ejection fraction Acute congestive heart failure CHF (congestive heart failure) Asthma exacerbation Dizziness COVID-19 vaccine series completed Avascular necrosis of bone of left hip Atherosclerosis History of renal calculi Peripheral vascular disease Chronic kidney disease History of asbestos exposure BPH (benign prostatic hyperplasia) Obesity (BMI 30-39.9) Asthma Hypercholesterolemia Hypertension Insomnia Family History Family History Father Hypertension Chronic mental illness Mother Hypertension Gastric cancer Asthma Family history of problems with anesthesia: No Surgical History Surgical History H/O colonoscopy History of left hip replacement History of Problems with Anesthesia: No Social History Social History Household Members: Spouse Housing: House Do you presently have visiting nurse or other home services: No Alcohol intake: former Patient Tobacco Use Status: Former Tobacco user Tobacco use type: Cigarette Smoked in Last 30 Days: No e-Cigarette/Vaping Use: Never Used Second Hand Smoke Exposure: No Use of substances other than those prescribed or required for medical reasons: No Currently Displaying Signs/Symptoms of Drug Intoxication Withdrawal: No Have you been hit, kicked, punched, or otherwise hurt by someone within the past year? If so, by whom?: No Do you feel safe in your current relationship?: Yes Is there a partner from a previous relationship who is making you feel unsafe now?: No Are you made to feel afraid or neglected: No Are you DNR?: No Advance Directives: Yes Advance Directives on File: Yes Advance Directives Date on File: 08/03/20 Do you have a plan to hurt others: No Plan Recently lost weight without trying: No Nutrition Risks: No Nutritional Risk Poor oral hygiene: No service: Yes Current occupational status: retired Cognitive needs: No Hearing needs: No Vision needs: Yes Meds Allergies Allergy/AdvReac Type Severity Reaction Status Date / Time lisinopril Allergy Unknown Unknown Verified 01/24/24 15:18 doxepin AdvReac Intermediate Hallucinati Verified 01/24/24 15:18 ons atorvastatin [Lipitor] AdvReac Unknown Unknown Verified 01/24/24 15:18 Active Medications: Current Medications Acetaminophen (Acetaminophen 325 Mg Tablet) 650 mg PO Q6H PRN PRN Reason: Fever, Headache, Pain 1-3 Albuterol Sulfate (Albuterol Sulfate 90 Mcg 8 Gm Inhaler) 2 puff INHALE Q6H PRN PRN Reason: shortness of breath or wheezing Apixaban (Apixaban 5 Mg Tablet) 5 mg PO BID [facility] Last Admin: 01/26/24 09:29 Dose: 5 mg Dronedarone (Dronedarone Hcl 400 Mg Tablet) 400 mg PO BID [facility] Last Admin: 01/26/24 09:29 Dose: 400 mg Fluticasone Propionate (Fluticasone Propionate Nasal 16 Gm [place]) 2 spray NOSTRIL-B DAILY [facility] Last Admin: 01/26/24 10:48 Dose: Not Given Furosemide (Furosemide 40 Mg Tablet) 40 mg PO DAILY [facility]; Protocol Last Admin: 01/26/24 09:28 Dose: 40 mg Metoprolol Tartrate (Metoprolol Tartrate 25 Mg Tablet) 25 mg PO BID [facility]; Protocol Last Admin: 01/26/24 09:28 Dose: 25 mg Pravastatin Sodium (Pravastatin Sodium 40 Mg Tablet) 40 mg PO BEDTIME [facility] Last Admin: 01/25/24 21:07 Dose: 40 mg Sodium Chloride (0.9 % Sodium Chloride Flush 3 Ml Syringe) 3 ml IVFLUSH QSHIFT [facility] Last Admin: 01/26/24 09:27 Dose: 3 ml Tamsulosin HCl (Tamsulosin Hcl 0.4 Mg Capsule) 0.4 mg PO DAILY [facility] Valsartan (Valsartan 80 Mg Tablet) 80 mg PO DAILY [facility]; Protocol Last Admin: 01/26/24 09:28 Dose: 80 mg Home Medications ?Medication ?Instructions ?Recorded ?Confirmed ?Last Taken ?Type cholecalciferol (vitamin D3) 25 25 mcg PO DAILY 08/14/20 01/25/24 01/24/24 History mcg (1,000 unit) capsule docusate sodium 100 mg capsule 100 mg PO BID 08/14/20 01/25/24 01/24/24 09:00 History (Colace) loratadine 10 mg tablet 10 mg PO DAILY 10/26/23 01/25/24 01/24/24 History albuterol sulfate 90 mcg/actuation 2 puff inhalation Q6H PRN 01/25/24 01/25/24 Unknown History aerosol inhaler (Ventolin HFA) shortness of breath or wheezing diclofenac sodium 1 % topical gel 4 g topical QID PRN Pain 01/25/24 01/25/24 Unknown History (Arthritis Pain (diclofenac)) metoprolol tartrate 100 mg tablet 100 mg PO BID 01/25/24 01/25/24 01/24/24 09:00 History multivitamin 1 tab PO DAILY 01/25/24 01/25/24 01/24/24 History pravastatin 40 mg tablet 40 mg PO BEDTIME 01/25/24 01/25/24 Unknown History valsartan 80 mg tablet 80 mg PO DAILY 01/25/24 01/25/24 01/24/24 History Exam Height,Weight and Vital Signs: Height 5 ft 8 in Weight 90.718 kg Last Vital Signs Temp 97.7 F 01/26/24 12:17 Pulse 106 H 01/26/24 12:17 Resp 16 01/26/24 12:17 BP 125/62 01/26/24 12:17 Pulse Ox 95 01/26/24 12:17 O2 Del Method Room Air 01/26/24 12:17 Pertinent Lab Results Pertinent Lab Results: Laboratory Tests 01/24/24 01/24/24 01/25/24 15:25 18:55 06:00 WBC 6.6 6.1 RBC 4.42 L 4.24 L Hgb 15.7 15.1 Hct 44.1 42.2 MCV 99.8 H 99.5 H MCH 35.5 H 35.6 H MCHC 35.6 35.8 RDW 12.8 12.7 Plt Count 175 147 L MPV 8.9 L 9.2 L Immature Gran % (Auto) 0.3 0.2 Neut % (Auto) 68.6 65.9 Lymph % (Auto) 20.4 19.9 L [place] % (Auto) 9.2 11.5 H Eos % (Auto) 0.9 1.8 Baso % (Auto) 0.6 0.7 Lymph # (Auto) 1.4 1.2 [place] # (Auto) 0.6 0.7 Eos # (Auto) 0.1 0.1 Baso # (Auto) 0.0 0.0 Abs Immat Gran (auto) 0.02 0.01 Absolute Neuts (auto) 4.5 4.0 Absolute Nucleated RBC 0.000 0.000 Nucleated RBC % (auto) 0.0 0.0 PT 16.0 H INR 1.3 H Sodium 143 141 Potassium 4.8 3.7 D Chloride 106 108 Carbon Dioxide 23 21 L Anion Gap 19 16 BUN 29 H 26 H Creatinine 1.90 H 1.37 Estim Creat Clear Calc 37.1 51.4 Estimated GFR 35 51 Random Glucose 98 77 Calcium 10.0 9.3 D Total Bilirubin 0.9 AST 22 ALT 33 Alkaline Phosphatase 63 Troponin I High Sens 87.7 H 69.8 H 52.0 H B-Natriuretic Peptide 358 H Total Protein 7.4 Albumin 4.3 Airway Mallampati Class: II TM Dist: >3cm Neck ROM: Full Loose/Missing/Broken Teeth: No Heart: irr rr Lungs: cta Assessment and Plan Assessment Anesthesia Assessment: Anesthesia Plan Discussed and Chart Reviewed Final Anesthetic Review Family History of Problems with Anesthesia: No History of Problems with Anesthesia: No NPO: Yes ASA Class: III Final Preanesthetic Review: No Changes in Pt Med Stat, Meds/Allgs Chart Reviewed, Consent Obtained/Reviewed and Anes Risks/Benef Reviewed Patient Risk: Intermediate Procedure Risk: Intermediate Anesthetic Plan Anesthetic Plan: GA and MAC: Disposition: Standard PACU
--- NOTE | 2024-01-26 13:40 | CA_ITS ---
Transesophageal Echocardiogram Patient (Last, First, Middle): Britton Long J Gender: Male Date of : 1950 Age: 73 Procedure Date: 01/26/2024 Procedure Type: Transesophageal Echocardiogram Location: [facility] [place] Height: 177.8 cm Weight: 83.91 kg BSA: 2.02 m2 Heart Rate: bpm Supervisor Fish Processing: ALMA ROSA Referring MD: Rod Corona MD Marketing Instructor: Rod Corona MD Symptoms: Pre cardioversion Conclusion: ??? 1. No clear intra cardiac thrombi or masses or vegetations 2. Normal LV systolic function 3. Severe left atrial enlargement 4. Calcific aortic and mitral valve changes with mild mitral regurgitation 5. Severe atherosclerotic changes noted in descending thoracic and arch of the aorta 6. No gross pericardial effusion Findings Procedure Information Consent was obtained prior to the procedure. Pre LUDWIN oral cavity was checked and revealed no overcrowding. The adult 3D probe was passed with no difficulty. Left Ventricle Normal left ventricular size and systolic function. There is mildly increased left ventricular wall thickness. The visually estimated ejection fraction is between 55-60%. Diastolic function is indeterminate on the basis of available data. Right Ventricle Normal right ventricular cavity size. There is low normal right ventricular systolic function. Atria The left atrium is severely dilated. There is no evidence of interatrial shunt by color Doppler. There is no evidence of a patent foramen ovale. There is no evidence of thrombus or mass in the left atrium. the left atrial appendage had a very prominent pectinate muscle. There are no thrombi. There was no significant smoke formation seen. The left upper, right upper and right lower pulmonary in drain normally into the left atrium. The right atrium is moderately dilated. No thrombi or masses seen in the right atrium. The IVC and SVC drain normally into the right atrium. Aortic Valve There is mild calcification of the aortic valve. There is moderate thickening of the aortic valve. There is no aortic valve stenosis. There is no aortic valve regurgitation. Mitral Valve There is mild anterior and posterior mitral leaflet thickening. There is mild mitral valve regurgitation. There is no mitral valve stenosis. Pulmonic Valve The pulmonic valve is likely normal. Tricuspid Valve Likely normal tricuspid valve structure and function. The right ventricular systolic pressure is not calculated. Great Vessels Large plaque is seen in the arch and descending thoracic aorta. The visualized portions of the pulmonary artery and branches are normal. Venous The inferior vena cava is normal in size and collapses greater than 50% with inspiration. Pericardium/Pleural There is no evidence of pericardial effusion. Updated by Rod Corona on 04:21 PM with Status of Final Rod Corona MD electronically signed on 01/26/2024 4:21:00 PM with status of Final
--- NOTE | 2024-01-26 14:46 | ECG_ITS ---
Test Reason : S/P CARDIOVERSION Blood Pressure : / mmHG Vent. Rate : 077 BPM Atrial Rate : 077 BPM P-R Int : 192 ms QRS Dur : 106 ms QT Int : 418 ms P-R-T Axes : 081 -59 069 degrees QTc Int : 473 ms Normal sinus rhythm Left axis deviation Pulmonary disease pattern Minimal voltage criteria for LVH, may be normal variant ( Nathan product ) Inferior infarct , age undetermined Abnormal ECG When compared with ECG of 24-JAN-2024 15:03, Sinus rhythm has replaced Atrial flutter Vent. rate has decreased BY 48 BPM Referred By: Rod Corona Electronically Signed By:ROD CORONA MD
--- NOTE | 2024-01-26 14:46 | MHC.SHP ---
Pre-Procedural Eval Section A - 24 Hr Update-Section A only Date of Service: 01/26/24 The patient is an INPATIENT: Yes Changes since office visit: Yes New Medical Problems, Yes Changes in Medication and Yes Patient answered all questions; No Cold of Flu in the past 2 weeks The patient has been examined within 24 hours of the surgical procedure. The History & Physical has been completed within 30 days and I have reviewed it.: Yes Section B - Complete if H&P > 30 days Chief Complaint: Dyspnea, Rapid A-Fib Allergies: Allergies Allergy/AdvReac Type Severity Reaction Status Date / Time lisinopril Allergy Unknown Unknown Verified 01/24/24 15:18 doxepin AdvReac Intermediate Hallucinati Verified 01/24/24 15:18 ons atorvastatin [Lipitor] AdvReac Unknown Unknown Verified 01/24/24 15:18 Plan I have reviewed the history and physical and performed a pertinent physical examination on my patient. No changes have occurred unless specified. Time Spent With Patient Time: Total time managing care of this patient today ____ minutes.
--- NOTE | 2024-01-26 14:46 | HO.CARDIVERS ---
Cardioversion Procedure Note Cardioversion Date of Procedure: 01/26/24 Ordering Provider: Austin Corona Performing Provider: Austin Corona Indication for Procedure: Symptomatic atrial flutter Pre-Op Diagnosis: Same Performed with Transesophageal Echo: Yes LUDWIN findings (if LUDWIN Performed): Dictate separartely History: See my consult from 01/24 Consent: Verbal and Written consent was obtained from the patient before starting the procedure and confirming OAC. The patient was made aware of the risk of synchonized cardioversion including benefits and alternatives Procedure: After consent obtained, cardioversion pads were attached in AP configuration and the patient was sedated by the anesthesia team. Once adequate sedation achieved, patient was delivered 200 J of biphasic energy was delivered. Complications: Patient developed hypotension that required vasopressor support. Patient was rescued appropriately and rapidly by anesthesia team Impression: Successful conversion to NSR Recommendations: 1. Continue Multaq and OAC 2. 12 lead EKG 3. Overnight observation
--- NOTE | 2024-01-26 15:19 | HO.PM.IMPN ---
Subjective Subjective Date of Service: 01/26/24 Interval History: Seen and examined this morning Follow-up for atrial fibrillation with rapid ventricular response Plan for cardioversion today Review of Systems Review of Systems: Yes all other systems are reviewed and are negative Constitutional Constitutional: Denies chills and Denies fever(s) Physical Exam Vital Signs: Vital Signs: Last Vital Signs Temp 97.1 F 01/26/24 14:51 Pulse 77 01/26/24 15:06 Resp 18 01/26/24 15:06 BP 104/61 01/26/24 15:06 Pulse Ox 93 01/26/24 15:06 O2 Del Method Room Air 01/26/24 15:06 O2 Flow Rate 8 01/26/24 14:51 BMI result Body Mass Index 30.4 Const: General: cooperative, comfortable, alert and awake Nutritional Appearance: overweight Orientation/consciousness: patient oriented x3 Resp: Effort & Inspection: normal respiratory effort, able to speak in complete sentences, no respiratory distress and no use of accessory muscles Cardio: Rate: tachycardic GI: Inspection: No distended Palpation (GI): Soft to palpation and nontender Neuro: General: patient oriented x3, moves all extremities and CN's II-XI intact bilaterally Extrem: General: Yes no pedal edema Objective Data Active Medications Acetaminophen (Acetaminophen 325 Mg Tablet) 650 mg PO Q6H PRN PRN Reason: Fever, Headache, Pain 1-3 Albuterol Sulfate (Albuterol Sulfate 90 Mcg 8 Gm Inhaler) 2 puff INHALE Q6H PRN PRN Reason: shortness of breath or wheezing Apixaban (Apixaban 5 Mg Tablet) 5 mg PO BID [facility] Last Admin: 01/26/24 09:29 Dose: 5 mg Documented By: MARINO Dronedarone (Dronedarone Hcl 400 Mg Tablet) 400 mg PO BID [facility] Last Admin: 01/26/24 09:29 Dose: 400 mg Documented By: MARINO Fluticasone Propionate (Fluticasone Propionate Nasal 16 Gm [place]) 2 spray NOSTRIL-B DAILY [facility] Last Admin: 01/26/24 10:48 Dose: Not Given Documented By: MARINO Non-Admin Reason: Patient Refused Furosemide (Furosemide 40 Mg Tablet) 40 mg PO DAILY [facility]; Protocol Last Admin: 01/26/24 09:28 Dose: 40 mg Documented By: MARINO Metoprolol Tartrate (Metoprolol Tartrate 25 Mg Tablet) 25 mg PO BID [facility]; Protocol Last Admin: 01/26/24 09:28 Dose: 25 mg Documented By: MARINO Pravastatin Sodium (Pravastatin Sodium 40 Mg Tablet) 40 mg PO BEDTIME [facility] Last Admin: 01/25/24 21:07 Dose: 40 mg Documented By: JACKY Sodium Chloride (0.9 % Sodium Chloride Flush 3 Ml Syringe) 3 ml IVFLUSH QSHIFT [facility] Last Admin: 01/26/24 09:27 Dose: 3 ml Documented By: MARINO Tamsulosin HCl (Tamsulosin Hcl 0.4 Mg Capsule) 0.4 mg PO DAILY [facility] Last Admin: 01/26/24 14:33 Dose: Not Given Documented By: MARINO Non-Admin Reason: Off unit Valsartan (Valsartan 80 Mg Tablet) 80 mg PO DAILY [facility]; Protocol Last Admin: 01/26/24 09:28 Dose: 80 mg Documented By: MARINO Labs 01/25/24 06:00 01/25/24 06:00 Assessment and Plan (1) CHF (congestive heart failure): Status: Acute (2) Atrial flutter with rapid ventricular response: Status: Acute Plan This is a 73 y/o man admitted with dizziness and shortness of breath found to be in rapid atrial flutter rapid AFlutter Started on Multaq 400 mg twice daily, decreased dose of metoprolol to 25 mg b.i.d. Continue Eliqubrett for anticoagulation Plan for LUDWIN cardioversion today Cardiology following Elevated troponin, flat. Likely due to demand from rapid a flutter Acute on chronic CKD. Improved, appears to be near baseline HFpEF No overt CHF Resume home dose of Lasix Hyperlipidemia. Continue statin. Essential hypertension. Continue metoprolol and ARB Asthma. Continue montelukast and Flonase BPH. Continue tamsulosin. Code status: Full DVT prophylaxis: Grace Attending Dr. Mena Patient regards ongoing inpatient hospitalization due to need for uncontrolled heart rate and planned for cardioversion Quality Stroke Does the patient have a stroke diagnosis?: No VTE Prior VTE?: No VTE Risk Level:: Medical - moderate - high VTE Device Contraindication: Treatment Not Indicated VTE Drug Contraindication: N/A - Med Ordered
[2024-01-26] MEDS: Pravastatin Sodium 40 MG TABLET PO (20:42)
[2024-01-27] MEDS: Dronedarone HCl 400 MG TABLET PO (08:21)
[2024-01-27] MEDS: Apixaban 5 MG TABLET PO (08:21)
[2024-01-27] MEDS: Loratadine 10 MG TABLET PO (08:21)
[2024-01-27] MEDS: Metoprolol Tartrate 25 MG TABLET PO (08:21)
[2024-01-27] MEDS: Tamsulosin HCL 0.4 MG CAPSULE PO (08:21)
[2024-01-27] MEDS: Fluticasone Propionate Nasal 16 GM SPRAY 2 SPRAY NOSTRIL-B (08:21)
[2024-01-27] MEDS: 0.9 % Sodium Chloride Flush 3 ML SYRINGE IVFLUSH (08:22)
[2024-01-27] MEDS: Furosemide 40 MG TABLET PO (08:22)
--- NOTE | 2024-01-27 11:57 | P.DS_ITS ---
DS: Providers Provider Date of Service: 01/27/24 Date of admission: 01/25/24 11:29 Date of discharge: 01/27/24 Primary care physician: Espinoza Polanco MD Consults: 01/25/24 03:54 Consult to Cardiology Routine Consulting Provider: [facility] [place] Cardiovascular Services Reason for consultation: Shortness on breath, rapid AFib Has provider been notified: Yes Attending physician on discharge: Deny Egan Discharging clinician: Nicole Denton DS: Diagnosis Discharge Diagnosis (1) CHF (congestive heart failure): Status: Acute (2) Atrial flutter with rapid ventricular response: Status: Acute DS: Summary Hospital Course Hospital Course: From H&P on the day of admission Britton Long is a 73 years old man with past medical history significant for a flutter, asthma, hyperlipidemia, CHF, CKD stage 3A and hypertension presents to the emergency department complaining of sh ortness on breath on exertion and lightheadedness. He also reports some palpitations. Denies chest pain, nausea, diaphoresis, cough, headache, fever or chills. Denied any acute gastrointestinal or genitourinary symptoms. He said that recently his metoprolol was increased from 50 mg bid to 100 mg bid and was referred to process design chemical engineer. In the ED he was initially found to have atrial fibrillation with rapid response that self resolved. Blood workup was remarkable for creatinine of 1.9 (prior 1.2) and elevated BNP of 358. Troponin was initially 87 and subsequent is 69. CXR is negative. ECG showed atrial flutter with rapid ventricular response (HR 125 bpm). ED tx: None. rapid AFlutter Seen by cardiology and dose of metoprolol had recently been increased to 100 mg twice daily, heart rate continued to be uncontrolled. He was Started on Multaq 400 mg twice daily, and his dose of metoprolol was decreased to 25 mg b.i.d. he was continued on Eliquis for anticoagulation. He is seen by Cardiology and on January 25 underwent LUDWIN guided cardioversion which was successful. He has remained in sinus rhythm. Cardiac enzymes were slightly elevated likely due to demand from rapid a flutter, they remained flat. Patient had no chest pain. Hold valsartan due to soft Blood pressure Time Attestation Discharge Coordination Time (in mins): 35 Quality: Safe Use of Opioids Does Pt have an Active Cancer Diagnosis on the Problem List?: No Quality: Stroke Does the patient have a stroke diagnosis?: No Physical Exam Vital Signs: Vital Signs: Last Vital Signs Temp 97.3 F 01/26/24 23:48 Pulse 57 01/26/24 23:48 Resp 16 01/26/24 23:48 BP 112/54 L 01/26/24 23:48 Pulse Ox 98 01/26/24 23:48 O2 Del Method Room Air 01/26/24 23:48 O2 Flow Rate 8 01/26/24 14:51 BMI result Body Mass Index 30.4 Const: General: cooperative, comfortable, alert and awake Nutritional Appearance: overweight Orientation/consciousness: patient oriented x3 Resp: Effort & Inspection: normal respiratory effort, able to speak in complete sentences, no respiratory distress and no use of accessory muscles Cardio: Rate: regular rate GI: Inspection: No distended Palpation (GI): Soft to palpation and nontender Neuro: General: patient oriented x3, moves all extremities and CN's II-XI intact bilaterally Extrem: General: Yes no pedal edema Discharge Plan Discharge Anticipated Discharge Date/Time: 01/27/24 12:06 Patient Disposition: Home, Self-Care Discharge Diagnosis: Atrial flutter with rapid ventricular response status post successful cardioversion Referrals: Espinoza Polanco MD [Primary Care Provider] - 1 Week Rod Corona MD [Physician] - 1 Week Discharge Medications: New Multaq 400 mg Tablet 400 mg PO BID 30 Days Qty: 60 0RF metoprolol tartrate 25 mg Tablet 25 mg PO BID 30 Days Qty: 60 0RF Protocol: Hold for SBP/HR < HOLD for SBP < : 90 HOLD for HR < : 60 Continued fluticasone propionate [Flonase Allergy Relief] 50 mcg/actuation spray,suspension 2 spray intranasal DAILY Qty: 16 12RF Rx Instructions: administer into each nostril Eliquis 5 mg tablet 5 mg PO BID 90 Days Qty: 180 3RF furosemide 40 mg tablet 40 mg PO DAILY 90 Days Qty: 90 2RF Protocol: Hold for SBP< HOLD for SBP < : 90 dutasteride 0.5 mg capsule 0.5 mg PO DAILY Qty: 90 1RF montelukast 10 mg tablet 10 mg PO BEDTIME Qty: 90 3RF zolpidem [Ambien CR] 6.25 mg tablet,ext release multiphase 6.25 mg PO BEDTIME PRN (Reason: sleep) Qty: 30 2RF tamsulosin 0.4 mg capsule 0.4 mg PO DAILY Qty: 90 2RF pravastatin 40 mg tablet 40 mg PO BEDTIME diclofenac sodium [Arthritis Pain (diclofenac)] 1 % gel 4 g topical QID PRN (Reason: Pain) Rx Instructions: apply to single knee, ankle, foot; for foot includes sole/toes/top of foot multivitamin Tablet 1 tab PO DAILY albuterol sulfate [Ventolin HFA] 90 mcg/actuation HFA aerosol inhaler 2 puff inhalation Q6H PRN (Reason: shortness of breath or wheezing) cholecalciferol (vitamin D3) 25 mcg (1,000 unit) capsule 25 mcg PO DAILY docusate sodium [Colace] 100 mg capsule 100 mg PO BID loratadine 10 mg tablet 10 mg PO DAILY Held valsartan 80 mg tablet 80 mg PO DAILY Hold Instructions: don't take until discuss with PCP/cardiology due to blood pressure being on lower side Discontinued metoprolol tartrate 100 mg tablet 100 mg PO BID Discharge Orders: Discharge Order (Routine); Ordered 01/27/24 Ordered By: Nicole Denton Activity on Discharge: As tolerated Stand Alone Forms: Patient Portal Discharge page Print Language: Khmer Care Plan Goals: See below Health Concerns: Atrial fibrillation with rapid ventricular response status post cardioversion GLORIA - resolved Plan of Treatment: Dose of metoprolol was decreased to 25 mg twice daily (stop taking the 100 mg dose and start taking the 25 mg dose) Start taking new medication Multaq for rhythm control of atrial fibrillation Continue to take anticoagulation with Eliquis as previously prescribed Hold valsartan, blood pressure has been on lower side. follow up with PCP to determine need to continue Call to schedule follow-up appointment with Cardiology Assessment: See discharge summary
[2024-01-27 12:08] VITALS: BP 101/50; PULSE 51; RESP 20; TEMP 36.6; O2SAT 98
--- NOTE | 2024-01-27 12:47 | MHC.CM.PN ---
Pt is medically cleared for discharge home self-care, pts to transport him home.
--- NOTE | 2024-01-27 13:01 | PM.PNCARD ---
Subjective Subjective Date of Service: 01/27/24 Principal diagnosis: Paroxysmal atrial flutter Interval history: Patient status post cardioversion after LUDWIN. Had low blood pressure during the procedure. Blood pressure still remains on the lower side. No dizziness no shortness of breath. Review of Systems Review of Systems Yes all other systems are reviewed and are negative Physical Exam Vital Signs: Last Vital Signs Temp 97.8 F 01/27/24 12:08 Pulse 51 01/27/24 12:08 Resp 20 01/27/24 12:08 BP 101/50 L 01/27/24 12:08 Pulse Ox 98 01/27/24 12:08 O2 Del Method Room Air 01/27/24 12:08 O2 Flow Rate 8 01/26/24 14:51 BMI result Body Mass Index 30.4 Const General: cooperative, comfortable, no acute distress, alert, awake and Physically active Nutritional Appearance: overweight Orientation/consciousness: patient oriented x3 Limitations: no limitations HEENT Head: Yes normocephalic and Yes atraumatic Neck Neck: Yes trachea midline, Yes supple and Yes no JVD Resp Effort & Inspection: normal respiratory effort Auscultation: clear to auscultation bilaterally Cardio Jugular venous distension: no JVD Rate: tachycardic Rhythm: abnormal rhythm irregularly irregular Heart sounds: S1 normal heart sound present, S2 normal heart sound present, no click, no gallops, no murmurs and no rubs GI Auscultation: normal bowel sounds Skin General skin exam: no rashes or lesions noted Neuro General: patient oriented x3 and no focal motor deficits Extrem General: Yes no clubbing, cyanosis or edema Psych Appearance: grossly normal Objective Labs and Meds 01/25/24 06:00 01/25/24 06:00 Progress Note: A&P Assessment and plan (1) PAF (paroxysmal atrial fibrillation): Status: Acute Assessment and Plan: Recurrent atrial flutter highly symptomatic requiring LUDWIN guided cardioversion. Maintaining rhythm on dronedarone therapy. Given his left atrial enlargement he will require antiarrhythmic drug therapy. This was discussed with him. In the past he had had significant bradycardia with both amiodarone and metoprolol. Metoprolol dose has been reduced to 25 mg b.i.d.. Continue Multaq. Continue full oral anticoagulation with Eliquis. (2) Chronic heart failure with preserved ejection fraction: Status: Acute Assessment and Plan: Prior heart failure especially in the setting of persistent atrial flutter. At this time he did not have significant decompensated heart failure but had symptoms of heart failure. Pursue rhythm control approach as much as possible. Hold valsartan therapy for now given his low blood pressure. Advised to monitor blood pressure at home maintain a log. Continue heart failure management with daily weight monitoring avoidance of salt loading. Continue current diuretic dose. I think patient should pursue coronary CTA to evaluate for myocardial ischemia. Will set up for follow-up in the clinic. Time Spent With Patient Time: Total time managing care of this patient today ____ minutes. Progress Note: Quality Stroke Does the patient have a stroke diagnosis?: No Procedures Date of Service Date of Service: 01/27/24
--- NOTE | 2024-01-27 14:46 | HO.POSTANES ---
Post Anesthesia Evaluation Post Anesthesia Evaluation Date of Service: 01/26/24 Vital Signs: Vital Signs Temp Pulse Resp BP Pulse Ox O2 Del Method 01/27/24 12:08 97.8 F 51 20 101/50 L 98 Room Air Anesthesia: Monitored Mental Status: Awake Pain Control: Satisfactory Nausea/Vomiting: None Hydration: Adequate Anesthesia-Related Issues: No Anes. Related Issues
== END 2024-01-27 12:45 | disposition home or self-care (01) | DRG 309 ==
LOC: HO.ED 01-25 02:43 → HO.EDOVER 01-25 03:56 → HO.IMC 01-25 08:32
PROVIDERS: Internal Medicine Cardiovascular Disease; Registered Nurse Emergency; Admitting Provider Internal Medicine; Emergency Provider Emergency Medicine; PCP Internal Medicine; Visit Provider Physician Assistant Medical
PROC: 5A2204Z Restoration of Cardiac Rhythm, Single (ICD-10-PCS; CPT 93312; principal; 2024-01-26 13:40)
PROC: 5A2204Z Restoration of Cardiac Rhythm, Single (ICD-10-PCS; 2024-01-26 13:40)
DX: I48.92 Unspecified atrial flutter (principal); I13.0 Hypertensive heart and chronic kidney disease with heart failure and stage 1 through stage 4 chronic kidney disease, or unspecified chronic kidney disease; N17.9 Acute kidney failure, unspecified; I50.32 Chronic diastolic (congestive) heart failure; I48.0 Paroxysmal atrial fibrillation; N40.0 Benign prostatic hyperplasia without lower urinary tract symptoms; J45.909 Unspecified asthma, uncomplicated; N18.31 Chronic kidney disease, stage 3a; E78.5 Hyperlipidemia, unspecified; Z87.891 Personal history of nicotine dependence; Z79.01 Long term (current) use of anticoagulants; Z79.51 Long term (current) use of inhaled steroids; Z79.899 Other long term (current) drug therapy
CPT/HCPCS: 36415; 71046; 80048; 80053; 83880; 84484; 85025; 85610; 92960; 93005; 99222; 99285; J0171; J2371; J2704

== ENCOUNTER → 2024-01-24 14:58 | Outpatient (BNV) | payer MEDICARE, SELFPAY | PROVIDERS: Admitting Provider Internal Medicine; Emergency Provider Emergency Medicine; PCP Internal Medicine; Visit Provider Internal Medicine Cardiovascular Disease | DX: I48.92 Unspecified atrial flutter (principal); I44.0 Atrioventricular block, first degree | CPT/HCPCS: 93010 ==

== ENCOUNTER → 2024-01-25 03:51 | Outpatient (BNV) | payer MEDICARE, SELFPAY | PROVIDERS: Admitting Provider Internal Medicine; Emergency Provider Emergency Medicine; PCP Internal Medicine; Visit Provider Internal Medicine | DX: I50.9 Heart failure, unspecified (principal); I48.92 Unspecified atrial flutter | CPT/HCPCS: 99223; 99232; 99233; 99239 ==

== ENCOUNTER → 2024-01-25 03:51 | Outpatient (BNV) | payer MEDICARE, SELFPAY | PROVIDERS: Admitting Provider Internal Medicine; Emergency Provider Emergency Medicine; PCP Internal Medicine; Visit Provider Internal Medicine Cardiovascular Disease | DX: I48.0 Paroxysmal atrial fibrillation (principal); I50.32 Chronic diastolic (congestive) heart failure; I48.92 Unspecified atrial flutter | CPT/HCPCS: 92960; 99222; 99233 ==

== ENCOUNTER 2024-01-25 11:29 | Outpatient (BNV) | payer MEDICARE, SELFPAY | END 2024-01-26 13:40 | PROVIDERS: Admitting Provider Internal Medicine; Emergency Provider Emergency Medicine; PCP Internal Medicine; Visit Provider Internal Medicine Cardiovascular Disease | DX: I34.0 Nonrheumatic mitral (valve) insufficiency (principal); R94.31 Abnormal electrocardiogram [ECG] [EKG] | CPT/HCPCS: 76376; 93010; 93312; 93325 ==

== ENCOUNTER 2024-02-06 14:30 | Outpatient (AMB) | payer MEDICARE, SELFPAY ==
--- NOTE | 2024-02-06 14:40 | MHC.PC.OV ---
Vital Signs 02/06/24 14:42 Height 5 ft 8 in Weight 201 lb 6 oz BMI 30.6 BP 136/64 Blood Pressure Location Lt brachial Position Sitting Pulse 54 Pulse Source Pulse Oximeter Pulse Oximetry (%) 95 Oxygen Delivery Method Room Air Intake Visit Reasons: A fib. , CHF Intake Note: Patient is here to follow up on AFib, CHF. Gelatin Plant Supervisor Required: No Dough Scaler And Mixer: Not Required per policy Accompanied by: Self / Same As Patient Allergies lisinopril Allergy (Unknown, Verified 02/06/24 14:41) Unknown doxepin Adverse Reaction (Intermediate, Verified 02/06/24 14:41) Hallucinations atorvastatin [Lipitor] Adverse Reaction (Unknown, Verified 02/06/24 14:41) Unknown Tobacco use date assessed: 02/06/24 Fall risk assessment: No Falls in past year Last assessed Fall Risk: 02/06/24 Dental Screening Dental Screen Date: 10/26/23 HPI A fib. , CHF HPI Details 73-year-old obese male with congestive heart failure atrial fibrillation hypertension hypercholesterolemia BPH chronic kidney disease coming in for follow-up. October last seen hospital notes 01/27/2024 ER visit for shortness of breath on exertion and dizziness. Recent increase in metoprolol initially found to have atrial fibrillation with rapid ventricular response noted elevation BNP and creatinine patient was started on Multaq 4 mg twice a day with continued anticoagulation patient did have LUDWIN guided cardioversion.. Patient was also seen by Nephrology in 11/29/2023 for chronic kidney disease stage IIIA stable [facility] Medical History Atrial flutter with rapid ventricular response BPPV (benign paroxysmal positional vertigo) Vertigo of central origin Persistent atrial fibrillation Atrial fibrillation, new onset Chronic heart failure with preserved ejection fraction Acute congestive heart failure CHF (congestive heart failure) Asthma exacerbation Dizziness COVID-19 vaccine series completed Avascular necrosis of bone of left hip Atherosclerosis History of renal calculi Peripheral vascular disease Chronic kidney disease History of asbestos exposure BPH (benign prostatic hyperplasia) Obesity (BMI 30-39.9) Asthma Hypercholesterolemia Hypertension Insomnia Surgical History H/O colonoscopy History of left hip replacement Family History Father Hypertension Chronic mental illness Mother Hypertension Gastric cancer Asthma Social History Household Members: Spouse Housing: House Do you presently have visiting nurse or other home services: No Alcohol intake: former Patient Tobacco Use Status: Former Tobacco user Tobacco use type: Cigarette e-Cigarette/Vaping Use: Never Used Second Hand Smoke Exposure: No Advance Directives Date on File: 08/03/20 service: Yes Current occupational status: retired Cognitive needs: No Hearing needs: No Vision needs: Yes Questionnaire Thrive Questionnaire Date Thrive assessed: 01/25/24 BETSY-7 AMB Questionnaire BETSY-7 Date BETSY - 7 assessed: 10/26/23 Source: Developed by Drs. Mahesh Angeles, [place], Ever Valle and colleagues, with an educational danielle from [employer]. Physical exam (Primary Care) Vital Signs: Last Vital Signs Pulse 54 02/06/24 14:42 BP 136/64 02/06/24 14:42 Pulse Ox 95 02/06/24 14:42 Oxygen Delivery Method Room Air 02/06/24 14:42 BMI result Body Mass Index 30.6 Tobacco/Smoking Status: Tobacco use Status Tobacco use date assessed 02/06/24 02/06/24 14:50 Patient Tobacco Use Status Former Tobacco user 02/06/24 14:50 Tobacco use type Cigarette 02/06/24 14:50 e-Cigarette/Vaping Use Never Used 02/06/24 14:50 Thrive Assessment: Date of Thrive Assessment Date Thrive assessed 01/25/24 02/06/24 14:50 Const General: alert; No acute distress Eyes Conjunctivae: conjunctivae normal Resp Auscultation: clear to auscultation bilaterally Cardio Rate: regular rate Rhythm: regular rhythm GI Inspection: Yes normal to inspection Extrem General: Yes normal to inspection and No edema Assessment and Plan Assessment & Plan (1) PAF (paroxysmal atrial fibrillation): Code(s): I48.0 - Paroxysmal atrial fibrillation Plan: Patient has been placed on Multaq and on Eliquis. Will be seeig Dr. ana Avitia CArdiac EPS stduy (2) Pain of right hip: Code(s): M25.551 - Pain in right hip Plan: X-ray showing mild degenerative changes on the right hip (3) Chronic heart failure with preserved ejection fraction: Code(s): I50.32 - Chronic diastolic (congestive) heart failure Plan: Weigh daily and on furosemide (4) Obesity (BMI 30-39.9): Code(s): E66.9 - Obesity, unspecified Plan: Diet and exercise (5) Hypertension: Code(s): I10 - Essential (primary) hypertension Qualifiers: Hypertension type: essential hypertension Qualified Code(s): I10 - Essential (primary) hypertension Plan: Continue with blood pressure medication. Decrease salt intake and exercise on metoprolol 25 mg twice a day , (6) Hypercholesterolemia: Code(s): E78.00 - Pure hypercholesterolemia, unspecified Plan: Avoid fried foods, chicken skin, eggs, butter margarine, pastries and meat. Be it pork or beef they have a lot of cholesterol on pravastatin 40 mg once a day. advised to change cholesterol med is to change cholesterol medication to get the LDL down (7) Asthma: Code(s): J45.909 - Unspecified asthma, uncomplicated Qualifiers: Asthma severity: mild Asthma persistence: intermittent Asthma complication type: uncomplicated Qualified Code(s): J45.20 - Mild intermittent asthma, uncomplicated Plan: Continue with the inhaler albuterol Orders: Orders Comprehensive Met. Panel Today E78.00 - Pure hypercholesterolemia, unspecified Lipid Panel Today E78.00 - Pure hypercholesterolemia, unspecified Medications: New rosuvastatin 20 mg PO DAILY 30 tabs 3RF E78.00 - Pure hypercholesterolemia, unspecified Coding Level of Care Code Est Pt Level 4 (90055) Diagnoses PAF (paroxysmal atrial fibrillation) I48.0 Pain of right hip M25.551 Chronic heart failure with preserved ejection fraction I50.32 Obesity (BMI 30-39.9) E66.9 Essential hypertension I10 Hypertension type: essential hypertension Hypercholesterolemia E78.00 Mild intermittent asthma without complication J45.20 Asthma severity: mild Asthma persistence: intermittent Asthma complication type: uncomplicated
[2024-02-06 14:42] VITALS: BP 136/64; PULSE 54; O2SAT 95; BMI 30.6
== END 2024-02-06 15:13 | disposition home or self-care (01) ==
PROVIDERS: PCP Internal Medicine; Visit Provider Internal Medicine
DX: I48.0 Paroxysmal atrial fibrillation (principal); M25.551 Pain in right hip; I11.0 Hypertensive heart disease with heart failure; I50.32 Chronic diastolic (congestive) heart failure; E78.00 Pure hypercholesterolemia, unspecified; J45.20 Mild intermittent asthma, uncomplicated
CPT/HCPCS: 99214

== ENCOUNTER → 2024-02-14 10:32 | Outpatient (REF) | payer MEDICARE, SELFPAY ==
--- NOTE | 2024-02-14 10:34 | HM_ITS ---
Conclusion: 1. Patient was monitored for total period of 4 days 2. Baseline was normal sinus rhythm with average heart of 72 beats per minute 3. No significant pauses noted next 4. Frequent PACs noted with total burden of 3% 4. No patient reported events MTDD
--- NOTE | 2024-02-14 10:34 | HM_ITS ---
Conclusion: 1. Patient was monitored for total period of 4 days 2. Baseline was normal sinus rhythm with average heart of 72 beats per minute 3. Intermittent episode of atrial flutter/fibrillation noted on 02/16/2024, 1 episode was at about 12:00 the other episode about 16:00, length of episodes are unknown 4. Frequent PACs noted with total burden of 8% 5. No significant pauses noted 6. No patient reported events MTDD
== END ==
LOC: HO.CARD 10:32
PROVIDERS: PCP Internal Medicine; Visit Provider Internal Medicine
DX: I48.92 Unspecified atrial flutter (principal)
CPT/HCPCS: 93242

== ENCOUNTER → 2024-02-14 10:34 | Outpatient (BNV) | payer MEDICARE, SELFPAY | PROVIDERS: PCP Internal Medicine; Visit Provider Internal Medicine Cardiovascular Disease | DX: I49.1 Atrial premature depolarization (principal) | CPT/HCPCS: 93244 ==

== ENCOUNTER 2024-03-05 14:40 | Outpatient (AMB) | payer MEDICARE, SELFPAY ==
[2024-03-05 14:45] VITALS: BP 124/70; PULSE 87; BMI 31.0
--- NOTE | 2024-03-05 14:45 | A.OFFVIS_ITS ---
Vital Signs 03/05/24 14:45 Height 5 ft 8 in Weight 203 lb 11.314 oz BMI 31.0 BP 124/70 Blood Pressure Location Lt brachial Position Sitting Pulse 87 Pulse Source Monitor Intake Visit Reasons: 1mth follow up Sticker Machine Operator Required: No Cloud Physicist: Cloud Physicist Present Allergies lisinopril Allergy (Unknown, Verified 02/06/24 14:41) Unknown doxepin Adverse Reaction (Intermediate, Verified 02/06/24 14:41) Hallucinations atorvastatin [Lipitor] Adverse Reaction (Unknown, Verified 02/06/24 14:41) Unknown Medication List - Last Reconciled 03/05/24 by ELIZABETH Castellanos albuterol sulfate 90 mcg/actuation (Ventolin HFA) 2 puffs inhalation Q6H PRN amlodipine 2.5 mg PO DAILY apixaban (Eliquis) 5 mg PO BID 90 days cholecalciferol (vitamin D3) 25 mcg PO DAILY diclofenac sodium 1% (Arthritis Pain (diclofenac)) 4 grams topical QID PRN docusate sodium (Colace) 100 mg PO BID dronedarone (Multaq) 400 mg PO BID 90 days dutasteride 0.5 mg PO DAILY fluticasone propionate 50 mcg/actuation (Flonase Allergy Relief) 2 sprays intranasal DAILY furosemide 40 mg See Protocol PO DAILY 90 days loratadine 10 mg PO DAILY metoprolol tartrate 25 mg See Protocol PO BID 90 days montelukast 10 mg PO BEDTIME multivitamin 1 tab PO DAILY rosuvastatin 20 mg PO DAILY tamsulosin 0.4 mg PO DAILY zolpidem ER (Ambien CR) 6.25 mg PO BEDTIME PRN HPI HPI 1mth follow up: Details: Britton is a 73-year-old male with past medical history of hypertension, hyperlipidemia, chronic kidney disease, mild obstructive sleep apnea, atrial flutter with prior cardioversion and recurrent atrial flutter who was admitted to [facility] for shortness of breath and lightheadedness. He was found to have atrial flutter with RVR and was treated initially for heart rate control and mild Congestive heart failure. He did undergo a LUDWIN cardioversion and started on Multaq. He now presents for follow-up. Today he reports he has been doing well since his hospital discharge. Denies having issues with heart palpitations or elevated heart rates. No concerning shortness of breath. No PND, orthopnea or edema. No chest discomfort at rest or with activity. No presyncope, syncope, falls. No bleeding issues reported. Taking meds as directed. Did see the revenue investigator but has not yet heard back from the office about a date for his atrial flutter ablation. He admits to being mostly sedentary. He has not been sleeping well and wakes up frequently. [facility] Medical History Atrial flutter with rapid ventricular response BPPV (benign paroxysmal positional vertigo) Vertigo of central origin Persistent atrial fibrillation Atrial fibrillation, new onset Chronic heart failure with preserved ejection fraction Acute congestive heart failure CHF (congestive heart failure) Asthma exacerbation Dizziness COVID-19 vaccine series completed Avascular necrosis of bone of left hip Atherosclerosis History of renal calculi Peripheral vascular disease Chronic kidney disease History of asbestos exposure BPH (benign prostatic hyperplasia) Obesity (BMI 30-39.9) Asthma Hypercholesterolemia Hypertension Insomnia Surgical History H/O colonoscopy History of left hip replacement Family History Father Hypertension Chronic mental illness Mother Hypertension Gastric cancer Asthma Social History Household Members: Spouse Housing: House Do you presently have visiting nurse or other home services: No Alcohol intake: former Patient Tobacco Use Status: Former Tobacco user Tobacco use type: Cigarette e-Cigarette/Vaping Use: Never Used Second Hand Smoke Exposure: No Advance Directives Date on File: 08/03/20 service: Yes Current occupational status: retired Cognitive needs: No Hearing needs: No Vision needs: Yes Review of Systems Const All systems reviewed & are unremarkable except as noted in HPI and below ENT Denies dizziness Card Denies chest pain, Denies chest pain at rest, Denies chest pain with activity, Denies rapid heart rate, Denies pedal edema, Denies edema, Denies leg edema, Denies lightheadedness, Denies palpitations, Denies dyspnea, Denies dyspnea on exertion and Denies orthopnea Resp Denies cough, Denies dyspnea and Denies dyspnea on exertion GI Denies hematochezia and Denies change in stool character Musc Denies abnormal gait, Denies limited range of motion, Denies muscle cramps, Denies muscle weakness, Denies numbness, Denies radiating pain into limb, Denies stiffness and Denies tingling Neuro Denies abnormal gait, Denies dizziness, Denies numbness and Denies tingling Endo Denies palpitations Physical Exam Vital Signs: Last Vital Signs Pulse 87 03/05/24 14:45 BP 124/70 03/05/24 14:45 BMI result Body Mass Index 31.0 Const General: cooperative, healthy appearing, comfortable and no acute distress Orientation/consciousness: patient oriented x3 Neck Neck: Yes normal visual inspection and Yes no JVD Carotids: normal carotid upstroke Resp Effort & Inspection: normal respiratory effort Auscultation: clear to auscultation bilaterally, no crackles, no rales, no rhonchi and no wheezes Cardio Jugular venous distension: no JVD Rate: regular rate Rhythm: regular rhythm Heart sounds: S1 normal heart sound present, S2 normal heart sound present, no gallops, no murmurs and no rubs Peripheral pulses: Peripheral pulses 2+ throughout Neuro General: patient oriented x3 Extrem General: Yes normal to inspection and No no pedal edema Psych Appearance: grossly normal Mental Status: mental status grossly normal Speech and movement: Normal speech and movement present Office Procedures EKG Details: Today, read by me, atrial flutter with two-to-one block, left axis deviation, nonspecific ST and T-wave abnormality, rate 87, QTC 476 milliseconds [id number], Complete Assessment & Plan Assessment & Plan (1) Atrial flutter: Code(s): I48.92 - Unspecified atrial flutter Category: Medical Plan: History of atrial flutter with mild Congestive heart failure. He did undergo a cardioversion in September 2022 and had significant sinus bradycardia while on amiodarone and metoprolol. The amiodarone was stopped and he was just treated for with heart rate control. On last visit he had atrial flutter with RVR and his metoprolol dose was increased up to 100 mg b.i.d.. Two weeks later he had increased shortness of breath and was [place] [facility]estive heart failure, a flutter RVR. He did require a LUDWIN cardioversion on 01/26/2024 with successful conversion to sinus rhythm. He was put on Multaq for rhythm control. His metoprolol was reduced down to 25 mg b.i.d.. He was continued on Eliquis 5 mg b.i.d.. Today he reports feeling well since his hospital discharge last month. He has not noticing heart palpitations or concerning shortness of breath. EKG done today shows two-to-one atrial flutter, rate 87, QTC 476 milliseconds. He has been seen by the revenue investigator in consultation. He is waiting for date for an a flutter ablation. At this time it looks like his ablation may not be until May or June. Will continue on current meds at present. Will check with his primary tetryl blender operator Dr. Bradford regarding use of Multaq. Plan to call patient with any med changes. Signs and symptoms of heart failure reviewed with him. Ongoing med compliance reviewed. Avoidance of stimulants recommended. Cardiology follow-up in the office 3 months, sooner if needed. (2) Chronic heart failure with preserved ejection fraction: Code(s): I50.32 - Chronic diastolic (congestive) heart failure Category: Medical Plan: As above. Transesophageal echocardiogram done 01/26/2024 showing no clear thrombi or vegetations, normal EF, severe left atrial enlargement, severe atherosclerotic changes in the descending thoracic and arch of the aorta. Stable at present with no signs of decompensated heart failure. He continues on daily Lasix. (3) Hypertension: Code(s): I10 - Essential (primary) hypertension Category: Medical Qualifiers: Hypertension type: essential hypertension Qualified Code(s): I10 - Essential (primary) hypertension Plan: Well controlled at present. No med changes made Plan Time spent on chart review, documentation, interview and assessment Coding Level of Care Code Est Pt Level 4 (72966) Diagnoses Atrial flutter I48.92 Chronic heart failure with preserved ejection fraction I50.32 Essential hypertension I10 Hypertension type: essential hypertension CPT Codes EKG - CPT: 23759-[id number], Complete ([id number]) Time Spent (min) 30
== END 2024-03-05 15:35 | disposition home or self-care (01) ==
PROVIDERS: PCP Internal Medicine; Visit Provider Nurse Practitioner Family
DX: I48.92 Unspecified atrial flutter (principal); I50.32 Chronic diastolic (congestive) heart failure; I10 Essential (primary) hypertension
CPT/HCPCS: 93010; 99214

== ENCOUNTER → 2024-03-05 14:40 | Outpatient (BNVA) | payer MEDICARE, SELFPAY | PROVIDERS: PCP Internal Medicine; Visit Provider Nurse Practitioner Family | DX: I48.92 Unspecified atrial flutter (principal); I11.0 Hypertensive heart disease with heart failure; I50.32 Chronic diastolic (congestive) heart failure | CPT/HCPCS: 93005; 99212 ==

== ENCOUNTER → 2024-03-26 14:20 | Outpatient (BNVA) | payer MEDICARE, SELFPAY | PROVIDERS: PCP Internal Medicine; Visit Provider Internal Medicine | DX: I11.0 Hypertensive heart disease with heart failure (principal); I50.32 Chronic diastolic (congestive) heart failure; I48.92 Unspecified atrial flutter | CPT/HCPCS: 93005; 99212 ==

== ENCOUNTER 2024-03-26 15:09 | Outpatient (AMB) | payer MEDICARE, SELFPAY ==
[2024-03-26 15:14] VITALS: BP 104/52; PULSE 65
--- NOTE | 2024-03-26 15:14 | MHC.OFFVIS ---
Vital Signs 03/26/24 15:14 Height 5 ft 8 in BP 104/52 L Blood Pressure Location Lt brachial Position Sitting Pulse 65 Pulse Source Pulse Oximeter Intake Visit Reasons: f/up ekg Civil Process Server Required: No Accompanied by: Self / Same As Patient Allergies lisinopril Allergy (Unknown, Verified 02/06/24 14:41) Unknown doxepin Adverse Reaction (Intermediate, Verified 02/06/24 14:41) Hallucinations atorvastatin [Lipitor] Adverse Reaction (Unknown, Verified 02/06/24 14:41) Unknown Medication List - Last Reconciled 03/26/24 by Pranav Bradford MD albuterol sulfate 90 mcg/actuation (Ventolin HFA) 2 puffs inhalation Q6H PRN amlodipine 2.5 mg PO DAILY apixaban (Eliquis) 5 mg PO BID 90 days cholecalciferol (vitamin D3) 25 mcg PO DAILY diclofenac sodium 1% (Arthritis Pain (diclofenac)) 4 grams topical QID PRN docusate sodium (Colace) 100 mg PO BID dutasteride 0.5 mg PO DAILY fluticasone propionate 50 mcg/actuation (Flonase Allergy Relief) 2 sprays intranasal DAILY furosemide 40 mg See Protocol PO DAILY 90 days loratadine 10 mg PO DAILY metoprolol tartrate 50 mg PO BID montelukast 10 mg PO BEDTIME multivitamin 1 tab PO DAILY rosuvastatin 20 mg PO DAILY tamsulosin 0.4 mg PO DAILY zolpidem ER (Ambien CR) 6.25 mg PO BEDTIME PRN HPI Comments Details: Britton returns for follow-up. Last year, he was seen in the hospital for atrial flutter with rapid rate and congestive heart failure. Initial treated by rate control but he was still reporting some shortness of breath and hence underwent cardioversion. He was on amiodarone as well. However, when he came for office visit heart rate is only in the low 40s. Then we stopped the amiodarone. Then he was only on beta-blockers but had recurrent atrial flutter with rapid rate which required another cardioversion recently. He was on Multaq. However, on follow-up he was back in atrial flutter with rapid rate. We have been adjusting his beta-farzaneh dosing. Today comes for follow-up EKG and seems to be again in atrial flutter with rapid rate. He states for the most part he is feeling fine. He has not feeling any obvious palpitations. He has seen EP and awaiting ablation. [facility] Medical History Atrial flutter with rapid ventricular response BPPV (benign paroxysmal positional vertigo) Vertigo of central origin Persistent atrial fibrillation Atrial fibrillation, new onset Chronic heart failure with preserved ejection fraction Acute congestive heart failure CHF (congestive heart failure) Asthma exacerbation Dizziness COVID-19 vaccine series completed Avascular necrosis of bone of left hip Atherosclerosis History of renal calculi Peripheral vascular disease Chronic kidney disease History of asbestos exposure BPH (benign prostatic hyperplasia) Obesity (BMI 30-39.9) Asthma Hypercholesterolemia Hypertension Insomnia Surgical History H/O colonoscopy History of left hip replacement Family History Father Hypertension Chronic mental illness Mother Hypertension Gastric cancer Asthma Social History Household Members: Spouse Housing: House Do you presently have visiting nurse or other home services: No Alcohol intake: former Patient Tobacco Use Status: Former Tobacco user Tobacco use type: Cigarette e-Cigarette/Vaping Use: Never Used Second Hand Smoke Exposure: No Advance Directives Date on File: 08/03/20 service: Yes Current occupational status: retired Cognitive needs: No Hearing needs: No Vision needs: Yes Review of Systems Const Denies chills, Denies fatigue, Denies fever(s), Denies weight gain and Denies weight loss ENT Denies dizziness Card Denies chest pain, Denies leg edema, Denies lightheadedness, Denies palpitations, Denies dyspnea on exertion, Denies orthopnea and Denies other Resp Denies cough and Denies dyspnea on exertion GI Denies hematochezia and Denies change in stool character Musc Denies abnormal gait, Denies muscle weakness, Denies numbness, Denies radiating pain into limb and Denies tingling Neuro Denies abnormal gait, Denies dizziness, Denies numbness and Denies tingling Endo Denies fatigue and Denies palpitations Physical Exam Vital Signs: Last Vital Signs Pulse 65 03/26/24 15:14 BP 104/52 L 03/26/24 15:14 Const General: comfortable and no acute distress Orientation/consciousness: patient oriented x3 HEENT Other: Unremarkable Head: Yes normal to inspection Neck Neck: Yes normal visual inspection Chest Chest palpation & inspection: normal inspection of the chest Resp Auscultation: clear to auscultation bilaterally Cardio Palpation: normal PMI Heart sounds: S1 normal heart sound present, S2 normal heart sound present, no gallops, no murmurs and no rubs GI Palpation (GI): Soft to palpation Back/Spine/Pelvis Other: unremarkable Skin General skin exam: no rashes or lesions noted Neuro General: patient oriented x3 Extrem General: Yes normal to inspection Psych Mental Status: mental status grossly normal Office Procedures EKG Details: EKG with atrial flutter more likely than atrial tachycardia; 126/Min and nonspecific ST-T changes. [id number], Complete Assessment & Plan Assessment & Plan (1) Atrial flutter with rapid ventricular response: Code(s): I48.92 - Unspecified atrial flutter Category: Medical Plan: By EKG, he is in atrial flutter with slightly rapid rate. He recently underwent cardioversion and has had another cardioversion in the 2022. Of note, while in sinus, he does get quite bradycardic. He failed Multaq few weeks back. Clinically not much of symptoms. We will go up on the beta-farzaneh dosing to Metoprolol 50mg tid. Continue anticoagulation. He has already seen EP and awaiting ablation. Discussed with Dr. Avitia by [facility] who will try to expedite the ablation date if feasible. (2) Chronic heart failure with preserved ejection fraction: Code(s): I50.32 - Chronic diastolic (congestive) heart failure Category: Medical Plan: Stable. No changes. (3) Hypertension: Code(s): I10 - Essential (primary) hypertension Category: Medical Qualifiers: Hypertension type: essential hypertension Qualified Code(s): I10 - Essential (primary) hypertension Plan: Seems stable. Plan Will plan on Holter to assess the rate improvement on increased dose of beta-blockers, while awaiting ablation. Orders: Orders ECG 3 day holter monitor Today I48.92 - Unspecified atrial flutter Medications: Discontinued amlodipine Discontinued Reason: Doctor's Order 2.5 mg PO DAILY 90 tabs 0RF Coding Level of Care Code Est Pt Level 4 (87672) Diagnoses Atrial flutter with rapid ventricular response I48.92 Chronic heart failure with preserved ejection fraction I50.32 Essential hypertension I10 Hypertension type: essential hypertension CPT Codes EKG - CPT: 65427-[id number], Complete ([id number])
== END 2024-03-26 15:33 | disposition home or self-care (01) ==
PROVIDERS: PCP Internal Medicine; Visit Provider Internal Medicine
DX: I48.92 Unspecified atrial flutter (principal); I50.32 Chronic diastolic (congestive) heart failure; I10 Essential (primary) hypertension
CPT/HCPCS: 93010; 99214

== ENCOUNTER → 2024-03-28 07:17 | Outpatient (BNV) | payer MEDICARE, SELFPAY | PROVIDERS: PCP Internal Medicine; Visit Provider Internal Medicine Cardiovascular Disease | DX: I48.92 Unspecified atrial flutter (principal) | CPT/HCPCS: 93244 ==

== ENCOUNTER → 2024-03-28 07:18 | Outpatient (REF) | payer MEDICARE, SELFPAY ==
--- NOTE | 2024-03-28 07:17 | HM_ITS ---
Conclusion: 1. Patient was monitored for total period of 2 days and 23 hours 2. Baseline rhythm appears to be atrial flutter with average heart of 88 beats per minute with overall adequate rate control 3. No significant pauses noted 4. No patient reported symptoms MTDD
== END ==
LOC: HO.CARD 07:18
PROVIDERS: PCP Internal Medicine; Visit Provider Internal Medicine
DX: I48.92 Unspecified atrial flutter (principal)
CPT/HCPCS: 93242

== ENCOUNTER 2024-05-08 09:43 | Outpatient (REF) | payer MEDICARE, SELFPAY ==
[2024-05-08 13:20] LABS: MANUAL DIFF FLAG NO
[2024-05-08 13:31] LABS: Basophils Percent Auto 0.8 % (0-2); Eosinophils Absolute Auto 0.2 X10*3/uL (0.0-0.4); Eosinophils Percent Auto 3.4 % (0-4); Hematocrit 41.4 % (42.0-52.0); Hemoglobin 14.6 g/dl (14.0-18.0); Imm Gran Abs Auto 0.02 X10*3/uL (0.00-0.03); Imm Gran Pct Auto 0.4 % (0.0-0.4); Lymphocytes Absolute Auto 1.1 X10*3/uL (1.2-4.9); Lymphocytes Percent Auto 20.2 % (20-40); Mean Corpuscular HGB Conc 35.3 g/dl (31.0-36.0); Mean Corpuscular Hemoglobin 35.5 pg (27.0-33.0); Mean Corpuscular Volume 100.7 fL (80.0-98.0); Mean Platelet Volume 9.4 fL (9.4-12.4); Monocytes Absolute Auto 0.5 X10*3/uL (0.1-1.2); Monocytes Percent Auto 9.3 % (2-11); Neutrophils Absolute Auto 3.5 x10*3/uL (2.0-8.3); Neutrophils Percent Auto 65.9 % (45-73); Platelet Count 175 X10*3/uL (160-400); Red Blood Count 4.11 X10*6/uL (4.60-5.80); White Blood Count 5.3 X10*3/uL (4.8-10.8)
[2024-05-08 13:59] LABS: Alanine Aminotransferase 45 U/L (0-40); Alkaline Phosphatase 82 U/L (39-117); Anion Gap 13 (12-20); Aspartate Amino Transferase 32 U/L (5-37); Bilirubin Total 0.9 mg/dL (0.0-1.0); Blood Urea Nitrogen 19 mg/dL (9-16); Calcium 9.6 mg/dL (8.4-10.2); Carbon Dioxide 27 mmol/L (22-29); Chloride 107 mmol/L (96-108); Cholesterol 122 mg/dL (<200); Estimated Glomerular Filt Rate 49; Glucose Random 94 mg/dL (60-115); HDL Cholesterol 51 mg/dL (>40); LDL Cholesterol Calculated 58 mg/dL (<100); Potassium 4.5 mmol/L (3.3-5.1); Sodium 142 mmol/L (135-145); Total Protein 7.1 g/dL (6.5-8.0); Triglycerides 68 mg/dL (<150)
[2024-05-08 14:08] LABS: B Type Natriuretic Peptide 232 pg/mL (<100)
[2024-05-08 14:15] LABS: Free T4 (Free Thyroxine) 0.97 ng/dL (0.71-1.85)
[2024-05-08 14:20] LABS: Folate > 20.0 ng/mL (> or = 4.0); Thyroid Stimulating Hormone 0.94 uIU/mL (0.32-4.0); Vitamin B12 711 pg/mL (200-900)
== END 2024-05-08 09:44 | disposition home or self-care (01) ==
LOC: HO.HMGCLDS 09:43
PROVIDERS: PCP Internal Medicine; Referring Provider Internal Medicine Hypertension Specialist; Visit Provider Internal Medicine
DX: I48.0 Paroxysmal atrial fibrillation (principal); E78.00 Pure hypercholesterolemia, unspecified
CPT/HCPCS: 36415; 80053; 80061; 82607; 82746; 83880; 84439; 84443; 85025

== ENCOUNTER 2024-05-28 09:10 | Outpatient (AMB) | payer MEDICARE, SELFPAY ==
[2024-05-28 09:16] VITALS: BP 138/80; PULSE 88; O2SAT 97; BMI 30.7
--- NOTE | 2024-05-28 09:16 | HO.NEPHOV_ITS ---
Vital Signs 05/28/24 09:16 Height 5 ft 8 in Weight 202 lb BMI 30.7 BP 138/80 Blood Pressure Location Lt brachial Position Sitting Pulse 88 Pulse Source Pulse Oximeter Pulse Oximetry (%) 97 Oxygen Delivery Method Room Air Intake Visit Reasons: Asthma/ 6 MO FU/ Conf Satellite Installation Technician Required: No Accompanied by: Self / Same As Patient Allergies lisinopril Allergy (Unknown, Verified 05/28/24 09:20) Unknown doxepin Adverse Reaction (Intermediate, Verified 05/28/24 09:20) Hallucinations atorvastatin [Lipitor] Adverse Reaction (Unknown, Verified 05/28/24 09:20) Unknown Medication List - Last Reconciled 05/28/24 by Brandon Williamson MD albuterol sulfate 90 mcg/actuation (Ventolin HFA) 2 puffs inhalation Q6H PRN apixaban (Eliquis) 5 mg PO BID 90 days cholecalciferol (vitamin D3) 25 mcg PO DAILY [COVID TESTING KIT As directed] diclofenac sodium 1% (Arthritis Pain (diclofenac)) 4 grams topical QID PRN docusate sodium (Colace) 100 mg PO BID dutasteride 0.5 mg PO DAILY fluticasone propionate 50 mcg/actuation (Flonase Allergy Relief) 2 sprays intranasal DAILY furosemide 40 mg See Protocol PO DAILY 90 days loratadine 10 mg PO DAILY metoprolol tartrate 50 mg PO TID montelukast 10 mg PO BEDTIME multivitamin 1 tab PO DAILY rosuvastatin 20 mg PO DAILY tamsulosin 0.4 mg PO DAILY zolpidem 5 mg PO BEDTIME HPI Comments Details: 73 yr old man with HTN and CKD Here for follow up Morning BP is slightly elevated 05/28/24 Waiting for Ablation next week No dyspnea at rest; Has some on exertion [facility] Medical History Atrial flutter with rapid ventricular response BPPV (benign paroxysmal positional vertigo) Vertigo of central origin Persistent atrial fibrillation Atrial fibrillation, new onset Chronic heart failure with preserved ejection fraction Acute congestive heart failure CHF (congestive heart failure) Asthma exacerbation Dizziness COVID-19 vaccine series completed Avascular necrosis of bone of left hip Atherosclerosis History of renal calculi Peripheral vascular disease Chronic kidney disease History of asbestos exposure BPH (benign prostatic hyperplasia) Obesity (BMI 30-39.9) Asthma Hypercholesterolemia Hypertension Insomnia Surgical History H/O colonoscopy History of left hip replacement Family History Father Hypertension Chronic mental illness Mother Hypertension Gastric cancer Asthma Social History Household Members: Spouse Housing: House Do you presently have visiting nurse or other home services: No Alcohol intake: former Patient Tobacco Use Status: Former Tobacco user Tobacco use type: Cigarette e-Cigarette/Vaping Use: Never Used Second Hand Smoke Exposure: No Advance Directives Date on File: 08/03/20 service: Yes Current occupational status: retired Cognitive needs: No Hearing needs: No Vision needs: Yes Physical Exam Vital Signs: Last Vital Signs Pulse 88 05/28/24 09:16 BP 138/80 05/28/24 09:16 Pulse Ox 97 05/28/24 09:16 Oxygen Delivery Method Room Air 05/28/24 09:16 BMI result Body Mass Index 30.7 Const General: comfortable; No acute distress Orientation/consciousness: patient oriented x3 Eyes General: appearance normal, both eyes and all related structures Visual Gonzalez: normal visual gonzalez by confrontation Neck Neck: Yes supple and Yes no JVD Resp Effort & Inspection: normal respiratory effort and respiratory effort not decreased Auscultation: rhonchi Cardio Palpation: no palpable S3 and no palpable S4 Heart sounds: no rubs GI Inspection: Yes normal to inspection Palpation (GI): Soft to palpation Percussion: Yes normal to percussion Auscultation: normal bowel sounds General: Yes no CVA tenderness Back/Spine/Pelvis Back: no CVA tenderness Skin General skin exam: no petechiae and no purpura Neuro General: patient oriented x3 and no focal motor deficits Extrem General: No clubbing and No edema Results Reviewed Nephrology Results: Hgb 14.6 g/dl (14.0-18.0) 05/08/24 WBC 5.3 X10*3/uL (4.8-10.8) 05/08/24 Plt Count 175 X10*3/uL (160-400) 05/08/24 Sodium 142 mmol/L (135-145) 05/08/24 Potassium 4.5 mmol/L (3.3-5.1) 05/08/24 Chloride 107 mmol/L (96-108) 05/08/24 Carbon Dioxide 27 mmol/L (22-29) 05/08/24 BUN 19 mg/dL (9-16) H 05/08/24 Creatinine 1.40 mg/dL (0.5-1.4) 05/08/24 Calcium 9.6 mg/dL (8.4-10.2) 05/08/24 Assessment & Plan Assessment & Plan (1) Chronic kidney disease: Code(s): N18.9 - Chronic kidney disease, unspecified Category: Medical Qualifiers: Chronic kidney disease stage: stage 3 (moderate) Chronic kidney disease stage 3 subtype: stage 3a (GFR 45-59) Qualified Code(s): N18.31 - Chronic kidney disease, stage 3a (2) Asthma: Code(s): J45.909 - Unspecified asthma, uncomplicated Category: Medical Qualifiers: Asthma complication type: uncomplicated Asthma persistence: intermittent Asthma severity: mild Qualified Code(s): J45.20 - Mild intermittent asthma, uncomplicated (3) Chronic heart failure with preserved ejection fraction: Code(s): I50.32 - Chronic diastolic (congestive) heart failure Category: Medical Plan CKD in a setting of HTN h/o NSAID use in the past Cr is stable now Bumped to 1.9 in January 2024 and returned ot baseline BP acceptable Stay on low salt diet Avoid nephrotoxins including NSAIDS Await ablation Orders: Orders Basic Metabolic Panel 6 Months Brandon Williamson MD I50.32 - Chronic diastolic (congestive) heart failure Medications: Changed From metoprolol tartrate 50 mg PO BID 180 tabs 1RF To metoprolol tartrate 50 mg PO TID Pranav Bradford MD Coding Level of Care Code Est Pt Level 4 (64472) Diagnoses Stage 3a chronic kidney disease N18.31 Chronic kidney disease stage: stage 3 (moderate) Chronic kidney disease stage 3 subtype: stage 3a (GFR 45-59) Mild intermittent asthma without complication J45.20 Asthma complication type: uncomplicated Asthma persistence: intermittent Asthma severity: mild Chronic heart failure with preserved ejection fraction I50.32
== END 2024-05-28 09:34 | disposition home or self-care (01) ==
PROVIDERS: PCP Internal Medicine; Visit Provider Internal Medicine Hypertension Specialist
DX: N18.31 Chronic kidney disease, stage 3a (principal); J45.20 Mild intermittent asthma, uncomplicated; I50.32 Chronic diastolic (congestive) heart failure
CPT/HCPCS: 99214

== ENCOUNTER → 2024-05-28 09:10 | Outpatient (BNVA) | payer MEDICARE, SELFPAY | PROVIDERS: PCP Internal Medicine; Visit Provider Internal Medicine Hypertension Specialist | DX: I13.0 Hypertensive heart and chronic kidney disease with heart failure and stage 1 through stage 4 chronic kidney disease, or unspecified chronic kidney disease (principal); I50.32 Chronic diastolic (congestive) heart failure; N18.31 Chronic kidney disease, stage 3a; J45.20 Mild intermittent asthma, uncomplicated | CPT/HCPCS: 99212 ==

== ENCOUNTER 2024-06-17 06:10 | Outpatient (REF) | payer MEDICARE, SELFPAY ==
[2024-06-17 10:45] LABS: Alanine Aminotransferase 46 U/L (0-40); Albumin Level 3.7 g/dL (3.5-5.0); Alkaline Phosphatase 82 U/L (39-117); Anion Gap 10 (12-20); Aspartate Amino Transferase 37 U/L (5-37); Bilirubin Total 0.9 mg/dL (0.0-1.0); Blood Urea Nitrogen 16 mg/dL (9-16); Calcium 9.1 mg/dL (8.4-10.2); Carbon Dioxide 26 mmol/L (22-29); Chloride 112 mmol/L (96-108); Cholesterol 120 mg/dL (<200); Estimated Glomerular Filt Rate > 60; Glucose Random 94 mg/dL (60-115); HDL Cholesterol 50 mg/dL (>40); LDL Cholesterol Calculated 60 mg/dL (<100); Potassium 4.5 mmol/L (3.3-5.1); Sodium 143 mmol/L (135-145); Total Protein 6.7 g/dL (6.5-8.0); Triglycerides 51 mg/dL (<150)
== END 2024-06-17 06:11 | disposition home or self-care (01) ==
LOC: HO.HMGCLDS 06:10
PROVIDERS: PCP Internal Medicine; Visit Provider Internal Medicine
DX: E78.00 Pure hypercholesterolemia, unspecified (principal); I48.0 Paroxysmal atrial fibrillation; I50.32 Chronic diastolic (congestive) heart failure; I48.92 Unspecified atrial flutter; I11.0 Hypertensive heart disease with heart failure; I25.10 Atherosclerotic heart disease of native coronary artery without angina pectoris
CPT/HCPCS: 36415; 80053; 80061; 93005; 99212

== ENCOUNTER 2024-06-17 13:40 | Outpatient (AMB) | payer MEDICARE, SELFPAY ==
[2024-06-17 14:14] VITALS: BP 140/62; PULSE 60; BMI 30.8
--- NOTE | 2024-06-17 14:14 | MHC.OFFVIS ---
Vital Signs 06/17/24 14:14 Height 5 ft 8 in Weight 202 lb 13.204 oz BMI 30.8 BP 140/62 H Blood Pressure Location Lt brachial Position Sitting Pulse 60 Pulse Source Pulse Oximeter Intake Visit Reasons: Follow up Allergies lisinopril Allergy (Unknown, Verified 05/28/24 09:20) Unknown doxepin Adverse Reaction (Intermediate, Verified 05/28/24 09:20) Hallucinations atorvastatin [Lipitor] Adverse Reaction (Unknown, Verified 05/28/24 09:20) Unknown Medication List - Last Reconciled 06/17/24 by Pranav Bradford MD albuterol sulfate 90 mcg/actuation (Ventolin HFA) 2 puffs inhalation Q6H PRN apixaban (Eliquis) 5 mg PO BID 90 days cholecalciferol (vitamin D3) 25 mcg PO DAILY [COVID TESTING KIT As directed] diclofenac sodium 1% (Arthritis Pain (diclofenac)) 4 grams topical QID PRN docusate sodium (Colace) 100 mg PO BID dutasteride 0.5 mg PO DAILY fluticasone propionate 50 mcg/actuation (Flonase Allergy Relief) 2 sprays intranasal DAILY furosemide 40 mg See Protocol PO DAILY 90 days loratadine 10 mg PO DAILY metoprolol tartrate 25 mg PO ONCE montelukast 10 mg PO BEDTIME multivitamin 1 tab PO DAILY rosuvastatin 20 mg PO DAILY tamsulosin 0.4 mg PO DAILY zolpidem 5 mg PO BEDTIME HPI Comments Details: Britton returns for follow-up. He has had atrial flutter with rapid rate requiring cardioversions. He has been on both amiodarone as well as Multaq. He has also had sinus bradycardia while in sinus rhythm. More recently, he was back in atrial flutter with rapid rate and that required EP consultation. He is now status post ablation of atrial flutter/fibrillation. Overall, he states he feels quite good. No new issues. [facility] Medical History Atrial flutter with rapid ventricular response BPPV (benign paroxysmal positional vertigo) Vertigo of central origin Persistent atrial fibrillation Atrial fibrillation, new onset Chronic heart failure with preserved ejection fraction Acute congestive heart failure CHF (congestive heart failure) Asthma exacerbation Dizziness COVID-19 vaccine series completed Avascular necrosis of bone of left hip Atherosclerosis History of renal calculi Peripheral vascular disease Chronic kidney disease History of asbestos exposure BPH (benign prostatic hyperplasia) Obesity (BMI 30-39.9) Asthma Hypercholesterolemia Hypertension Insomnia Surgical History H/O colonoscopy History of left hip replacement Family History Father Hypertension Chronic mental illness Mother Hypertension Gastric cancer Asthma Social History Household Members: Spouse Housing: House Do you presently have visiting nurse or other home services: No Alcohol intake: former Patient Tobacco Use Status: Former Tobacco user Tobacco use type: Cigarette e-Cigarette/Vaping Use: Never Used Second Hand Smoke Exposure: No Advance Directives Date on File: 08/03/20 service: Yes Current occupational status: retired Cognitive needs: No Hearing needs: No Vision needs: Yes Review of Systems Const Denies weakness ENT Denies dizziness Card Denies chest pain, Denies chest pain with activity, Denies syncope, Denies rapid heart rate, Denies pedal edema, Denies edema, Denies leg edema, Denies lightheadedness, Denies palpitations, Denies dyspnea, Denies dyspnea on exertion and Denies orthopnea Resp Denies cough, Denies dyspnea and Denies dyspnea on exertion GI Denies hematochezia and Denies change in stool character Musc Denies abnormal gait, Denies muscle cramps, Denies muscle weakness, Denies numbness, Denies radiating pain into limb and Denies tingling Neuro Denies abnormal gait, Denies dizziness, Denies syncope, Denies numbness, Denies tingling and Denies weakness Endo Denies palpitations Physical Exam Vital Signs: Last Vital Signs Pulse 60 06/17/24 14:14 BP 140/62 H 06/17/24 14:14 BMI result Body Mass Index 30.8 Const General: comfortable and no acute distress Orientation/consciousness: patient oriented x3 HEENT Other: Unremarkable Head: Yes normal to inspection Neck Neck: Yes normal visual inspection Chest Chest palpation & inspection: normal inspection of the chest Resp Auscultation: clear to auscultation bilaterally Cardio Palpation: normal PMI Heart sounds: S1 normal heart sound present, S2 normal heart sound present, no gallops, no murmurs and no rubs GI Palpation (GI): Soft to palpation Back/Spine/Pelvis Other: unremarkable Skin General skin exam: no rashes or lesions noted Neuro General: patient oriented x3 Extrem General: Yes normal to inspection Psych Mental Status: mental status grossly normal Office Procedures EKG Details: EKG with underlying sinus rhythm at 60/Min; no significant ST-T changes; leftward axis; [place]. [id number], Complete Assessment & Plan Assessment & Plan (1) Atrial flutter: Code(s): I48.92 - Unspecified atrial flutter Category: Medical Plan: Status post ablation of atrial fibrillation as well as left atrial flutter. Off antiarrhythmics. He is on a lower dose of metoprolol. Can change to sustained release preparation. Continue anticoagulation. Holter in a few months. (2) Chronic heart failure with preserved ejection fraction: Code(s): I50.32 - Chronic diastolic (congestive) heart failure Category: Medical Plan: Stable. No changes. (3) Hypertension: Code(s): I10 - Essential (primary) hypertension Category: Medical Qualifiers: Hypertension type: essential hypertension Qualified Code(s): I10 - Essential (primary) hypertension Plan: Resume amlodipine. (4) Atherosclerotic cardiovascular disease: Code(s): I25.10 - Atherosclerotic heart disease of [place] coronary artery without angina pectoris Category: Medical Plan: Pulmonary vein CT reports coronary artery calcification but myocardial perfusion imaging study shows likely normal perfusion. Clinically no angina. Continue statins. Orders: Orders ECG 3 day holter monitor 6 Months I48.0 - Paroxysmal atrial fibrillation Medications: New metoprolol succinate ER (Toprol XL) 25 mg PO DAILY 90 tabs 3RF amlodipine 2.5 mg PO DAILY 90 tabs 3RF Coding Level of Care Code Est Pt Level 4 (24705) Diagnoses Atrial flutter I48.92 Chronic heart failure with preserved ejection fraction I50.32 Essential hypertension I10 Hypertension type: essential hypertension Atherosclerotic cardiovascular disease I25.10 CPT Codes EKG - CPT: 17448-[id number], Complete ([id number])
== END 2024-06-17 14:43 | disposition home or self-care (01) ==
PROVIDERS: PCP Internal Medicine; Visit Provider Internal Medicine
DX: I48.92 Unspecified atrial flutter (principal); I50.32 Chronic diastolic (congestive) heart failure; I10 Essential (primary) hypertension; I25.10 Atherosclerotic heart disease of native coronary artery without angina pectoris
CPT/HCPCS: 93010; 99214

== ENCOUNTER 2024-06-27 10:44 | Outpatient (AMB) | payer MEDICARE, SELFPAY ==
[2024-06-27 11:10] VITALS: BP 142/70; PULSE 62; O2SAT 97; BMI 30.6
--- NOTE | 2024-06-27 11:10 | MHC.PC.OV ---
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 Patient's colonoscopy is up-to-date 2021. Review of the notes has seen Cardiology June 17 for the atrial fill flutter fibrillation requiring cardioversions on amiodarone as well as Multaq status post ablation on metoprolol now and amlodipine myocardial perfusion normal advised Holter. 06/01/[address] heart had the pulmonary veins evaluated. June 04 had the ablation under successful catheter ablation atrial fibrillation by pulmonary vein isolation and isolation of the posterior left atrial wall with atypical micro and trunk left atrial flutter along the anterior atrial septum. Patient has also seen Nephrology May 28 chronic kidney disease stage 3 a stay on low-salt diet avoid nephrotoxin. BP change was just done 06/17- so will monitorthe BP for the moment [facility] Medical History Atrial flutter with rapid ventricular response BPPV (benign paroxysmal positional vertigo) Vertigo of central origin Persistent atrial fibrillation Atrial fibrillation, new onset Chronic heart failure with preserved ejection fraction Acute congestive heart failure CHF (congestive heart failure) Asthma exacerbation Dizziness COVID-19 vaccine series completed Avascular necrosis of bone of left hip Atherosclerosis History of renal calculi Peripheral vascular disease Chronic kidney disease History of asbestos exposure BPH (benign prostatic hyperplasia) Obesity (BMI 30-39.9) Asthma Hypercholesterolemia Hypertension Insomnia Surgical History H/O colonoscopy History of left hip replacement Family History Father Hypertension Chronic mental illness Mother Hypertension Gastric cancer Asthma Social History Household Members: Spouse Housing: House Do you presently have visiting nurse or other home services: No Alcohol intake: former Patient Tobacco Use Status: Former Tobacco user Tobacco use type: Cigarette e-Cigarette/Vaping Use: Never Used Second Hand Smoke Exposure: No Advance Directives Date on File: 08/03/20 service: Yes Current occupational status: retired Cognitive needs: No Hearing needs: No Vision needs: Yes Questionnaire Thrive Questionnaire Date Thrive assessed: 01/25/24 Are you currently unemployed and looking for a job?: No AUDIT C Alcohol Use Questionnaire (AUDIT-C) 1. How often do you have a drink containing alcohol?: Never 2. How many drinks containing alcohol do you have on a typical day when you are drinking?: 1 or 2 3. How often do you have six or more drinks on one occasion?: Never Total Score: 0 BETSY-7 AMB Questionnaire BETSY-7 Date BETSY - 7 assessed: 10/26/23 Source: Developed by Drs. Mahesh Angeles, [place], Ever Valle and colleagues, with an educational danielle from [employer]. Physical exam (Primary Care) Vital Signs: Last Vital Signs Pulse 62 06/27/24 11:10 BP 142/70 H 06/27/24 11:10 Pulse Ox 97 06/27/24 11:10 Oxygen Delivery Method Room Air 06/27/24 11:10 BMI result Body Mass Index 30.6 Tobacco/Smoking Status: Tobacco use Status Tobacco use date assessed 02/06/24 06/27/24 11:18 Patient Tobacco Use Status Former Tobacco user 06/27/24 11:18 Tobacco use type Cigarette 06/27/24 11:18 e-Cigarette/Vaping Use Never Used 06/27/24 11:18 Thrive Assessment: Date of Thrive Assessment Date Thrive assessed 01/25/24 06/27/24 11:18 Const General: alert; No acute distress Eyes Conjunctivae: conjunctivae normal Resp Auscultation: clear to auscultation bilaterally Cardio Rate: regular rate Rhythm: regular rhythm GI Inspection: Yes normal to inspection Extrem General: Yes normal to inspection and No edema Coding Level of Care Code Est Pt Level 4 (07072) Diagnoses PAF (paroxysmal atrial fibrillation) I48.0 Atherosclerotic cardiovascular disease I25.10 Stage 3a chronic kidney disease N18.31 Chronic kidney disease stage: stage 3 (moderate) Chronic kidney disease stage 3 subtype: stage 3a (GFR 45-59) Essential hypertension I10 Hypertension type: essential hypertension Hypercholesterolemia E78.00 Obesity (BMI 30-39.9) E66.9 Assessment & Plan Assessment & Plan (1) PAF (paroxysmal atrial fibrillation): Comment: Ablation April 2024 Code(s): I48.0 - Paroxysmal atrial fibrillation Category: Medical Plan: Patient is status post ablation under cardiology continuing with metoprolol and anticoagulation. (2) Atherosclerotic cardiovascular disease: Code(s): I25.10 - Atherosclerotic heart disease of [place] coronary artery without angina pectoris Category: Medical Plan: Control the cholesterol, weight, blood pressure, diabetes has the rosuvastatin 20 mg once a day. (3) Chronic kidney disease: Code(s): N18.9 - Chronic kidney disease, unspecified Category: Medical Qualifiers: Chronic kidney disease stage: stage 3 (moderate) Chronic kidney disease stage 3 subtype: stage 3a (GFR 45-59) Qualified Code(s): N18.31 - Chronic kidney disease, stage 3a Plan: Keep well hydrated avoid NSAIDs. Keep the blood pressure under control. (4) Hypertension: Code(s): I10 - Essential (primary) hypertension Category: Medical Qualifiers: Hypertension type: essential hypertension Qualified Code(s): I10 - Essential (primary) hypertension Plan: Continue with blood pressure medication. Decrease salt intake and exercise metoprolol 25 mg once a day and amlodipine 2.5 mg once a day (5) Hypercholesterolemia: Code(s): E78.00 - Pure hypercholesterolemia, unspecified Category: Medical Plan: Avoid fried foods, chicken skin, eggs, butter margarine, pastries and meat. Be it pork or beef they have a lot of cholesterol LDL goal of less than 70 and triglyceride of less than 150 on rosuvastatin (6) Obesity (BMI 30-39.9): Code(s): E66.9 - Obesity, unspecified Category: Medical Plan: Diet and exercise
== END 2024-06-27 11:49 | disposition home or self-care (01) ==
PROVIDERS: PCP Internal Medicine; Visit Provider Internal Medicine
DX: I12.9 Hypertensive chronic kidney disease with stage 1 through stage 4 chronic kidney disease, or unspecified chronic kidney disease (principal); N18.31 Chronic kidney disease, stage 3a; I48.0 Paroxysmal atrial fibrillation; E66.811 Obesity, class 1; Z68.30 Body mass index [BMI] 30.0-30.9, adult; I25.10 Atherosclerotic heart disease of native coronary artery without angina pectoris; E78.00 Pure hypercholesterolemia, unspecified

== ENCOUNTER → 2024-06-27 10:44 | Outpatient (BNVA) | payer MEDICARE, SELFPAY | PROVIDERS: PCP Internal Medicine; Visit Provider Internal Medicine | DX: I48.0 Paroxysmal atrial fibrillation (principal); I25.10 Atherosclerotic heart disease of native coronary artery without angina pectoris; I12.9 Hypertensive chronic kidney disease with stage 1 through stage 4 chronic kidney disease, or unspecified chronic kidney disease; N18.31 Chronic kidney disease, stage 3a; E78.00 Pure hypercholesterolemia, unspecified; E66.9 Obesity, unspecified | CPT/HCPCS: 99212 ==

== ENCOUNTER 2024-07-15 09:20 | Outpatient (REF) | payer MEDICARE, SELFPAY ==
--- NOTE | ~2024-07-15 | XR_ITS ---
EXAMINATION: XR FOOT, LEFT CLINICAL INFORMATION: Left foot pain. COMPARISON: None available. TECHNIQUE: AP, lateral, and oblique views of the left foot. FINDINGS: No acute fracture or dislocation. Joint space narrowing with small marginal osteophytes at the tarsometatarsal joints. Additional joint space narrowing at the second proximal interphalangeal joints. There appear to be periarticular and subchondral erosions with mild soft tissue swelling. No adjacent soft tissue calcifications. Findings could represent an inflammatory arthropathy such as gout arthritis versus chronic osteoarthritis. Mild joint space narrowing with tiny marginal osteophytes at the first metatarsophalangeal joint and hallux sesamoids. Soft tissue swelling overlying the fifth metatarsophalangeal joint without abnormal soft tissue calcification or radiopaque foreign body. Atherosclerotic calcifications. XR/XR foot LT min 3V IMPRESSION: 1. Soft tissue swelling overlying the fifth metatarsophalangeal joint without abnormal soft tissue calcification or radiopaque foreign body. 2. [id number] degenerative arthritis at the tarsometatarsal joints as well as at the second proximal interphalangeal joint. Findings could represent an inflammatory arthropathy such as gout arthritis versus chronic osteoarthritis. 3. Mild degenerative arthritis at the first metatarsophalangeal joint and hallux sesamoids. Electronically signed by: Emil Sharma MD 07/15/2024 11:35 AM SHAHID
== END 2024-07-15 09:21 | disposition home or self-care (01) ==
LOC: HO.HMGCX 09:20
PROVIDERS: PCP Internal Medicine; Visit Provider Registered Nurse
DX: M79.673 Pain in unspecified foot (principal)
CPT/HCPCS: 73630; 99212

== ENCOUNTER 2024-07-15 09:20 | Outpatient (AMB) | payer MEDICARE, SELFPAY ==
--- NOTE | 2024-07-15 09:44 | AM.OFFWIN_ITS ---
Intake Vital Signs 07/15/24 09:48 Height 5 ft 8 in Weight 201 lb BMI 30.6 BP 138/70 Blood Pressure Location Rt brachial Position Sitting Pulse 80 Pulse Source Pulse Oximeter Pulse Oximetry (%) 98 Intake Visit Reasons: EP Bump on LT foot under small toenail Intake Note: pt is here for bump on side of foot near pinky toe Patient Tobacco Use Status: Former Tobacco user Allergies lisinopril Allergy (Unknown, Verified 07/15/24 09:49) Unknown doxepin Adverse Reaction (Intermediate, Verified 07/15/24 09:49) Hallucinations atorvastatin [Lipitor] Adverse Reaction (Unknown, Verified 07/15/24 09:49) Unknown Do you need a note to return to daycare/school/sports/work: No HPI EP Bump on LT foot under small toenail HPI Details This note is constructed using voice recognition software. While every effort has been made to ensure accuracy, food assembler commissary kitchen errors may have been included. The patient is a 74 year old male who presents to the clinic today with left foot pain after stepping on some glass from a light bulb several days ago. He reports the pain is beneath his left 5th toe. He does not recall bleeding or having any loss of skin integrity. He reports a longstanding history of arthritis in his feet. He has not had any other injury, or pain to the area and no previous surgery. [facility] Medical History Atrial flutter with rapid ventricular response BPPV (benign paroxysmal positional vertigo) Vertigo of central origin Persistent atrial fibrillation Atrial fibrillation, new onset Chronic heart failure with preserved ejection fraction Acute congestive heart failure CHF (congestive heart failure) Asthma exacerbation Dizziness COVID-19 vaccine series completed Avascular necrosis of bone of left hip Atherosclerosis History of renal calculi Peripheral vascular disease Chronic kidney disease History of asbestos exposure BPH (benign prostatic hyperplasia) Obesity (BMI 30-39.9) Asthma Hypercholesterolemia Hypertension Insomnia Surgical History H/O colonoscopy History of left hip replacement Family History Father Hypertension Chronic mental illness Mother Hypertension Gastric cancer Asthma Social History Household Members: Spouse Housing: House Do you presently have visiting nurse or other home services: No Alcohol intake: former Patient Tobacco Use Status: Former Tobacco user Tobacco use type: Cigarette e-Cigarette/Vaping Use: Never Used Second Hand Smoke Exposure: No Advance Directives Date on File: 08/03/20 service: Yes Current occupational status: retired Cognitive needs: No Hearing needs: No Vision needs: Yes Review of Systems Const All systems reviewed & are unremarkable except as noted in HPI and below Physical Exam Vital Signs: Last Vital Signs Pulse 80 07/15/24 09:48 BP 138/70 07/15/24 09:48 Pulse Ox 98 07/15/24 09:48 BMI result Body Mass Index 30.6 Const General: cooperative, healthy appearing, comfortable, no acute distress and well developed Orientation/consciousness: patient oriented x3 Limitations: no limitations Resp Effort & Inspection: normal respiratory effort and able to speak in complete sentences Skin General skin exam: no rashes or lesions noted Neuro General: patient oriented x3 Extrem Other: Obvious deformity from arthritis, with medial shifting toes, as well as thickened joints in foot throughout. No alteration in skin integrity, no obvious calluses or lesions to the area. Skin remains largely intact, no erythema or warmth. General: Yes normal to inspection Assessment & Plan Assessment & Plan (1) Left foot pain: Code(s): M79.672 - Pain in left foot Plan: X-ray ordered to rule out foreign body, which did not appear to be present. Incidentally it appears that he has fracture in his left 2nd toe, which he has no pain in the area. We discussed potential treatment options including immobilizer boot, versus bulmaro tape, which he elected to have bulmaro tape. Advised patient to try a Tylenol, topical arthritis cream which he has. Advised patient to follow up with primary care should he have any pain in his toe or any difficulty with ambulation following identity of fracture. Declined referral need to Orthopedics at this time. Plan See above for full details and plan. Orders: Orders XR foot LT min 3V Today M79.673 - Pain in unspecified foot Coding Level of Care Code Est Pt Level 4 (49353) Diagnoses Left foot pain M79.672
[2024-07-15 09:48] VITALS: BP 138/70; PULSE 80; O2SAT 98; BMI 30.6
== END 2024-07-15 11:00 | disposition home or self-care (01) ==
PROVIDERS: PCP Internal Medicine; Visit Provider Registered Nurse
DX: M79.672 Pain in left foot (principal)

== ENCOUNTER 2024-09-14 22:23 | Emergency (ER) | payer MEDICARE, SELFPAY ==
[2024-09-14 22:25] VITALS: BP 164/59; PULSE 79; RESP 16; TEMP 36.8; O2SAT 98; BMI 29.6
--- NOTE | 2024-09-14 22:31 | PC.NURSE ---
Able to visualize clear/white rubber-like hearing aid tip in right ear with otoscope. Patient has full hearing aid in place without obstruction to left ear.
[2024-09-15 01:00] VITALS: BP 138/46; PULSE 66; RESP 16; TEMP 36.4; O2SAT 98
--- NOTE | 2024-09-15 01:19 | ED.GENADULT ---
HPI - General Adult General Chief complaint: Skin/Abscess/Foreign Body Stated complaint: object stuck right ear Time Seen by Provider: 09/15/24 01:09 Source: patient, RN notes reviewed and old records reviewed Mode of arrival: ambulatory Limitations: no limitations History of Present Illness ED Provider: Thom HPI narrative: 74-year-old male who wears hearing aids presenting today because of the tip of his right hearing aid became stuck in his right ear when he took it out. Patient immediately presented to the ED after he was unable to remove it at home. Denies hearing changes and right ear pain. Patient states this is the 2nd time this has happened. Related Data Home Medications ?Medication ?Instructions ?Recorded ?Confirmed cholecalciferol (vitamin D3) 25 25 mcg PO DAILY 08/14/20 06/17/24 mcg (1,000 unit) capsule docusate sodium 100 mg capsule 100 mg PO BID 08/14/20 05/28/24 (Colace) loratadine 10 mg tablet 10 mg PO DAILY 10/26/23 06/17/24 albuterol sulfate 90 mcg/actuation 2 puff inhalation Q6H PRN 01/25/24 06/17/24 aerosol inhaler (Ventolin HFA) shortness of breath or wheezing diclofenac sodium 1 % topical gel 4 g topical QID PRN Pain 01/25/24 06/17/24 (Arthritis Pain (diclofenac)) multivitamin 1 tab PO DAILY 01/25/24 06/17/24 Previous Rx's ?Medication ?Instructions ?Recorded montelukast 10 mg tablet 10 mg PO BEDTIME #90 tabs 11/15/23 tamsulosin 0.4 mg capsule 0.4 mg PO DAILY #90 caps 01/22/24 fluticasone propionate 50 2 spray intranasal DAILY #16 grams 04/16/24 mcg/actuation nasal spray,suspension (Flonase Allergy Relief) COVID TESTING KIT #4 ea 04/24/24 apixaban 5 mg tablet (Eliquis) 5 mg PO BID 90 days #180 tabs 05/19/24 furosemide 40 mg tablet 40 mg PO DAILY 90 days #90 tabs 05/19/24 metoprolol succinate 25 mg 25 mg PO DAILY #90 tabs 06/17/24 tablet,extended release 24 hr (Toprol XL) dutasteride 0.5 mg capsule 0.5 mg PO DAILY #90 caps 07/17/24 amlodipine 5 mg tablet 5 mg PO DAILY #90 tabs 07/24/24 rosuvastatin 20 mg tablet 20 mg PO DAILY #90 tabs 08/17/24 trazodone 50 mg tablet 50 mg PO BEDTIME PRN sleep #90 tabs 08/19/24 Allergies Allergy/AdvReac Type Severity Reaction Status Date / Time lisinopril Allergy Unknown Unknown Verified 09/14/24 22:26 doxepin AdvReac Intermediate Hallucinati Verified 09/14/24 22:26 ons atorvastatin [Lipitor] AdvReac Unknown Unknown Verified 09/14/24 22:26 Review of Systems Constitutional: Constitutional: Reports as per HPI ENT: Denies ear discharge, Denies otalgia and Denies hearing loss Comments: Foreign body in right ear [facility] Past Medical History Medical History Atrial flutter with rapid ventricular response BPPV (benign paroxysmal positional vertigo) Vertigo of central origin Persistent atrial fibrillation Atrial fibrillation, new onset Chronic heart failure with preserved ejection fraction Acute congestive heart failure CHF (congestive heart failure) Asthma exacerbation Dizziness COVID-19 vaccine series completed Avascular necrosis of bone of left hip Atherosclerosis History of renal calculi Peripheral vascular disease Chronic kidney disease History of asbestos exposure BPH (benign prostatic hyperplasia) Obesity (BMI 30-39.9) Asthma Hypercholesterolemia Hypertension Insomnia Surgical History H/O colonoscopy History of left hip replacement Family History Family History Father Hypertension Chronic mental illness Mother Hypertension Gastric cancer Asthma Social History Social History Household Members: Spouse Housing: House Do you presently have visiting nurse or other home services: No Alcohol intake: former Patient Tobacco Use Status: Former Tobacco user Tobacco use type: Cigarette e-Cigarette/Vaping Use: Never Used Second Hand Smoke Exposure: No Advance Directives: Yes Advance Directives on File: Yes Advance Directives Date on File: 08/03/20 service: Yes Current occupational status: retired Cognitive needs: No Hearing needs: No Vision needs: Yes Physical Exam ED Vital Signs: Vital Signs - 24 hr 09/14/24 22:25 09/15/24 01:00 Temperature 98.3 F 97.5 F Pulse Rate 79 66 Respiratory Rate 16 16 Blood Pressure 164/59 H 138/46 L Pulse Oximetry 98 98 Oxygen Delivery Method Room Air Room Air BMI result Body Mass Index 29.6 Const General: cooperative, healthy appearing, comfortable and no acute distress Orientation/consciousness: patient oriented x3 HENMT Other: Right ear: External ear without deformities, clear piece of plastic/silicone visualized in the external ear canal. Unable to visualize tympanic membrane. After extraction of object, tympanic membrane visualized without abnormalities. Left ear: External ear and external ear canal without deformities, tympanic membrane visualized without abnormalities. Neuro General: patient oriented x3 Medical Decision Making Medical Decision Making MDM Narrative: 74-year-old male presents after getting the tip of his hearing aid stuck in his right ear. Visualized with his eyes otoscope and removed with forceps without difficulty. After removal, external ear canal is clear, tympanic membrane appears normal. Differential Diagnosis Differential Diagnoses: The differential diagnosis associated with the presentation includes Foreign body in right ear Acute otitis media Otitis externa Mass in the external ear canal Discharge Plan Discharge Clinical Impression: Acute foreign body of right ear Patient Disposition: Home, Self-Care Instructions: Ear Foreign Body (ED) Prescriptions: No Action montelukast 10 mg tablet 10 mg PO BEDTIME Qty: 90 3RF tamsulosin 0.4 mg capsule 0.4 mg PO DAILY Qty: 90 2RF fluticasone propionate [Flonase Allergy Relief] 50 mcg/actuation spray,suspension 2 spray intranasal DAILY Qty: 16 4RF Rx Instructions: administer into each nostril (DME) COVID TESTING KIT See Rx Instructions .Route .MEDSUPPLY Qty: 4 0RF Rx Instructions: As directed furosemide 40 mg tablet 40 mg PO DAILY 90 Days Qty: 90 2RF Protocol: Hold for SBP< HOLD for SBP < : 90 Eliquis 5 mg tablet 5 mg PO BID 90 Days Qty: 180 3RF dutasteride 0.5 mg capsule 0.5 mg PO DAILY Qty: 90 2RF amlodipine 5 mg tablet 5 mg PO DAILY Qty: 90 3RF rosuvastatin 20 mg tablet 20 mg PO DAILY Qty: 90 1RF trazodone 50 mg tablet 50 mg PO BEDTIME PRN (Reason: sleep) Qty: 90 1RF diclofenac sodium [Arthritis Pain (diclofenac)] 1 % gel 4 g topical QID PRN (Reason: Pain) Rx Instructions: apply to single knee, ankle, foot; for foot includes sole/toes/top of foot multivitamin Tablet 1 tab PO DAILY albuterol sulfate [Ventolin HFA] 90 mcg/actuation HFA aerosol inhaler 2 puff inhalation Q6H PRN (Reason: shortness of breath or wheezing) cholecalciferol (vitamin D3) 25 mcg (1,000 unit) capsule 25 mcg PO DAILY docusate sodium [Colace] 100 mg capsule 100 mg PO BID loratadine 10 mg tablet 10 mg PO DAILY metoprolol succinate [Toprol XL] 25 mg tablet extended release 24 hr 25 mg PO DAILY Qty: 90 3RF Print Language: Lebanese
--- NOTE | 2024-09-15 01:21 | PC.NURSE ---
pt left without occupational safety specialist and papers at this time.
[2024-09-15 02:45] VITALS: BP 138/46; PULSE 66; RESP 16; TEMP 36.4; O2SAT 98
== END 2024-09-15 02:45 | disposition home or self-care (01) ==
PROVIDERS: Emergency Provider Emergency Medicine; PCP Internal Medicine
DX: T16.1XXA Foreign body in right ear, initial encounter (principal); H92.01 Otalgia, right ear; W44.G1XA Audio device entering into or through a natural orifice, initial encounter; Y93.89 Activity, other specified; Y92.89 Other specified places as the place of occurrence of the external cause; Y99.8 Other external cause status; Z79.899 Other long term (current) drug therapy; Z87.891 Personal history of nicotine dependence
CPT/HCPCS: 69200; 99283; 99284

== ENCOUNTER → 2024-10-18 11:10 | Outpatient (BNVA) | payer MEDICARE, SELFPAY | PROVIDERS: PCP Internal Medicine; Visit Provider Internal Medicine | DX: J45.20 Mild intermittent asthma, uncomplicated (principal); I12.9 Hypertensive chronic kidney disease with stage 1 through stage 4 chronic kidney disease, or unspecified chronic kidney disease; N18.31 Chronic kidney disease, stage 3a; E78.00 Pure hypercholesterolemia, unspecified; E66.9 Obesity, unspecified; N40.1 Benign prostatic hyperplasia with lower urinary tract symptoms; R35.0 Frequency of micturition; I48.0 Paroxysmal atrial fibrillation; I25.10 Atherosclerotic heart disease of native coronary artery without angina pectoris | CPT/HCPCS: 99212 ==

== ENCOUNTER 2024-11-13 13:12 | Outpatient (REF) | payer MEDICARE, SELFPAY ==
--- OUTSIDE RECORDS SUMMARY | 2024-11-13 15:46 | XMS_ITS | Data Portability ---
Author Organization [facility], [address] Address [address] [place] [address] Care Team Providers Care Perinatology Physician Name Role Phone [facility] Primary Care Provider Assessment No assessment recorded. Plan of Treatment Reminders Order Date Submit Date Provider Last Modified By Organization Details Last Modified Time Details Appointments None record ed. Lab None record ed. Referral None record ed. Procedures None record ed. Surgeries None record ed. Imaging XR, should er, 2 or more view 023 12/04/19 [id number], [address] [place], [address], 11:25:33 Medication Orders None record ed. Patient TargetsNo targets recorded. Patient Instructions Encounter Date Encounter Id Patient Instructions Last Modified By Organization Details Last Modified Time 12/03/2022 [id number] shoulder pain: care instructions [email or web address] Not available 12/03/2022 09:17:21 Reason for Referral None Reported. Results Created Date Observation Date Name Description Value Unit Range Abnormal Flag Note LastModifiedBy Organization Detail LastModifiedTime 12/04/1912/03/2022 XR, shoul bailee, 2 or more view No observ ation record ed. [email or web address] [facility] [address] [place], [address], 12/03/2022 11:30:22 Result Notes None recorded. Problems Name Problem SNOMED Code Status Onset Date Resolution Date Notes Provider Name and Address Organization Details Recorded Time Hypertensive disorder 21362927 Active 2022 [facility] 08:58:41 Hypercholester olemia 02184940 Active 2022 JOSR GILES null, PA - [facility] 3 08:58:49 Atrial fibrillation 02926935 Active 2022 JOSR WORTHYICA null, PA - [facility] 3 08:59:09 Benign prostatic hyperplasia 731987043 Active 2022 JOSR GILES null, PA - [facility] 3 08:59:40 Asthma 736705249 Active 2022 JOSR WORTHYICA null, PA - [facility] 3 09:00:05 Chronic kidney disease 825025403 Active 2022 JOSR WORTHYICA null, PA - [facility] 3 09:00:23 Problem Notes None recorded. Procedures Surgical History Date Name Laterality Status Provider Name and Address Organization Details Recorded Time total replacement of hip completed JOSR GILES PA - [facility] 12/03/2022 09:02:40 Imaging Results Imaging Date Name Status LastModified by Organiz ation Details LastModified Time 12/03/2022 XR, shoulder, 2 or more view completed [facility] [address] [place], [address], 12/03/2022 11:30:22 Procedure Notes None recorded. Medical Equipment None Reported. Allergies Allergen ID Allergen Name Allergen Category Reaction Reaction Severity Criticality Documentation Date Start Date Code Code System Note Provider Name and Address Organization Details Recorded Time Lipitor medicatio n cough Not available Not available 12/03/2022 58113 5 RxNorm JOSR GILES null, PA - [facility] 3 08:53:56 Medications Name Sig Start Date Stop Date Status Note LastModified by Organization Details LastModified Time Colace 100 mg capsule Take 1 capsule every day by oral route. active Not Available Not Available No t Available pravastatin 40 mg tablet Take 1 tablet every day by oral route. active Not Available Not Available No t Available valsartan 80 mg tablet Take 1 tablet every day by oral route. active Not Available Not Available No t Available amiodarone 400 mg tablet Take 1 tablet twice a day by oral route. active Not Available Not Available No t Available tamsulosin 0.4 mg capsule Take 1 capsule every day by oral route. active Not Available Not Available No t Available montelukast 10 mg tablet Take 1 tablet every day by oral route. active Not Available Not Available No t Available furosemide 20 mg tablet Take 2 tablets every day by oral route. active Not Available Not Available No t Available dutasteride 0.5 mg capsule Take 1 capsule every day by oral route. active Not Available Not Available No t Available amlodipine 2.5 mg daily active Not Available Not Available No t Available Vitamin D3 active Not Available Not Av ailable Not Available Eliquis 5 mg tablet Take 1 tablet twice a day by oral route. active Not Available Not Available No t Available Allergy Relief (fluticasone ) 50 mcg/actuatio n nasal spray,suspen heri [place] 1 spray every day by intranasal route. active Not Available Not Available No t Available metoprolol succinate ER 50 mg capsule sprinkle, ext. release 24 hr Take 1 capsule every day by oral route. active Not Available Not Available No t Available albuterol sulf 90 mcg/actuatio n breath activated powder inhaler,sens or Inhale 2 puffs every 4 hours by inhalation route. active Not Available Not Available No t Available Arthritis Pain (diclofenac) 1 % topical gel APPLY 2 GRAMS TO THE AFFECTED AREA(S) BY TOPICAL ROUTE 4 TIMES PER DAY active Not Available Not Available No t Available Vitals Date Recorded Body height Body mass index (BMI) Body weight Body temperature Oxygen saturation Oxygen saturation in Arterial blood by Pulse oximetry Respiratory rate Heart rate Systolic blood pressure Diastolic blood pressure Provider Name and Address Organization Details Last Updated DateTime 3 172.72 cm 31.2 kg/m2 47463.4 4 g 97 [degF] 97 % 97 % 14 /min 43 /min 104 mm[Hg] 68 mm[Hg] JOSR GILES PA - [facility] 3 09:04:15 Social History Question Answer Notes LastModified by Organizat ion Details LastModified Time Tobacco Smoking Status Former Smoker JOSR perkins, PA - [facility] 12/03/2022 09:01:35 What Is Your Level Of Alcohol Consumption? None [email or web address] Information not available 12/03/2022 When Did You Quit Smoking? 16+yearssin celastcigracie ette [email or web address] Information not available 12/03/2022 Do You Use Any Illicit Or Recreational Drugs? No [email or web address] Information not available 12/03/2022 Have You Recently Traveled Abroad? No [email or web address] Information not available 12/03/2022 Do You Or Have You Ever Used Any Other Forms Of Tobacco Or Nicotine? No [email or web address] Information not available 12/03/2022 Sex: Unknown Functional Status None recorded. Mental Status None recorded. Family History Relationship Description Onset Age of this Age Resolved Age Notes LastModified by Organization Details LastModified Time Father Hypertensive disorder [email or web address] Not available 2022 09:00:58 Mother Hypertensive disorder [email or web address] Not available 2022 09:00:58 Mother Malignant tumor of stomach [email or web address] Not available 2022 09:01:07 Medical History No medical history recorded. Past Encounters Encounter ID Performer Location Encounter Start Date Encounter Closed Date Diagnosis/Indication Diagnosis SNOMED-CT Code Diagnosis ICD10 Code Diagnosis Note [id number] [address] [address] 02/26/2021 19:32:23 02/26/2021 19:59:58 [id number] [place] [address] [address] 12/03/2022 08:12:29 12/03/2022 09:44:42 Pain of right shoulder joint 9949938084 3117945 M25.511 XRay c/w arthritisd /w him symptomati c caretopica l analgesiat ylenol prn He has a f/u with his PCP on January 10 and will consider Ortho evaluation - he would like to d/w his PCP Health Concerns Section Related Observation LastModified by Organization Detai ls LastModified Time None Recorded Concern Status LastModified by Organization Details LastModified Time None Recorded Advance Directives Directive None Recorded Payers Encounter Date Sequence Insurance Name Policy Number Policy Musa Covered Member ID Musa Member ID Guarantor Name 02/26/2021 1 [facility]MEDICARE [place]PLACEMENT PPO) [id number] Britton Long [id number] Britton Long 02/26/2021 1 [place] [employer] [place] Britton Long [id number] 2 Edjohn Long 12/03/2022 1 [place] [facility] GOVERNMENT SERVICES Britton Long [id number] 2 Edjohn Long 12/03/2022 2 [place] [id number] Britton Long [id number] Notes Date Note Type Note Provider Name and Address Organization Details Recorded Time 12/03/2022 text/html Shoulder UCReported bypatient.Notes:[age] yo male c/o L shoulder pain Vipul Luevano, DO [address] [place], [address], [place] - [facility] 12/03/2022 09:35:55
--- OUTSIDE RECORDS SUMMARY | 2024-11-13 15:46 | XMS_ITS | Clinical Summary ---
Author Organization [facility] Address [address] [place] [address] Phone Care Team Providers Care Director Title Name Role Phone Espinoza Polanco MD Primary Care Provider [phone] Allergies Active Allergy Reactions Criticality Noted Date Comments Lisinopril Other (see comments) 03/30/2021 Medications Multiple Vitamins-Minera ls (CENTRUM SILVER PO) Take 1 tablet by mouth 1 (one) time each day Active dutasteride (AVODART) 0.5 MG capsule Take 1 capsule by mouth 1 (one) time each day Active metoprolol succinate XL (TOPROL XL) 25 MG 24 hr tablet Take 1 tablet by mouth 1 (one) time each day Active montelukast (SINGULAIR) 10 MG tablet Take 1 tablet by mouth 1 (one) time each day Active pravastatin (PRAVACHOL) 20 MG tablet Take 40 mg by mouth 1 (one) time each day Active tamsulosin (FLOMAX) 0.4 MG 24 hr capsule Take 1 capsule by mouth 1 (one) time each day Active amLODIPine (NORVASC) 5 MG tablet Take 5 mg by mouth 1 (one) time each day 2 Active Diclofenac Sodium 1 % gel Apply topically Active albuterol HFA (PROVENTIL HFA;VENTOLIN HFA) 108 (90 Base) MCG/ACT inhaler Inhale 2 puffs every 6 (six) hours if needed for wheezing Active docusate sodium (COLACE) 100 MG capsule Take 100 mg by mouth in the morning and 100 mg in the evening. Active apixaban (Eliquis) 5 MG tablet Take 5 mg by mouth in the morning and 5 mg in the evening. Active furosemide (LASIX) 40 MG tablet Take 40 mg by mouth in the morning and 40 mg in the evening. Active valsartan (DIOVAN) 80 MG tablet Take 80 mg by mouth 1 (one) time each day Active Active Problems Problem Noted Date Diagnosed Date Chronic kidney disease stage 3 03/30/2021 Hypertensive heart and renal disease with (congestive) heart failure 03/30/2021 Immunizations Name Administration Dates Next Due Pneumococcal Conjugate 13-Valent 09/29/2016 Family History Medical History Relation Comments Hypertension Father Cancer Mother stomach Hypertension Mother Relation Status Comments Father Mother Social History Tobacco Use Types Packs/Day Years Used Date Smoking Tobacco: Former Cigarettes 0 09/11/1963 - 09/11/2003 Smokeless Tobacco: Never Tobacco Cessation:Counseling Given: Not Answered Sex and Gender Information Value Date Recorded Sex Assigned at Not on file Legal Sex Male 4:44 PM EST Gender Identity Not on file Sexual Orientation Not on file Last Filed Vital Signs Vital Sign Reading Time Taken Comments Blood Pressure 142/72 06/01/2023 2:07 PM EDT Pulse 50 06/01/2023 2:07 PM EDT Temperature - - Respiratory Rate - - Oxygen Saturation 98% 06/01/2023 2:07 PM EDT Inhaled Oxygen Concentration - - Weight 95 kg (209 lb 6.4 oz) 06/01/2023 2:07 PM EDT Height 172.7 cm (5' 8 ) 06/01/2023 2:07 PM EDT Body Mass Index 31.84 06/01/2023 2:07 PM EDT Plan of Treatment Health Maintenance Due Date Last Done Comments Pneumococcal Vaccine: 65+ Ye ars (2 of 2 - PPSV23 or PCV20) 11/24/2016 09/29/2016 Influenza Vaccine (#1) 2024 Hepatitis B Vaccine Aged Out No longe r eligible based on patient's age to complete this topic Insurance [facility] MEDICARE MEDICARE Care Teams Director Title Relationship Specialty Start Date End Date Espinoza Polanco MD [address] [place], [place] PCP - General 09/21/20
[2024-11-13 16:34] LABS: Anion Gap 12 (12-20); Blood Urea Nitrogen 16 mg/dL (9-16); Calcium 9.6 mg/dL (8.4-10.2); Carbon Dioxide 29 mmol/L (22-29); Chloride 108 mmol/L (96-108); Estimated Glomerular Filt Rate > 60; Glucose Random 89 mg/dL (60-115); Potassium 4.1 mmol/L (3.3-5.1); Sodium 145 mmol/L (135-145)
== END 2024-11-13 13:13 | disposition home or self-care (01) ==
LOC: HO.HMGCLDS 13:12
PROVIDERS: PCP Internal Medicine; Visit Provider Internal Medicine Hypertension Specialist
DX: I50.32 Chronic diastolic (congestive) heart failure (principal)
CPT/HCPCS: 36415; 80048

== ENCOUNTER 2024-11-26 09:13 | Outpatient (AMB) | payer MEDICARE, SELFPAY ==
[2024-11-26 09:29] VITALS: BP 130/64; PULSE 59; O2SAT 97; BMI 31.0
--- NOTE | 2024-11-26 09:29 | HO.NEPHOV_ITS ---
Vital Signs 11/26/24 09:29 Height 5 ft 8 in Weight 204 lb BMI 31.0 BP 130/64 Blood Pressure Location Lt brachial Position Sitting Pulse 59 Pulse Source Pulse Oximeter Pulse Oximetry (%) 97 Oxygen Delivery Method Room Air Intake Visit Reasons: 6 mon follow up/ Conf Accounts Supervisor Required: No Accompanied by: Self / Same As Patient Allergies lisinopril Allergy (Unknown, Verified 11/26/24 09:31) Unknown doxepin Adverse Reaction (Intermediate, Verified 11/26/24 09:31) Hallucinations atorvastatin [Lipitor] Adverse Reaction (Unknown, Verified 11/26/24 09:31) Unknown Medication List - Last Reconciled 11/26/24 by Brandon Williamson MD albuterol sulfate 90 mcg/actuation (Ventolin HFA) 2 puffs inhalation Q6H PRN amlodipine 10 mg PO DAILY apixaban (Eliquis) 5 mg PO BID 90 days cholecalciferol (vitamin D3) 25 mcg PO DAILY [COVID TESTING KIT As directed] diclofenac sodium 1% (Arthritis Pain (diclofenac)) 4 grams topical QID PRN docusate sodium (Colace) 100 mg PO BID dutasteride 0.5 mg PO DAILY fluticasone propionate 50 mcg/actuation (Flonase Allergy Relief) 2 sprays intranasal DAILY furosemide 40 mg See Protocol PO DAILY 90 days loratadine 10 mg PO DAILY loratadine (Claritin) 10 mg PO DAILY metoprolol succinate ER (Toprol XL) 25 mg PO DAILY montelukast 10 mg PO BEDTIME multivitamin 1 tab PO DAILY rosuvastatin 20 mg PO DAILY tamsulosin 0.4 mg PO DAILY zolpidem 5 mg PO BEDTIME HPI Comments Details: 73 yr old man with HTN and CKD Here for follow up ; Morning BP is slightly elevated 05/28/24 Waiting for Ablation next week ;No dyspnea at rest; Has some on exertion 11/26/24 s/p Ablation Feels much better. No urinary issues ; No dyspnea PFSH Medical History Atrial flutter with rapid ventricular response BPPV (benign paroxysmal positional vertigo) Vertigo of central origin Persistent atrial fibrillation Atrial fibrillation, new onset Chronic heart failure with preserved ejection fraction Acute congestive heart failure CHF (congestive heart failure) Asthma exacerbation Dizziness COVID-19 vaccine series completed Avascular necrosis of bone of left hip Atherosclerosis History of renal calculi Peripheral vascular disease Chronic kidney disease History of asbestos exposure BPH (benign prostatic hyperplasia) Obesity (BMI 30-39.9) Asthma Hypercholesterolemia Hypertension Insomnia Surgical History H/O colonoscopy History of left hip replacement Family History Father Hypertension Chronic mental illness Mother Hypertension Gastric cancer Asthma Social History Household Members: Spouse Housing: House Do you presently have visiting nurse or other home services: No Alcohol intake: former Patient Tobacco Use Status: Former Tobacco user Tobacco use type: Cigarette e-Cigarette/Vaping Use: Never Used Second Hand Smoke Exposure: No Advance Directives Date on File: 08/03/20 service: Yes Current occupational status: retired Cognitive needs: No Hearing needs: Yes Vision needs: Yes Physical Exam Vital Signs: Last Vital Signs Pulse 59 11/26/24 09:29 BP 130/64 11/26/24 09:29 Pulse Ox 97 11/26/24 09:29 Oxygen Delivery Method Room Air 11/26/24 09:29 BMI result Body Mass Index 31.0 Const General: comfortable; No acute distress Orientation/consciousness: patient oriented x3 Eyes General: appearance normal, both eyes and all related structures Visual Gonzalez: normal visual gonzalez by confrontation Neck Neck: Yes supple and Yes no JVD Resp Effort & Inspection: normal respiratory effort and respiratory effort not decreased Cardio Palpation: no palpable S3 and no palpable S4 Heart sounds: no rubs GI Inspection: Yes normal to inspection Palpation (GI): Soft to palpation Percussion: Yes normal to percussion Auscultation: normal bowel sounds General: Yes no CVA tenderness Back/Spine/Pelvis Back: no CVA tenderness Skin General skin exam: no petechiae and no purpura Neuro General: patient oriented x3 and no focal motor deficits Extrem General: No clubbing and No edema Results Reviewed Nephrology Results: Sodium 145 mmol/L (135-145) 11/13/24 Potassium 4.1 mmol/L (3.3-5.1) 11/13/24 Chloride 108 mmol/L (96-108) 11/13/24 Carbon Dioxide 29 mmol/L (22-29) 11/13/24 BUN 16 mg/dL (9-16) 11/13/24 Creatinine 1.10 mg/dL (0.5-1.4) 11/13/24 Calcium 9.6 mg/dL (8.4-10.2) 11/13/24 Assessment & Plan Assessment & Plan (1) Chronic kidney disease: Code(s): N18.9 - Chronic kidney disease, unspecified Category: Medical Qualifiers: Chronic kidney disease stage: stage 3 (moderate) Chronic kidney disease stage 3 subtype: stage 3a (GFR 45-59) Qualified Code(s): N18.31 - Chronic kidney disease, stage 3a (2) Asthma: Code(s): J45.909 - Unspecified asthma, uncomplicated Category: Medical Qualifiers: Asthma complication type: uncomplicated Asthma persistence: intermittent Asthma severity: mild Qualified Code(s): J45.20 - Mild intermittent asthma, uncomplicated (3) Chronic heart failure with preserved ejection fraction: Code(s): I50.32 - Chronic diastolic (congestive) heart failure Category: Medical Plan CKD in a setting of HTN h/o NSAID use in the past Cr is stable now Bumped to 1.9 in January 2024 and returned ot baseline Currently at 1.10 ! Avoid nephrotoxins including NSAIDS BP acceptable Stay on low salt diet Mild asymptomatic edema - most likely due to high dose of AMlodipine. Orders: Orders Creatinine Urine 6 Months N18. - Chronic kidney disease, stage 3a Basic Metabolic Panel 6 Months N18.31 - Chronic kidney disease, stage 3a Total Protein Urine Random 6 Months N18.31 - Chronic kidney disease, stage 3a UA and rflx microscopic 6 Months N18.31 - Chronic kidney disease, stage 3a Coding Level of Care Code Est Pt Level 4 (41313) Diagnoses Stage 3a chronic kidney disease N18.31 Chronic kidney disease stage: stage 3 (moderate) Chronic kidney disease stage 3 subtype: stage 3a (GFR 45-59) Mild intermittent asthma without complication J45.20 Asthma complication type: uncomplicated Asthma persistence: intermittent Asthma severity: mild Chronic heart failure with preserved ejection fraction I50.32
--- OUTSIDE RECORDS SUMMARY | 2024-11-26 09:54 | XMS_ITS | Clinical Summary ---
Author Organization [facility] Address [address] [place] [address] Phone Care Team Providers Care Pc Technician Name Role Phone Espinoza Polanco MD Primary Care Provider [phone] Allergies Active Allergy Reactions Criticality Noted Date [...] patient's age to complete this topic Insurance [facility] MEDICARE MEDICARE Care Teams Pc Technician Relationship Specialty Start Date End Date Espinoza Polanco MD [address] [place], [place] PCP - General 09/21/20
== END 2024-11-26 09:44 | disposition home or self-care (01) ==
LOC: HO.HKA 09:14
PROVIDERS: PCP Internal Medicine; Visit Provider Internal Medicine Hypertension Specialist
DX: N18.31 Chronic kidney disease, stage 3a (principal); J45.20 Mild intermittent asthma, uncomplicated; I50.32 Chronic diastolic (congestive) heart failure
CPT/HCPCS: 99214

== ENCOUNTER → 2024-11-26 09:13 | Outpatient (BNVA) | payer MEDICARE, SELFPAY | PROVIDERS: PCP Internal Medicine; Visit Provider Internal Medicine Hypertension Specialist | DX: I13.0 Hypertensive heart and chronic kidney disease with heart failure and stage 1 through stage 4 chronic kidney disease, or unspecified chronic kidney disease (principal); I50.32 Chronic diastolic (congestive) heart failure; N18.31 Chronic kidney disease, stage 3a; J45.20 Mild intermittent asthma, uncomplicated | CPT/HCPCS: 99212 ==

== ENCOUNTER → 2024-12-09 10:21 | Outpatient (REF) | payer MEDICARE, SELFPAY ==
--- OUTSIDE RECORDS SUMMARY | 2024-12-09 11:33 | XMS_ITS | Clinical Summary ---
Author Organization [facility] Address [address] [place] [address] Phone Care Team Providers Care Ship Pilot Name Role Phone Espinoza Polanco MD Primary Care Provider [phone] Allergies Active Allergy Reactions Criticality Noted Date [...] patient's age to complete this topic Insurance [facility] MEDICARE MEDICARE Care Teams Ship Pilot Relationship Specialty Start Date End Date Espinoza Polanco MD [address] [place], [place] PCP - General 09/21/20
--- OUTSIDE RECORDS SUMMARY | 2024-12-09 11:33 | XMS_ITS | Data Portability ---
Author Organization [facility], [address] Address [address] [place] [address] Care Team Providers Care Plate Preparer Name Role Phone [facility] Primary Care Provider Assessment No assessment [...] [facility], [address] [place], [address], 11:25:33 Medication Orders None record ed. Patient TargetsNo targets recorded. Patient Instructions Encounter Date Encounter Id Patient Instructions Last Modified By Organization Details Last Modified Time 12/03/2022 [id number] shoulder pain: care instructions [email or web address] Not available 12/03/2022 09:17:21 Reason for Referral None Reported. Results Created Date Observation Date Name Description Value Unit Range Abnormal Flag Note LastModifiedBy Organization Detail LastModifiedTime 12/04/1912/03/2022 XR, shoul bailee, 2 or more view No observ ation record ed. [email or web address] [facility] [address] [place], [address], 12/03/2022 11:30:22 Result Notes None recorded. Problems Name Problem SNOMED Code Status Onset Date Resolution Date Notes Provider Name and Address Organization Details Recorded Time Hypertensive disorder 90533371 Active 2022 [facility] 08:58:41 Hypercholester olemia 34341798 Active 2022 JOSR GILES null, PA - [facility] 3 08:58:49 Atrial fibrillation 39930063 Active 2022 JOSR WORTHYICA null, PA - [facility] 3 08:59:09 Benign prostatic hyperplasia 495962980 Active 2022 JOSR GILES null, PA - [facility] 3 08:59:40 Asthma 062249941 Active 2022 JOSR WORTHYICA null, PA - [facility] 3 09:00:05 Chronic kidney disease 973297862 Active 2022 JOSR WORTHYICA null, PA - [...] XR, shoulder, 2 or more view completed [facility] [address] [place], [address], 12/03/2022 11:30:22 Procedure Notes None recorded. Medical Equipment None Reported. Allergies Allergen ID Allergen Name Allergen Category Reaction Reaction Severity Criticality Documentation Date Start Date Code Code System Note Provider Name and Address Organization Details Recorded Time Lipitor medicatio n cough Not available Not available 12/03/2022 46560 5 RxNorm JOSR GILES null, PA - [...] ) 50 mcg/actuatio n nasal spray,suspen heri [place] 1 spray every day by intranasal route. [...] Updated DateTime 3 172.72 cm 31.2 kg/m2 76302.4 4 g 97 [degF] 97 % 97 % 14 /min 43 /min 104 mm[Hg] 68 mm[Hg] JOSR GILES PA - [facility] 3 09:04:15 Social History Question Answer Notes LastModified by Organizat ion Details LastModified Time Tobacco Smoking Status Former Smoker JOSR perkins, PA - [facility] 12/03/2022 09:01:35 What Is Your Level Of Alcohol Consumption? None [email or web address] Information not available 12/03/2022 When Did You Quit Smoking? 14+yearssin celastcigracie ette Information not available 12/03/2022 Do You Use Any Illicit Or Recreational Drugs? No [email or web address] Information not available 12/03/2022 Have You Recently Traveled Abroad? No [email or web address] Information not available 12/03/2022 Do You Or Have You Ever Used Any Other Forms Of Tobacco Or Nicotine? No [email or web address] Information not available 12/03/2022 Sex: Unknown Functional Status None recorded. Mental Status None recorded. Family History Relationship Description Onset Age of this Age Resolved Age Notes LastModified by Organization Details LastModified Time Father Hypertensive disorder [email or web address] Not available 2022 09:00:58 Mother Hypertensive disorder Not available 2022 09:00:58 Mother Malignant tumor of stomach [email or web address] Not available 2022 09:01:07 Medical History No medical history recorded. Past Encounters Encounter ID Performer Location Encounter Start Date Encounter Closed Date Diagnosis/Indication Diagnosis SNOMED-CT Code Diagnosis ICD10 Code Diagnosis Note [id number] [address] [address] 02/26/2021 19:32:23 02/26/2021 19:59:58 [id number] [place] [address] [address] 12/03/2022 08:12:29 12/03/2022 09:44:42 Pain of right shoulder joint [id number] 7249259 M25.511 XRay c/w arthritisd /w him symptomati [...] Musa Member ID Guarantor Name 02/26/2021 1 [facility]MEDICARE [place]PLACEMENT PPO) [id number] Britton Long [id number] Britton Long 02/26/2021 1 [place] B[place] Britton Long [id number] 2 Edjohn Long 12/03/2022 1 MED[place] B[place]: [facility] GOVERNMENT SERVICES Britton Long [id number] 2 Edjohn Long 12/03/2022 2 [place] [id number] Britton Long [id number] Notes Date Note Type Note Provider Name and Address Organization Details Recorded Time 12/03/2022 text/html Shoulder UCReported bypatient.Notes:[age] yo male c/o L shoulder pain Vipul Luevano, DO [address] [place], [address], [place] - [facility] 12/03/2022 09:35:55
== END ==
LOC: HO.CARD 10:21
PROVIDERS: PCP Internal Medicine; Visit Provider Internal Medicine
DX: I48.0 Paroxysmal atrial fibrillation (principal)
CPT/HCPCS: 93242

== ENCOUNTER → 2024-12-09 10:24 | Outpatient (BNV) | payer MEDICARE, SELFPAY | PROVIDERS: PCP Internal Medicine; Visit Provider Internal Medicine Cardiovascular Disease | DX: I49.1 Atrial premature depolarization (principal) | CPT/HCPCS: 93244 ==

== ENCOUNTER 2024-12-24 12:54 | Outpatient (AMB) | payer MEDICARE, SELFPAY ==
--- NOTE | 2024-12-24 12:58 | A.OFFVIS_ITS ---
Vital Signs 12/24/24 12:59 Height 5 ft 8 in Weight 200 lb 9.93 oz BMI 30.5 BP 112/58 L Blood Pressure Location Lt brachial Position Sitting Pulse 68 Pulse Source Pulse Oximeter Intake Visit Reasons: holter results pt request Allergies lisinopril Allergy (Unknown, Verified 11/26/24 09:31) Unknown doxepin Adverse Reaction (Intermediate, Verified 11/26/24 09:31) Hallucinations atorvastatin [Lipitor] Adverse Reaction (Unknown, Verified 11/26/24 09:31) Unknown Medication List - Last Reconciled 12/24/24 by Pranav Bradford MD albuterol sulfate 90 mcg/actuation (Ventolin HFA) 2 puffs inhalation Q6H PRN amlodipine 10 mg PO DAILY apixaban (Eliquis) 5 mg PO BID 90 days cholecalciferol (vitamin D3) 25 mcg PO DAILY [COVID TESTING KIT As directed] diclofenac sodium 1% (Arthritis Pain (diclofenac)) 4 grams topical QID PRN docusate sodium (Colace) 100 mg PO BID dutasteride 0.5 mg PO DAILY fluticasone propionate 50 mcg/actuation (Flonase Allergy Relief) 2 sprays intranasal DAILY furosemide 40 mg See Protocol PO DAILY 90 days loratadine (Claritin) 10 mg PO DAILY metoprolol succinate ER (Toprol XL) 25 mg PO DAILY montelukast 10 mg PO BEDTIME multivitamin 1 tab PO DAILY rosuvastatin 20 mg PO DAILY tamsulosin 0.4 mg PO DAILY zolpidem 5 mg PO BEDTIME HPI Comments Details: Britton returns for follow-up. He has a history of atrial flutter with rapid rate as well as bradycardia issues. Has tried and failed amiodarone, Multaq and then saw EP. In 2023, he had ablation for atrial flutter/fibrillation. Since then, no new issues. He remains on a small dose of beta-farzaneh. Overall, feels good. No cardiac symptoms whatsoever. The patient experienced a minor fall two weeks ago while carrying groceries, with no significant injury and denies experiencing atrial fibrillation symptoms. [facility] Medical History Atrial flutter with rapid ventricular response BPPV (benign paroxysmal positional vertigo) Vertigo of central origin Persistent atrial fibrillation Atrial fibrillation, new onset Chronic heart failure with preserved ejection fraction Acute congestive heart failure CHF (congestive heart failure) Asthma exacerbation Dizziness COVID-19 vaccine series completed Avascular necrosis of bone of left hip Atherosclerosis History of renal calculi Peripheral vascular disease Chronic kidney disease History of asbestos exposure BPH (benign prostatic hyperplasia) Obesity (BMI 30-39.9) Asthma Hypercholesterolemia Hypertension Insomnia Surgical History H/O colonoscopy History of left hip replacement Family History Father Hypertension Chronic mental illness Mother Hypertension Gastric cancer Asthma Social History Household Members: Spouse Housing: House Do you presently have visiting nurse or other home services: No Alcohol intake: former Patient Tobacco Use Status: Former Tobacco user Tobacco use type: Cigarette e-Cigarette/Vaping Use: Never Used Second Hand Smoke Exposure: No Advance Directives Date on File: 08/03/20 service: Yes Current occupational status: retired Cognitive needs: No Hearing needs: Yes Vision needs: Yes Review of Systems Const Denies weakness ENT Denies dizziness Card Denies chest pain, Denies chest pain with activity, Denies syncope, Denies rapid heart rate, Denies pedal edema, Denies edema, Denies leg edema, Denies lightheadedness, Denies palpitations, Denies dyspnea, Denies dyspnea on exertion and Denies orthopnea Resp Denies cough, Denies dyspnea and Denies dyspnea on exertion GI Denies hematochezia and Denies change in stool character Musc Denies abnormal gait, Denies muscle cramps, Denies muscle weakness, Denies numbness, Denies radiating pain into limb and Denies tingling Neuro Denies abnormal gait, Denies dizziness, Denies syncope, Denies numbness, Denies tingling and Denies weakness Endo Denies palpitations Physical Exam Vital Signs: Last Vital Signs Pulse 68 12/24/24 12:59 BP 112/58 L 12/24/24 12:59 BMI result Body Mass Index 30.5 Const General: comfortable and no acute distress Orientation/consciousness: patient oriented x3 HEENT Other: Unremarkable Head: Yes normal to inspection Neck Neck: Yes normal visual inspection Chest Chest palpation & inspection: normal inspection of the chest Resp Auscultation: clear to auscultation bilaterally Cardio Palpation: normal PMI Heart sounds: S1 normal heart sound present, S2 normal heart sound present, no gallops, no murmurs and no rubs GI Palpation (GI): Soft to palpation Back/Spine/Pelvis Other: unremarkable Skin General skin exam: no rashes or lesions noted Neuro General: patient oriented x3 Extrem General: Yes normal to inspection Psych Mental Status: mental status grossly normal Assessment & Plan Assessment & Plan (1) Atrial flutter: Code(s): I48.92 - Unspecified atrial flutter Category: Medical Plan: Status post ablation of atrial fibrillation as well as left atrial flutter. Off antiarrhythmics. Remains on low-dose metoprolol. Continue anticoagulation. (2) Chronic heart failure with preserved ejection fraction: Code(s): I50.32 - Chronic diastolic (congestive) heart failure Category: Medical Plan: Stable. No changes. (3) Hypertension: Code(s): I10 - Essential (primary) hypertension Category: Medical Qualifiers: Hypertension type: essential hypertension Qualified Code(s): I10 - Essential (primary) hypertension Plan: On amlodipine. Well controlled. (4) Atherosclerotic cardiovascular disease: Code(s): I25.10 - Atherosclerotic heart disease of yocha dehe coronary artery without angina pectoris Category: Medical Plan: Pulmonary vein CT reports coronary artery calcification but myocardial perfusion imaging study shows likely normal perfusion. Clinically no angina. Continue statins. Plan Discussion Notes We discussed the management of essential hypertension, specifically the recent adjustment of amlodipine to 10 mg, which has shown efficacy in lowering and stabilizing the patient's blood pressure. The patient was informed that the current treatment is effective, without the need for additional interventions at this time, and agreed to continue this regimen. The risk of falling was addressed with reassurance provided as no significant injuries were noted. Follow-up was agreed upon for six months to reassess blood pressure management unless required sooner by new symptoms or conditions. Consent for the continuation of the current treatment plan was discussed, highlighting its efficacy and stability. Patient Instructions: - Continue current amlodipine 10 mg dosage as prescribed. - Regularly monitor your blood pressure at home. - Exercise caution during daily activities to prevent falls. - Follow up in six months or sooner if new symptoms arise. - Report any new or concerning symptoms immediately. Coding Level of Care Code Est Pt Level 4 (76553) Complex EM visit Add On G2211 Diagnoses Atrial flutter I48.92 Chronic heart failure with preserved ejection fraction I50.32 Essential hypertension I10 Hypertension type: essential hypertension Atherosclerotic cardiovascular disease I25.10
[2024-12-24 12:59] VITALS: BP 112/58; PULSE 68; BMI 30.5
--- OUTSIDE RECORDS SUMMARY | 2024-12-24 15:46 | XMS_ITS | Clinical Summary ---
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 Role Phone Espinoza Polanco MD Primary Care Provider [phone] Allergies Active Allergy Reactions Criticality Noted Date [...] disease with (congestive) heart failure 03/30/2021 Immunizations Immunization Administration Dates Next Due Pneumococcal Conjugate 13-Valent [...] Due Date Last Done Comments Pneumococcal Vaccine: 50+ Ye ars (2 of 2 - PPSV23) 11/24/2016 09/29/2016 Influenza Vaccine (Season Ended) 2025 Pneumococcal Vaccine: Peds ( 0 to 5 Years) and At-Risk Patients (6 to 49 Years) Discontinued 09/29/2016 Hepatitis B Vaccine Aged Out No longe r eligible based on patient's age to complete this topic Insurance [facility] Medicare Medicare Care Teams Gas Truck Driver Relationship Specialty Start Date End Date Espinoza Polanco MD [address] [place], [place] PCP - General 09/21/20
--- OUTSIDE RECORDS SUMMARY | 2024-12-24 15:46 | XMS_ITS | Data Portability ---
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 Patient TargetsNo targets recorded. Patient Instructions Encounter Date Encounter Id Patient Instructions Last Modified By Organization Details Last Modified Time 12/03/2022 [id number] shoulder pain: care instructions [email or web address] Not available 12/03/2022 09:17:21 Reason for Referral None Reported. Results Created Date Observation Date Name Description Value Unit Range Abnormal Flag Note LastModifiedBy Organization Detail LastModifiedTime 12/04/1912/03/2022 XR, shoul bailee, 2 or more view No observ ation record ed. [email or web address] [facility] [address] [place], [address], 12/03/2022 11:30:22 Result Notes None recorded. Problems Name Problem SNOMED Code Status Onset Date Resolution Date Notes Provider Name and Address Organization Details Recorded Time Hypertensive disorder 09883027 Active 2022 [facility] 08:58:41 Hypercholester olemia 92470701 Active 2022 JOSR GILES null, [place] - [facility] 3 08:58:49 Atrial fibrillation 29331543 Active 2022 JOSR WORTHYICA null, [place] - [facility] 3 08:59:09 Benign prostatic hyperplasia 409094327 Active 2022 JOSR GILES null, [place] - [facility] 3 08:59:40 Asthma 637936434 Active 2022 JOSR WORTHYICA null, [place] - [facility] 3 09:00:05 Chronic kidney disease 831469980 Active 2022 JOSR WORTHYICA null, [place] - [facility] 3 09:00:23 Problem Notes None recorded. Procedures Surgical History Date Name Laterality Status Provider Name and Address Organization Details Recorded Time total replacement of hip completed JSOR GILES PA - [facility] 12/03/2022 09:02:40 Imaging Results Imaging Date Name Status LastModified by Organiz ation Details LastModified Time 12/03/2022 XR, shoulder, 2 or more view completed [facility] [address] [place], [address], 12/03/2022 11:30:22 Procedure Notes None recorded. Medical Equipment None Reported. Allergies Allergen ID Allergen Name Allergen Category Reaction Reaction Severity Criticality Documentation Date Start Date Code Code System Note Provider Name and Address Organization Details Recorded Time Lipitor medicatio n cough Not available Not available 12/03/2022 08365 5 RxNorm JOSR GILES null, PA - [...] ) 50 mcg/actuatio n nasal spray,suspen heri [place] 1 spray every day by intranasal route. [...] Updated DateTime 3 172.72 cm 31.2 kg/m2 96534.4 4 g 97 [degF] 97 % 97 % 14 /min 43 /min 104 mm[Hg] 68 mm[Hg] JOSR GILES PA - [facility] 3 09:04:15 Social History Question Answer Notes LastModified by Organizat ion Details LastModified Time Tobacco Smoking Status Former Smoker JOSR perkins, [place] - [facility] 12/03/2022 09:01:35 What Is Your Level Of Alcohol Consumption? None [email or web address] Information not available 12/03/2022 When Did You Quit Smoking? 14+yearssin celastcigracie ette [email or web address] Information not available 12/03/2022 Do You Use Any Illicit Or Recreational Drugs? No [email or web address] Information not available 12/03/2022 Have You Recently Traveled Abroad? No [email or web address] Information not available 12/03/2022 Do You Or Have You Ever Used Any Other Forms Of Tobacco Or Nicotine? No [email or web address] Information not available 12/03/2022 Sex: Unknown Functional Status None recorded. Mental Status None recorded. Family History Relationship Description Onset Age of this Age Resolved Age Notes LastModified by Organization Details LastModified Time Father Hypertensive disorder Not available 2022 09:00:58 Mother Hypertensive disorder [email or web address] Not available 2022 09:00:58 Mother Malignant tumor of stomach [email or web address] Not available 2022 09:01:07 Medical History No medical history recorded. Past Encounters Encounter ID Performer Location Encounter Start Date Encounter Closed Date Diagnosis/Indication Diagnosis SNOMED-CT Code Diagnosis ICD10 Code Diagnosis Note [id number] [address] [address] 02/26/2021 19:32:23 02/26/2021 19:59:58 [id number] [place] [address] [address] [address] 12/03/2022 08:12:29 12/03/2022 09:44:42 Pain of right shoulder joint 2981491640 9113972 M25.511 XRay c/w arthritisd /w him symptomati [...] Musa Member ID Guarantor Name 02/26/2021 1 [facility] (MEDICARE REPLACEMENT PPO) [id number] Britton Long [id number] Britton Long 02/26/2021 1 [place] Britton Long [id number] Edjohn Long 12/03/2022 1 [place] [facility]MENT [facility] Britton Long [id number] 2 Edjohn Long 12/03/2022 2 [place] [id number] Britton Long [id number] Seferinojohn Long Notes Date Note Type Note Provider Name and Address Organization Details Recorded Time 12/03/2022 text/html Shoulder UCReported bypatient.Notes:[age] yo male c/o L shoulder pain Vipul Luevano, DO [address] [place], [address], [place] - [facility] 12/03/2022 09:35:55
== END 2024-12-24 13:16 | disposition home or self-care (01) ==
LOC: HO.HCS 12:54
PROVIDERS: PCP Internal Medicine; Visit Provider Internal Medicine
DX: I48.92 Unspecified atrial flutter (principal); I50.32 Chronic diastolic (congestive) heart failure; I10 Essential (primary) hypertension; I25.10 Atherosclerotic heart disease of native coronary artery without angina pectoris
CPT/HCPCS: 99214; G2211

== ENCOUNTER → 2024-12-24 12:54 | Outpatient (BNVA) | payer MEDICARE, SELFPAY | PROVIDERS: PCP Internal Medicine; Visit Provider Internal Medicine | DX: I48.92 Unspecified atrial flutter (principal); I11.0 Hypertensive heart disease with heart failure; I50.32 Chronic diastolic (congestive) heart failure; I25.10 Atherosclerotic heart disease of native coronary artery without angina pectoris; Z87.891 Personal history of nicotine dependence | CPT/HCPCS: 99212 ==

== ENCOUNTER 2025-01-09 06:05 | Outpatient (REF) | payer MEDICARE, SELFPAY ==
[2025-01-09 10:08] LABS: MANUAL DIFF FLAG NO
[2025-01-09 10:15] LABS: Basophils Percent Auto 0.9 % (0-2); Eosinophils Absolute Auto 0.2 X10*3/uL (0.0-0.4); Eosinophils Percent Auto 4.9 % (0-4); Hemoglobin 13.6 g/dl (14.0-18.0); Imm Gran Abs Auto 0.01 X10*3/uL (0.00-0.03); Imm Gran Pct Auto 0.2 % (0.0-0.4); Lymphocytes Absolute Auto 1.5 X10*3/uL (1.2-4.9); Lymphocytes Percent Auto 32.6 % (20-40); Mean Corpuscular HGB Conc 35.8 g/dl (31.0-36.0); Mean Corpuscular Hemoglobin 36.4 pg (27.0-33.0); Mean Corpuscular Volume 101.6 fL (80.0-98.0); Mean Platelet Volume 9.4 fL (9.4-12.4); Monocytes Absolute Auto 0.5 X10*3/uL (0.1-1.2); Monocytes Percent Auto 10.3 % (2-11); Neutrophils Absolute Auto 2.3 x10*3/uL (2.0-8.3); Neutrophils Percent Auto 51.1 % (45-73); Platelet Count 153 X10*3/uL (160-400); Red Blood Count 3.74 X10*6/uL (4.60-5.80); Red Cell Distribution Width 12.3 % (11.0-16.0); White Blood Count 4.5 X10*3/uL (4.8-10.8)
[2025-01-09 10:41] LABS: Alanine Aminotransferase 34 U/L (0-40); Albumin Level 3.9 g/dL (3.5-5.0); Alkaline Phosphatase 81 U/L (39-117); Anion Gap 13 (12-20); Aspartate Amino Transferase 28 U/L (5-37); Bilirubin Total 0.7 mg/dL (0.0-1.0); Blood Urea Nitrogen 18 mg/dL (9-16); Calcium 9.2 mg/dL (8.4-10.2); Carbon Dioxide 26 mmol/L (22-29); Chloride 108 mmol/L (96-108); Cholesterol 123 mg/dL (<200); Estimated Glomerular Filt Rate > 60; Glucose Random 95 mg/dL (60-115); HDL Cholesterol 58 mg/dL (>40); LDL Cholesterol Calculated 55 mg/dL (<100); Potassium 4.1 mmol/L (3.3-5.1); Sodium 143 mmol/L (135-145); Total Protein 6.8 g/dL (6.5-8.0); Triglycerides 52 mg/dL (<150)
[2025-01-09 11:08] LABS: Folate 13.9 ng/mL (> or = 4.0); Vitamin B12 610 pg/mL (200-900)
[2025-01-09 11:11] LABS: Free T4 (Free Thyroxine) 1.03 ng/dL (0.71-1.85)
== END 2025-01-09 06:06 | disposition home or self-care (01) ==
LOC: HO.HMGCLDS 06:05
PROVIDERS: PCP Internal Medicine; Visit Provider Internal Medicine
DX: I25.10 Atherosclerotic heart disease of native coronary artery without angina pectoris (principal); E78.00 Pure hypercholesterolemia, unspecified
CPT/HCPCS: 36415; 80053; 80061; 82607; 82746; 84439; 85025

== ENCOUNTER 2025-01-24 10:39 | Outpatient (AMB) | payer MEDICARE, SELFPAY ==
--- NOTE | 2025-01-24 10:49 | A.OFFPC_ITS ---
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 Required: No Accompanied by: Self / Same As Patient Allergies lisinopril Allergy (Unknown, Verified 01/24/25 10:52) Unknown doxepin Adverse Reaction (Intermediate, Verified 01/24/25 10:52) Hallucinations atorvastatin [Lipitor] Adverse Reaction (Unknown, Verified 01/24/25 10:52) Unknown Medication List - Last Reconciled 01/24/25 by Espinoza Polanco MD albuterol sulfate 90 mcg/actuation (Ventolin HFA) 2 puffs inhalation Q6H PRN amlodipine 10 mg PO DAILY apixaban (Eliquis) 5 mg PO BID 90 days cholecalciferol (vitamin D3) 25 mcg PO DAILY [COVID TESTING KIT As directed] dutasteride 0.5 mg PO DAILY fluticasone propionate 50 mcg/actuation (Flonase Allergy Relief) 2 sprays intranasal DAILY furosemide 40 mg See Protocol PO DAILY 90 days loratadine (Claritin) 10 mg PO DAILY metoprolol succinate ER (Toprol XL) 25 mg PO DAILY montelukast 10 mg PO BEDTIME multivitamin 1 tab PO DAILY rosuvastatin 20 mg PO DAILY sennosides-docusate sodium 8.6-50 mg (Senna Plus) 2 tab-caps (2 x 8.6-50 mg) PO DAILY tamsulosin 0.4 mg PO DAILY trazodone 50 mg PO BEDTIME Voltaren Arthritis Pain 1% (diclofenac sodium) 4 grams topical QID NS zolpidem 5 mg PO BEDTIME Tobacco use date assessed: 10/18/24 Fall risk assessment: 1 Fall in past year (Patient reports a fall resulting in a pulled hamstring in the right leg. States the injury is currently healing.) Last assessed Fall Risk: 01/24/25 Dental Screening Dental Screen Date: 10/18/24 [facility] Medical History (Updated 01/24/25 @ 11:31 by Espinoza Polanco MD) Colon cancer screening Atrial flutter Atrial flutter with rapid ventricular response Facial skin lesion Initial Medicare annual wellness visit Atherosclerosis BPPV (benign paroxysmal positional vertigo) Vertigo of central origin Persistent atrial fibrillation Atrial fibrillation, new onset Chronic heart failure with preserved ejection fraction Acute congestive heart failure CHF (congestive heart failure) Asthma exacerbation Dizziness COVID-19 vaccine series completed Avascular necrosis of bone of left hip History of renal calculi Peripheral vascular disease Chronic kidney disease History of asbestos exposure BPH (benign prostatic hyperplasia) Obesity (BMI 30-39.9) Asthma Hypercholesterolemia Hypertension Insomnia Surgical History H/O colonoscopy History of left hip replacement Family History Father Hypertension Chronic mental illness Mother Hypertension Gastric cancer Asthma Social History Household Members: Spouse Housing: House Do you presently have visiting nurse or other home services: No Alcohol intake: former Patient Tobacco Use Status: Former Tobacco user Tobacco use type: Cigarette e-Cigarette/Vaping Use: Never Used Second Hand Smoke Exposure: No Advance Directives Date on File: 08/03/20 service: Yes Current occupational status: retired Cognitive needs: No Hearing needs: Yes Vision needs: Yes Questionnaire PHQ-9 Over the last 2 weeks, how often have you been bothered by any of the following problems? 1. Little interest or pleasure in doing things: more than half the days 2. Feeling down, depressed, or hopeless: more than half the days 3. Trouble falling or staying asleep, or sleeping too much: not at all 4. Feeling tired or having little energy: not at all 5. Poor appetite or overeating: not at all 6. Feeling bad about yourself - or that you are a failure or have let yourself or your family down: not at all 7. Trouble concentrating on things, such as reading the newspaper or watching television: nearly every day 8. Moving or speaking so slowly that other people could have noticed. Or the opposite - being so fidgety or restless that you have been moving around a lot more than usual: several days 9. Thoughts that you would be better off or of hurting yourself in some way: not at all Total score: 8 72734 - PHQ-9 Billing: Yes Source: Developed by Drs. Mahesh Angeles, [place], Ever Valle and colleagues, with an educational danielle from [employer]. Thrive Questionnaire Date Thrive assessed: 01/24/25 I am a: Patient What is your living situation today?: I have a steady place to live Within the past 12 months, did the food you bought not last and you didn't have the money to get more?: Never true Within the past 12 months, did you worry whether your food would run out before you got money to buy more?: Never true Do you have trouble paying for medicines?: No Do you have trouble getting transportation to medical appointments?: No Do you have trouble paying your heating and electricity bill?: No Do you have trouble taking care of your child, family member or friend?: No Do you have trouble with day-to-day activities such as bathing, preparing meals, shopping, managing finances, etc.?: No Are you currently unemployed and looking for a job?: No Are you interested in more education?: No Please select the resources that you would like help with: None Currently or been in a relationship where the following occur: No concerns reported THRIVE Score: 0 AUDIT C Alcohol Use Questionnaire (AUDIT-C) 1. How often do you have a drink containing alcohol?: Never 2. How many drinks containing alcohol do you have on a typical day when you are drinking?: 1 or 2 3. How often do you have six or more drinks on one occasion?: Never Total Score: 0 BETSY-7 AMB Questionnaire BETSY-7 Date BETSY - 7 assessed: 01/24/25 Feeling nervous, anxious, or on edge: 0 = Not at all Not being able to stop or control worryin = More than half the days Worrying too much about different things: 1 = Several days Trouble relaxin = Not at all Being so restless that it is hard to sit still: 0 = Not at all Becoming easily annoyed or irritable: 0 = Not at all Feeling afraid as if something awful might happen: 0 = Not at all Total BETSY-7 score (0-4 normal; 5-9 mild; 10-14 moderate; 15-21 severe): 3 Source: Developed by Delfin Salgadoet B.W. Xavier, Ever Valle and colleagues, with an educational danielle from [employer]. BETSY-7 Assessment Billing BETSY-7 Assessment Tool: BETSY-7 Assessment 91909 Physical exam (Primary Care) Vital Signs: Last Vital Signs Temp 97.3 F 01/24/25 11:00 Pulse 74 01/24/25 11:00 BP 134/70 01/24/25 11:29 Pulse Ox 95 01/24/25 11:00 Oxygen Delivery Method Room Air 01/24/25 11:00 BMI result Body Mass Index 30.8 Tobacco/Smoking Status: Tobacco use Status Tobacco use date assessed 10/18/24 01/24/25 10:51 Patient Tobacco Use Status Former Tobacco user 01/24/25 10:51 Tobacco use type Cigarette 01/24/25 10:51 e-Cigarette/Vaping Use Never Used 01/24/25 10:51 PHQ-9: PHQ-9 Score PHQ-9: Total score 8 01/24/25 11:20 Thrive Assessment: Date of Thrive Assessment Date Thrive assessed 01/24/25 01/24/25 10:51 Currently or been in a relationship where the following occur: No concerns reported Const General: alert; No acute distress Eyes Conjunctivae: conjunctivae normal Resp Auscultation: clear to auscultation bilaterally Cardio Rate: regular rate Rhythm: regular rhythm GI Inspection: Yes normal to inspection Extrem General: Yes normal to inspection and No edema Coding Level of Care Code Est Pt Level 4 (54327) Complex EM visit Add On G2211 Diagnoses Essential hypertension I10 Hypertension type: essential hypertension Hypercholesterolemia E78.00 Mild intermittent asthma without complication J45.20 Asthma complication type: uncomplicated Asthma persistence: intermittent Asthma severity: mild Obesity (BMI 30-39.9) E66.9 Benign prostatic hyperplasia with urinary frequency N40.1; R35.0 Lower urinary tract symptom detail: urinary frequency Lower urinary tract symptom presence: symptoms present Stage 3a chronic kidney disease N18.31 Chronic kidney disease stage: stage 3 (moderate) Chronic kidney disease stage 3 subtype: stage 3a (GFR 45-59) Tubular adenoma of colon D12.6 Chronic heart failure with preserved ejection fraction I50.32 PAF (paroxysmal atrial fibrillation) I48.0 Atherosclerotic cardiovascular disease I25.10 Constipation K59.00 Additional Codes BETSY-7 Assessment Billing - BETSY-7 Assessment Tool: BETSY-7 Assessment 97278 ([id number]) PHQ-9 - 53894 - PHQ-9 Billing: Yes ([id number]) Assessment & Plan Assessment & Plan (1) Hypertension: Code(s): I10 - Essential (primary) hypertension Category: Medical Qualifiers: Hypertension type: essential hypertension Qualified Code(s): I10 - Essential (primary) hypertension Plan: Continue with blood pressure medication. Decrease salt intake and exercise on amlodipine 10 mg once a day metoprolol 25 mg once a day (2) Hypercholesterolemia: Code(s): E78.00 - Pure hypercholesterolemia, unspecified Category: Medical Plan: Avoid fried foods, chicken skin, eggs, butter margarine, pastries and meat. Be it pork or beef they have a lot of cholesterol LDL goal of less than 70 and triglyceride of less than 150 on rosuvastatin 20 mg once a day (3) Asthma: Code(s): J45.909 - Unspecified asthma, uncomplicated Category: Medical Qualifiers: Asthma complication type: uncomplicated Asthma persistence: intermittent Asthma severity: mild Qualified Code(s): J45.20 - Mild i ntermittent asthma, uncomplicated Plan: Patient has albuterol inhaler as needed (4) Obesity (BMI 30-39.9): Code(s): E66.9 - Obesity, unspecified Category: Medical Plan: Diet and exercise (5) BPH (benign prostatic hyperplasia): Code(s): N40.0 - Benign prostatic hyperplasia without lower urinary tract symptoms Category: Medical Qualifiers: Lower urinary tract symptom detail: urinary frequency Lower urinary tract symptom presence: symptoms present Qualified Code(s): N40.1 - Benign prostatic hyperplasia with lower urinary tract symptoms; R35.0 - Frequency of micturition Plan: Patient on dutasteride in and tamsulosin (6) Chronic kidney disease: Code(s): N18.9 - Chronic kidney disease, unspecified Category: Medical Qualifiers: Chronic kidney disease stage: stage 3 (moderate) Chronic kidney disease stage 3 subtype: stage 3a (GFR 45-59) Qualified Code(s): N18.31 - Chronic kidney disease, stage 3a Plan: Keep well hydrated avoid NSAIDs continue to monitor (7) Tubular adenoma of colon: Comment: November 2021 Dr. Rahman advised repeat in 3 years Code(s): D12.6 - Benign neoplasm of colon, unspecified Category: Medical Plan: Patient has a meeting with the filament coil winder by the end of the month (8) Chronic heart failure with preserved ejection fraction: Code(s): I50.32 - Chronic diastolic (congestive) heart failure Category: Medical Plan: Continuing with furosemide weigh daily (9) PAF (paroxysmal atrial fibrillation): Comment: Ablation April 2024 Code(s): I48.0 - Paroxysmal atrial fibrillation Category: Medical Plan: Continue with anticoagulation. Holter done sinus rhythm. (10) Atherosclerotic cardiovascular disease: Code(s): I25.10 - Atherosclerotic heart disease of [place] coronary artery without angina pectoris Category: Medical Plan: Control the cholesterol, weight, blood pressure, continue with anticoagulation with Eliquis. (11) Constipation: Code(s): K59.00 - Constipation, unspecified Category: Medical Plan History of Present Illness The patient is a 74-year-old male presenting with a follow-up for multiple chronic conditions. He has long-standing hypertension managed with amlodipine and metoprolol, and hypercholesterolemia controlled with rosuvastatin. He has asthma, benign prostatic hyperplasia, and chronic kidney disease. He has a history of tubular adenoma resection in November 2021. The patient had an ablation in 2023 for atrial fibrillation and is on anticoagulation therapy with Eliquis. A recent Holter monitor in November 2024 showed sinus bradycardia and premature atrial contractions. The patient is on furosemide for congestive heart failure and maintains a normal myocardial perfusion. His blood tests in January 2025 highlighted mild anemia, leukopenia, and thrombocytopenia, but stable renal function. His arthritis symptoms are managed with acetaminophen and diclofenac gel. The patient requires a colonoscopy at the end of January 2025. He reported a fall, stressing the need for precautionary measures like cane use to avoid further falls. Health Maintenance - Continuation of anticoagulation therapy with Eliquis due to atrial fibrillation. - Maintenance of blood pressure with amlodipine (10 mg daily) and metoprolol. - Cholesterol management with a goal LDL of less than 70 on rosuvastatin. - Recommendation for regular physical activity and weight management efforts. - Dietary advice emphasizing fiber intake and fluid balance especially with furosemide use. - Patient's vaccinations including shingles and tetanus are up-to-date. - Scheduled colonoscopy for continued colorectal cancer screening. Social History - The patient lives independently and incorporates daily walks, often covering a mile using a cane. - Dietary habits include cereal and fruit for breakfast, and a conscious effort to maintain healthy bowel habits with fiber supplements. - Reports using a treadmill during winter months for exercise. - The patient denies the use of NSAIDs and prefers acetaminophen for arthritis management. Review of Systems - Cardiovascular: Reports history of atrial fibrillation and atrial flutter. Denies chest pain. - Respiratory: Reports history of asthma. No recent exacerbation reported. - Gastrointestinal: Denies current bowel issues but reports recent changes in regularity. - Musculoskeletal: Reports arthritis, managed with acetaminophen and topical gels. - Hematologic: Reports anemia based on recent tests. - General: Denies current weight gain but acknowledges past issues. Physical Exam - Cardiovascular- Blood pressure recorded at 134/70 mmHg. Results - Labs: Hemoglobin 13.6 g/dL, Hematocrit 38%, Stable electrolytes, LDL 55 mg/dL. - Holter Monitor: Sinus bradycardia, frequent PACs. - Myocardial Perfusion: Normal perfusion but coronary artery calcification observed. Plan The management plan includes continuation of medications for hypertension and hypercholesterolemia, with specific targets for blood pressure and cholesterol levels. Anticoagulation therapy is maintained for atrial fibrillation to prevent thromboembolism. Renal function is monitored closely, ensuring electrolyte balance with diuretic use. Arthritis is managed primarily with acetaminophen and effective topical treatments. The patient is encouraged to maintain regular exercise, focus on weight management, and ensure adequate hydration. Preventive care includes completion of scheduled colonoscopy for colorectal screening and continued monitoring of mild anemia with a planned follow-up blood test. Patient was informed and verbally consented to the use of an ambient scribe for clinic note documentation during this visit. Discussion Notes During the visit, I discussed the patient's chronic conditions and the importance of adhering to prescribed medication regimens, highlighting the role of blood pressure and cholesterol control in preventing cardiovascular complications. We talked about the risks of anticoagulation therapy including potential bleeding complications, and the need for careful monitoring given the patient's recent fall. Alternatives such as glucosamine for arthritis were considered, and instructions for maximizing its efficacy were provided. Vaccinations and other preventive measures, such as regular screenings and lifestyle modifications, were reviewed. We talked about follow-up testing for anemia and urged attendance at the upcoming colonoscopy appointment. I emphasized the value of ongoing engagement in physical activity and dietary adjustments supporting overall health. Patient Instructions - Continue taking amlodipine, metoprolol, and rosuvastatin as prescribed. - Use the anticoagulant Eliquis as instructed. - Stay active, aiming to walk daily while using a cane for safety. - Manage arthritis pain with acetaminophen and continue applying topical gel as needed. - Drink plenty of fluids, especially while taking furosemide. - Attend colonoscopy appointment at the end of January. - Follow up in three months for repeat blood work to monitor anemia. - Report any new symptoms or significant changes in health. - Consider discussing the use of glucosamine supplements for joint health with your healthcare provider. Orders: Orders Thyroid Stimulating Hormone 3 Months I25.10 - Atherosclerotic heart disease of [place] coronary artery without angina pectoris Vitamin B12 and Folate 3 Months I25.10 - Atherosclerotic heart disease of [place] coronary artery without angina pectoris Comprehensive Met. Panel 3 Months I25.10 - Atherosclerotic heart disease of [place] coronary artery without angina pectoris Complete Blood Count Auto Diff 3 Months I25.10 - Atherosclerotic heart disease of [place] coronary artery without angina pectoris Magnesium 3 Months I25.10 - Atherosclerotic heart disease of [place] coronary artery without angina pectoris Free T4 (Free Thyroxine) 3 Months I25.10 - Atherosclerotic heart disease of [place] coronary artery without angina pectoris Lipid Panel 3 Months E78.00 - Pure hypercholesterolemia, unspecified, I25.10 - Atherosclerotic heart disease of [place] coronary artery without angina pectoris Medications: New sennosides-docusate sodium 8.6-50 mg (Senna Plus) 2 tab-caps (2 x 8.6-50 mg) PO DAILY 180 caps 2RF K59.00 - Constipation, unspecified Voltaren Arthritis Pain 1% (diclofenac sodium) apply to single knee, ankle, foot; for foot includes sole/toes/top of foot 4 grams topical QID 350 grams 3RF NS M25.551 - Pain in right hip
[2025-01-24 11:00] VITALS: BP 140/60; PULSE 74; TEMP 36.3; O2SAT 95; BMI 30.8
--- OUTSIDE RECORDS SUMMARY | 2025-01-24 11:11 | XMS_ITS | Clinical Summary ---
Author Organization [facility] Address [address] [place] [address] Phone Care Team Providers Care Manager Office Services Name Role Phone Espinoza Polanco MD Primary Care Provider [phone] Allergies Active Allergy Reactions Criticality Noted Date [...] patient's age to complete this topic Insurance [facility] Medicare Medicare Care Teams Manager Office Services Relationship Specialty Start Date End Date Espinoza Polanco MD [address] [place], [place] PCP - General 09/21/20
--- OUTSIDE RECORDS SUMMARY | 2025-01-24 11:11 | XMS_ITS | Data Portability ---
Author Organization [facility], [id number] Address [address] [place] [address] Care Team Providers Care Delicatessen Department Manager Name Role Phone [facility] Primary Care Provider [phone] Assessment No assessment recorded. Plan of Treatment Reminders Order Date Submit Date Provider Last Modified By Organization Details Last Modified Time Details Appointments None record ed. Lab None record ed. Referral None record ed. Procedures None record ed. Surgeries None record ed. Imaging XR, should er, 2 or more view 023 12/04/19 [facility], [address] [place], [address], 11:25:33 Medication Orders None record ed. Patient TargetsNo targets recorded. Patient Instructions Encounter Date Encounter Id Patient Instructions Last Modified By Organization Details Last Modified Time 12/03/2022 [id number] shoulder pain: care instructions [email or web address] Not available 12/03/2022 09:17:21 Reason for Referral None Reported. Results Created Date Observation Date Name Description Value Unit Range Abnormal Flag Note LastModifiedBy Organization Detail LastModifiedTime 12/04/1912/03/2022 XR, shoul bailee, 2 or more view No observ ation record ed. [email or web address] [facility] [address] [place], [address], 12/03/2022 11:30:22 Result Notes None recorded. Problems Name Problem SNOMED Code Status Onset Date Resolution Date Notes Provider Name and Address Organization Details Recorded Time Hypertensive disorder 51105382 Active 2022 [facility] 08:58:41 Hypercholester olemia 79649554 Active 2022 JOSR GILES null, [place] - [facility] 3 08:58:49 Atrial fibrillation 62308487 Active 2022 JOSR WORTHYICA null, [place] - [facility] 3 08:59:09 Benign prostatic hyperplasia 153483550 Active 2022 JOSR GILES null, [place] - [facility] 3 08:59:40 Asthma 756093468 Active 2022 JOSR WORTHYICA null, [place] - [facility] 3 09:00:05 Chronic kidney disease 369979838 Active 2022 JOSR WORTHYICA null, [place] - [...] XR, shoulder, 2 or more view completed [facility] [address] [place], [address], 12/03/2022 11:30:22 Procedure Notes None recorded. Medical Equipment None Reported. Allergies Allergen ID Allergen Name Allergen Category Reaction Reaction Severity Criticality Documentation Date Start Date Code Code System Note Provider Name and Address Organization Details Recorded Time Lipitor medicatio n cough Not available Not available 12/03/2022 17129 5 RxNorm JOSR GILES null, [place] - [...] ) 50 mcg/actuatio n nasal spray,suspen heri [place] 1 spray every day by intranasal route. [...] Updated DateTime 3 172.72 cm 31.2 kg/m2 44183.4 4 g 97 [degF] 97 % 97 % 14 /min 43 /min 104 mm[Hg] 68 mm[Hg] JOSR GILES [place] - [facility] 3 09:04:15 Social History Question Answer Notes LastModified by Organizat ion Details LastModified Time Tobacco Smoking Status Former Smoker JOSR perkins, [place] - [facility] 12/03/2022 09:01:35 When Did You Quit Smoking? 16+yearssinc elastcigaret te [email or web address] Information not available 12/03/2022 Have You Recently Traveled Abroad? No [email or web address] Information not available 12/03/2022 Sex: Unknown Functional Status Question Answer Note LastModified by Organizat ion Details LastModified Time Do you use any illicit or recreational drugs? No [email or web address] Information not available 12/03/2022 Do you or have you ever used any other forms of tobacco or nicotine? No [email or web address] Information not available 12/03/2022 What is your level of alcohol consumption? None [email or web address] Information not available 12/03/2022 Mental Status None recorded. Family History Relationship Description Onset Age of this Age Resolved Age Notes LastModified by Organization Details LastModified Time Father Hypertensive disorder [email or web address] Not available 2022 09:00:58 Mother Hypertensive disorder [email or web address] Not available 2022 09:00:58 Mother Malignant tumor of stomach [email or web address] Not available 2022 09:01:07 Medical History No medical history recorded. Past Encounters Encounter ID Performer Location Encounter Start Date Encounter Closed Date Diagnosis/Indication Diagnosis SNOMED-CT Code Diagnosis ICD10 Code Diagnosis Note [id number] [facility] [address] [place] [address] 02/26/2021 19:32:23 02/26/2021 19:59:58 [id number] Vipul Tyresebandar, [facility] [address] [place] [address] 12/03/2022 08:12:29 12/03/2022 09:44:42 Pain of right shoulder joint [id number] 2290493 M25.511 XRay c/w arthritisd /w him symptomati [...] Recorded Advance Directives Directive None Recorded Payers Insurance Date Sequence Insurance Name Policy Number Policy Musa Covered Member ID Musa Member ID Guarantor Name 12/05/[address] [facility]PO BLUE (MEDICARE REPLACEMENT PPO) [id number] Britton Long [id number] Britton Long 12/05/2022 1 [place] Seferinojohn Lnog [id number] Seferinojohn Long 12/05/2022 2 [place] [id number] Britton Long [id number] Britton Long Notes Date Note Type Note Provider Name and Address Organization Details Recorded Time 12/03/2022 text/html Shoulder UCReported bypatient.Notes:[age] yo male c/o L shoulder pain Vipul Luevano, DO [address] [place], [address], [place] - [facility] 12/03/2022 09:35:55
[2025-01-24 11:29] VITALS: BP 134/70
== END 2025-01-24 11:35 | disposition home or self-care (01) ==
LOC: HO.HMCH 10:40
PROVIDERS: PCP Internal Medicine; Visit Provider Internal Medicine
DX: I12.9 Hypertensive chronic kidney disease with stage 1 through stage 4 chronic kidney disease, or unspecified chronic kidney disease (principal); N18.31 Chronic kidney disease, stage 3a; I50.32 Chronic diastolic (congestive) heart failure; I48.0 Paroxysmal atrial fibrillation; E78.00 Pure hypercholesterolemia, unspecified; J45.20 Mild intermittent asthma, uncomplicated; E66.9 Obesity, unspecified; N40.1 Benign prostatic hyperplasia with lower urinary tract symptoms; R35.0 Frequency of micturition; D12.6 Benign neoplasm of colon, unspecified; I25.10 Atherosclerotic heart disease of native coronary artery without angina pectoris; K59.00 Constipation, unspecified

== ENCOUNTER → 2025-01-24 10:39 | Outpatient (BNVA) | payer MEDICARE, SELFPAY | PROVIDERS: PCP Internal Medicine; Visit Provider Internal Medicine | DX: I13.0 Hypertensive heart and chronic kidney disease with heart failure and stage 1 through stage 4 chronic kidney disease, or unspecified chronic kidney disease (principal); N18.31 Chronic kidney disease, stage 3a; I50.32 Chronic diastolic (congestive) heart failure; E78.00 Pure hypercholesterolemia, unspecified; J45.20 Mild intermittent asthma, uncomplicated; E66.9 Obesity, unspecified; N40.1 Benign prostatic hyperplasia with lower urinary tract symptoms; R35.0 Frequency of micturition; D12.6 Benign neoplasm of colon, unspecified; I48.0 Paroxysmal atrial fibrillation; I25.10 Atherosclerotic heart disease of native coronary artery without angina pectoris; K59.00 Constipation, unspecified | CPT/HCPCS: 96127; 99212 ==

== ENCOUNTER 2025-03-05 12:20 | Outpatient (AMB) | payer MEDICARE, SELFPAY ==
--- NOTE | 2025-03-05 12:22 | MHC.OFFVIS ---
Vital Signs 03/05/25 12:30 Height 5 ft 8 in Weight 200 lb BMI 30.4 BP 134/60 Blood Pressure Location Rt brachial Position Sitting Pulse 68 Pulse Source Pulse Oximeter Pulse Oximetry (%) 97 Oxygen Delivery Method Room Air Intake Visit Reasons: colo screening Intake Note: Patient new consult for Colonoscopy recall, last Colonoscopy by Dr. rahman was 11/29/2021 with 3 to 5 yrs recall. Patient cc: Pt denies any GI sx or concerns at this time. Confirms that his current Rx for constipation are working well. 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 He previously had a colonoscopy in 2021, which revealed polyps (one precancerous, one non-cancerous), diverticulosis, and hemorrhoids. He reports daily bowel movements facilitated with the regular use of stool softeners. He denies blood in stools, abdominal pain, nausea, vomiting, heartburn, or trouble swallowing. He has been diagnosed with atrial fibrillation and underwent an ablation about a year ago. His AFib is well-controlled with medications. Patient denies: fever/chills, appetite changes, regurgitation, unintentional wt loss, ab pain or melena/hematochezia. Social hx: Alcohol/Tobacco/Drug Use: No current alcohol or drug use; quit smoking and recreational drug use (including marijuana) 30 years ago. - family hx as below - personal hx of CA includes skin ca ( type unknwon), established and followed closely with Dermatology. -tolerated anesthesia in the past without difficulty. [facility] Medical History (Updated 03/06/25 @ 11:55 by Natalie Gunn CNP) Anemia Colon cancer screening Atrial flutter Atrial flutter with rapid ventricular response Facial skin lesion Initial Medicare annual wellness visit Atherosclerosis BPPV (benign paroxysmal positional vertigo) Vertigo of central origin Persistent atrial fibrillation Atrial fibrillation, new onset Chronic heart failure with preserved ejection fraction Acute congestive heart failure CHF (congestive heart failure) Asthma exacerbation Dizziness COVID-19 vaccine series completed Avascular necrosis of bone of left hip History of renal calculi Peripheral vascular disease Chronic kidney disease History of asbestos exposure BPH (benign prostatic hyperplasia) Obesity (BMI 30-39.9) Asthma Hypercholesterolemia Hypertension Insomnia Surgical History H/O colonoscopy History of left hip replacement Family History Father Hypertension Chronic mental illness Mother Hypertension Gastric cancer Asthma Social History Household Members: Spouse Housing: House Do you presently have visiting nurse or other home services: No Alcohol intake: former Patient Tobacco Use Status: Former Tobacco user Tobacco use type: Cigarette e-Cigarette/Vaping Use: Never Used Second Hand Smoke Exposure: No Advance Directives Date on File: 08/03/20 service: Yes Current occupational status: retired Cognitive needs: No Hearing needs: Yes Vision needs: Yes Review of Systems Const Reports as per HPI ENT Reports as per HPI Card Reports as per HPI Resp Reports as per HPI GI Reports as per HPI Reports as per HPI Physical Exam Vital Signs: Last Vital Signs Pulse 68 03/05/25 12:30 BP 134/60 03/05/25 12:30 Pulse Ox 97 03/05/25 12:30 Oxygen Delivery Method Room Air 03/05/25 12:30 BMI result Body Mass Index 30.4 Const General: healthy appearing, no acute distress and well developed Nutritional Appearance: well nourished Orientation/consciousness: patient oriented x3 HEENT Head: Yes normal to inspection, Yes normocephalic and Yes atraumatic Face and sinus: Yes normal facial exam Eyes General: appearance normal, both eyes and all related structures Neck Neck: Yes normal visual inspection Resp Effort & Inspection: normal respiratory effort, able to speak in complete sentences, no tracheal deviation and symmetric chest movement Auscultation: clear to auscultation bilaterally Cardio Jugular venous distension: no JVD Rate: regular rate Rhythm: regular rhythm Heart sounds: S1 normal heart sound present, S2 normal heart sound present, no gallops and no murmurs GI Inspection: Yes normal to inspection and No distended Palpation (GI): Soft to palpation, not firm, nontender and No hepatosplenomegaly present Auscultation: normal bowel sounds Neuro General: patient oriented x3 Gait exam (Neuro): Normal gait present Psych Appearance: grossly normal Mental Status: mental status grossly normal Speech and movement: Normal speech and movement present Affect: normal affect Attitude: cooperative Thought process: Normal thought process present Thought content: Normal thought content present Insight: Good insight present (Psych) Judgement: Good judgement present (Psych) Results Reviewed Results Reviewed: Operative Note Date of Service: 11/29/21 Narrative: Pre-op diagnosis: Colon cancer screening Post-op diagnosis: other (Colon polyps, diverticulosis, hemorrhoids) Procedure: COLONOSCOPY TILL CECUM WITH SNARE POLYPECTOMY AND CONTROL OF BLEEDING Consent: Indications for the procedure and potential complications of bleeding, perforation, reaction to medications and missed diagnosis were discussed with the patient and informed consent was obtained. Instrument: Olympus PCF H 190 L variable stiffness pediatric colonoscope Monitoring: Vital signs and clinical assessment, intermittent blood pressure monitoring, continuous EKG monitoring, Pulse oximetry and Carbon Dioxide monitoring were done throughout the procedure. Colon withdrawl time was 21 minutes. Procedure: The patient was placed in the left lateral decubitis position and pre-procedure medications were administered. After a digital rectal examination of the ano-rectum, the video colonoscope was inserted into the rectum and advanced through the colon to the cecum. The colonoscope was slowly withdrawn in a retrograde panoramic fashion and the colon mucosa was carefully examined including a retroflexed view of the rectum. Findings and interventions are described below. Procedure Difficulty: Colon was long and tortuous and there was some loop formation. Patient was placed in the supine position and LLQ pressure was applied to intubate the ascending colon/cecum Findings: Terminal Ileum: Not evaluated Cecum: A 12-15 mm sessile polyp, removed with a hot snare. A 7-8 mm sessile polyp removed with the cold snare Ascending Colon: Normal Transverse Colon: Normal Descending Colon: Moderate diverticulosis Sigmoid Colon: Moderate diverticulosis Rectum: A 10-12 mm sessile polyp removed with the cold snare. Some bleeding noted from polypectomy site controlled with cautery using the snare tip. 7-8 mm sessile polyp removed with the cold snare Ano-rectum: Moderate internal hemorrhoids and hypertrophied anal papilla Colon preparation: Excellent Impression and Post Procedure Diagnosis: Colonoscopy Findings: Four small to medium sized polyps removed Moderate diverticulosis seen in the left colon Moderate hemorrhoids on retroflexed exam. Plan: Letter will be sent to the patient with pathology results Patient has an appointment on 12/08/21 in the GI [facility] with Dr Polanco. Repeat Colonoscopy interval based on path results - in 3-5 years if polyps are adenomatous and 10 years if polyps are hyperplastic. Above findings were reviewed with the patient and colon polyps and diverticulosis handouts were given in the discharge area Surgeon: Latanya Rahman MD PATHOLOGY: Collected: 11/29/21 Location: [facility] Received: 11/29/21 Diagnosis A. Cecum, polypectomies: Fragments of tubular adenomas; no high-grade dysplasia or carcinoma seen. B. Rectum, polypectomies: Hyperplastic mucosal polyps Assessment & Plan Assessment & Plan (1) Tubular adenoma of colon: Comment: 11/29/21 colonoscopy, complete with excellent prep- Fragments of tubular to Cecum, Rectum Hyperplastic polyp, diverticulosis ,Moderate hemorrhoids. Recommendations for repeat 3 years ( 2024) Code(s): D12.6 - Benign neoplasm of colon, unspecified Category: Medical Plan: Previous findings of polyps, including a precancerous polyp, and recommendations for a 3-year follow-up. Medications: -prescriptions for laxative tablets and MiraLax sent to pharmacy; instructions for Gatorade purchase and clear liquid diet given. - understands anticoagulation medications will need to be held days prior to procedure. Nurse to review med holds per protocol. Understands to start clear liquid diet two days pre colonoscopy, followed by clear liquid diet plus prep as above the day prior to colonoscopy Patient educated on scheduling process, procedure preparation, including avoiding certain foods and ensuring clear liquid intake Advised on necessity for ride post-procedure due to sedation. (2) Anemia: Code(s): D64.9 - Anemia, unspecified Category: Medical Qualifiers: Anemia type: unspecified type Qualified Code(s): D64.9 - Anemia, unspecified Plan: Chronic macrocytosis with recent normal vitamin B12 and folate Additional Tests: Repeat basic labs Plan Follow-up after colonoscopy or sooner as needed Time: I spent a total of 40 minutes on the date of encounter which includes: Preparing to see the patient (reviewed previous documentation, test results and medical history) Performing a medically appropriate exam and/or evaluation Ordering medications, tests, and procedures Documenting clinical information in the health record Orders: Orders Complete Blood Count Auto Diff 03/05/25 D64.9 - Anemia, unspecified IRON PROFILE 03/05/25 D64.9 - Anemia, unspecified Medications: New bisacodyl Take four tablets once for 1 day per colonoscopy instructions 5 mg PO ONCE 4 tabs 0RF 1 day polyethylene glycol 3350 (Miralax) per colonoscopy prep instructions 238 grams PO ONCE 238 grams 0RF Coding Level of Care Code New Pt New Pt Level 3 (14263) Patient Type New Diagnoses Tubular adenoma of colon D12.6 Anemia, unspecified type D64.9 Anemia type: unspecified type
[2025-03-05 12:30] VITALS: BP 134/60; PULSE 68; O2SAT 97; BMI 30.4
== END 2025-03-05 13:05 | disposition home or self-care (01) ==
LOC: HO.HGI 12:21
PROVIDERS: PCP Internal Medicine; Visit Provider Nurse Practitioner Family
DX: D12.6 Benign neoplasm of colon, unspecified (principal); D64.9 Anemia, unspecified
CPT/HCPCS: 99203

== ENCOUNTER → 2025-03-05 12:20 | Outpatient (BNVA) | payer MEDICARE, SELFPAY | PROVIDERS: PCP Internal Medicine; Visit Provider Nurse Practitioner Family | DX: D12.6 Benign neoplasm of colon, unspecified (principal); D64.9 Anemia, unspecified | CPT/HCPCS: 99202 ==

== ENCOUNTER 2025-05-19 06:21 | Outpatient (REF) | payer MEDICARE, SELFPAY ==
--- OUTSIDE RECORDS SUMMARY | 2025-05-19 06:24 | XMS_ITS | Patient Health Record ---
Author Organization [facility] Address [address] [place] [id number] Care Team Providers Care License Clerk Name Role Phone Mahesh Peralta Unavailable [phone] Reason For Referral No Information Plan Of Treatment No Information
--- OUTSIDE RECORDS SUMMARY | 2025-05-19 06:25 | XMS_ITS | Clinical Summary ---
Author Organization [facility] Address [address] [place] [address] Phone Care Team Providers Care Manager Core Name Role Phone Espinoza Polanco MD Primary Care Provider [phone] Allergies Active Allergy Reactions Criticality Noted Date [...] 50+ Ye ars (2 of 2 - PPSV23, PCV20, or PCV21) 11/24/2016 09/29/2016 Influenza Vaccine (#1) 2025 Pneumococcal Vaccine: Peds ( 0 to 5 Years) and At-Risk Patients (6 to 49 Years) Discontinued 09/29/2016 Hepatitis B Vaccine Aged Out No longe r eligible based on patient's age to complete this topic Insurance [facility] Medicare [address] [address] Medicare Care Teams Manager Core Relationship Specialty Start Date End Date Espinoza Polanco MD [address] [place], [place] PCP - General 09/21/20
[2025-05-19 14:01] LABS: Appearance Urine Clear; Glucose Urine UA Negative (Negative); PH 5.5 (5.0-9.0); Specific Gravity - Urine 1.015 (1.005-1.025)
[2025-05-19 14:03] LABS: MANUAL DIFF FLAG NO
[2025-05-19 14:07] LABS: Hematocrit 37.3 % (42.0-52.0); Hemoglobin 13.1 g/dl (14.0-18.0); Imm Gran Abs Auto 0.01 X10*3/uL (0.00-0.03); Imm Gran Pct Auto 0.2 % (0.0-0.4); Lymphocytes Absolute Auto 1.3 X10*3/uL (1.2-4.9); Mean Corpuscular HGB Conc 35.1 g/dl (31.0-36.0); Mean Corpuscular Hemoglobin 35.6 pg (27.0-33.0); Mean Corpuscular Volume 101.4 fL (80.0-98.0); NRBC Abs Auto 0.000 X10*3/uL (0.0-0.012); NRBC Pct Auto 0.0 /100WBC (0.0-0.2); Platelet Count 156 X10*3/uL (160-400); Red Blood Count 3.68 X10*6/uL (4.60-5.80); White Blood Count 5.0 X10*3/uL (4.8-10.8)
[2025-05-19 14:50] LABS: Total Protein Urine Random < 7 mg/dL (<12)
[2025-05-19 14:54] LABS: Alanine Aminotransferase 35 U/L (0-40); Albumin Level 4.1 g/dL (3.5-5.0); Alkaline Phosphatase 76 U/L (39-117); Anion Gap 14 (12-20); Aspartate Amino Transferase 30 U/L (5-37); Blood Urea Nitrogen 16 mg/dL (9-16); Calcium 8.9 mg/dL (8.4-10.2); Carbon Dioxide 26 mmol/L (22-29); Chloride 111 mmol/L (96-108); Cholesterol 116 mg/dL (<200); Estimated Glomerular Filt Rate 57; HDL Cholesterol 49 mg/dL (>40); Magnesium 2.0 mg/dL (1.6-2.6); Potassium 4.5 mmol/L (3.3-5.1); Sodium 146 mmol/L (135-145); Total Protein 6.9 g/dL (6.5-8.0); Triglycerides 52 mg/dL (<150)
[2025-05-19 14:55] LABS: Folate 14.3 ng/mL (> or = 4.0); Vitamin B12 796 pg/mL (200-900)
[2025-05-19 15:15] LABS: Free T4 (Free Thyroxine) 1.12 ng/dL (0.71-1.85); Thyroid Stimulating Hormone 2.83 uIU/mL (0.32-4.0)
== END 2025-05-19 06:22 | disposition home or self-care (01) ==
LOC: HO.HMGCLDS 06:21
PROVIDERS: PCP Internal Medicine; Referring Provider Internal Medicine Hypertension Specialist; Visit Provider Internal Medicine
DX: N18.31 Chronic kidney disease, stage 3a (principal); I25.10 Atherosclerotic heart disease of native coronary artery without angina pectoris; E78.00 Pure hypercholesterolemia, unspecified
CPT/HCPCS: 36415; 80053; 80061; 81003; 82570; 82607; 82746; 83735; 84156; 84439; 84443; 85025

== ENCOUNTER 2025-05-26 10:33 | Outpatient (AMB) | payer MEDICARE, SELFPAY ==
[2025-05-26 10:39] VITALS: BP 112/76; PULSE 139; O2SAT 96; BMI 31.2
--- NOTE | 2025-05-26 10:39 | HO.NEPHOV_ITS ---
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 Required: No Accompanied by: Self / Same As Patient Allergies lisinopril Allergy (Unknown, Verified 05/26/25 10:41) Unknown doxepin Adverse Reaction (Intermediate, Verified 05/26/25 10:41) Hallucinations atorvastatin (Lipitor) Adverse Reaction (Unknown, Verified 05/26/25 10:41) Unknown Medication List - Last Reconciled 05/26/25 by Brandon Williamson MD albuterol sulfate 90 mcg/actuation (Ventolin HFA) 2 puffs inhalation Q6H PRN amlodipine 10 mg PO DAILY apixaban (Eliquis) 5 mg PO BID 90 days bisacodyl 5 mg PO ONCE 1 day cholecalciferol (vitamin D3) 25 mcg PO DAILY [COVID TESTING KIT As directed] docusate sodium (Colace) 100 mg PO DAILY dutasteride 0.5 mg PO DAILY fluticasone propionate 50 mcg/actuation 2 sprays intranasal DAILY furosemide 40 mg See Protocol PO DAILY 90 days loratadine (Claritin) 10 mg PO DAILY metoprolol succinate ER (Toprol XL) 25 mg PO DAILY montelukast 10 mg PO BEDTIME multivitamin 1 tab PO DAILY polyethylene glycol 3350 (Miralax) 238 grams PO ONCE rosuvastatin 20 mg PO DAILY sennosides-docusate sodium 8.6-50 mg (Senna Plus) 2 tab-caps (2 x 8.6-50 mg) PO DAILY tamsulosin 0.4 mg PO DAILY trazodone 50 mg PO BEDTIME Voltaren Arthritis Pain 1% (diclofenac sodium) 4 grams topical QID NS HPI Comments Details: 73 yr old man with HTN and CKD Here for follow up ; Morning BP is slightly elevated 05/28/24 Waiting for Ablation next week ;No dyspnea at rest; Has some on exertion 11/26/24 s/p Ablation Feels much better. No urinary issues ; No dyspnea 05/26/25 The patient is a 75-year-old male presenting with CKD 3 h/o tachycardia and hypertension The patient experiences tachycardia with heart rates up to 140 bpm despite prior ablation. Episodes occur for about a week and a half, normalizing at night, with occasional exertional dyspnea. Currently on metoprolol 25 mg once daily, previously twice daily, with a recent medication adjustment by Dr. Bradford. Awaiting cardiology follow-up for heart rate spikes. History of hypertension, slightly elevated previously, managed with increased amlodipine. Renal function is stable; advised to maintain hydration, reduce salt, and stay active. Surgical History: - Cardiac ablation for atrial fibrillation Medications: - Metoprolol 25 mg once daily for heart rate control - Amlodipine for hypertension management Social History: - Exercise: Walks one mile daily [facility] Medical History (Updated 03/06/25 @ 11:55 by Natalie Gunn CNP) Anemia Colon cancer screening Atrial flutter Atrial flutter with rapid ventricular response Facial skin lesion Initial Medicare annual wellness visit Atherosclerosis BPPV (benign paroxysmal positional vertigo) Vertigo of central origin Persistent atrial fibrillation Atrial fibrillation, new onset Chronic heart failure with preserved ejection fraction Acute congestive heart failure CHF (congestive heart failure) Asthma exacerbation Dizziness COVID-19 vaccine series completed Avascular necrosis of bone of left hip History of renal calculi Peripheral vascular disease Chronic kidney disease History of asbestos exposure BPH (benign prostatic hyperplasia) Obesity (BMI 30-39.9) Asthma Hypercholesterolemia Hypertension Insomnia Surgical History H/O colonoscopy History of left hip replacement Family History Father Hypertension Chronic mental illness Mother Hypertension Gastric cancer Asthma Social History Household Members: Spouse Housing: House Do you presently have visiting nurse or other home services: No Alcohol intake: former Patient Tobacco Use Status: Former Tobacco user Tobacco use type: Cigarette e-Cigarette/Vaping Use: Never Used Second Hand Smoke Exposure: No Advance Directives Date on File: 08/03/20 service: Yes Current occupational status: retired Cognitive needs: No Hearing needs: Yes Vision needs: Yes Physical Exam Vital Signs: Last Vital Signs Pulse 139 H 05/26/25 10:39 BP 112/76 05/26/25 10:39 Pulse Ox 96 05/26/25 10:39 Oxygen Delivery Method Room Air 05/26/25 10:39 BMI result Body Mass Index 31.2 Const General: comfortable; No acute distress Orientation/consciousness: patient oriented x3 Eyes General: appearance normal, both eyes and all related structures Visual Gonzalez: normal visual gonzalez by confrontation Neck Neck: Yes supple and Yes no JVD Resp Effort & Inspection: normal respiratory effort and respiratory effort not decreased Cardio Palpation: no palpable S3 and no palpable S4 Heart sounds: no rubs GI Inspection: Yes normal to inspection Palpation (GI): Soft to palpation Percussion: Yes normal to percussion Auscultation: normal bowel sounds General: Yes no CVA tenderness Back/Spine/Pelvis Back: no CVA tenderness Skin General skin exam: no petechiae and no purpura Neuro General: patient oriented x3 and no focal motor deficits Extrem General: No clubbing and No edema Results Reviewed Nephrology Results: Hgb, (14.0-18.0) 13.1 g/dl L 05/19/25 WBC, (4.8-10.8) 5.0 X10*3/uL 05/19/25 Plt Count, (160-400) 156 X10*3/uL L 05/19/25 Sodium, (135-145) 146 mmol/L H 05/19/25 Potassium, (3.3-5.1) 4.5 mmol/L 05/19/25 Chloride, (96-108) 111 mmol/L H 05/19/25 Carbon Dioxide, (22-29) 26 mmol/L 05/19/25 BUN, (9-16) 16 mg/dL 05/19/25 Creatinine, (0.5-1.4) 1.23 mg/dL 05/19/25 Calcium, (8.4-10.2) 8.9 mg/dL 05/19/25 Urine Protein, (Neg-Trace) Negative mg/dL 05/19/25 Urine Creatinine 81.40 mg/dL 05/19/25 Assessment & Plan Assessment & Plan (1) Chronic kidney disease: Code(s): N18.9 - Chronic kidney disease, unspecified Category: Medical Qualifiers: Chronic kidney disease stage: stage 3 (moderate) Chronic kidney disease stage 3 subtype: stage 3a (GFR 45-59) Qualified Code(s): N18.31 - Chronic kidney disease, stage 3a (2) Asthma: Code(s): J45.909 - Unspecified asthma, uncomplicated Category: Medical Qualifiers: Asthma complication type: uncomplicated Asthma persistence: intermittent Asthma severity: mild Qualified Code(s): J45.20 - Mild intermittent asthma, uncomplicated (3) Chronic heart failure with preserved ejection fraction: Code(s): I50.32 - Chronic diastolic (congestive) heart failure Category: Medical Plan CKD in a setting of HTN h/o NSAID use in the past Cr is stable now Bumped to 1.9 in January 2024 and returned ot baseline Currently at baseline Avoid nephrotoxins including NSAIDS BP acceptable Stay on low salt diet Mild asymptomatic edema - most likely due to high dose of AMlodipine. Tachycardia s/p Ablation Now on Metoprolol Amlodipine might be contributing to tachycardia Would consider switching Amlodipine to Cardizem or Verapamil - Defer to Cardiology Orders: Orders Basic Metabolic Panel 6 Months I10 - Essential (primary) hypertension, N18.31 - Chronic kidney disease, stage 3a Coding Level of Care Code Est Pt Level 4 (65324) Diagnoses Stage 3a chronic kidney disease N18.31 Chronic kidney disease stage: stage 3 (moderate) Chronic kidney disease stage 3 subtype: stage 3a (GFR 45-59) Mild intermittent asthma without complication J45.20 Asthma complication type: uncomplicated Asthma persistence: intermittent Asthma severity: mild Chronic heart failure with preserved ejection fraction I50.32
--- OUTSIDE RECORDS SUMMARY | 2025-05-26 13:35 | XMS_ITS | Clinical Summary ---
Author Organization [facility] Address [address] [place] [address] Phone Care Team Providers Care Lieutenant Fire Fighter Name Role Phone Espinoza Polanco MD Primary Care Provider [phone] Allergies Active Allergy Reactions Criticality Noted Date [...] complete this topic Insurance [facility] [place] [address] [place] [id number] Medicare Care Teams Lieutenant Fire Fighter Relationship Specialty Start Date End Date Espinoza Polanco MD [address] [place], [place] PCP - General 09/21/20
--- OUTSIDE RECORDS SUMMARY | 2025-05-26 13:35 | XMS_ITS | Patient Health Record ---
Author Organization [facility] Address [address] [place] [id number] Care Team Providers Care Marquetry Worker Name Role Phone Mahesh Peralta Unavailable [phone] Reason For Referral No Information Plan Of Treatment No Information
== END 2025-05-26 10:54 | disposition home or self-care (01) ==
LOC: HO.HKA 10:34
PROVIDERS: PCP Internal Medicine; Visit Provider Internal Medicine Hypertension Specialist
DX: N18.31 Chronic kidney disease, stage 3a (principal); J45.20 Mild intermittent asthma, uncomplicated; I50.32 Chronic diastolic (congestive) heart failure
CPT/HCPCS: 99214

== ENCOUNTER → 2025-05-26 10:33 | Outpatient (BNVA) | payer MEDICARE, SELFPAY | PROVIDERS: PCP Internal Medicine; Visit Provider Internal Medicine Hypertension Specialist | DX: I48.92 Unspecified atrial flutter (principal); I11.0 Hypertensive heart disease with heart failure; I50.32 Chronic diastolic (congestive) heart failure; I25.10 Atherosclerotic heart disease of native coronary artery without angina pectoris; N18.31 Chronic kidney disease, stage 3a; J45.20 Mild intermittent asthma, uncomplicated; Z87.891 Personal history of nicotine dependence | CPT/HCPCS: 93005; 99212 ==

== ENCOUNTER 2025-05-26 12:30 | Outpatient (AMB) | payer MEDICARE, SELFPAY ==
[2025-05-26 12:32] VITALS: BP 110/70; PULSE 139; BMI 31.2
--- NOTE | 2025-05-26 12:32 | A.OFFVIS_ITS ---
Vital Signs 05/26/25 12:32 Height 5 ft 8 in Weight 205 lb BMI 31.2 BP 110/70 Blood Pressure Location Lt brachial Position Sitting Pulse 139 H Pulse Source Monitor Intake Visit Reasons: tachycardia Allergies lisinopril Allergy (Unknown, Verified 05/26/25 13:40) Unknown doxepin Adverse Reaction (Intermediate, Verified 05/26/25 13:40) Hallucinations atorvastatin (Lipitor) Adverse Reaction (Unknown, Verified 05/26/25 13:40) Unknown Medication List - Last Reconciled 05/26/25 by Pranav Bradford MD albuterol sulfate 90 mcg/actuation (Ventolin HFA) 2 puffs inhalation Q6H PRN amlodipine 10 mg PO DAILY apixaban (Eliquis) 5 mg PO BID 90 days bisacodyl 5 mg PO ONCE 1 day cholecalciferol (vitamin D3) 25 mcg PO DAILY [COVID TESTING KIT As directed] docusate sodium (Colace) 100 mg PO DAILY dutasteride 0.5 mg PO DAILY fluticasone propionate 50 mcg/actuation 2 sprays intranasal DAILY furosemide 40 mg See Protocol PO DAILY 90 days loratadine (Claritin) 10 mg PO DAILY metoprolol succinate ER (Toprol XL) 25 mg PO DAILY montelukast 10 mg PO BEDTIME multivitamin 1 tab PO DAILY polyethylene glycol 3350 (Miralax) 238 grams PO ONCE rosuvastatin 20 mg PO DAILY sennosides-docusate sodium 8.6-50 mg (Senna Plus) 2 tab-caps (2 x 8.6-50 mg) PO DAILY tamsulosin 0.4 mg PO DAILY trazodone 50 mg PO BEDTIME Voltaren Arthritis Pain 1% (diclofenac sodium) 4 grams topical QID NS HPI Comments Details: Britton returns for follow-up. He has a history of atrial flutter with rapid rate as well as bradycardia issues. Has tried and failed amiodarone, Multaq and then saw EP. In 2023, he had ablation for atrial flutter/fibrillation. He was maintained on a small dose of beta-farzaneh and he was doing fine. Today, it seems that he was seen in the Nephrology office and vitals showed a high heart rate and hence we saw him here. He states he feels generally okay but some shortness of breath every so often. Sometimes he feels heart racing but for the most part he feels okay. By EKG, he is again in atrial flutter with rapid rate. [facility] Medical History (Updated 03/06/25 @ 11:55 by Natalie Gunn CNP) Anemia Colon cancer screening Atrial flutter Atrial flutter with rapid ventricular response Facial skin lesion Initial Medicare annual wellness visit Atherosclerosis BPPV (benign paroxysmal positional vertigo) Vertigo of central origin Persistent atrial fibrillation Atrial fibrillation, new onset Chronic heart failure with preserved ejection fraction Acute congestive heart failure CHF (congestive heart failure) Asthma exacerbation Dizziness COVID-19 vaccine series completed Avascular necrosis of bone of left hip History of renal calculi Peripheral vascular disease Chronic kidney disease History of asbestos exposure BPH (benign prostatic hyperplasia) Obesity (BMI 30-39.9) Asthma Hypercholesterolemia Hypertension Insomnia Surgical History H/O colonoscopy History of left hip replacement Family History Father Hypertension Chronic mental illness Mother Hypertension Gastric cancer Asthma Social History Household Members: Spouse Housing: House Do you presently have visiting nurse or other home services: No Alcohol intake: former Patient Tobacco Use Status: Former Tobacco user Tobacco use type: Cigarette Smoked in Last 30 Days: No e-Cigarette/Vaping Use: Never Used Second Hand Smoke Exposure: No Use of substances other than those prescribed or required for medical reasons: No Advance Directives Date on File: 08/03/20 Do you have a plan to hurt others: No Plan service: Yes Current occupational status: retired Cognitive needs: No Hearing needs: Yes Vision needs: Yes Review of Systems Const Denies weakness ENT Denies dizziness Card Denies chest pain, Denies chest pain with activity, Denies syncope, Denies rapid heart rate, Denies pedal edema, Denies edema, Denies leg edema, Denies lighthead edness, Denies palpitations, Reports dyspnea, Denies dyspnea on exertion and Denies orthopnea Resp Denies cough, Reports dyspnea and Denies dyspnea on exertion GI Denies hematochezia and Denies change in stool character Musc Denies abnormal gait, Denies muscle cramps, Denies muscle weakness, Denies numbness, Denies radiating pain into limb and Denies tingling Neuro Denies abnormal gait, Denies dizziness, Denies syncope, Denies numbness, Denies tingling and Denies weakness Endo Denies palpitations Physical Exam Vital Signs: Last Vital Signs Pulse 139 H 05/26/25 12:32 BP 110/70 05/26/25 12:32 BMI result Body Mass Index 31.2 Const General: comfortable and no acute distress Orientation/consciousness: patient oriented x3 HEENT Other: Unremarkable Head: Yes normal to inspection Neck Neck: Yes normal visual inspection Chest Chest palpation & inspection: normal inspection of the chest Resp Auscultation: clear to auscultation bilaterally Cardio Palpation: normal PMI Heart sounds: S1 normal heart sound present, S2 normal heart sound present, no gallops, no murmurs and no rubs GI Palpation (GI): Soft to palpation Back/Spine/Pelvis Other: unremarkable Skin General skin exam: no rashes or lesions noted Neuro General: patient oriented x3 Extrem General: Yes normal to inspection Psych Mental Status: mental status grossly normal Office Procedures EKG Details: EKG with atrial flutter with rapid rate at 140/Min. 39586-[id number], Complete Assessment & Plan Assessment & Plan (1) Atrial flutter: Code(s): I48.92 - Unspecified atrial flutter Category: Medical Plan: Status post ablation of atrial fibrillation as well as left atrial flutter. As he is again in atrial flutter with rapid rate, we will send him to the emergency room for IV medications. Most likely, will need another ablation. (2) Chronic heart failure with preserved ejection fraction: Code(s): I50.32 - Chronic diastolic (congestive) heart failure Category: Medical Plan: Stable. No changes. (3) Hypertension: Code(s): I10 - Essential (primary) hypertension Category: Medical Qualifiers: Hypertension type: essential hypertension Qualified Code(s): I10 - Essential (primary) hypertension Plan: On amlodipine. Well controlled. (4) Atherosclerotic cardiovascular disease: Code(s): I25.10 - Atherosclerotic heart disease of [place] coronary artery without angina pectoris Category: Medical Plan: Pulmonary vein CT reports coronary artery calcification but myocardial perfusion imaging study shows likely normal perfusion. Clinically no angina. Continue statins. Plan Discussion Notes I discussed with the patient the need to visit the emergency room due to his elevated heart rate, which poses a risk if left untreated. I explained that intravenous medication could be administered to lower the heart rate and prevent complications such as a heart attack. Patient was informed and verbally consented to the use of an ambient scribe for clinic note documentation during this visit. Patient Instructions: - Go to the emergency room for evaluation and treatment of elevated heart rate. - Monitor for any worsening symptoms such as increased shortness of breath or chest pain. Coding Level of Care Code Est Pt Level 4 (58863) Complex EM visit Add On G2211 Diagnoses Atrial flutter I48.92 Chronic heart failure with preserved ejection fraction I50.32 Essential hypertension I10 Hypertension type: essential hypertension Atherosclerotic cardiovascular disease I25.10 CPT Codes EKG - CPT: 23052-[id number], Complete ([id number])
== END 2025-05-26 12:47 | disposition home or self-care (01) ==
LOC: HO.HCS 12:30
PROVIDERS: PCP Internal Medicine; Visit Provider Internal Medicine
DX: I48.92 Unspecified atrial flutter (principal); I50.32 Chronic diastolic (congestive) heart failure; I10 Essential (primary) hypertension; I25.10 Atherosclerotic heart disease of native coronary artery without angina pectoris
CPT/HCPCS: 93010; 99214; G2211

== ENCOUNTER 2025-05-26 12:54 | Emergency (ER) | payer MEDICARE, SELFPAY ==
--- NOTE | 2025-05-26 12:56 | ECG_ITS ---
Test Reason : TACHYCARDIA Blood Pressure : */* mmHG Vent. Rate : 138 BPM Atrial Rate : 138 BPM P-R Int : 152 ms QRS Dur : 114 ms QT Int : 290 ms P-R-T Axes : * -59 104 degrees QTcB Int : 439 ms Sinus tachycardia Left axis deviation Minimal voltage criteria for LVH, may be normal variant ( [place] product ) Nonspecific ST and T wave abnormality Abnormal ECG When compared with ECG of 26-Jan-2024 15:03, Vent. rate has increased by 61 bpm Referred By: Generic ED Physician Electronically Signed By: KYLEE SMITH
--- NOTE | 2025-05-26 13:22 | PC.NURSE ---
Brought to ED 8 from waiting room.
--- NOTE | 2025-05-26 13:29 | ED_ITS ---
HPI - Arrhythmia/Palpitations General Chief Complaint: Arrhythmia/Palpitations Stated Complaint: high HR Time Seen by Provider: 05/26/25 13:24 Source: patient Mode of arrival: ambulatory Limitations: no limitations History of Present Illness ED Provider: HPI narrative: This is a 75-year-old male with a history of flutter, status post ablation, on Eliquis metoprolol and amlodipine, was referred to ER by his microstrategy reports developer Dr. Bradford, patient is otherwise asymptomatic denies chest pain palpitations dyspnea. Has been using his blood thinners on regular basis. Along with his other medications. Related Data Home Medications ?Medication ?Instructions ?Recorded ?Confirmed cholecalciferol (vitamin D3) 25 25 mcg PO DAILY 05/26/25 mcg (1,000 unit) capsule albuterol sulfate 90 mcg/actuation 2 puff inhalation Q 6H PRN 01/25/24 05/26/25 aerosol inhaler (Ventolin HFA) shortness of breath or wheezing multivitamin 1 tab PO DAILY 01/25/2405/12 loratadine 10 mg tablet (Claritin) 10 mg PO DAILY 11/0905/26/25 docusate sodium 100 mg capsule 100 mg PO DAILY 03/05/ 5 05/26/25 (Colace) Previous Rx's ?Medication ?Instructions ?Recorded COVID TESTING KIT #4 ea 04/24/24 apixaban 5 mg tablet (Eliquis) 5 mg PO BID 90 days #18 0 tabs 05/19/24 furosemide 40 mg tablet 40 mg PO DAILY 90 days #90 t abs 05/19/24 metoprolol succinate 25 mg 25 mg PO DAILY #90 tabs 04/03 tablet,extended release 24 hr (Toprol XL) dutasteride 0.5 mg capsule 0.5 mg PO DAILY #90 caps tamsulosin 0.4 mg capsule 0.4 mg PO DAILY #90 caps amlodipine 10 mg tablet 10 mg PO DAILY #90 tabs 04/04 montelukast 10 mg tablet 10 mg PO BEDTIME #90 tabs Voltaren Arthritis Pain 1 % 4 g topical QID #350 grams 01/24/25 topical gel (diclofenac sodium) sennosides 8.6 mg-docusate sodium 2 tab-cap (2 x 8.6-5 0 mg) PO DAILY 01/24/25 50 mg capsule (Senna Plus) #180 caps rosuvastatin 20 mg tablet 20 mg PO DAILY #90 tabs 05/05 bisacodyl 5 mg tablet,delayed 5 mg PO ONCE 1 day #4 ta bs 03/05/25 release polyethylene glycol 3350 17 238 g PO ONCE #238 grams 0 03/05/25 gram/dose oral powder (Miralax) fluticasone propionate 50 2 spray intranasal DAILY #48 mL 04/20/25 mcg/actuation nasal spray,suspension trazodone 50 mg tablet 50 mg PO BEDTIME #90 tabs Allergies Allergy/AdvReac Type Severity Reaction Status Date / Time lisinopril Allergy Unknown Unknown Verified 05/26/25 13:40 doxepin AdvReac Intermediate Hallucinati Verified 05/26/25 13:40 ons atorvastatin (Lipitor) AdvReac Unknown Unknown Verified 05/26/25 13:40 Review of Systems 2 Constitutional: Constitutional: Reports as per [facility] Past Medical History Medical History (Updated 05/26/25 @ 15:26 by Colin Castorena DO) Anemia Colon cancer screening Atrial flutter Atrial flutter with rapid ventricular response Facial skin lesion Initial Medicare annual wellness visit Atherosclerosis BPPV (benign paroxysmal positional vertigo) Vertigo of central origin Persistent atrial fibrillation Atrial fibrillation, new onset Chronic heart failure with preserved ejection fraction Acute congestive heart failure CHF (congestive heart failure) Asthma exacerbation Dizziness COVID-19 vaccine series completed Avascular necrosis of bone of left hip History of renal calculi Peripheral vascular disease Chronic kidney disease History of asbestos exposure BPH (benign prostatic hyperplasia) Obesity (BMI 30-39.9) Asthma Hypercholesterolemia Hypertension Insomnia Surgical History H/O colonoscopy History of left hip replacement Family History Family History Father Hypertension Chronic mental illness Mother Hypertension Gastric cancer Asthma Social History Social History Household Members: Spouse Housing: House Do you presently have visiting nurse or other home services: No Alcohol intake: former Patient Tobacco Use Status: Former Tobacco user Tobacco use type: Cigarette Smoked in Last 30 Days: No e-Cigarette/Vaping Use: Never Used Second Hand Smoke Exposure: No Use of substances other than those prescribed or required for medical reasons: No Advance Directives: Yes Advance Directives on File: Yes Advance Directives Date on File: 08/03/20 Do you have a plan to hurt others: No Plan service: Yes Current occupational status: retired Cognitive needs: No Hearing needs: Yes Vision needs: Yes Physical Exam 2 Vital Signs: Vital Signs: Last Vital Signs Temp 98.9 F 05/26/25 13:40 Pulse 67 05/26/25 14:30 Resp 15 05/26/25 14:30 BP 95/50 L 05/26/25 14:30 Pulse Ox 94 05/26/25 14:30 O2 Del Method Room Air 05/26/25 14:30 BMI result Body Mass Index 33.1 Const: Other: * Gen: ?Overall well-appearing patient * Neck: Supple, no LAD * CV: Fast and regular * Resp: ?No wheezing rales rhonchi no stridor moving air well * Abd: ?Bowel sounds are present, no tenderness no rebound no rigidity * MSK: FROM, strength 5/5 all extremities, no edema * Skin: Warm, dry, intact, * Neuro: ?Alert and oriented x3, moving upper and lower extremities symmetrically, no obvious facial asymmetry noted Medications Administered Discontinued Medications Generic Name Dose Route Start Last Admin Trade Name Freq PRN Reason Stop Dose Admin Diltiazem HCl 20 mg 05/26/25 14:21 05/26/25 14:25 Diltiazem Hcl 50 Mg/10 Ml Vial IVPUSH 05/26/25 14:22 20 mg ONCE ONE Administration Metoprolol Tartrate 5 mg 05/26/25 13:35 05/26/25 13:43 Metoprolol Tartrate 5 Mg/5 Ml Vial IVPUSH 05/26/25 13:36 5 mg ONCE ONE Administration Protocol Medical Decision Making Medical Decision Making MDM Narrative: 1:31 PM 05/26/2025 (Dr. Colin Castorena): I spoke with Dr. Bradford he would like me to give IV medications for rate control, and not adjust any outpatient medications, patient himself is otherwise well-appearing, he is in 2:1 flutter has had ablation in the past but failed, anticipate IV medications and if I am able to rate control him discharge without having to admit him 3:22 PM 05/26/2025 (Dr. Colin Castorena): Patient is in sinus rhythm, feeling good workup reassuring we will be discharging Differential Diagnosis Differential Diagnoses: The differential diagnosis associated with the presentation includes (A flutter, AFib, WPW, ACS, PE) Admission/Observation Consideration of admission/observation: Escalation of care including admission/observation considered Consult Healthcare Provider Management of the patient was discussed with: Environmental Programs Specialist (microstrategy reports developer) Lab Data MDM Lab Attestation statement: I reviewed the patient's lab results. 05/26/25 14:08 Labs: Lab Results 05/26/25 05/26/25 Range/Units 13:36 14:08 WBC 6.9 (4.8-10.8) X10*3/uL RBC 4.12 L (4.60-5.80) X10*6/uL Hgb 15.0 (14.0-18.0) g/dl Hct 40.7 L (42.0-52.0) % MCV 98.8 H (80.0-98.0) fL MCH 36.4 H (27.0-33.0) pg MCHC 36.9 H (31.0-36.0) g/dl RDW 13.1 (11.0-16.0) % Plt Count 155 L (160-400) X10*3/uL MPV 8.9 L (9.4-12.4) fL Immature Gran % (Auto) 0.4 (0.0-0.4) % Neut % (Auto) 76.1 H (45-73) % Lymph % (Auto) 14.9 L (20-40) % [place] % (Auto) 7.4 (2-11) % Eos % (Auto) 0.6 (0-4) % Baso % (Auto) 0.6 (0-2) % Lymph # (Auto) 1.0 L (1.2-4.9) X10*3/uL [place] # (Auto) 0.5 (0.1-1.2) X10*3/uL Eos # (Auto) 0.0 (0.0-0.4) X10*3/uL Baso # (Auto) 0.0 (0.0-0.2) X10*3/uL Abs Immat Gran (auto) 0.03 (0.00-0.03) X10*3/uL Absolute Neuts (auto) 5.2 (2.0-8.3) x10*3/uL Absolute Nucleated RBC 0.000 (0.0-0.012) X10*3/uL Nucleated RBC % (auto) 0.0 (0.0-0.2) /100WBC Magnesium 2.0 (1.6-2.6) mg/dL Independent Interpretation I performed an independent interpretation of an: EKG (138 beats per minute this is a 2-1 flutter) Tests considered The following testing was considered but not selected: Troponin Critical Care Time Critical Care Time Critical Care Time: Yes Total Critical Care Time: 35 Attestation: Time is exclusive of separately billable procedures. Time includes: direct patient care, patient reassessment, coordination of patient care, interpretation of data (laboratory data, pulse oximetry, arterial blood gases and chest xrays), review of patient's medical records, medical consultation and documentation of patient care. Procedures excluded from critical care time: central intravenous line placement and electrocardiography. Discharge Plan Discharge Clinical Impression: Atrial flutter Patient Disposition: Home, Self-Care Additional Instructions: I spoke with Dr. Bradford who indicated they should continue your regular medication regimen without change, your blood work has been reassuring, if you have any chest pain palpitations shortness of breath any other concerns come back to the ER, otherwise please make sure to follow up with the microstrategy reports developer and PCP. Taking medications on regular basis. Prescriptions: No Action (DME) COVID TESTING KIT See Rx Instructions .Route .MEDSUPPLY Qty: 4 0RF Rx Instructions: As directed furosemide 40 mg tablet 40 mg PO DAILY 90 Days Qty: 90 2RF Protocol: Hold for SBP< HOLD for SBP < : 90 Eliquis 5 mg tablet 5 mg PO BID 90 Days Qty: 180 3RF dutasteride 0.5 mg capsule 0.5 mg PO DAILY Qty: 90 2RF tamsulosin 0.4 mg capsule 0.4 mg PO DAILY Qty: 90 2RF montelukast 10 mg tablet 10 mg PO BEDTIME Qty: 90 3RF rosuvastatin 20 mg tablet 20 mg PO DAILY Qty: 90 1RF fluticasone propionate 50 mcg/actuation spray,suspension 2 spray intranasal DAILY Qty: 48 1RF trazodone 50 mg tablet 50 mg PO BEDTIME Qty: 90 0RF multivitamin Tablet 1 tab PO DAILY albuterol sulfate [Ventolin HFA] 90 mcg/actuation HFA aerosol inhaler 2 puff inhalation Q6H PRN (Reason: shortness of breath or wheezing) cholecalciferol (vitamin D3) 25 mcg (1,000 unit) capsule 25 mcg PO DAILY loratadine [Claritin] 10 mg tablet 10 mg PO DAILY metoprolol succinate [Toprol XL] 25 mg tablet extended release 24 hr 25 mg PO DAILY Qty: 90 3RF amlodipine 10 mg tablet 10 mg PO DAILY Qty: 90 3RF Senna Plus 8.6-50 mg capsule 2 tab-cap PO DAILY Qty: 180 2RF diclofenac sodium [Voltaren Arthritis Pain] 1 % gel 4 g topical QID Qty: 350 3RF Rx Instructions: apply to single knee, ankle, foot; for foot includes sole/toes/top of foot docusate sodium [Colace] 100 mg capsule 100 mg PO DAILY bisacodyl 5 mg tablet,delayed release (DR/EC) 5 mg PO ONCE 1 Days Qty: 4 0RF Rx Instructions: Take four tablets once for 1 day per colonoscopy instructions polyethylene glycol 3350 [Miralax] 17 gram/dose powder 238 g PO ONCE Qty: 238 0RF Rx Instructions: per colonoscopy prep instructions Print Language: Turkish
[2025-05-26 13:38] VITALS: BP 141/79; PULSE 137; RESP 16; TEMP 37.2; O2SAT 97; BMI 33.1
[2025-05-26 13:40] VITALS: BP 117/76; PULSE 136; RESP 21; TEMP 37.2; O2SAT 95
[2025-05-26 13:55] LABS: Magnesium 2.0 mg/dL (1.6-2.6)
[2025-05-26 14:12] LABS: MANUAL DIFF FLAG NO
[2025-05-26 14:14] LABS: Hematocrit 40.7 % (42.0-52.0); Hemoglobin 15.0 g/dl (14.0-18.0); Imm Gran Abs Auto 0.03 X10*3/uL (0.00-0.03); Imm Gran Pct Auto 0.4 % (0.0-0.4); Lymphocytes Absolute Auto 1.0 X10*3/uL (1.2-4.9); Mean Corpuscular HGB Conc 36.9 g/dl (31.0-36.0); Mean Corpuscular Hemoglobin 36.4 pg (27.0-33.0); Mean Corpuscular Volume 98.8 fL (80.0-98.0); NRBC Abs Auto 0.000 X10*3/uL (0.0-0.012); NRBC Pct Auto 0.0 /100WBC (0.0-0.2); Platelet Count 155 X10*3/uL (160-400); Red Blood Count 4.12 X10*6/uL (4.60-5.80); White Blood Count 6.9 X10*3/uL (4.8-10.8)
[2025-05-26 14:25] VITALS: BP 117/67; PULSE 135
[2025-05-26 14:30] VITALS: BP 95/50; PULSE 67; RESP 15; O2SAT 94
[2025-05-26 16:14] VITALS: BP 113/68; PULSE 68; RESP 15; TEMP 37.1; O2SAT 96
[2025-05-26 16:53] LABS: Alanine Aminotransferase 43 U/L (0-40); Albumin Level 4.6 g/dL (3.5-5.0); Alkaline Phosphatase 83 U/L (39-117); Anion Gap 16 (12-20); Aspartate Amino Transferase 43 U/L (5-37); Blood Urea Nitrogen 15 mg/dL (9-16); Calcium 9.5 mg/dL (8.4-10.2); Carbon Dioxide 21 mmol/L (22-29); Chloride 107 mmol/L (96-108); Creatinine Clr Calc Pharmacy 52.6; Estimated Glomerular Filt Rate 52; Potassium 4.4 mmol/L (3.3-5.1); Sodium 140 mmol/L (135-145); Total Protein 8.0 g/dL (6.5-8.0)
== END 2025-05-26 16:16 | disposition home or self-care (01) ==
PROVIDERS: Emergency Provider Emergency Medicine; PCP Internal Medicine
DX: I49.8 Other specified cardiac arrhythmias (principal); R00.2 Palpitations; I48.92 Unspecified atrial flutter; R00.0 Tachycardia, unspecified; Z79.01 Long term (current) use of anticoagulants; Z79.899 Other long term (current) drug therapy; Z87.891 Personal history of nicotine dependence
CPT/HCPCS: 36415; 80053; 83735; 85025; 93005; 96374; 96375; 99284; 99285; J0616; J1163

== ENCOUNTER → 2025-05-27 14:45 | Outpatient (REF) | payer MEDICARE, SELFPAY ==
--- OUTSIDE RECORDS SUMMARY | 2025-05-27 18:25 | XMS_ITS | Clinical Summary ---
Author Organization [facility] Address [address] [place] [address] Phone Care Team Providers Care Fifth Hand Name Role Phone Espinoza Polnaco MD Primary Care Provider [phone] Allergies Active Allergy Reactions Criticality Noted Date [...] patient's age to complete this topic Insurance * Guarantor: Britton Long Account Type Relation to Patient Date of Phone Billing Address Personal/Family Self [address] [place] [id number] [facility] Medicare * Guarantor: Seferino Longjohn Ortiz Account Type Relation to Patient Date of Phone Billing Address Personal/Family Self [address] [place] [id number] [place] [address] Medicare Care Teams Fifth Hand Relationship Specialty Start Date End Date Espinoza Polanco MD [address] [place], [place] PCP - General 09/21/20
--- OUTSIDE RECORDS SUMMARY | 2025-05-27 18:25 | XMS_ITS | Patient Health Record ---
Author Organization [facility] Address [address] [place] [id number] Care Team Providers Care Salsa Dance Instructor Name Role Phone Mahesh Peralta Unavailable [phone] Reason For Referral No Information Plan Of Treatment No Information
== END ==
LOC: HO.CARD 14:45
PROVIDERS: PCP Internal Medicine; Visit Provider Internal Medicine
DX: R00.2 Palpitations (principal); I48.0 Paroxysmal atrial fibrillation
CPT/HCPCS: 93242

== ENCOUNTER → 2025-05-27 14:47 | Outpatient (BNV) | payer MEDICARE, SELFPAY | PROVIDERS: PCP Internal Medicine; Visit Provider Internal Medicine | DX: I48.92 Unspecified atrial flutter (principal); I49.3 Ventricular premature depolarization | CPT/HCPCS: 93244 ==

== ENCOUNTER 2025-06-06 10:21 | Outpatient (AMB) | payer MEDICARE, SELFPAY ==
[2025-06-06 10:30] VITALS: BP 134/72; PULSE 96; O2SAT 97; BMI 31.8
--- NOTE | 2025-06-06 10:30 | MHC.PC.OV ---
Vital Signs 06/06/25 10:30 Height 5 ft 8 in Weight 209 lb BMI 31.8 BP 134/72 Blood Pressure Location Lt brachial Position Sitting Pulse 96 Pulse Source Pulse Oximeter Pulse Oximetry (%) 97 Oxygen Delivery Method Room Air Intake Visit Reasons: A fib Allergies lisinopril Allergy (Unknown, Verified 06/06/25 10:31) Unknown doxepin Adverse Reaction (Intermediate, Verified 06/06/25 10:31) Hallucinations atorvastatin (Lipitor) Adverse Reaction (Unknown, Verified 06/06/25 10:31) Unknown Medication List - Last Reconciled 06/06/25 by Espinoza Polanco MD albuterol sulfate 90 mcg/actuation (Ventolin HFA) 2 puffs inhalation Q6H PRN amiodarone 400 mg (2 x 200 mg) PO BID 14 days amlodipine 10 mg PO DAILY apixaban (Eliquis) 5 mg PO BID 90 days benzonatate 200 mg PO BID-TID PRN bisacodyl 5 mg PO ONCE 1 day cholecalciferol (vitamin D3) 25 mcg PO DAILY [COVID TESTING KIT As directed] docusate sodium (Colace) 100 mg PO DAILY dutasteride 0.5 mg PO DAILY fluticasone propionate 50 mcg/actuation 2 sprays intranasal DAILY furosemide 40 mg See Protocol PO DAILY 90 days loratadine (Claritin) 10 mg PO DAILY metoprolol succinate ER (Toprol XL) 25 mg PO DAILY montelukast 10 mg PO BEDTIME multivitamin 1 tab PO DAILY polyethylene glycol 3350 (Miralax) 238 grams PO ONCE rosuvastatin 20 mg PO DAILY sennosides-docusate sodium 8.6-50 mg (Senna Plus) 2 tab-caps (2 x 8.6-50 mg) PO DAILY tamsulosin 0.4 mg PO DAILY trazodone 50 mg PO BEDTIME Voltaren Arthritis Pain 1% (diclofenac sodium) 4 grams topical QID NS Tobacco use date assessed: 10/18/24 Fall risk assessment: No Falls in past year Last assessed Fall Risk: 06/06/25 Dental Screening Dental Screen Date: 10/18/24 HPI A fib HPI Details PAtient will be seeing cardiology [facility] Medical History (Updated 05/27/25 @ 00:01 by Background Isidra) Anemia Colon cancer screening Atrial flutter Atrial flutter with rapid ventricular response Facial skin lesion Initial Medicare annual wellness visit Atherosclerosis BPPV (benign paroxysmal positional vertigo) Vertigo of central origin Persistent atrial fibrillation Atrial fibrillation, new onset Chronic heart failure with preserved ejection fraction Acute congestive heart failure CHF (congestive heart failure) Asthma exacerbation Dizziness COVID-19 vaccine series completed Avascular necrosis of bone of left hip History of renal calculi Peripheral vascular disease Chronic kidney disease History of asbestos exposure BPH (benign prostatic hyperplasia) Obesity (BMI 30-39.9) Asthma Hypercholesterolemia Hypertension Insomnia Surgical History H/O colonoscopy History of left hip replacement Family History Father Hypertension Chronic mental illness Mother Hypertension Gastric cancer Asthma Social History Household Members: Spouse Housing: House Do you presently have visiting nurse or other home services: No Alcohol intake: former Patient Tobacco Use Status: Former Tobacco user Tobacco use type: Cigarette e-Cigarette/Vaping Use: Never Used Second Hand Smoke Exposure: No Advance Directives Date on File: 08/03/20 service: Yes Current occupational status: retired Cognitive needs: No Hearing needs: Yes Vision needs: Yes Questionnaire PHQ-9 Over the last 2 weeks, how often have you been bothered by any of the following problems? 1. Little interest or pleasure in doing things: more than half the days 2. Feeling down, depressed, or hopeless: more than half the days 3. Trouble falling or staying asleep, or sleeping too much: not at all 4. Feeling tired or having little energy: not at all 5. Poor appetite or overeating: not at all 6. Feeling bad about yourself - or that you are a failure or have let yourself or your family down: not at all 7. Trouble concentrating on things, such as reading the newspaper or watching television: nearly every day 8. Moving or speaking so slowly that other people could have noticed. Or the opposite - being so fidgety or restless that you have been moving around a lot more than usual: several days 9. Thoughts that you would be better off or of hurting yourself in some way: not at all Total score: 8 Depression Screening Interpretation: Positive Depression Screening Done: Yes Source: Developed by Drs. Mahesh Angeles, [place], Ever Valle and colleagues, with an educational danielle from [employer]. Thrive Questionnaire Date Thrive assessed: 01/18/25 I am a: Patient What is your living situation today?: I have a steady place to live Within the past 12 months, did the food you bought not last and you didn't have the money to get more?: Never true Within the past 12 months, did you worry whether your food would run out before you got money to buy more?: Never true Do you have trouble paying for medicines?: No Do you have trouble getting transportation to medical appointments?: No Do you have trouble paying your heating and electricity bill?: No Do you have trouble taking care of your child, family member or friend?: No Do you have trouble with day-to-day activities such as bathing, preparing meals, shopping, managing finances, etc.?: No Are you currently unemployed and looking for a job?: No Are you interested in more education?: No Please select the resources that you would like help with: None Currently or been in a relationship where the following occur: No concerns reported THRIVE Score: 0 AUDIT C Alcohol Use Questionnaire (AUDIT-C) 1. How often do you have a drink containing alcohol?: Never 2. How many drinks containing alcohol do you have on a typical day when you are drinking?: 1 or 2 3. How often do you have six or more drinks on one occasion?: Never Total Score: 0 BETSY-7 AMB Questionnaire BETSY-7 Date BETSY - 7 assessed: 01/24/25 Source: Developed by Drs. Mahesh Angeles, Ever Langley and colleagues, with an educational danielle from [employer]. Physical exam (Primary Care) Vital Signs: Last Vital Signs Pulse 96 06/06/25 10:30 BP 134/72 06/06/25 10:30 Pulse Ox 97 06/06/25 10:30 Oxygen Delivery Method Room Air 06/06/25 10:30 BMI result Body Mass Index 31.8 Tobacco/Smoking Status: Tobacco use Status Tobacco use date assessed 10/18/24 06/06/25 10:31 Patient Tobacco Use Status Former Tobacco user 06/06/25 10:31 Tobacco use type Cigarette 06/06/25 10:31 e-Cigarette/Vaping Use Never Used 06/06/25 10:31 PHQ-9: PHQ-9 Score PHQ-9: Total score 8 06/06/25 11:09 Depression Screening Interpretation: Positive Thrive Assessment: Date of Thrive Assessment Date Thrive assessed 01/18/25 06/06/25 10:31 Currently or been in a relationship where the following occur: No concerns reported Const General: alert; No acute distress Eyes Conjunctivae: conjunctivae normal Resp Auscultation: clear to auscultation bilaterally Cardio Rate: regular rate Rhythm: regular rhythm GI Inspection: Yes normal to inspection Extrem General: Yes normal to inspection and No edema Coding Level of Care Code Est Pt Level 4 (15732) Complex EM visit Add On G2211 Diagnoses PAF (paroxysmal atrial fibrillation) I48.0 Essential hypertension I10 Hypertension type: essential hypertension Hypercholesterolemia E78.00 Chronic heart failure with preserved ejection fraction I50.32 Tubular adenoma of colon D12.6 Stage 3a chronic kidney disease N18.31 Chronic kidney disease stage: stage 3 (moderate) Chronic kidney disease stage 3 subtype: stage 3a (GFR 45-59) Mild intermittent asthma without complication J45.20 Asthma complication type: uncomplicated Asthma persistence: intermittent Asthma severity: mild Obesity (BMI 30-39.9) E66.9 Assessment & Plan Assessment & Plan (1) PAF (paroxysmal atrial fibrillation): Comment: Ablation April 2024 Code(s): I48.0 - Paroxysmal atrial fibrillation Category: Medical Plan: Reviewed notes patient had a Holter with atrial fibrillation with averaging rate of 101. Patient is being referred for EP studies again and possible ablation (2) Hypertension: Code(s): I10 - Essential (primary) hypertension Category: Medical Qualifiers: Hypertension type: essential hypertension Qualified Code(s): I10 - Essential (primary) hypertension Plan: Continue with blood pressure medication. Decrease salt intake and exercise patient is on amlodipine 10 mg once a day metoprolol 25 mg once a day (3) Hypercholesterolemia: Code(s): E78.00 - Pure hypercholesterolemia, unspecified Category: Medical Plan: Avoid fried foods, chicken skin, eggs, butter margarine, pastries and meat. Be it pork or beef they have a lot of cholesterol blood work Gayle continuing with rosuvastatin 20 mg once a day (4) Chronic heart failure with preserved ejection fraction: Code(s): I50.32 - Chronic diastolic (congestive) heart failure Category: Medical Plan: Continuing with furosemide 40 mg once a day (5) Tubular adenoma of colon: Comment: 11/29/21 colonoscopy, complete with excellent prep- Fragments of tubular to Cecum, Rectum Hyperplastic polyp, diverticulosis ,Moderate hemorrhoids. Recommendations for repeat 3 years ( 2024) Code(s): D12.6 - Benign neoplasm of colon, unspecified Category: Medical Plan: Patient has seen gastroenterology and colonoscopy will be scheduled but with the present problem of Cardiology will deal with this 1st (6) Chronic kidney disease: Code(s): N18.9 - Chronic kidney disease, unspecified Category: Medical Qualifiers: Chronic kidney disease stage: stage 3 (moderate) Chronic kidney disease stage 3 subtype: stage 3a (GFR 45-59) Qualified Code(s): N18.31 - Chronic kidney disease, stage 3a Plan: Renal function stable, avoid NSAIDs control the blood pressure (7) Asthma: Code(s): J45.909 - Unspecified asthma, uncomplicated Category: Medical Qualifiers: Asthma complication type: uncomplicated Asthma persistence: intermittent Asthma severity: mild Qualified Code(s): J45.20 - Mild intermittent asthma, uncomplicated Plan: Patient has the albuterol inhaler to use as needed (8) Obesity (BMI 30-39.9): Code(s): E66.9 - Obesity, unspecified Category: Medical Plan: Diet And exercise Plan History of Present Illness The patient is a 75-year-old male presenting for a follow-up visit for multiple chronic conditions including hypertension, hypercholesterolemia, asthma, benign prostatic hyperplasia, chronic kidney disease, and cardiovascular issues. The patient has a history of hypertension and hypercholesterolemia, which have been managed with medication. He also has asthma, for which he uses an albuterol inhaler as needed. The patient has benign prostatic hyperplasia and chronic kidney disease, which are being monitored regularly. He was advised to avoid NSAIDs to prevent further renal impairment. The patient has a history of tubular adenoma of the colon, with the last colonoscopy performed in 2021. He is due for another colonoscopy this year, but it is contingent upon the stabilization of his cardiac condition. The patient has congestive heart failure with preserved ejection fraction and atrial fibrillation. He underwent a Holter monitor test in May, which showed atrial flutter with an average heart rate of 101 bpm. He has tried and failed amiodarone and Voltac, and had an ablation in 2023. He is currently maintained on a small dose of beta-farzaneh and is being considered for another ablation. The patient has atherosclerotic cardiovascular disease and was last seen by cardiology in May for tachycardia. He is scheduled for electrophysiology studies and possible ablation at the end of the month. The patient's recent blood work showed mild thrombocytosis, but renal function and electrolytes were stable. His cholesterol levels are well-controlled with rosuvastatin, and his LDL is below the target goal. Health Maintenance - Colonoscopy screening is due this year, pending cardiac stabilization. - Patient received a flu shot and COVID-19 vaccination recently. Social History Review of Systems - Cardiovascular: Reports feeling different and experiencing occasional dyspnea. Physical Exam Results - Labs: Recent blood work showed mild thrombocytosis, stable renal function, normal electrolytes, and well-controlled cholesterol levels. - Tests: Holter monitor test in May showed atrial flutter with an average heart rate of 101 bpm. Plan Patient was informed and verbally consented to the use of an ambient scribe for clinic note documentation during this visit. 1. Hypertension The patient's hypertension is being managed with amlodipine 10 mg once daily, and there is consideration to switch to cardizem or verapamil to better control heart rate. 2. Hypercholesterolemia The patient's hypercholesterolemia is well-controlled with rosuvastatin 20 mg once daily, achieving an LDL level below the target goal. 3. Asthma The patient uses an albuterol inhaler as needed for asthma management. 4. Chronic Kidney Disease The patient is advised to avoid NSAIDs to prevent further renal impairment and to continue monitoring renal function. 5. Atrial Fibrillation And Flutter The patient is being referred for electrophysiology studies and possible ablation due to atrial flutter with a heart rate of 101 bpm, and is currently on a small dose of beta-farzaneh. 6. Congestive Heart Failure With Preserved Ejection Fraction The patient is maintained on furosemide 40 mg once daily to manage fluid retention associated with heart failure. 7. Preventative Care: Colonoscopy Screening The patient is due for a colonoscopy screening this year, but it is contingent upon stabilization of his cardiac condition. Discussion Notes I discussed with the patient the importance of managing his atrial flutter and the potential need for another ablation. We reviewed the plan to switch his antihypertensive medication to better control his heart rate. I emphasized the need to stabilize his cardiac condition before proceeding with the scheduled colonoscopy. We also discussed the continuation of his current medications and the importance of avoiding NSAIDs to protect his renal function. Patient Instructions - Continue taking all prescribed medications as directed. - Avoid NSAIDs to protect kidney function. - Follow up with cardiology for electrophysiology studies and possible ablation. - Maintain hydration and monitor blood pressure regularly. - Schedule colonoscopy after cardiac condition is stabilized.
--- OUTSIDE RECORDS SUMMARY | 2025-06-06 11:45 | XMS_ITS | Patient Health Record ---
Author Organization [facility] Address [address] [place] [id number] Care Team Providers Care Research Executive Name Role Phone Mahesh Peralta Unavailable [phone] Reason For Referral No Information Plan Of Treatment No Information
--- OUTSIDE RECORDS SUMMARY | 2025-06-06 11:45 | XMS_ITS | Clinical Summary ---
Author Organization [facility] Address [address] [place] [address] Phone Care Team Providers Care Retort Firer Name Role Phone Espinoza Polanco MD Primary Care Provider [phone] Allergies Active Allergy Reactions Criticality Noted Date [...] patient's age to complete this topic Insurance [facility] [place] [address] [place] [id number] Medicare Care Teams Retort Firer Relationship Specialty Start Date End Date Espinoza Polanco MD [address] [place], [place] PCP - General 09/21/20
== END 2025-06-06 11:26 | disposition home or self-care (01) ==
LOC: HO.HMCH 10:22
PROVIDERS: PCP Internal Medicine; Visit Provider Internal Medicine
DX: I13.0 Hypertensive heart and chronic kidney disease with heart failure and stage 1 through stage 4 chronic kidney disease, or unspecified chronic kidney disease (principal); I48.0 Paroxysmal atrial fibrillation; I50.32 Chronic diastolic (congestive) heart failure; N18.31 Chronic kidney disease, stage 3a; E66.9 Obesity, unspecified; Z68.31 Body mass index [BMI] 31.0-31.9, adult; E78.00 Pure hypercholesterolemia, unspecified; D12.6 Benign neoplasm of colon, unspecified; J45.20 Mild intermittent asthma, uncomplicated

== ENCOUNTER → 2025-06-06 10:21 | Outpatient (BNVA) | payer MEDICARE, SELFPAY | PROVIDERS: PCP Internal Medicine; Visit Provider Internal Medicine | DX: I48.0 Paroxysmal atrial fibrillation (principal); I13.0 Hypertensive heart and chronic kidney disease with heart failure and stage 1 through stage 4 chronic kidney disease, or unspecified chronic kidney disease; N18.31 Chronic kidney disease, stage 3a; I50.32 Chronic diastolic (congestive) heart failure; E78.00 Pure hypercholesterolemia, unspecified; D12.6 Benign neoplasm of colon, unspecified; J45.20 Mild intermittent asthma, uncomplicated; E66.9 Obesity, unspecified; Z68.31 Body mass index [BMI] 31.0-31.9, adult; Z71.3 Dietary counseling and surveillance; Z87.891 Personal history of nicotine dependence | CPT/HCPCS: 99212 ==

== ENCOUNTER 2025-07-11 12:24 | Day surgery (SDC) | payer MEDICARE, SELFPAY ==
--- OUTSIDE RECORDS SUMMARY | 2025-07-07 15:37 | XMS_ITS | Patient Health Record ---
Author Organization [facility] Address [address] [place] [id number] Care Team Providers Care Touch Up Edger Name Role Phone Mahesh Peralta Unavailable [phone] Reason For Referral No Information Plan Of Treatment No Information
--- OUTSIDE RECORDS SUMMARY | 2025-07-07 15:37 | XMS_ITS | Clinical Summary ---
Author Organization [facility] Address [address] [place] [address] Phone Care Team Providers Care Data Sme Name Role Phone Espinoza Polanco MD Primary Care Provider [phone] Allergies Active Allergy Reactions Criticality Noted Date [...] patient's age to complete this topic Insurance [facility] [place] [address] [address] Medicare Care Teams Data Sme Relationship Specialty Start Date End Date Espinoza Polanco MD [address] [place], [place] PCP - General 09/21/20
--- NOTE | 2025-07-09 10:27 | HO.ANESPROP2 ---
Documented by User: Ghazal Quiroz NP 07/09/25 10:39 HPI - Anesthesia Eval Consult details Narrative: 75 yr old male for cardioversion Afib: s/p visible catheter ablation at [facility] 05/2024, saw EP clinic 07/2024 for follow up-no recurrent afib at that time. Referred to [facility] ED 05/2025 from [facility] cards visit. Saw EP clinic at [facility] 06/23/25, planning for redo catheter ablation procedure using PFA. CKD stage 3: follows [facility] nephrology, stable at 05/26/25 visit [facility] Active Problems Active Problems: All Active Problems Anemia (Acute) Constipation (Acute) Atherosclerotic cardiovascular disease (Acute) Benign paroxysmal vertigo, bilateral (Acute) Pain of right hip (Acute) PAF (paroxysmal atrial fibrillation) (Acute) Insomnia (Acute) Mild obstructive sleep apnea (Acute) Chronic heart failure with preserved ejection fraction (Acute) Peripheral edema (Acute) Tubular adenoma of colon (Acute) Impacted cerumen of right ear (Acute) Chronic kidney disease (Acute) BPH (benign prostatic hyperplasia) (Acute) Obesity (BMI 30-39.9) (Acute) Asthma (Acute) Hypercholesterolemia (Acute) Hypertension (Acute) Past Medical History Medical History (Updated 05/27/25 @ 00:01 by Conor Miner) Anemia Colon cancer screening Atrial flutter Atrial flutter with rapid ventricular response Facial skin lesion Initial Medicare annual wellness visit Atherosclerosis BPPV (benign paroxysmal positional vertigo) Vertigo of central origin Persistent atrial fibrillation Atrial fibrillation, new onset Chronic heart failure with preserved ejection fraction Acute congestive heart failure CHF (congestive heart failure) Asthma exacerbation Dizziness COVID-19 vaccine series completed Avascular necrosis of bone of left hip History of renal calculi Peripheral vascular disease Chronic kidney disease History of asbestos exposure BPH (benign prostatic hyperplasia) Obesity (BMI 30-39.9) Asthma Hypercholesterolemia Hypertension Insomnia Family History Family History Father Hypertension Chronic mental illness Mother Hypertension Gastric cancer Asthma Family history of problems with anesthesia: No Surgical History Surgical History H/O colonoscopy History of left hip replacement History of Problems with Anesthesia: No Social History Social History Household Members: Spouse Housing: House Do you presently have visiting nurse or other home services: No Alcohol intake: former Patient Tobacco Use Status: Former Tobacco user Tobacco use type: Cigarette e-Cigarette/Vaping Use: Never Used Second Hand Smoke Exposure: No Use of substances other than those prescribed or required for medical reasons: No Are you DNR?: No Advance Directives: No Advance Directives Information Provided: Yes Advance Directives Date on File: 08/03/20 service: Yes Current occupational status: retired Cognitive needs: No Hearing needs: Yes Vision needs: Yes Meds Allergies Allergy/AdvReac Type Severity Reaction Status Date / Time doxepin AdvReac Intermediate Hallucinati Verified 06/06/25 10:31 ons lisinopril AdvReac Intermediate Cough Verified 07/11/25 12:56 atorvastatin (Lipitor) AdvReac Unknown Unknown Verified 06/06/25 10:31 Home Medications ?Medication ?Instructions ?Recorded ?Confirmed ?Last Taken ?Type cholecalciferol (vitamin D3) 25 25 mcg PO DAILY 08/14/20 07/11/25 07/11/25 History mcg (1,000 unit) capsule albuterol sulfate 90 mcg/actuation 2 puff inhalation Q6H PRN 01/25/24 06/06/25 Unknown History aerosol inhaler (Ventolin HFA) shortness of breath or wheezing multivitamin 1 tab PO DAILY 01/25/24 06/06/25 01/24/24 History loratadine 10 mg tablet (Claritin) 10 mg PO BEDTIME 11/26/24 07/11/25 07/10/25 History docusate sodium 100 mg capsule 100 mg PO DAILY 03/05/25 07/11/25 07/11/25 History (Colace) Exam Pertinent Lab Results Pertinent Lab Results: Laboratory Tests 05/26/25 05/26/25 13:36 14:08 WBC 6.9 RBC 4.12 L Hgb 15.0 Hct 40.7 L Plt Count 155 L Sodium 140 Potassium 4.4 BUN 15 Creatinine 1.34 Narrative Narrative: 3 day holter 05/2025 Total monitoring time 2 days and 19 hours. Underlying rhythm is atrial flutter with an average rate of 101/Min. About 41% of the time, rate > 100/Min. Rare ventricular ectopy. No significant pauses or high-grade AV blocks. No patient markers or diary events. LUDWIN 01/25/24 1. No clear intra cardiac thrombi or masses or vegetations 2. Normal LV systolic function 3. Severe left atrial enlargement 4. Calcific aortic and mitral valve changes with mild mitral regurgitation 5. Severe atherosclerotic changes noted in descending thoracic and arch of the aorta 6. No gross pericardial effusion Assessment and Plan Final Anesthetic Review Family History of Problems with Anesthesia: No History of Problems with Anesthesia: No Documented by User: Dunia Aldrich MD 07/11/25 13:28 [facility] Past Medical History Medical History (Updated 05/27/25 @ 00:01 by Conor Miner) Anemia Colon cancer screening Atrial flutter Atrial flutter with rapid ventricular response Facial skin lesion Initial Medicare annual wellness visit Atherosclerosis BPPV (benign paroxysmal positional vertigo) Vertigo of central origin Persistent atrial fibrillation Atrial fibrillation, new onset Chronic heart failure with preserved ejection fraction Acute congestive heart failure CHF (congestive heart failure) Asthma exacerbation Dizziness COVID-19 vaccine series completed Avascular necrosis of bone of left hip History of renal calculi Peripheral vascular disease Chronic kidney disease History of asbestos exposure BPH (benign prostatic hyperplasia) Obesity (BMI 30-39.9) Asthma Hypercholesterolemia Hypertension Insomnia Family History Family History Father Hypertension Chronic mental illness Mother Hypertension Gastric cancer Asthma Surgical History Surgical History H/O colonoscopy History of left hip replacement Social History Social History Household Members: Spouse Housing: House Do you presently have visiting nurse or other home services: No Alcohol intake: former Patient Tobacco Use Status: Former Tobacco user Tobacco use type: Cigarette e-Cigarette/Vaping Use: Never Used Second Hand Smoke Exposure: No Use of substances other than those prescribed or required for medical reasons: No Are you DNR?: No Advance Directives: No Advance Directives Information Provided: Yes Advance Directives Date on File: 08/03/20 service: Yes Current occupational status: retired Cognitive needs: No Hearing needs: Yes Vision needs: Yes Meds Allergies Allergy/AdvReac Type Severity Reaction Status Date / Time doxepin AdvReac Intermediate Hallucinati Verified 06/06/25 10:31 ons lisinopril AdvReac Intermediate Cough Verified 07/11/25 12:56 atorvastatin (Lipitor) AdvReac Unknown Unknown Verified 06/06/25 10:31 Home Medications ?Medication ?Instructions ?Recorded ?Confirmed ?Last Taken ?Type cholecalciferol (vitamin D3) 25 25 mcg PO DAILY 08/14/20 07/11/25 07/11/25 History mcg (1,000 unit) capsule albuterol sulfate 90 mcg/actuation 2 puff inhalation Q6H PRN 01/25/24 06/06/25 Unknown History aerosol inhaler (Ventolin HFA) shortness of breath or wheezing multivitamin 1 tab PO DAILY 01/25/24 06/06/25 01/24/24 History loratadine 10 mg tablet (Claritin) 10 mg PO BEDTIME 11/26/24 07/11/25 07/10/25 History docusate sodium 100 mg capsule 100 mg PO DAILY 03/05/25 07/11/25 07/11/25 History (Colace) Exam Airway Mallampati Class: II TM Dist: >3cm Neck ROM: Full Heart: irreg Lungs: cta Assessment and Plan Assessment Anesthesia Assessment: Anesthesia Plan Discussed and Chart Reviewed Final Anesthetic Review NPO: Yes ASA Class: III Final Preanesthetic Review: No Changes in Pt Med Stat, Meds/Allgs Chart Reviewed and Consent Obtained/Reviewed Patient Risk: Low Procedure Risk: Low Anesthetic Plan Anesthetic Plan: GA Disposition: Standard PACU
[2025-07-11 12:58] VITALS: BMI 31.5
[2025-07-11 13:08] VITALS: BP 127/78; PULSE 107; RESP 16; TEMP 36.4; O2SAT 97
[2025-07-11] MEDS: Lactated Ringers 1,000 ML 100 ML IVCONT (13:30)
--- NOTE | 2025-07-11 13:48 | HO.CARDIVERS ---
Cardioversion Procedure Note Cardioversion Date of Procedure: 07/11/2025 Pre-Op Diagnosis: Atrial flutter with rapid ventricular rate Post-Op Diagnosis: Sinus rhythm Consent: Informed consent obtained. Procedure: After informed consent was obtained, patient was taken to the PACU. The patient was then positioned appropriately. The cardioversion pads were placed in anteroposterior position. Once under anesthesia, 120 joules of synchronized shock was administered. The rhythm converted from atrial fibrillation to sinus rhythm. Patient remained in sinus rhythm after the end of procedure. Complications: Done. Impression: Successful cardioversion from atrial flutter with rapid rate to sinus rhythm. Recommendations: Await ablation. Continue current medications.
--- NOTE | 2025-07-11 13:48 | MHC.SHP ---
Pre-Procedural Eval Section A - 24 Hr Update-Section A only Date of Service: 07/11/25 The patient is an INPATIENT: No Changes since office visit: No Cold of Flu in the past 2 weeks, No New Medical Problems, No Changes in Medication and No Patient answered all questions Section B - Complete if H&P > 30 days Chief Complaint: Paroxysmal atrial fibrillation Allergies: Allergies Allergy/AdvReac Type Severity Reaction Status Date / Time doxepin AdvReac Intermediate Hallucinati Verified 06/06/25 10:31 ons lisinopril AdvReac Intermediate Cough Verified 07/11/25 12:56 atorvastatin (Lipitor) AdvReac Unknown Unknown Verified 06/06/25 10:31 Plan I have reviewed the history and physical and performed a pertinent physical examination on my patient. No changes have occurred unless specified. Time Spent With Patient Time: Total time managing care of this patient today ____ minutes.
--- NOTE | 2025-07-11 13:52 | PC.NURSE ---
beddisde report given to ady rn in pacu by bedside.
--- NOTE | 2025-07-11 14:00 | ECG_ITS ---
Test Reason : POST CARDIOVERSION Blood Pressure : */* mmHG Vent. Rate : 57 BPM Atrial Rate : 57 BPM P-R Int : 226 ms QRS Dur : 120 ms QT Int : 488 ms P-R-T Axes : 73 -58 24 degrees QTcB Int : 474 ms Sinus bradycardia with 1st degree A-V block Left axis deviation Incomplete left bundle branch block Minimal voltage criteria for LVH, may be normal variant ( Nathan product ) Abnormal ECG When compared with ECG of 26-May-2025 13:03, [place] interval has increased Vent. rate has decreased by 81 bpm Referred By: Kylee Smith Electronically Signed By: KYLEE SMITH
[2025-07-11 14:07] VITALS: BP 94/60; PULSE 57; RESP 21; TEMP 36.7; O2SAT 97
[2025-07-11 14:12] VITALS: BP 93/59; PULSE 57; RESP 14; O2SAT 96
[2025-07-11 14:17] VITALS: BP 95/63; PULSE 59; RESP 12; O2SAT 96
[2025-07-11 14:22] VITALS: BP 94/65; PULSE 60; RESP 18; O2SAT 96
== END 2025-07-11 14:47 | disposition home or self-care (01) ==
PROVIDERS: PCP Internal Medicine; Visit Provider Internal Medicine
PROC: 5A2204Z Restoration of Cardiac Rhythm, Single (ICD-10-PCS; principal; 2025-07-11 14:30)
DX: I48.92 Unspecified atrial flutter (principal); I48.0 Paroxysmal atrial fibrillation; Z79.01 Long term (current) use of anticoagulants; I11.0 Hypertensive heart disease with heart failure; I50.32 Chronic diastolic (congestive) heart failure; Z87.891 Personal history of nicotine dependence; Z79.899 Other long term (current) drug therapy; Z88.8 Allergy status to other drugs, medicaments and biological substances
CPT/HCPCS: 92960; 93005; J2704

== ENCOUNTER → 2025-07-11 12:24 | Outpatient (BNV) | payer MEDICARE, SELFPAY | PROVIDERS: PCP Internal Medicine; Visit Provider Internal Medicine | DX: I48.92 Unspecified atrial flutter (principal) | CPT/HCPCS: 92960 ==

== ENCOUNTER → 2025-07-24 08:17 | Outpatient (REF) | payer MEDICARE, SELFPAY ==
--- OUTSIDE RECORDS SUMMARY | 2025-07-23 23:59 | XMS_ITS | Continuity of Care Document ---
Author Organization [facility] Address [address] [place] [id number] Care Team Providers Care Traffic Engineering Technician Name Role Phone Po Espinoza CASTILLO Primary Care Physician Encounter [facility] Date(s): 06/23/25 - 07/23/25 [facility] [address] [place] [id number] Attending Physician: AdmOlga jones Admitting Physician: AdmtrOlga Referring Physician: Admtr, [id number] Encounter Type: Triage Allergies, Adverse Reactions, Alerts Substance Criticality Severity Reaction Reaction Severity Status lisinopril cough Active Immunizations Given and Recorded Vaccine Date Status Refusal Reason influ virus vac, H1N1, inactive(oldterm) 1 08/10/09 Given FluLaval (oldterm) 2 08/10/09 Given 1Admin Note: CDC info given to patient 2Admin Note: CDC INFO GIVEN TO PATIENT Medications Aerochamber See Instructions, # 1 each, For use with rescue inhaler, 08/10/09 2:46:27 PM EST, [facility] Start Date: 08/10/09 Status: Ordered Medication Dispense Status: Completed Quantity: 1.0 Unit: each Total Allowed Fills: 1 Fills Dispensed: 0 Albuterol (Eqv-Ventolin HFA) 90 mcg/inh inhalation aerosol 0 Refills, Maintenance, 02/12/24 9:41:00 AM EDT, Partial fill upon patient request if the prescription is for a schedule II opioid drug. Start Date: 02/12/24 Status: Ordered Medication Dispense Status: Completed Total Allowed Fills: 1 Fills Dispensed: 0 amLODIPine 5 mg oral tablet 5 mg, 1, tablet, By Mouth, Daily, # 30 tablet, Refills 0, Maintenance, 07/29/24 1:25:00 PM EST, Partial fill upon patient request if the prescription is for a schedule II opioid drug. Start Date: 07/29/24 Status: Ordered Medication Dispense Status: Completed Quantity: 30.0 Unit: tablet Total Allowed Fills: 1 Fills Dispensed: 0 apixaban = 5 mg, By Mouth, 2 times a day, 0 Refills, Maintenance, 06/04/24 1:11:00 PM EDT, Tablet, Partial fill upon patient request if the prescription is for a schedule II opioid drug. Start Date: 06/04/24 Status: Ordered Medication Dispense Status: Completed Total Allowed Fills: 1 Fills Dispensed: 0 Avodart 0.5 mg oral capsule 1 capsule = 0.5 mg, By Mouth, Daily, # 30 capsule, 0 Refills, Maintenance, 10/31/13 1:43:23 PM EST, Capsule Start Date: 10/31/13 Status: Ordered Medication Dispense Status: Completed Quantity: 30.0 Unit: capsule Total Allowed Fills: 1 Fills Dispensed: 0 Colace Clear = 100 mg, By Mouth, 2 times a day, 0 Refills, Maintenance, 02/12/24 9:42:00 AM EDT, Partial fill uponpatient request if the prescription is for a schedule II opioid drug. Start Date: 02/12/24 Status: Ordered Medication Dispense Status: Completed Total Allowed Fills: 1 Fills Dispensed: 0 Flonase 50 mcg/inh nasal spray 1 sprays, Nares, Both, 2 times a day, # 16 Gm, 0 Refills, Maintenance, 10/31/13 1:43:49 PM EST, [place] Start Date: 10/31/13 Status: Ordered Medication Dispense Status: Completed Quantity: 16.0 Unit: g Total Allowed Fills: 1 Fills Dispensed: 0 furosemide 40 mg oral tablet Refills 0, Maintenance, 02/12/24 9:41:00 AM EDT, Partial fill upon patient request if the prescription is for a schedule II opioid drug. Start Date: 02/12/24 Status: Ordered Medication Dispense Status: Completed Total Allowed Fills: 1 Fills Dispensed: 0 montelukast 10 mg oral tablet Refills 0, Maintenance, 02/12/24 9:41:00 AM EDT, Partial fill upon patient request if the prescription is for a schedule II opioid drug. Start Date: 02/12/24 Status: Ordered Medication Dispense Status: Completed Total Allowed Fills: 1 Fills Dispensed: 0 ProAir HFA 90 mcg/inh inhalation aerosol with adapter 2 puffs, Inhalation, Every 4 hours, PRN Wheezing/Shortness of Breath, # 1 each, 11 Refills, 08/10/09 2:47:16 PM EST Start Date: 08/10/09 Stop Date: 08/05/10 Status: Ordered Medication Dispense Status: Completed Quantity: 1.0 Unit: each Total Allowed Fills: 12 Fills Dispensed: 0 rosuvastatin 20 mg oral tablet 0 Refills, Maintenance, 02/12/24 9:41:00 AM EDT, Partial fill upon patient request if the prescription is for a schedule II opioid drug. Start Date: 02/12/24 Status: Ordered Medication Dispense Status: Completed Total Allowed Fills: 1 Fills Dispensed: 0 tamsulosin 0.4 mg oral capsule 0.4 mg, 1, capsule, By Mouth, Daily, # 30 capsule, Refills 0, Maintenance, 07/29/24 1:25:00 PM EST,Partial fill upon patient request if the prescription is for a schedule II opioid drug. Start Date: 07/29/24 Status: Ordered Medication Dispense Status: Completed Quantity: 30.0 Unit: capsule Total Allowed Fills: 1 Fills Dispensed: 0 Toprol XL 25 mg oral tablet, extended release 25 mg, 1, tablet, By Mouth, Daily, # 30 tablet, Refills 4, Tot. Refills 4, Maintenance, 06/04/24 1:15:00 PM EDT, Route to Pharmacy Electronically, [facility]/pharmacy #[id number], Partial fill upon patient requestif the prescription is for a schedule II opioid drug., 175.3, cm, 06/04/24 10:23:00 EDT, Height, 90.3, kg, 06/04/24 9:36:00 EDT, Dry Weight Start Date: 06/04/24 Status: Ordered Medication Dispense Status: Completed Quantity: 30.0 Unit: tablet Total Allowed Fills: 5 Fills Dispensed: 0 Vitamin D3 1000 intl units oral tablet 1 tablet = 25 mcg, By Mouth, Daily, # 30 tablet, 0 Refills, Maintenance, 02/12/24 9:44:00 AM EDT, Tablet, Partial fill upon patient request if the prescription is for a schedule II opioid drug. Start Date: 02/12/24 Status: Ordered Medication Dispense Status: Completed Quantity: 30.0 Unit: tablet Total Allowed Fills: 1 Fills Dispensed: 0 zolpidem 6.25 mg oral tablet, extended release 0 Refills, Maintenance, 02/12/24 9:41:00 AM EDT, Partial fill upon patient request if the prescription is for a schedule II opioid drug. Start Date: 02/12/24 Status: Ordered Medication Dispense Status: Completed Total Allowed Fills: 1 Fills Dispensed: 0 Problem List Condition Confirmation Course Effective Dates Status Health St atus Informant Asthma, Unspecified Confirmed 12/06/10 Active Cough Confirmed 12/06/10 Active Obese class I Confirmed Active Social History Social History Type Response Smoking Status Former smoker; Tobac co user in household: No entered on: 10/31/13 Sex Sex Representation Male (finding) Hospital Consult note * Event Display: Inpatient Consult Note, Non-BH Authored Date: Procedure * Event Display: EKG Non BH Authored Date: * Event Display: Holter Monitor Non BH Authored Date: * Event Display: Cardiology Office Note, Non-BH Authored Date: * Event Display: Cardiology Office Note, Non-BH Authored Date: Imaging * Event Display: [place] Nuclear Medicine, Non-BH Authored Date: Patient Care team information Care Team Personnel Name: Espinoza Polanco MD Position: Reference Physician Member Role: PCP [address]: [address] [place] [address] Telecom: Care Team Related Persons Name: ELENI PHELAN Insurance Providers Guarantor name: JOSE PHELAN Health Plan Information #: 1 Payer: [employer] SECONDARY ONLY Payer Identifier: NA Member Number: [id number] Group Number: NA Subscriber Identifier: NA Relationship to Subscriber: self Coverage Type: Medicare Other Coverage Verification Date: NA Telecom: NA Address: NA Health Plan Information #: 2 Payer: MEDICARE B Payer Identifier: DEWEY Member Number: [id number] Group Number: [id number] Subscriber Identifier: DEWEY Relationship to Subscriber: self Coverage Type: NA Coverage Verification Date: NA Telecom: NA Address: NA
--- NOTE | 2025-07-24 08:20 | HM_ITS ---
* Total monitoring time 3 days. * Underlying rhythm is sinus bradycardia with an average rate of 49/Min. * About 75% of the time, rate < 60/Min. * Frequent supraventricular ectopy with a burden of 14%. * Rare ventricular ectopy. * Pauses noted, longest 3.3 seconds at 07:08. * No patient markers or diary events. MTDD
--- OUTSIDE RECORDS SUMMARY | 2025-07-24 08:34 | XMS_ITS | Patient Health Record ---
Author Organization [facility] Address [address] [place] [id number] Care Team Providers Care Etl Database Developer Name Role Phone Mahesh Peralta Unavailable [phone] Reason For Referral No Information Plan Of Treatment No Information
--- OUTSIDE RECORDS SUMMARY | 2025-07-24 08:34 | XMS_ITS | Clinical Summary ---
Author Organization [facility] Address [address] [place] [address] Phone Care Team Providers Care Commercial Carpet Installer Name Role Phone Espinoza Polanco MD Primary Care Provider [phone] Allergies Active Allergy Reactions Criticality Noted Date [...] Years Used Date Smoking Tobacco: Former Cigarettes 40 0 09/11/1963 - 09/11/2003 Smokeless Tobacco: Never [...] patient's age to complete this topic Insurance [facility] [place] [address] [place] [address] Medicare Care Teams Commercial Carpet Installer Relationship Specialty Start Date End Date Espinoza Polanco MD [address] KIARRA STRINGER PCP - General 09/21/20
== END ==
LOC: HO.CARD 08:17
PROVIDERS: Visit Provider Internal Medicine
DX: I48.92 Unspecified atrial flutter (principal)
CPT/HCPCS: 93242

== ENCOUNTER → 2025-07-24 08:20 | Outpatient (BNV) | payer MEDICARE, SELFPAY | PROVIDERS: Visit Provider Internal Medicine | DX: I49.3 Ventricular premature depolarization (principal); I49.49 Other premature depolarization | CPT/HCPCS: 93244 ==

== ENCOUNTER 2025-09-03 22:14 | Emergency (ER) | payer MEDICARE, SELFPAY ==
[2025-09-03 22:18] VITALS: BP 148/65; PULSE 73; RESP 15; TEMP 36.7; O2SAT 96; BMI 32.0
--- NOTE | 2025-09-03 22:36 | ED.WOUNDLAC ---
HPI - Wound/Laceration General Chief Complaint: Wound/Laceration Stated Complaint: wound on leg Time Seen by Provider: 09/03/25 22:35 History of Present Illness HPI narrative: Author / Clinician: Shelton Simmons MD Chief Complaint Right groin bleeding and pain following recent cardiac ablation. History of Present Illness The patient presents from home after earlier discharge from [facility] where he underwent an uncomplicated cardiac ablation with bilateral femoral artery access. He restarted apixaban post-procedure. A few hours prior to arrival he noted significant bleeding soaking through the right femoral groin dressing. He denies brisk/active hemorrhage at this time but reports persistent oozing and localized pain. --- Review of Systems ? Extremities: Reports right groin pain and swelling. ? Skin/Heme: Reports bleeding from right groin puncture site. --- Physical Examination Vital Signs: Not obtained at time of dictation. Gen: Alert, in no acute distress. Skin: Significant ecchymosis of right groin extending into proximal thigh and pubic region; asymmetric swelling of the right pubic region and proximal thigh; dressing noted to be soaked with blood but no active spurting; scrotum is also slightly swollen. Neck: Supple. Respiratory: Breathing comfortably, lungs clear bilaterally. Cardiovascular: Regular rate/rhythm. Right femoral pulse palpable; distal RLE pulses intact; RLE warm and well perfused. Abdominal: Soft, non-tender, no distension. Neuro: Alert; moves all extremities. Psych: Calm, appropriate. --- Assessment & Plan Preliminary Differential: - Post-procedural femoral artery puncture site hematoma - Pseudoaneurysm vs stable plaque with oozing - (less likely) Active arterial bleed Medical Decision Making This is an ED evaluation of post-procedural groin bleeding while on anticoagulation. Focused vascular ultrasound performed ? no active extravasation or pseudoaneurysm identified, flow preserved. Given stable appearance and exam, conservative management elected. --- Risk: - Low: Acute Uncomplicated Plan: - Redress right groin puncture site with pressure dressing. - Continue apixaban as previously prescribed. - Maintain previously scheduled cardiology/procedural follow-up. - Instructed patient to contact cardiology team regarding current symptoms today. - Return to ED if symptoms worsen. Data Analysis: - POCUS: Limited arterial ultrasound of right femoral site ? independently interpreted; no active extravasation or pseudoaneurysm, shadowing echogenic material consistent with plaque, flow present distally. Additional Complexity: - Social Determinants of health: - Consults: --- ED Course, Updates Bedside evaluation, groin inspected and re-dressed. Limited vascular ultrasound performed and reviewed with patient. Symptoms stable; no active bleeding noted after dressing change. Discharge instructions provided and verbalized understanding. Disposition Discharged home in stable condition. Critical Care: [N/A] Related Data Home Medications ?Medication ?Instructions ?Recorded ?Confirmed cholecalciferol (vitamin D3) 25 25 mcg PO DAILY 08/14/20 07/11/25 mcg (1,000 unit) capsule albuterol sulfate 90 mcg/actuation 2 puff inhalation Q6H PRN 01/25/24 06/06/25 aerosol inhaler (Ventolin HFA) shortness of breath or wheezing multivitamin 1 tab PO DAILY 01/25/24 06/06/25 loratadine 10 mg tablet (Claritin) 10 mg PO BEDTIME 11/26/24 07/11/25 docusate sodium 100 mg capsule 100 mg PO DAILY 03/05/25 07/11/25 (Colace) Previous Rx's ?Medication ?Instructions ?Recorded COVID TESTING KIT #4 ea 04/24/24 tamsulosin 0.4 mg capsule 0.4 mg PO DAILY #90 caps 09/29/24 amlodipine 10 mg tablet 10 mg PO DAILY #90 tabs 10/18/24 montelukast 10 mg tablet 10 mg PO BEDTIME #90 tabs 11/17/24 Voltaren Arthritis Pain 1 % 4 g topical QID #350 grams 01/24/25 topical gel (diclofenac sodium) sennosides 8.6 mg-docusate sodium 2 tab-cap (2 x 8.6-50 mg) PO DAILY 01/24/25 50 mg capsule (Senna Plus) #180 caps rosuvastatin 20 mg tablet 20 mg PO DAILY #90 tabs 02/16/25 fluticasone propionate 50 2 spray intranasal DAILY #48 mL 04/20/25 mcg/actuation nasal spray,suspension furosemide 40 mg tablet 40 mg PO DAILY 90 days #90 tabs 06/02/25 amiodarone 200 mg tablet 200 mg PO DAILY #90 tabs 06/11/25 dutasteride 0.5 mg capsule 0.5 mg PO DAILY #90 caps 06/25/25 trazodone 50 mg tablet 50 mg PO BEDTIME #90 tabs 08/05/25 metoprolol succinate 25 mg 25 mg PO DAILY #90 tabs 08/11/25 tablet,extended release 24 hr apixaban 5 mg tablet (Eliquis) 5 mg PO BID 90 days #180 tabs 08/12/25 Allergies Allergy/AdvReac Type Severity Reaction Status Date / Time doxepin AdvReac Intermediate Hallucinati Verified 09/03/25 22:21 ons lisinopril AdvReac Intermediate Cough Verified 09/03/25 22:21 atorvastatin (Lipitor) AdvReac Unknown Unknown Verified 09/03/25 22:21 [facility] Past Medical History Medical History (Updated 09/04/25 @ 00:00 by Background Daangel) Anemia Colon cancer screening Atrial flutter Atrial flutter with rapid ventricular response Facial skin lesion Initial Medicare annual wellness visit Atherosclerosis BPPV (benign paroxysmal positional vertigo) Vertigo of central origin Persistent atrial fibrillation Atrial fibrillation, new onset Chronic heart failure with preserved ejection fraction Acute congestive heart failure CHF (congestive heart failure) Asthma exacerbation Dizziness COVID-19 vaccine series completed Avascular necrosis of bone of left hip History of renal calculi Peripheral vascular disease Chronic kidney disease History of asbestos exposure BPH (benign prostatic hyperplasia) Obesity (BMI 30-39.9) Asthma Hypercholesterolemia Hypertension Insomnia Surgical History H/O colonoscopy History of left hip replacement Family History Family History Father Hypertension Chronic mental illness Mother Hypertension Gastric cancer Asthma Social History Social History Household Members: Spouse Housing: House Do you presently have visiting nurse or other home services: No Alcohol intake: former Patient Tobacco Use Status: Former Tobacco user Tobacco use type: Cigarette e-Cigarette/Vaping Use: Never Used Second Hand Smoke Exposure: No Advance Directives: Yes Advance Directives on File: Yes Advance Directives Date on File: 08/03/20 service: Yes Current occupational status: retired Cognitive needs: No Hearing needs: Yes Vision needs: Yes Physical Exam Vital Signs: Vital Signs: Last Vital Signs Temp 97.7 F 09/03/25 23:44 Pulse 70 09/03/25 23:44 Resp 18 09/03/25 23:44 BP 139/51 L 09/03/25 23:44 Pulse Ox 92 09/03/25 23:44 O2 Del Method Room Air 09/03/25 23:44 BMI result Body Mass Index 32.0 Procedures Procedure Narrative Procedure Narrative: EMERGENCY ULTRASOUND INTERPRETATION-Limited Point of Care Venous lower extremity arterial [This study was ordered, performed, and interpreted by myself. The study reveals: Impression: Right femoral artery, common femoral artery intact flow no pseudoaneurysm no subcutaneous collection [Indication: Laterality: Swelling, bruising around arterial puncture site right proximal femoral artery Common Femoral: Arterial signal preserved though somewhat narrowed at the proximal common femoral artery possibly underlying atherosclerotic disease. No extravasation or pseudoaneurysm or significant subcutaneous collection noted around the site of arterial puncture Images were stored CPT: 88524 duplex scan of the lower extremity arteries unilateral/limited Discharge Plan Discharge Clinical Impression: Hematoma Patient Disposition: Home, Self-Care Instructions: Hematoma (ED) Additional Instructions: Discharge Instructions: Post-Cardiac Ablation Femoral Access Site Bleeding and Hematoma DISCHARGE INSTRUCTIONS Post-Cardiac Ablation Femoral Access Site Bleeding and Hematoma You were evaluated in the Emergency Department today for bleeding and swelling at your right groin puncture site following your recent cardiac ablation procedure. An ultrasound examination showed a stable hematoma (blood collection) with no active bleeding or pseudoaneurysm (abnormal bulging of the artery). You are now stable and ready to go home with careful monitoring. --- 1. CONTACT YOUR A/C TECH Call your matchbook assembler's office TODAY to inform them about: - The bleeding and hematoma that occurred at your groin puncture site - Your Emergency Department visit - Any questions about resuming your apixaban (blood thinner) Your matchbook assembler needs to be aware of this complication and may want to see you sooner than your scheduled follow-up appointment. --- 2. WHEN TO SEEK URGENT OR EMERGENCY CARE Call 911 or return to the Emergency Department immediately if you experience: Signs of Worsening Bleeding: - Active spurting or brisk bleeding from the groin site that does not stop with 10-15 minutes of firm, direct pressure - Blood soaking through multiple dressings - Rapidly expanding swelling in your groin, thigh, or lower abdomen - Dizziness, lightheadedness, or feeling faint - Rapid heartbeat or feeling like your heart is racing Signs of Expanding Hematoma or Internal Bleeding: - Significant increase in groin or thigh swelling - New or worsening bruising that spreads rapidly - Severe pain in your groin, hip, lower back, or flank (side of abdomen) - Abdominal pain or swelling - Nausea or vomiting Signs of Limb Ischemia (Decreased Blood Flow to Your Leg): - Sudden coldness in your right leg or foot compared to the left - Pale or bluish color of your right leg or foot - Numbness, tingling, or loss of sensation in your right leg or foot - Weakness or inability to move your right leg or foot - Loss of pulse in your right foot (you may not be able to feel this yourself) - Severe pain in your right leg that is new or different from your current discomfort Signs of Infection: - Fever (temperature above 100.4?F or 38?C) - Increasing redness around the puncture site - Warmth at the puncture site - Pus or foul-smelling drainage from the wound - Red streaks extending from the groin area Other Warning Signs: - A pulsating mass or lump in your groin that you can feel throbbing - A whooshing sound (bruit) you can hear over the groin area - Sudden severe pain at the puncture site - Any symptoms that concern you or seem unusual --- 3. CARE OF THE PUNCTURE SITE AT HOME Dressing Care: - Keep the pressure dressing clean and dry for the first 24 hours - You may remove the dressing after 24 hours if there is no active bleeding - If there is any oozing when you remove the dressing, apply firm, direct pressure with clean gauze for 10-15 minutes - After the dressing is removed, you may cover the site with a clean, dry bandage if desired Activity Restrictions: - Rest for the next 24-48 hours: Avoid strenuous activities, heavy lifting (nothing over 10 pounds), and vigorous exercise for at least 5-7 days - Limit leg movement: Avoid bending at the hip or knee on the affected side as much as possible for the first 24 hours - No driving for at least 24 hours or until you are no longer taking narcotic pain medication - Avoid straining: Do not strain during bowel movements (use a stool softener if needed) - Walking: Short, gentle walks around your home are acceptable, but avoid prolonged standing or walking for the first 48 hours - Stairs: Limit stair climbing for the first 24-48 hours - Gradual return to activity: After 5-7 days, you may gradually resume normal activities as tolerated, but avoid high-impact exercise for 2 weeks Hygiene: - You may shower after 24 hours, but do not soak in a bathtub, hot tub, or swimming pool for at least 5-7 days - Pat the area dry gently after showering; do not rub - Keep the puncture site clean Monitoring: - Check the puncture site daily for signs of infection (redness, warmth, drainage) - It is normal to have some bruising and mild swelling that may extend down your thigh or into the pubic area - The bruising may change colors (purple, green, yellow) as it heals over 1-2 weeks - Mild tenderness at the site is expected and should gradually improve Pain Management: - Take acetaminophen (Tylenol) or ibuprofen (Advil, Motrin) as directed for pain - IMPORTANT: Check with your matchbook assembler before taking ibuprofen or other NSAIDs, as these may increase bleeding risk when combined with apixaban - Apply ice packs (wrapped in a towel) to the area for 15-20 minutes at a time, several times daily, to reduce swelling and discomfort --- 4. MEDICATION GUIDANCE: APIXABAN (ELIQUIS) IMPORTANT: Do not stop or restart apixaban without speaking to your matchbook assembler first. Based on current guidelines for managing bleeding in patients on anticoagulation, the decision to hold or resume apixaban depends on several factors including your stroke risk, the severity of bleeding, and adequate hemostasis.[1]https://doi.org/10.1016/j.jacc.2020.04.053 What You Should Know: - Apixaban is a blood thinner (anticoagulant) that you take to prevent blood clots and stroke - Your bleeding today was clinically significant but not life-threatening, as it was controlled with local pressure and a pressure dressing - Current evidence suggests that for stable, rip-fcbt-kzhgpihqvua bleeding like yours, apixaban may need to be temporarily held[1]https://doi.org/10.1016/j.jacc.2020.04.053 - The typical recommendation is to hold apixaban for 48-72 hours after a bleeding event with moderate risk, then resume once adequate hemostasis is confirmed[ References 2020 ACC Expert Consensus Decision Pathway on Management of Bleeding in Patients on Oral Anticoagulants: A Report of the [employer] [employer] Solution Set Oversight Committeehttps://doi.org/10.1016/j.jacc.2020.04.053. Junior GF, Negar KW, Eric A, et al. Journal of the [place]. 2020;76(5):594-622. doi:10.1016/j.jacc.2020.04.053. Prescriptions: No Action (DME) COVID TESTING KIT See Rx Instructions .Route .MEDSUPPLY Qty: 4 0RF Rx Instructions: As directed tamsulosin 0.4 mg capsule 0.4 mg PO DAILY Qty: 90 2RF montelukast 10 mg tablet 10 mg PO BEDTIME Qty: 90 3RF rosuvastatin 20 mg tablet 20 mg PO DAILY Qty: 90 1RF fluticasone propionate 50 mcg/actuation spray,suspension 2 spray intranasal DAILY Qty: 48 1RF furosemide 40 mg tablet 40 mg PO DAILY 90 Days Qty: 90 2RF Protocol: Hold for SBP< HOLD for SBP < : 90 amiodarone 200 mg tablet 200 mg PO DAILY Qty: 90 1RF dutasteride 0.5 mg capsule 0.5 mg PO DAILY Qty: 90 2RF trazodone 50 mg tablet 50 mg PO BEDTIME Qty: 90 2RF metoprolol succinate 25 mg tablet extended release 24 hr 25 mg PO DAILY Qty: 90 3RF Eliquis 5 mg tablet 5 mg PO BID 90 Days Qty: 180 3RF multivitamin Tablet 1 tab PO DAILY albuterol sulfate [Ventolin HFA] 90 mcg/actuation HFA aerosol inhaler 2 puff inhalation Q6H PRN (Reason: shortness of breath or wheezing) cholecalciferol (vitamin D3) 25 mcg (1,000 unit) capsule 25 mcg PO DAILY loratadine [Claritin] 10 mg tablet 10 mg PO BEDTIME amlodipine 10 mg tablet 10 mg PO DAILY Qty: 90 3RF Senna Plus 8.6-50 mg capsule 2 tab-cap PO DAILY Qty: 180 2RF diclofenac sodium [Voltaren Arthritis Pain] 1 % gel 4 g topical QID Qty: 350 3RF Rx Instructions: apply to single knee, ankle, foot; for foot includes sole/toes/top of foot docusate sodium [Colace] 100 mg capsule 100 mg PO DAILY Interventions: ED Discharge Assessment Last Done: 09/03/25 23:44 Discharge Date/Time: 09/03/25 23:44 Print Language: Khmer
--- OUTSIDE RECORDS SUMMARY | 2025-09-03 22:38 | XMS_ITS | Clinical Summary ---
Author Organization [facility] Address [address] [place] [address] Phone Care Team Providers Care Trimming Operator Name Role Phone Espinoza Polanco MD Primary Care Provider [phone] Allergies Active Allergy Reactions Criticality Noted Date [...] to complete this topic Insurance [facility] [place] [address] [place] [id number] Medicare Care Teams Trimming Operator Relationship Specialty Start Date End Date Espinoza Polanco MD [address] KIARRA STRINGER PCP - General 09/21/20
--- OUTSIDE RECORDS SUMMARY | 2025-09-03 22:38 | XMS_ITS | Patient Health Record ---
Author Organization [facility] Address [address] [place] [address] Care Team Providers Care Flooring Grader Name Role Phone Mahesh Peralta Unavailable [phone] Reason For Referral No Information Plan Of Treatment No Information
--- OUTSIDE RECORDS SUMMARY | 2025-09-03 22:38 | XMS_ITS | Data Portability ---
Author Organization [facility], [address] Address [address] [place] [address] Care Team Providers Care Network Diagnostic Support Specialist Name Role Phone [facility] Primary Care Provider [phone] Assessment No assessment recorded. Plan of Treatment Reminders Order Date Submit Date Provider Last Modified By Organization Details Last Modified Time Details Appointments None record ed. Lab None record ed. Referral None record ed. Procedures None record ed. Surgeries None record ed. Imaging XR, should er, 2 or more view 023 12/04/19 [facility], [address] [place], [address], 11:25:33 Medication Orders None record ed. Patient TargetsNo targets recorded. Patient Instructions Encounter Date Encounter Id Patient Instructions Last Modified By Organization Details Last Modified Time 12/03/2022 [id number] shoulder pain: care instructions [email or web address] Not available 12/03/2022 09:17:21 Reason for Referral None Reported. Results Created Date Observation Date Name Description Value Unit Range Abnormal Flag Note LastModifiedBy Organization Detail LastModifiedTime 12/04/1912/03/2022 XR, shoul bailee, 2 or more view No observ ation record ed. [email or web address] [facility] [address] [place], [address], 12/03/2022 11:30:22 Result Notes None recorded. Problems Name Problem SNOMED Code Status Onset Date Resolution Date Notes Provider Name and Address Organization Details Recorded Time Hypertensive disorder 16052949 Active 2022 [facility] 03/25/202 3 08:58:41 Hypercholester olemia 67722834 Active 2022 JOSR perkins, [place] - [facility] 3 08:58:49 Atrial fibrillation 24321199 Active 2022 JOSR perkins, [place] - [facility] 3 08:59:09 Benign prostatic hyperplasia 510818064 Active 2022 JOSR perkins, [place] - [facility] 3 08:59:40 Asthma 829145194 Active 2022 JOSR perkins, [place] - [facility] 3 09:00:05 Chronic kidney disease 433257722 Active 2022 JOSR perkins, [place] - [facility] 3 09:00:23 Problem Notes None recorded. Procedures Surgical History Date Name Laterality Status Provider Name and Address Organization Details Recorded Time total replacement of hip completed JOSR GILES PA - [facility] 12/03/2022 09:02:40 Imaging Results None recorded. Procedure Notes None recorded. Medical Equipment None Reported. Allergies Allergen ID Allergen Name Allergen Category Reaction Reaction Severity Criticality Documentation Date Start Date Code Code System Note Provider Name and Address Organization Details Recorded Time 864919 Lipitor medicatio n cough Not available Not available 12/03/2022 53280 5 RxNorm JOSR perkins, [place] - [facility] 3 08:53:56 Medications [...] ) 50 mcg/actuatio n nasal spray,suspen heri Pateros 1 spray every day by intranasal route. [...] (BMI) Body weight Body temperature Oxygen saturation Respiratory rate Heart rate Systolic And Diastolic Provider Name and Address Organization Details Last Updated DateTime 3 172.72 cm 31.2 kg/m2 84746.4 4 g 97 [degF] 97 % 14 /min 43 /min 104/68 mm[Hg] JOSR YOON - [facility] 3 09:04:15 Social History Question Answer Notes LastModified by [employer] Details LastModified Time Tobacco Smoking Status Former Smoker JOSR perkins [place] - [facility] 12/03/2022 09:01:35 When Did You Quit Smoking? 16+yearssinc elastcigaret te [email or web address] Information not available 12/03/2022 Have You Recently Traveled Abroad? No [email or web address] Information not available 12/03/2022 Sex: Unknown Functional Status Question Answer Note LastModified by [employer] Details LastModified Time Do you use any illicit or recreational drugs? No [email or web address] Information not available 12/03/2022 Do you or have you ever used any other forms of tobacco or nicotine? No [email or web address] Information not available 12/03/2022 What is your level of alcohol consumption? None [email or web address] Information not available 12/03/2022 Mental Status None recorded. Family History Relationship Description Onset Age of this Age Resolved Age Notes LastModified by Organization Details LastModified Time Father Hypertensive disorder [email or web address] Not available 2022 09:00:58 Mother Hypertensive disorder Not available 2022 09:00:58 Mother Malignant neoplasm of stomach [email or web address] Not available 2022 09:01:07 Medical History No medical history recorded. Past Encounters Encounter ID Performer Location Encounter Start Date Encounter Closed Date Diagnosis/Indication Diagnosis SNOMED-CT Code Diagnosis ICD10 Code Diagnosis IMO Codes Diagnosis Note [id number] [facility] [address] [phone] 02/26/2021 19:32:23 02/26/2021 19:59:58 [id number] Vipul Luevano DO _[facility] [address] [address] 12/03/2022 08:12:29 12/03/2022 09:44:42 Pain of right shoulder joint [id number] 4392594 M25.511 XRay c/w arthritisd /w him symptomati [...] Musa Member ID Guarantor Name 12/05/2022 1 [place] PPO) [id number] Britton Long [id number] Long 12/05/2022 1 [place] [employer] Britton Long [id number] Britton Long 12/05/2022 2 [place] [id number] Britton Long [id number] Notes Date Note Type Note Provider Name and Address Organization Details Recorded Time 12/03/2022 text/html Shoulder UCReported by [email or web address] yo male c/o L shoulder pain Vipul Luevano, DO [address] [place], [address], [place] - [facility] 12/03/2022 09:35:55
[2025-09-03 23:36] VITALS: BP 139/51; PULSE 70; RESP 18; TEMP 36.5; O2SAT 92
[2025-09-03 23:44] VITALS: BP 139/51; PULSE 70; RESP 18; TEMP 36.5; O2SAT 92
== END 2025-09-03 23:44 | disposition home or self-care (01) ==
PROVIDERS: Emergency Provider Emergency Medicine; PCP Internal Medicine
DX: L76.32 Postprocedural hematoma of skin and subcutaneous tissue following other procedure (principal); Y83.8 Other surgical procedures as the cause of abnormal reaction of the patient, or of later complication, without mention of misadventure at the time of the procedure; Y92.9 Unspecified place or not applicable; R19.03 Right lower quadrant abdominal swelling, mass and lump; R10.31 Right lower quadrant pain; I25.10 Atherosclerotic heart disease of native coronary artery without angina pectoris; I13.0 Hypertensive heart and chronic kidney disease with heart failure and stage 1 through stage 4 chronic kidney disease, or unspecified chronic kidney disease; N18.9 Chronic kidney disease, unspecified; I50.32 Chronic diastolic (congestive) heart failure; I48.0 Paroxysmal atrial fibrillation; Z79.01 Long term (current) use of anticoagulants
CPT/HCPCS: 93926; 99283